=== PATIENT | female | born 1935 | race Caucasian/White ===

== ENCOUNTER 2021-08-03 08:23 | Outpatient (CLI) | payer MEDICARE, SELFPAY ==
--- NOTE | ~2021-08-03 | MM_ITS ---
EXAMINATION: MM screening [facility] BI w joel HISTORY: Screening TECHNIQUE: Craniocaudal and mediolateral oblique 3-D tomosynthesis images were obtained and synthetic 2-D images were generated. CAD analysis was submitted and interpreted. COMPARISON: Comparison to multiple prior studies sequentially, with oldest reviewed study dated 08/2014. BREAST PARENCHYMAL COMPOSITION: There are scattered areas of fibroglandular density. FINDINGS: There is no evidence of suspicious mass, calcification, or architectural distortion to sugg est malignancy in either breast. There has been no suspicious interval change. IMPRESSION: 1. No mammographic evidence of malignancy. 2. Recommend routine screening mammography in one year. BI-RADS Category 1: Negative Reviewed, dictated and finalized at location A.
== END 2021-08-03 08:24 | disposition home or self-care (01) ==
PROVIDERS: PCP Family Medicine; Visit Provider Student in an Organized Health Care Education/Training Program
DX: Z12.31 Encounter for screening mammogram for malignant neoplasm of breast (principal)
CPT/HCPCS: 77063; 77067

== ENCOUNTER 2021-11-05 12:27 | Emergency (ER) | payer MEDICARE, SELFPAY ==
[2021-11-05 12:38] VITALS: BP 148/85; PULSE 62; RESP 16; TEMP 36.7; O2SAT 98
--- NOTE | 2021-11-05 13:21 | ED.URI ---
HPI - URI/Sore Throat General Chief Complaint: Upper Respiratory Infection Stated Complaint: Sore Throat Source: patient Mode of arrival: ambulatory Limitations: no limitations History of Present Illness HPI Narrative: Patient is an 86-year-old female who presents with sore throat x1 day. She reports pain of 7/10. Reports Covid vaccinated. She denies cough, congestion, shortness of breath or fever. Patient was concerned for strep throat. Denies recent sick contacts. Related Data Home Medications Medication Instructions Recorded Confirmed diltiazem HCl 180 mg capsule,24 180 mg PO DAILY 10/15/19 11/05/21 hr,extended release potassium chloride 20 mEq 20 meq PO DAILY 10/15/19 11/05/21 tablet,extended release rivaroxaban 15 mg tablet 15 mg PO DAILY 10/15/19 11/05/21 cyanocobalamin (vitamin B-12) 1,000 mcg PO DAILY 07/04/20 11/05/21 1,000 mcg tablet,extended release ferrous sulfate 325 mg (65 mg 325 mg PO DAILY 07/04/20 11/05/21 iron) tablet omega-3 fatty acids 1,000 mg 1,000 mg PO DAILY 07/04/20 11/05/21 capsule cholecalciferol (vitamin D3) 25 25 mcg PO DAILY 09/14/20 11/05/21 mcg (1,000 unit) capsule docusate sodium 50 mg capsule 50 mg PO DAILY 09/14/20 11/05/21 multivitamin 1 tablet PO DAILY 09/14/20 11/05/21 propylene glycol 0.6 % eye drops 1 drp OPHTHALMIC (EYE) QID 09/14/20 11/05/21 calcium carbonate 500 mg calcium 500 mg PO BID 02/13/21 11/05/21 (1,250 mg) chewable tablet Allergies Allergy/AdvReac Type Severity Reaction Status Date / Time No Known Allergies Allergy Verified 11/05/21 12:52 Review of Systems Review of Systems: CONSTITUTIONAL: Denies fever, chills, or sweats. EYES: Denies visual changes, redness, or discharge. ENT: Reports sore throat, denies rhinorrhea, congestion or otalgia CARDIOVASCULAR: Denies chest pain, palpitations, or edema. RESPIRATORY: Denies cough or dyspnea. GASTROINTESTINAL: Denies abdominal pain, nausea, vomiting, or diarrhea. GENITOURINARY: Denies dysuria or hematuria. SKIN: Denies rash or itching. MUSCULOSKELETAL: Denies back pain, joint pain, or myalgia. NEUROLOGIC: Denies headache, numbness, dizziness, or weakness. PSYCHIATRIC: Denies anxiety or depression. 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kin cancer Tricuspid valve regurgitation Urinary frequency UTI (urinary tract infection) Vitamin B12 deficiency anemia Vitamin D deficiency, unspecified Surgical History Surgical History H/O bilateral oophorectomy History of breast biopsy History of cholecystectomy History of colon resection History of knee surgery History of partial hysterectomy Family History Family History Mother Hypertension, Onset Age: 90 Family history of cardiovascular disease, Onset Age: 90 Father Carcinoma of colon, Onset Age: 62 Grandparent Family history of malignant neoplasm of breast in first degree relative, Onset Age: 64 Cerebrovascular accident, Onset Age: 82 Family history of malignant neoplasm of breast Social History Social History Smoking status: Never smoker Second hand tobacco smoke exposure: No Alcohol intake: never Comments At the time of signature, I have reviewed and agree with nursing past medical, surgical, social, and family history unless otherwise noted. Please see nursing chart for further information. There is no relevant family history pertinent to the presenting complaint. Exam Narrative: GENERAL: Well-appearin
== END 2021-11-05 13:40 | disposition home or self-care (01) ==
PROVIDERS: Emergency Provider Nurse Practitioner
DX: J02.9 Acute pharyngitis, unspecified (principal); J06.9 Acute upper respiratory infection, unspecified; I10 Essential (primary) hypertension; E53.8 Deficiency of other specified B group vitamins; E55.9 Vitamin D deficiency, unspecified; Z85.828 Personal history of other malignant neoplasm of skin; Z90.711 Acquired absence of uterus with remaining cervical stump; I08.1 Rheumatic disorders of both mitral and tricuspid valves
CPT/HCPCS: 87081; 87880; 99213; G0463

== ENCOUNTER 2021-12-25 15:26 | Emergency (ER) | payer MEDICARE, SELFPAY ==
--- NOTE | ~2021-12-25 | XR_ITS ---
XR chest 2V 12/25/2021 15:50 Indication: Chest pain Procedure: 2 view chest Comparison: Comparison to multiple prior studies sequentially, with oldest reviewed study dated 09/02. Findings: Large hiatal hernia. Borderline heart size. There is left basilar atelectasis. No focal pne umonia, edema, pleural effusion or pneumothorax. No acute osseous abnormality. Impression: 1: No acute cardiopulmonary disease. 2: Large hiatal hernia. Reviewed, dictated and finalized at location B. C BOOK WRITER Impression: 1: No acute cardiopulmonary disease. 2: Large hiatal hernia.
[2021-12-25 15:28] VITALS: BP 119/70; PULSE 106; RESP 16; TEMP 36.6; O2SAT 97
--- NOTE | 2021-12-25 15:30 | ECG_ITS ---
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
[2021-12-25 15:51] LABS: Basophils Percent Auto 0.6 % (0.2-1.2); Eosinophils Absolute Auto 0.1 K/mm3 (0-0.3); Eosinophils Percent Auto 1.1 % (0-4.4); Hemoglobin 13.8 g/dL (12.0-15.0); Immature Granulocyte Absolute 0.03 K/mm3 (0.00-0.031); Immature Granulocyte Percent A 0.5 % (0-0.5); Lymphocytes Absolute Auto 1.44 K/mm3 (0.9-3.2); Mean Corpuscular HGB Conc 32.9 g/dl (32-36); Mean Corpuscular Hemoglobin 33.5 pg (26-34); Mean Corpuscular Volume 101.9 fl (80-100); Mean Platelet Volume 8.8 fl (7.4-10.4); Monocytes Absolute Auto 0.4 K/mm3 (0.1-0.6); Monocytes Percent Auto 6.9 % (2.6-8.5); Neutrophils Absolute Auto 4.3 K/mm3 (1.3-6.7); Neutrophils Percent Auto 67.9 % (45.5-73.1); Platelet Count Result 180 k/mm3 (150-375); Red Blood Count 4.12 M/mm3 (4.2-5.4); Red Cell Distribution Width 13.2 % (11.5-14.5); White Blood Count 6.3 K/mm3 (4.5-10.0)
[2021-12-25 15:58] LABS: Alanine Aminotransferase 17 U/L (4-35); Albumin Level 4.7 g/dL (3.5-5.1); Alkaline Phosphatase 76 U/L (38-126); Anion Gap 7 mmol/L (8-16); Aspartate Amino Transferase 26 U/L (14-36); Bilirubin,Total 0.4 mg/dL (0.2-1.3); Blood Urea Nitrogen 23 mg/dL (7-17); Calcium 9.6 mg/dL (8.4-10.2); Carbon Dioxide 24 mmol/L (22-30); Chloride 105 mmol/L (98-107); Estimated CRCL calculation 31 ml/min; Estimated Glomerular Filt Rate 43; Glucose 114 mg/dL (65-110); INR 1.4; Lipase 131 U/L (23-300); Potassium 4.9 mmol/L (3.4-5.0); Prothrombin Time 17.2 Seconds (11.1-14.7); Sodium 136 mmol/L (137-145)
[2021-12-25 15:59] LABS: Partial Thromboplastin Time 35.2 SECONDS (22.3-36.8)
[2021-12-25 16:10] LABS: Troponin I < 0.012 ng/mL (0.000-0.034)
[2021-12-25 19:46] VITALS: BP 138/64; PULSE 98; TEMP 36.3; O2SAT 98
[2021-12-25 20:30] LABS: Troponin I < 0.012 ng/mL (0.000-0.034)
[2021-12-25 22:13] LABS: Troponin I < 0.012 ng/mL (0.000-0.034)
[2021-12-25 23:24] VITALS: BP 162/99; PULSE 92; RESP 20; O2SAT 98
--- NOTE | 2021-12-25 23:53 | ED.CHESTPAIN ---
HPI - Chest Pain General Chief Complaint: Chest Pain Stated Complaint: chest pain Time Seen by Provider: 12/25/21 22:46 Source: patient and family Mode of arrival: ambulatory Limitations: no limitations History of Present Illness HPI narrative: 86-year-old female History of chronic atrial fibrillation but no history of coronary artery disease Follows with Dr. Ariza Came to the ED today because she had chest pain last night and again late this morning She reported that last night the pain started when she was lying down on her left side and that she rolled over and it promptly resolved Today she started noticing a tightness or heaviness also in the left side of her chest around 10 AM, not aware of anything that brought it on or cause it to become better or worse Does not radiate and there are no associated symptoms such as shortness of breath lightheadedness diaphoresis or nausea However even some 12 hours after onset she still has some lingering discomfort Due to boarding in overcrowding she actually had 3 troponins drawn sent and resulted while she was still in the waiting room and they were all normal Related Data Home Medications Medication Instructions Recorded Confirmed diltiazem HCl 180 mg capsule,24 180 mg PO DAILY 10/15/19 11/05/21 hr,extended release potassium chloride 20 mEq 20 meq PO DAILY 10/15/19 11/05/21 tablet,extended release rivaroxaban 15 mg tablet 15 mg PO DAILY 10/15/19 11/05/21 cyanocobalamin (vitamin B-12) 1,000 mcg PO DAILY 07/04/20 11/05/21 1,000 mcg tablet,extended release ferrous sulfate 325 mg (65 mg 325 mg PO DAILY 07/04/20 11/05/21 iron) tablet omega-3 fatty acids 1,000 mg 1,000 mg PO DAILY 07/04/20 11/05/21 capsule cholecalciferol (vitamin D3) 25 25 mcg PO DAILY 09/14/20 11/05/21 mcg (1,000 unit) capsule docusate sodium 50 mg capsule 50 mg PO DAILY 09/14/20 11/05/21 multivitamin 1 tablet PO DAILY 09/14/20 11/05/21 propylene glycol 0.6 % eye drops 1 drp OPHTHALMIC (EYE) QID 09/14/20 11/05/21 calcium carbonate 500 mg calcium 500 mg PO BID 02/13/21 11/05/21 (1,250 mg) chewable tablet Allergies Allergy/AdvReac Type Severity Reaction Status Date / Time No Known Allergies Allergy Verified 12/25/21 23:27 Review of Systems Review of Systems: All systems reviewed & are unremarkable except as noted in HPI and below Constitutional: Constitutional: Reports no additional constitutional complaints, Denies chills, Denies fever(s) and Denies headache(s) Eyes: Eyes: Reports no additional eye complaints and Denies change in vision ENT: Denies headache(s) and Denies sore throat Cardiovascular: Cardiovascular: Reports chest pain, Denies radiating jaw, neck or arm pain and Denies dyspnea Respiratory: Respiratory: Denies cough and Denies dyspnea Gastrointestinal: Gastrointestinal: Denies nausea and Denies vomiting Genitourinary: Genitourinary: Denies urinary frequency Musculoskeletal: Musculoskeletal: Denies back pain, Denies deformity, Denies arthralgias, Denies joint swelling and Denies numbness Integumentary/Breasts: Skin/Breast: Denies rash and Denies wounds Neurologic: Denies headache(s), Denies focal weakness and Denies numbness Psychiatric: Psychiatric: Reports no additional psychiatric complaints Endocrine: Endocrine: Reports no additional endocrine complaints Hematologic/Lymphatic: Hematologic/Lymphatic: Reports no additional hematologic/lymphatic complaints Allergic/Immunologic: Allergic/Immunologic: Reports no additional allergic/immunologic complaints PMFSH Past Medical History Medical History Abnormality of gait and mobility Acute non-recurrent maxillary sinusitis At high risk for falls Atrial enlargement, 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
[2021-12-26] MEDS: MAG HYDROX/AL HYDROX/SIMETH 30 ML UDC 45 ML PO (00:23)
[2021-12-26 00:47] VITALS: BP 168/99; PULSE 91; RESP 18; O2SAT 100
== END 2021-12-26 00:47 | disposition home or self-care (01) ==
PROVIDERS: Emergency Medicine; Emergency Provider Emergency Medicine; PCP Family Medicine
DX: I48.20 Chronic atrial fibrillation, unspecified (principal); R07.9 Chest pain, unspecified; I10 Essential (primary) hypertension; I08.1 Rheumatic disorders of both mitral and tricuspid valves; D51.9 Vitamin B12 deficiency anemia, unspecified; E55.9 Vitamin D deficiency, unspecified; Z87.440 Personal history of urinary (tract) infections; Z85.828 Personal history of other malignant neoplasm of skin; Z90.49 Acquired absence of other specified parts of digestive tract; Z79.01 Long term (current) use of anticoagulants; K44.9 Diaphragmatic hernia without obstruction or gangrene; I45.10 Unspecified right bundle-branch block; R94.31 Abnormal electrocardiogram [ECG] [EKG]
CPT/HCPCS: 36415; 71046; 80053; 83690; 84484; 85025; 85610; 85730; 93005; 99284; A9270

== ENCOUNTER 2025-06-22 21:19 | Emergency (ER) | payer MEDICARE, SELFPAY ==
--- NOTE | ~2025-06-22 | XR_ITS ---
EXAMINATION: XR chest 1V portable Exam Date/Time: 06/22/2025 21:40 CDT HISTORY: CP Comparison: 12/25/2021. RESULT: Lines, tubes, and devices: None. Lungs and pleura: Left basilar airspace disease. Cardiomediastinal silhouette: Stable. Large hiatal hernia. Other: No acute osseous or upper abdominal finding. IMPRESSION: Large hiatal hernia. Left basilar atelectasis/consolidation. Reviewed, dictated and finalized at location K.
--- NOTE | ~2025-06-22 | CT_ITS ---
EXAMINATION: CTA chest PE protocol DATE: 06/23/2025 6:26 CDT INDICATION: Chest pain. Elevated d-dimer. TECHNIQUE: Computed tomographic angiography (CTA) of the chest was performed with 100 mL Omnipaque-35 0 intravenous contrast. The dose-length product was 244.68 mGy-cm. Maximum intensity projection 3D-re constructions of the aorta and other arteries were constructed by the technologist on a separate work station. COMPARISON: None. FINDINGS: There is dependent atelectasis. Cannot exclude superimposed pneumonia in the left lower lob e. Moderate cardiomegaly. No evidence for aortic aneurysm or dissection. There is mild stenosis at th e origin of the left subclavian artery. No thoracic lymphadenopathy. Elevated left diaphragm. There i s a burst fracture. L1 with retropulsion. There are old healed sternal fractures. There is moderate t horacic and lumbar upper lumbar spondylosis. IMPRESSION: 1. No evidence for pulmonary embolism. 2: Dependent atelectasis. More focal consolidation in the left lower lobe is present, suspicious for underlying pneumonia. 3: Moderate cardiomegaly. 4: L1 burst fracture, likely chronic. Reviewed, dictated and finalized at location A. IMPRESSION: 1. No evidence for pulmonary embolism. 2: Dependent atelectasis. More focal consolidation in the left lower lobe is p resent, suspicious for underlying pneumonia. 3: Moderate cardiomegaly. 4: L1 burst fracture, likely chronic.
--- NOTE | 2025-06-22 21:22 | ECG_ITS ---
Test Date: 2025-06-22 21:27:01 Measurements Intervals [place] Rate: 91 P: 0 MS: 0 QRS: -35 QRSD: 102 T: 7 QT: 349 QTc: 431 Interpretive Statements ATRIAL FIBRILLATION LEFT AXIS DEVIATION [QRS AXIS < -30] ABNORMAL ECG No previous ECG available for comparison Electronically Signed On 06-23-2025 10:02:52 CDT by Dylan Quan M.D.
[2025-06-22 21:23] VITALS: BP 134/77; PULSE 100; RESP 19; TEMP 36.7; O2SAT 94
--- OUTSIDE RECORDS SUMMARY | 2025-06-22 21:52 | XMS_ITS | Continuity of Care Document ---
Author Organization [facility] Address [address] [place] [address] [address] [place] [address] Phone Care Team Providers Care Fire Equipment Operator Name Role Phone Sherie Howard Unavailable Unavailable Procedures Procedure Date Office/outpatient Visit, Est Eye Exam, New Patient Refraction Advance Directives Directive Yes / No Effective Date File Name No Information Encounters Encounter Description Practice Location Reason(s) For Visit Diagnoses Date Provider Providers Copied on Encounter Office/outpat ient Visit, Est [facility], [address] [place], [place], [id number], [place] tel:[phone] SEC [facility] No Information [phone] Anita Baumann. [address] , [address], [place], [address], [place]. tel:[phone] [facility], [address] [place] [address] [address], [place], [place], [id number], [place] tel:[phone] SEC [facility] No Information 0-200 9 Anita Baumann. [address] , [address], [place], [address], [place]. tel:[phone] Family History Family Member Type Diagnosis Age At Onset No Information Payers Payer name Insurance type Covered green party ID Authoriza tion(s) Medicare [facility] [id number] [place] [employer] [place] [id number] Social History Type Description Quantity Date Captured Comments Sex Female Smoking Status No Information Chief Complaint And Reason For Visit No Information Reason For Referral Reason For Referral No Information History Of Present Illness Encounter Date Complaint History Of Prese nt Illness No Information Functional Status Date Functional Assessmen t No Information Instructions Date Instruction Additional Infor mation No Information Assessments Type Assessment Date No Information Patient Care Teams Name Effective Dates (start - stop) Status Members No Information
--- OUTSIDE RECORDS SUMMARY | 2025-06-22 21:52 | XMS_ITS | Encounter Summary ---
Author Organization [facility] Address [address] [place] [address] Care Team Providers Care Cordage Sales Representative Name Role Phone Patricio Travis MD Primary Care Provider [phone] Patricio Travis MD Primary Care Provider [phone] Encounter Details Date Type Department Care Team (Late st Contact Info) Description 01/11/2017 Orders Only [facility] ProviderJuancarlos MD [address] [place] [id number] Social History Tobacco Use Types Packs/Day Years Used Date Smoking Tobacco: Never Alcohol Use Standard Drinks/Week Comments No 0 (1 standard drink = 0.6 oz pur e alcohol) Comments Unknown Sex and Gender Information Value Date Recorded Sex Assigned at Not on file Legal 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 Historical Provider [facility] RAD[facility] ROJAS Final Result documented in this encounter Visit Diagnoses Not on filedocumented in this encounter Care Teams Cordage Sales Representative Relationship Specialty Start Date End Date Patricio Travis MD [address] [address] PCP - General 03/01/17 Patricio Travis MD [address] [address] PCP - General 01/08/17 02/28/17 documented as of this encounter
--- OUTSIDE RECORDS SUMMARY | 2025-06-22 21:52 | XMS_ITS | Data Portability ---
Author Organization [place] - [facility], Main Office Address [address] [place] [address] Care Team Providers Care Doggy Daycare Activities Director Name Role Phone VIRGIL MCDERMOTT Primary Care Provider VIRGIL MCDERMOTT Referring Provider Assessment Encounter Date Assessment Date Assessment LastModified by Organization Details LastModified Time 05/12/2024 05/12/2024 The patient has severe primary osteoarthritis both knees as described. At her request under sterile conditions I injected the patient's bilateral knee joints in the office with 4 cc 0.5% Marcaine and 20 mg of Kenalog each. The patient tolerated the procedures well. We will see her again in 3 months if necessary she typically does very well with cortisone. She voiced understanding and agrees with the above plan she will call for any further problems difficulties or questions. Not available 05/12/2024 16:55:10 08/11/2024 08/11/2024 By today's x-ray exam the patient is noted have severe tricompartmental osteoarthritis both knees. Overall x-rays show no significant progression of the osteoarthritis compared to x-rays done more than a year ago. At her request under sterile conditions I injected both knee joints in the office today with 4 cc of 0.5% bupivacaine and 20 mg of Kenalog. Patient tolerated procedure well I will see her back in 3 months for cortisone again if necessary she voiced understanding agrees above plan she will call for any further problems difficulties or questions. Not available 08/11/2024 16:19:28 11/10/2024 11/10/2024 The patient has severe primary osteoarthritis both knee joints as described. Under sterile conditions at her request I injected the patient's bilateral knee joints in the office with 4 cc 0.5% bupivacaine and 20 mg of Kenalog each. The patient tolerated the procedures well. I will see her back in 3 months if necessary she voiced understanding and agreed with the above plan she will call for any further problems difficulties or questions. Not available 11/10/2024 16:12:05 02/09/2025 02/09/2025 The patient has severe bilateral primary osteoarthritis of the knees. We talked about treatment options she wanted proceed with cortisone therefore under sterile conditions I injected the patient's bilateral knee joints in the office with 4 cc of 0.5% bupivacaine and 20 mg of Kenalog each. The patient tolerated both injections well. I will see her back in 3 months if she wants to try the gel shots we could do this next time she is going to think about it she was given a brochure on this today. She will call us ahead of time if she wants to do that. She voiced understanding and agreed with the above plan she will call for any further problems difficulties or questions. Not available 02/09/2025 16:26:19 05/18/2025 05/18/2025 The patient has severe tricompartmental bilateral knee primary osteoarthritis. At her request under sterile conditions I injected both knee joints in the office today with 4 cc of 0.5% bupivacaine and 20 mg of Kenalog each. The patient tolerated both injections well. I will see her back in 3 months if necessary she voiced understanding and agreed with the above plan she will call for any further problems difficulties or questions. Not available 05/18/2025 16:18:49 Plan of Treatment Reminders Order Date Submit Date Provider Last Modified By Organization Details Last Modified Time Details Appointments Any 5 2024 02:45P MINNIE Van Not available Not available Not available Lab None recorded. Referral None recorded. Procedures injection /aspirati on joint/bur sa (PROC) 2024 025 [email or web address] In-Office Order, Internal Use Only DO Not Attach Compendium DO Not Attach Compendium, Do Not Delete/merge, [id number] 05/18/2025 16:00:13 injection /aspirati on joint/bur sa (PROC) 2024 025 [email or web address] In-Office Order, Internal Use Only DO Not Attach Compendium DO Not Attach Compendium, Do Not Delete/merge, [id number] 02/09/2025 15:38:21 injection /aspirati on joint/bur sa (PROC) 2023 024 [email or web address] In-Office Order, Internal Use Only DO Not Attach Compendium DO Not Attach Compendium, Do Not Delete/merge, [id number] 11/10/2024 15:35:13 injection /aspirati on joint/bur sa (PROC) 2023 024 [email or web address] In-Office Order, Internal Use Only DO Not Attach Compendium DO Not Attach Compendium, Do Not Delete/merge, [id number] 08/11/2024 15:40:25 injection /aspirati on joint/bur sa (PROC) - in office procedure , administe red by provider 2023 024 [email or web address] In-Office Order, Internal Use Only DO Not Attach Compendium DO Not Attach Compendium, Do Not Delete/merge, [id number] 05/12/2024 16:03:16 Surgeries None recorded. Imaging XR, knee 2023 024 [email or web address] [facility] [place], [address] [facility] [address], [place], [address], 08/11/2024 17:07:02 Medication Orders bupivacai ne HCl 0.5 % (5 mg/mL) injection solution 2024 025 [email or web address] [facility] [place] [address], [place], [address], 05/18/2025 16:52:24 Kenalog 10 mg/mL suspensio n for injection 2024 025 [email or web address] [facility] [place] [address], [place], [address], 05/18/2025 16:52:24 bupivacai ne HCl 0.5 % (5 mg/mL) injection solution 2024 [address] [facility] [place] [address], [place], [address], 02/09/2025 15:42:51 Kenalog 10 mg/mL suspensio n for injection [address] [facility] [place] [address], [place], [address], 02/09/2025 15:42:51 bupivacai ne HCl 0.5 % (5 mg/mL) injection solution [address] [facility] [place] [address], [place], [address], 11/10/2024 16:12:23 Kenalog 10 mg/mL suspensio n for injection [address] [facility] [place] [address], [place], [address], 11/10/2024 16:12:23 bupivacai ne HCl 0.5 % (5 mg/mL) injection solution [address] [facility] [place] [address], [place], [address], 08/11/2024 17:07:02 Kenalog 10 mg/mL suspensio n for injection [address] [facility] [place] [address], [place], [address], 08/11/2024 17:07:02 Kenalog 10 mg/mL suspensio n for injection [address] [facility] [place] [address], [place], [address], 05/12/2024 16:52:00 Marcaine (PF) 0.5 % (5 mg/mL) injection solution 2023 024 [email or web address] [facility] [place] [address], [place], [address], 05/12/2024 16:52:00 Patient TargetsNo targets recorded. Patient InstructionsNo instructions recorded. Reason for Referral None Reported. Results Created Date Observation Date Name Description Value Unit Range Abnormal Flag Note LastModifiedBy Organization Detail LastModifiedTime 08/11/20 24 XR, knee No observ ation record ed. [email or web address] [facility] [place] [address], [place], [address], 08/11/2024 16:20:09 Result Notes None recorded. 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 76612990 Active Not Available [facility] 3 02:50:27 Bilateral osteoarthr itis of knees 0481052086463 07 Active 2022 JUDY Michelle, [employer] [facility] [employer] 3 15:56:01 Bilateral shoulder joint pain 3596492505762 9104 Active 2022 SATISH Rucker, [employer] 3 15:40:53 Pain of bilateral knee joints 5466367198420 04 Active 2023 MINNIE Talamantes [address], [place], [address] , [facility] [place] [facility] 4 16:25:48 Pain of knee region 7539045252 Active 2024 MINNIE Talamantes [address], [address], [place], [address] , [facility] [employer] [facility] 5 16:18:58 Problem Notes None recorded. Procedures Surgical History Date Name Laterality Status Provider Name and Address Organization Details Recorded Time 03/12/20 23 Ortho - Visc completed Blayne Howe MD [address], [place], [address], [facility] [employer] [facility] [employer] [facility] 03/12/2023 15:50:22 03/05/20 23 Ortho - Visc completed Blayne Howe MD [address] [facility] [facility], [address], [place], [address], [facility] [employer] [facility] [employer] [facility] 03/05/2023 16:14:00 02/27/20 23 Ortho - Visc completed Blayne Howe MD [address], [place] [address], [place], [address], [facility] [employer] [facility] 02/26/2023 16:06:02 Hysterectomy completed Lisa Narvaez [facility] [employer] [facility] 05/12/2024 16:00:45 Gallbladder Surgery completed Lisa Solange, [facility] [employer] [facility] 05/12/2024 16:00:10 Hernia Surgery completed Not Available [employer] [facility] 01/30/2023 02:44:34 Colon Surgery completed Lisa Narvaez [facility] [employer] [facility] 05/12/2024 16:00:03 Imaging Results None recorded. Procedure Notes None recorded. Medical Equipment None Reported. Allergies No known drug allergies Medications Name Sig Start Date Stop Date Status Note LastModified by Organization Details LastModified Time cyclobenzap rine 10 mg tablet 10/05 completed Not Available Not Available Not Available budesonide 32 mcg/actuati on nasal spray active Not Available Not Available Not Available potassium chloride ER 10 mEq capsule,ext ended release 02/08 completed Not Available Not Available Not Available prednisone 10 mg tablet 10/05 completed Not Available Not Available Not Available diltiazem ER (XR/XT) 240 mg capsule,ext ended release 24 hr, controlled active Not Available Not Available N ot Available bupivacaine HCl 0.5 % (5 mg/mL) injection solution Take 8 mL by injection route. 2024 active Not Available Not Available Not Avai lable prednisone 20 mg tablet 05/12 completed Not Available Not Available Not Available potassium chloride ER 10 mEq tablet,exte nded release active Not Available Not Available Not Available ciprofloxac in 500 mg tablet TAKE ONE TABLET BY MOUTH EVERY TWELVE HOURS 02/26 completed Not Available Not Available Not Available tramadol 50 mg tablet TAKE ONE TABLET BY MOUTH THREE TIMES A DAY NEEDED PAIN active Not Available Not Available No t Available terbinafine HCl 250 mg tablet 10/05 completed Not Available Not Available Not Available potassium chloride ER 20 mEq tablet,exte nded release(par t/cryst) active Not Available Not Available Not Available prednisolon e acetate 1 % eye drops,suspe nsion 10/05 completed Not Available Not Available Not Available imiquimod 5 % topical cream packet 10/05 completed Not Available Not Available Not Available Kenalog 10 mg/mL suspension for injection Take 4 mL by injection route. 2024 active [facility]: 0003- 0494- 20 Not Available Not Available Not Available hydrocodone 7.5 mg-acetamin ophen 325 mg tablet 10/05 completed Not Available Not Available Not Available cephalexin 500 mg capsule 02/26 completed Not Available Not Available Not Available erythromyci n 5 mg/gram (0.5 %) eye ointment 05/02 completed Not Available Not Available Not Available oseltamivir 75 mg capsule 02/26 completed Not Available Not Available Not Available tobramycin 0.3 % eye drops 10/05 completed Not Available Not Available Not Available furosemide 20 mg tablet active Not Available Not Available Not Available estradiol 0.01% (0.1 mg/gram) vaginal cream 02/26 completed Not Available Not Available Not Available lisinopril 40 mg tablet active Not Available Not Available Not Available cefdinir 300 mg capsule TAKE ONE CAPSULE BY MOUTH EVERY TWELVE HOURS 02/26 completed Not Available Not Available Not Available fluticasone propionate 50 mcg/actuati on nasal spray,suspe nsion SPRAY 1 SPRAY IN EACH NOSTRIL TWO TIMES A DAY 02/08 completed Not Available Not Available Not Available diltiazem ER (XR/XT) 180 mg capsule,ext ended release 24 hr, controlled Take 1 capsule every day by oral route. 02/26 completed Not Available Not Available Not Available amoxicillin 500 mg-potsimoneu m clavulanate 125 mg tablet active Not Available Not Available Not Available neomycin 3.5 mg/g-polymy blaise B 10,000 unit/g-dexa meth 0.1 % eye oint 10/05 completed Not Available Not Available Not Available Marcaine (PF) 0.5 % (5 mg/mL) injection solution Take 40 mg by injection route. 2023 active Not Available Not Available Not Avai lable ORTHOVISC 30 mg/2 mL intra-artic ular syringe in office 05/12 completed [facility] [phone] -[phone] Not Available Not Available Not Available nitrofurant oin monohydrate /macrocryst als 100 mg capsule TAKE ONE CAPSULE BY MOUTH EVERY TWELVE HOURS FOR 5 DAYS MUST ADMINISTE R WITH A MEAL/FOOD 02/26 completed Not Available Not Available Not Available potassium 05/12 completed Not Available Not Available Not Available lidocaine (PF) 10 mg/mL (1 %) injection solution In office injection administe red by the provider 02/26 completed [facility]: [phone] [phone]- 17 Not Available Not Available Not Available lidocaine (PF) 5 mg/mL (0.5 %) injection solution Take 60 mg by injection route. 02/26 completed Not Available Not Available Not Available Prevnar 13 (PF) 0.5 mL intramuscul ar syringe ADM 0.5ML IM UTD 10/05 completed Not Available Not Available Not Available ropivacaine (PF) 5 mg/mL (0.5 %) injection solution Take 40 mg by injection route. 05/12 completed [facility] 91791 -[phone] 01 Not Available Not Available Not Available Xarelto 15 mg tablet Take 1 tablet every day by oral route. active Not Available Not Available No t Available Ilevro 0.3 % eye drops,suspe nsion 10/05 completed Not Available Not Available Not Available Fluzone High-Dose 1826-0967 (PF) 180 mcg/0.5 mL intramuscul ar syringe ADM 0.5ML IM UTD 02/08 completed Not Available Not Available Not Available Shingrix (PF) 50 mcg/0.5 mL intramuscul ar suspension, kit 02/08 completed Not Available Not Available Not Available Fluad 2019- 65yr up(PF)45 mcg(15 mcgx3)/0.5 mL intramuscul ar syringe PER PROTOCOL 05/02 completed Not Available Not Available Not Available Vitals Date Recorded Body height Body mass index (BMI) Body weight Provider Name and Address Organization Details Last Updated DateTime 02/09/2025 160.02 cm 28 kg/m2 91138.59 g Sangeeta Gonzales [employer] 02/09/2025 15:37:05 Date Recorded Body height Body mass index (BMI) Body weight Provider Name and Address Organization Details Last Updated DateTime 05/12/2024 162.56 cm 27.1 kg/m2 87059.59 g Lisa Solange, [employer] 05/12/2024 15:56:42 Date Recorded Body height Body mass index (BMI) Body weight Provider Name and Address Organization Details Last Updated DateTime 05/18/2025 160.02 cm 27.1 kg/m2 05428.63 g Sangeeta Gonzales [employer] 05/18/2025 15:52:45 Date Recorded Body height Body mass index (BMI) Body weight Provider Name and Address Organization Details Last Updated DateTime 08/11/2024 162.56 cm 27.3 kg/m2 50770.19 g Lisa SolangeSilMachA [employer] 08/11/2024 15:38:46 Date Recorded Body height Body mass index (BMI) Body weight Provider Name and Address Organization Details Last Updated DateTime 11/10/2024 160.02 cm 28.7 kg/m2 76707.96 g Lisa WikibonA [employer] 11/10/2024 15:33:29 Social History Question Answer Notes LastModified by Organizat ion Details LastModified Time Tobacco Smoking Status Never Smoker Not Available [employer] 01/30/2023 02:29:59 What Was The Date Of Your Most Recent Tobacco Screening? 05/18/2025 Information not available 05/18/2025 Sex: Unknown Functional Status Question Answer Note LastModified by Organizat ion Details LastModified Time What is your level of alcohol consumption? None [id number] Information not available 01/30/2023 Mental Status None recorded. Family History Relationship Description Onset Age of this Age Resolved Age Notes LastModified by Organization Details LastModified Time Mother Heart disease [email or web address] Not available 2023 15:58:42 Father Family history of malignant neoplasm [email or web address] Not available 2023 15:58:47 Unspecified Relation Hypertensive disorder [id number] Not available 01/30/2023 02:44:35 Unspecified Relation Arthritis father 's side of the family [email or web address] Not available 05/12/2024 15:59:28 Notes:Mother and brother - h eart Medical History Condition Response CANCER: SPECIFY Y ARTHRITIS Y USE OF BLOOD THINNERS Y ANEMIA/BLOOD DISORDER Y SKIN PROBLEMS Y HEART DISEASE/HEART PROBLEMS Y OSTEOPOROSIS Y USE OF NSAIDS Y HYPERTENSION Y Gynecological HistoryNo gynecological history recorded. Obstetrics History GPAL:G 0 P 0 0 0 0 Past Encounters Encounter ID Performer Location Encounter Start Date Encounter Closed Date Diagnosis/Indication Diagnosis SNOMED-CT Code Diagnosis ICD10 Code Diagnosis Note [id number] MINNIE Talamantes [facility] [address] [place] [address] 02/09/2021 00:00:00 02/09/2021 09:41:26 [id number] MINNIE Talamantes [facility] [address] [place] [address] 05/11/2021 00:00:00 05/11/2021 09:24:55 [id number] MINNIE Talamantes [facility] [address] [place] [address] 08/10/2021 00:00:00 08/10/2021 09:16:21 [id number] Blayne Howe MD [facility] [address] [place] [address] 11/09/2021 00:00:00 11/09/2021 09:29:41 [id number] Blayne Howe MD [facility] [address] [place] [address] 02/08/2022 00:00:00 02/08/2022 11:46:24 [id number] Blayne Howe MD [facility] [address] [place] [address] 05/18/2022 00:00:00 05/18/2022 14:39:00 [id number] Elito Verde MD [facility] [address] [place] [address] 08/21/2022 00:00:00 08/21/2022 16:03:22 [id number] Blayne Howe MD [facility] [address] [place] [address] 11/27/2022 00:00:00 11/27/2022 15:41:20 [id number] Blayne Howe MD [facility] [address] [place] [address] 02/26/2023 15:31:47 02/26/2023 16:18:18 Bilateral osteoarthritis of knees 7897788398 72998 M17.0 [id number] Blayne Howe MD [facility] [address] [place] [address] 03/05/2023 15:40:10 03/05/2023 16:17:32 Bilateral osteoarthritis of knees 4381414794 81653 M17.0 [id number] Blayne Howe MD [facility] [address] [place] [address] 03/12/2023 15:34:26 03/12/2023 15:55:08 Bilateral osteoarthritis of knees 3803787721 14270 M17.0 [id number] Blayne Howe MD [facility] [address] [place] [address] 04/23/2023 15:34:42 04/23/2023 16:05:50 Bilateral osteoarthritis of knees 9350709957 72391 M17.0 [id number] Blayne Howe MD [facility] [address] [place] [address] 07/30/2023 15:36:14 08/01/2023 09:32:44 Bilateral osteoarthritis of knees 7880011431 05362 M17.0 [id number] MINNIE Talamantes [facility] [address] [place] [address] 11/05/2023 15:29:33 11/05/2023 16:24:21 Bilateral osteoarthritis of knees 3156360972 48450 M17.0 [id number] Pranav Trejo MD [facility] [address] [place] [address] 02/04/2024 15:28:20 02/04/2024 16:05:15 Bilateral osteoarthritis of knees 3421769308 28219 M17.0 Pain of bi lateral knee joints 3030414144 94872 M25.561 M25.290 [id number] Pranav Trejo MD [facility] [address] [place] [address] 05/12/2024 15:34:51 05/12/2024 16:36:40 Pain of bilateral knee joints 7253610811 87856 M25.561 M25.562 Bilateral osteoarthritis of knees 4706101175 24096 M17.0 [id number] Pranav Trejo MD [facility] [address] [place] [address] 08/11/2024 15:36:22 08/11/2024 16:20:01 Bilateral osteoarthritis of knees 8989141054 98690 M17.0 Pain of bi lateral knee joints 2972925336 78762 M25.561 M25.823 [id number] Pranav Trejo MD [facility] [address] [place] [address] 11/10/2024 15:30:20 11/10/2024 15:55:01 Pain of bilateral knee joints 5371771431 42704 M25.561 M25.562 Bilateral osteoarthritis of knees 5190258029 99901 M17.0 [id number] Pranav Trejo MD [facility] [address] [place] [address] 02/09/2025 15:32:03 02/09/2025 16:44:35 Bilateral osteoarthritis of knees 5287028192 37062 M17.0 Pain of bi lateral knee joints 2542933311 69128 M25.561 M25.165 [id number] Pranav Trejo MD [facility] [address] [place] [address] 05/18/2025 15:33:32 05/30/2025 00:05:46 Bilateral osteoarthritis of knees 3390256560 91753 M17.0 Pain of knee region 1003 288995 M25.561 M25.562 G89.29 Health Concerns Section Related Observation LastModified by Organization Detai ls LastModified Time None Recorded Concern Status LastModified by Organization Details LastModified Time None Recorded Advance Directives Directive None Recorded Payers Insurance Date Sequence Insurance Name Policy Number Policy Newell Covered Member ID Newell Member ID Guarantor Name 05/15/2025 1 [place] Talha Reyna [id number] Talha Reyna 05/30/2025 2 [employer] (MEDICARE SUPPLEMENT) [employer] Talha Reyna [id number] Talha Reyna Notes Date Note Type Note Provider Name and Address Organization Details Recorded Time 05/12/2024 text/html patient returns requesting bilateral knee injections. She is 88 years of age not a candidate for total knee arthroplasty not interested in knee surgery because she gets by with cortisone injections does very well with these. She has severe [id number] tricompartmental osteoarthritis in both knees. She comes in in about every 3 months and the shots typically work until about the last week or so. She uses a rolling walker for support gets around pretty well with the shots denies any new problems with either knee she comes in today requesting cortisone injections bilaterally. New past medical history sheet was reviewed and signed on the intake sheet of today's date drug allergies current medications family social history previous surgical history 10 point review of systems was reviewed and discussed in detail today with the patient. The patient lives in assisted living is not all that active but the shots do help her get around fairly well. MINNIE Talamantes [address], [place], [address], [employer] 05/12/2024 16:55:26 08/11/2024 text/html Patient returns requesting bilateral knee injections she has severe primary osteoarthritis it has been more than a year since her last x-rays we are getting new x-rays today to check the progression of the osteoarthritis. She states she has aching pain that limits her activities. She has long walk from her room at the shelter to her dining area she makes the walk with a walker but is considering getting a scooter to help her get by. We talked about the fact that she needs to keep her knees moving to keep them from getting too stiff she otherwise does pretty well. She denies any new problems shots of cortisone 3 months ago gave her good relief until about a week or so ago she would like to have them both injected again today. MINNIE Talamantes [address], [place], [address], [employer] 08/11/2024 16:20:42 11/10/2024 text/html Patient returns for bilateral knee cortisone injections. She gets injections every 3 months she has severe primary osteoarthritis tricompartmental in nature. It has been 3 months since her last injections they worked well for her only recently her knees have flared up again she would like to repeat them today denies any new problems. At 89 years of age she is not interested in total knee arthroplasty and not a good candidate for it anyway. MINNIE Talamantes [address], [place], [address], [employer] 11/10/2024 16:12:19 02/09/2025 text/html the patient retu rns with bilateral knee pain she has severe primary osteoarthritis in both knee joints not a candidate for total knee arthroplasty due to her age and other medical issues. She gets by with conservative measures however she states that the cortisone injections do not give her the same kind of relief that they used to years ago. She denies any new problems with either knee. We did talk about the possibility of doing gel shots however she is going to wait and see how things go she would like to do cortisone both knees today. She is thinking that maybe next time we will do the gel shots. The patient has tricompartmental [id number] osteoarthritis both knees. MINNIE Talamantes [address], [address], [place], [address], [employer] [facility] [employer] 02/09/2025 16:27:00 05/18/2025 text/html The patient retu rns with bilateral knee pain. She has severe bilateral primary osteoarthritis of the knees. Denies any new problems with the knees she has recurrence of all pain we did cortisone 3 months ago she comes in today for bilateral injections again. She has aching pain about an 8 on a scale of 1-10 the shots of cortisone worked very well last time for a couple of months then her pain has returned. She has had no new trauma or injury no erythema effusion or signs of infection. She does walk with a walker she is 89 years of age so not a candidate for total knee arthroplasty. Lives in an assisted living facility gets around pretty well as long as she has cortisone although somewhat limited in what she can do. Tricompartmental xypt-tp-dure osteoarthritis is noted in both knees. A new past medical history sheet was reviewed and signed on the intake sheet today's date drug allergies current medications family social history previous surgical history 10 point review of systems was reviewed and discussed in detail today with the patient.The patient's previous x-rays were also reviewed with her in detail today. MINNIE Talamantes [address], [address], [place], [address], [employer] 05/18/2025 16:19:56 OBGyn Episode No OBEpisode recorded.
--- OUTSIDE RECORDS SUMMARY | 2025-06-22 21:52 | XMS_ITS | Encounter Summary ---
Author Organization [facility] Address [address] [place] [address] Care Team Providers Care Meat Puller Name Role Phone Patricio Travis MD Primary Care Provider [phone] Patricio Travis MD Primary Care Provider [phone] Encounter Details Date Type Department Care Team (Late st Contact Info) Description 01/08/2017 Orders Only [facility] ProviderJuancarlos MD [address] [place] [address] Social History Tobacco Use Types Packs/Day Years Used Date Smoking Tobacco: Never Alcohol Use Standard Drinks/Week Comments No 0 (1 standard drink = 0.6 oz pur e alcohol) Comments Unknown Sex and Gender Information Value Date Recorded Sex Assigned at Not on file Legal Sex Female 3:02 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 Historical Provider [facility] RADHA ROJAS Final Result documented in this encounter Visit Diagnoses Not on filedocumented in this encounter Care Teams Meat Puller Relationship Specialty Start Date End Date Patricio Travis MD [address] [address] PCP - General 03/01/17 Patricio Travis MD [address] [address] PCP - General 01/08/17 02/28/17 documented as of this encounter
--- OUTSIDE RECORDS SUMMARY | 2025-06-22 21:52 | XMS_ITS | Clinical Summary ---
Author Organization [facility] Address [address] [place] [address] Care Team Providers Care Pipe Testing Technician Name Role Phone Unavailable Primary Care Provider Unavailabl e Source Comments [facility] [employer],non-owned Affiliates and Associated Physician Practices is amultiple site organization consisting of ambulatory clinics and hospital sitesin [place], [place], [place] and [place]. This disclosure is being madepursuant to the Care Everywhere program and may not contain all information available regarding this patient. 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 Gender Identity Not on file Sexual Orientation Not on file Plan of Treatment Health Maintenance Due Date Last Done Comments BONE DENSITY TESTING 1936 DTAP/TDAP/TD VACCINES (1 - Tdap) 1955 PNEUMOCOCCAL VACCINE 50+ (1 of 1 - PCV) 1986 ZOSTER VACCINE (1 of 2) 1986 Respiratory Syncytial Virus (RSV) Vaccine Pt: or over 60 yrs (1 - 1-dose 75+ series) 2011 COVID-19 VACCINE ( - 2023-2 5 season) 2024 DEPRESSION SCREENING 12/02/2024 INFLUENZA VACCINE (#1) 2025 HEPATITIS B VACCINE Aged Out No longe r eligible based on patient's age to complete this topic HIB VACCINE Aged Out No longer eligi ble based on patient's age to complete this topic HPV VACCINE Aged Out No longer eligi ble based on patient's age to complete this topic MENINGOCOCCAL (Group B) VACC INE SHARED DECISION-MAKING Aged Out No longer eligibl e based on patient's age to complete this topic MENINGOCOCCAL GROUPS A/C/Y/W VACCINE Aged Out No longer eligible b ased on patient's age to complete this topic Insurance MEDICARE
--- OUTSIDE RECORDS SUMMARY | 2025-06-22 21:52 | XMS_ITS | Data Portability ---
Author Organization [facility] Address [address] [place] [address] Assessment No assessment recorded. Plan of Treatment Reminders Order Date Submit Date Provider Last Modified By Organization Details Last Modified Time Details Appointments None recorded. Lab None recorded. Referral None recorded. Procedures None recorded. Surgeries None recorded. Imaging None recorded. Medication Orders azelastine 137 mcg (0.1 %) nasal spray 2024 025 [facility] [place], [address] [place], [address], 16:05:04 Patient TargetsNo targets recorded. Patient InstructionsNo instructions recorded. Reason for Referral None Reported. Medical Equipment None Reported. Allergies No known drug allergies Medications Name Sig Start Date Stop Date Status Note LastModified by Organization Details LastModified Time diltiazem ER (XR/XT) 240 mg capsule,ext ended release 24 hr, controlled active Not Available Not Available N ot Available potassium chloride ER 10 mEq tablet,exte nded release active Not Available Not Available Not Available ciprofloxac in 500 mg tablet 06/08 completed Not Available Not Available Not Available tramadol 50 mg tablet TAKE ONE TABLET BY MOUTH THREE TIMES A DAY NEEDED PAIN active Not Available Not Available No t Available furosemide 20 mg tablet active Not Available Not Available Not Available azelastine 137 mcg (0.1 %) nasal spray [place] 2 sprays twice a day by intranasa l route. 2024 active Not Available Not Available Not Avai lable lisinopril 40 mg tablet active Not Available Not Available Not Available nitrofurant oin monohydrate /macrocryst als 100 mg capsule 06/08 completed Not Available Not Available Not Available Xarelto 15 mg tablet active Not Available Not Available No t Available Vitals Date Recorded Body height Body mass index (BMI) Body weight Respiratory rate Body temperature Systolic And Diastolic Provider Name and Address Organization Details Last Updated DateTime 162.56 cm 28.6 kg/m2 06921.2 1 g 16 /min 97.6 [degF] 116/82 mm[Hg] Ragini Martines MA [facility] 3 16:02:07 Date Recorded Body height Body mass index (BMI) Body weight Heart rate Systolic And Diastolic Provider Name and Address Organization Details Last Updated DateTime 06/08/2025 162.56 cm 26.9 kg/m2 90818 g 170 /min 145/83 mm[Hg] Masha العراقي MA [facility] 06/08/2025 15:54:30 Social History Question Answer Notes LastModified by Organizat ion Details LastModified Time Tobacco Smoking Status Never Smoker [facility]ines [facility] 12/11/2022 16:05:03 Are You Blind Or Do You Have Difficulty Seeing? Yes Information n ot available 12/11/2022 What Is Your Level Of Caffeine Consumption? Moderate Information not available 12/11/2022 In The 14 Days Before Symptom Onset, Have You Had Close Contact With A Laboratory-confirm ed COVID-19 While That Case Was Ill? No Information n ot available 12/11/2022 In The 14 Days Before Symptom Onset, Have You Had Close Contact With A Person Who Is Under Investigation For COVID-19 While That Person Was Ill? No Information not available 12/11/2022 Have You Been To An Area Known To Be High Risk For COVID-19? No Information not available 12/11/2022 Are You Deaf Or Do You Have Serious Difficulty Hearing? No Information not available 12/11/2022 What Type Of Diet Are You Following? REGULAR Information n ot available 12/11/2022 What Was The Date Of Your Most Recent Tobacco Screening? 06/08/2025 [email or web address] Information not available 06/08/2025 Do You Have Any Pets? No Information not available 12/11/2022 What Is Your Relationship Status? Unknown Information not available 12/11/2022 Do You Use Sunscreen Routinely? No Information not available 12/11/2022 Sex: Female Functional Status Question Answer Note LastModified by Organization Details LastModified Time Do you use any illicit or recreational drugs? No Information not available 12/11/2022 What is your level of alcohol consumption? None Information not available 12/11/2022 What is your exercise level? None Information not available 12/11/2022 What type of noise exposure are you exposed to? noExposureToExcessiveNoise Infor mation not available 12/11/2022 Mental Status Question Answer Note LastModified by Organization D etails LastModified Time Do you feel stressed (tense, restless, nervous, or anxious, or unable to sleep at night)? [id number] Information not available 12/11/2022 Family History Nothing Reported. Medical History No medical history recorded. Gynecological HistoryNo gynecological history recorded. Obstetrics History GPAL:G 0 P 0 0 0 0 Immunizations Vaccine Type Date Status Note Provider Nam e and Address Organization Details Recorded Time Influenza, split virus, trivalent, preservative 3 completed Not Available [facility] 06/08/2025 15:47:11 Influenza, high-dose, trivalent, PF 4 completed Not Available [facility] 06/08/2025 15:47:11 Influenza, high-dose, trivalent, PF 5 completed Not Available [facility] 06/08/2025 15:47:11 Influenza, high-dose, trivalent, PF 6 completed Not Available [facility] 06/08/2025 15:47:11 Pneumococcal conjugate PCV 13 6 completed Not Available [facility] 06/08/2025 15:47:11 Influenza, high-dose, trivalent, PF 9 completed Not Available [facility] 06/08/2025 15:47:11 COVID-19, mRNA, LNP-S, PF, 100 mcg/0.5mL dose or 50 mcg/0.25mL dose 1 completed Not Available [facility] 06/08/2025 15:47:11 COVID-19, mRNA, LNP-S, PF, 100 mcg/0.5mL dose or 50 mcg/0.25mL dose 1 completed Not Available [facility] 06/08/2025 15:47:11 zoster recombinant 1 completed Not Available [facility] 06/08/2025 15:47:11 Influenza, adjuvanted, quadrivalent, PF 1 completed Not Available [facility] 06/08/2025 15:47:11 COVID-19, mRNA, LNP-S, PF, 100 mcg/0.5mL dose or 50 mcg/0.25mL dose 1 completed Not Available [facility] 06/08/2025 15:47:11 COVID-19, mRNA, LNP-S, PF, 100 mcg/0.5mL dose or 50 mcg/0.25mL dose 2 completed Not Available [facility] 06/08/2025 15:47:11 COVID-19, mRNA, LNP-S, bivalent, PF, 50 mcg/0.5 mL or 25mcg/0.25 mL dose 2 completed Not Available [facility] 06/08/2025 15:47:11 Influenza, adjuvanted, quadrivalent, PF 2 completed Not Available [facility] 06/08/2025 15:47:11 COVID-19, mRNA, LNP-S, bivalent, PF, 50 mcg/0.5 mL or 25mcg/0.25 mL dose 3 completed Not Available [facility] 06/08/2025 15:47:11 Influenza, high-dose, quadrivalent, PF 3 completed Not Available [facility] 06/08/2025 15:47:11 COVID-19, mRNA, LNP-S, PF, antonette-sucrose, 30 mcg/0.3 mL 3 completed Not Available [facility] 06/08/2025 15:47:11 Influenza, adjuvanted, trivalent, PF 4 completed Not Available [facility] 06/08/2025 15:47:11 COVID-19, mRNA, LNP-S, PF, 50 mcg/0.5 mL 4 completed Not Available [facility] 06/08/2025 15:47:11 Past Encounters Encounter ID Performer Location Encounter Start Date Encounter Closed Date Diagnosis/Indication Diagnosis SNOMED-CT Code Diagnosis ICD10 Code Diagnosis Note [id number] MD Payam Morales (Adult Med) [address] [place] [address] 12/11/2022 15:49:05 12/13/2022 09:08:44 Impacted cerumen of bilateral ears 6898436243 868314 H61.23 return prn Chronic rhinitis 9525047 6 J31.0 start OTC steroid sprays [id number] MD Payam Morales (Adult Med) [address] [place] [address] 06/08/2025 15:45:45 06/09/2025 14:28:51 Impacted cerumen of bilateral ears 1775436345 344504 H61.23 return prn Chronic rhinitis 6996802 6 J31.0 start OTC steroid sprays Health Concerns Section Related Observation LastModified by Organization Detai ls LastModified Time None Recorded Concern Status LastModified by Organization Details LastModified Time None Recorded Advance Directives Directive None Recorded Payers Insurance Date Sequence Insurance Name Policy Number Policy Newell Covered Member ID Newell Member ID Guarantor Name 06/08/2025 2 [employer] - PLAN F (MEDICARE SUPPLEMENT) Laverna Axel [id number] Laverna Axel 06/08/2025 1 [place] Laverna M Axel [id number] Laverna Axel 06/08/2025 [place] [facility] Laverna M Axel [id number] Laverna Axel 12/11/2022 1 *SELF PAY* La riley Axel Notes Date Note Type Note Provider Name and Address Organization Details Recorded Time 12/11/2022 text/html Pt complaining o f blockage of her ears. She has a hx of cerumen She also complains of nasal congestion and drainage Adryan Worley MD Attn: Accounting[address] [facility], [place], [address], [facility] 12/11/2022 16:17:23 06/08/2025 text/html Pt complaining o f blockage of her ears. She wears hearing aids and has a hx of cerumen. She also complains of nasal congestion and drainage. Masha العراقي MA null, [facility] 06/08/2025 16:16:34 OBGyn Episode No OBEpisode recorded.
--- OUTSIDE RECORDS SUMMARY | 2025-06-22 21:52 | XMS_ITS | Encounter Summary ---
Author Organization [facility] Address [address] [place] [address] Care Team Providers Care Survey Research Teacher Name Role Phone Unavailable Primary Care Provider Unavailabl e Encounter Details Date Type Department Care Team (Late st Contact Info) Description 03/08/2022 Lab Requisition [facility] [address] [place] [address] Yosi Mejia MD [address] [place], [place] [id number] Social History Tobacco Use Types Packs/Day Years Used Date Smoking Tobacco: Never Assessed Comments Unknown Sex and Gender Information Value Date Recorded Sex Assigned at Not on file Legal Sex Female 5:[address]W MEMBER Gender Identity Not on file Sexual Orientation Not on file documented as of this encounter Plan of Treatment Not on file documented as of this encounter Procedures Procedure Name Priority Date/Time Associated Diagnosis Comments DERMATOPATHOLOGY Routine 03/07/2022 12:0 0 AM CDT documented in this encounter Results * DERMATOPATHOLOGY (03/07/2022 12:00 AM CDT) Case Report Dermatopathology Report Case: [id number] Authorizing Provider: Yosi Mejia MD Collected: 03/07/2022 12:00 AM Ordering Location: [facility] Received: 03/08/2022 01:36 PM Pathologist: Estee Dior MD Specimen: Skin, right mid jawline 1:15 PM CDT DERMATOPATHOLOGY LABORATORY Final Diagnosis Specimen A. SKIN, right mid jawline: HYPERPLASTIC (HYPERTROPHIC) ACTINIC KERATOSIS (L57.0) 1:15 PM CDT DERMATOPATHOLOGY LABORATORY at 1315 CDT Clinical History R/O SCC vs. BCC 2 1:15 PM CDT DERMATOPATHOLOGY LABORATORY Gross Description Specimen A: Received is one formalin filled container labeled with the patient's name and designated right mid jawline. The specimen consists of a shave biopsy measuring 2h2d3bd. Jar 0. 2 1:15 PM CDT DERMATOPATHOLOGY LABORATORY Microscopic Description Specimen A. SKIN, right mid jawline: There is hyperkeratosis alternating with parakeratosis. There is epidermal hyperplasia with disorderly maturation of keratinocytes with nuclear pleomorphism confined to the lower half of the epidermis. 2 1:15 PM CDT DERMATOPATHOLOGY LABORATORY Disclaimer An external and internal positive and negative controls are appropriate for the histochemical, immunohistochemical and immunofluorescence stain(s) in this case (if any), except where stated explicitly. The performance characteristics of the stain(s) cited in this report were developed and its performance characteristic determined by the Dermatopathology Laboratory at [facility], directed by Dr. Wily Almeida. These tests need not be, and therefore are not, approved by the [place] Food and Drug Administration. The tests are used for clinical purposes. Billing Codes Specimen Charges Stain Charges 99641 1 2 1:15 PM CDT DERMATOPATHOLOGY LABORATORY Embedded Images 2 1:15 PM CDT DERMATOPATHOLOGY LABORATORY Pathology/Cytolog y TISSUE SPECIMEN FROM SKIN / Unknown 03/07/2022 03/08/2022 1:36 PM CDT Yosi Mejia MD LAB - PATHOLOGY/CYTOLOGY ORD ERABLES Final Result DERMATOPATHOLOGY LABORATORY [facility] - Department of Dermatology [address] [phone] documented in this encounter Visit Diagnoses Not on filedocumented in this encounter
--- OUTSIDE RECORDS SUMMARY | 2025-06-22 21:52 | XMS_ITS | Referral Summary ---
Author Organization [facility] [address] Address [address] [place] [address] Care Team Providers Care Meat Processing Center Manager Name Role Phone Patricio Travis MD Primary Care Provider [phone] [phone] Allergies No known active allergies Medications furosemide (LASIX) 20 mg tablet take 1 tablet by oral route every day 0 0 11/12/2013 Active cyanocobalamin (vitamin B-12) 1,000 mcg tablet take 1 by Oral route every day 0 0 11/12/2013 Active psyllium seed, sugar, (METAMUCIL, SUGAR,) powder 0 0 11/12/2013 Active lisinopril (PRINIVIL,ZESTR IL) 40 mg tablet take 1 tablet by oral route every day 0 0 11/12/2013 Active multivitamin tablet tablet take 1 by Oral route once 0 0 11/12/2013 Active ferrous sulfate (IRON) 325 mg (65 mg iron) capsule, extended release 0 0 11/12/2013 Active traMADol (ULTRAM) 50 mg tablet take 1 tablet by oral route every 6 hours as needed 0 0 06/17/2015 Active acetaminophen (TYLENOL) 325 mg tablet Take 2 tablets (650 mg total) by mouth every 6 (six) hours as needed for pain Active hvqmo-8-uks-epa -dpa-fish oil 1,050-1,200 mg capsule 1 capsule Active artificial tears (SYSTANE) 0.3 % gel Apply to both eyes Active cholecalciferol (VITAMIN D-3) 25 mcg (1,000 unit) tablet Take 1 tablet (1,000 Units total) by mouth daily Active docusate sodium (COLACE) 100 mg capsuleIndicati ons:constipatio n Take 1 capsule (100 mg total) by mouth 2 (two) times a day Active potassium chloride ER 10 mEq CR tablet TAKE 2 TABLETS TWICE A DAY 360 tablet 3 01/22/2024 Active dilTIAZem XR 240 mg 24 hr capsule TAKE 1 CAPSULE DAILY 90 capsule 3 12/14/2024 Active rivaroxaban (Xarelto) 15 mg tablet TAKE 1 TABLET EVERY EVENING 90 tablet 2 01/01/2025 Active Active Problems Problem Noted Date Diagnosed Date Exertional dyspnea 09/13/2020 Chronic atrial fibrillation 06/11/2017 Social History Tobacco Use Types Packs/Day Years Used Date Smoking Tobacco: Never Smokeless Tobacco: Never Tobacco Cessation:Counseling Given: Not Answered Alcohol Use Standard Drinks/Week Comments No 0 (1 standard drink = 0.6 oz pur e alcohol) PHQ-2 Answer Date Recorded PHQ-2 Total Score (If total score is 3 or more points, staff should administer the PHQ-9) 0 03/10/2020 Comments Unknown Sex and Gender Information Value Date Recorded Sex Assigned at Not on file Legal Sex Female 3:02 PM CHARGING 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 Gender Identity Not on file Sexual Orientation Not on file Occupation Industry Job Start Date Job End Date retired Not on file Not on file Not on file Last Filed Vital Signs Vital Sign Reading Time Taken Comments Blood Pressure 130/80 11/06/2024 2:52 PM CHARGING 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 Pulse 96 11/06/2024 2:52 PM CHARGING 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 Temperature 36.3 C (97.3 F) 09/16/2020 8:53 AM CDT Respiratory Rate 12 06/11/2017 9:32 AM CDT Oxygen Saturation 93% 11/06/2024 2:52 PM CHARGING 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 Inhaled Oxygen Concentration - - Weight 73.6 kg (162 lb 4.8 oz) 11/06/2024 2:52 P M CHARGING 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 Height 160 cm (5' 3) 11/06/2024 2:52 PM CHARGING 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 Body Mass Index 28.75 11/06/2024 2:52 PM CHARGING 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 Plan of Treatment Not on file Insurance [employer] SENIOR SUPPLEMENT MEDICARE MEDICARE [employer] SENIOR SUPPLEMENT Care Teams Meat Processing Center Manager Relationship Specialty Start Date End Date Patricio Travis MD [address] [phone] PCP - General 03/01/17
--- OUTSIDE RECORDS SUMMARY | 2025-06-22 21:52 | XMS_ITS | Clinical Summary ---
Author Organization [facility] Address [address] [place] [address] Phone Care Team Providers Care Spa Therapist Name Role Phone Patricio Travis MD Primary Care Provider [phone] Allergies No known active allergies Medications rivaroxaban (XARELTO) 15 MG Tablet Take 15 mg by mouth daily. Active furosemide (LASIX) 20 MG Tablet Take by mouth daily. Active lisinopril (PRINIVIL, ZESTRIL) 40 MG Tablet Take by mouth daily. Active potassium chloride (KLOR-CON) 20 MEQ Pack Take by mouth daily. Active acetaminophen (TYLENOL) 325 MG Tablet Take 325 mg by mouth 4 times daily as needed. Active ferrous sulfate 325 (65 Fe) MG Tablet Take 325 mg by mouth daily. Active traMADol (ULTRAM) 50 MG TabletIndicatio ns:SBO (small bowel obstruction) (HCC) Take 1 Tablet by mouth 4 times daily as needed for Moderate or more severe pain. 15 Tablet 06/26/2023 Active dilTIAZem (CARDIZEM CD) 240 MG CAPSULE SR 24 HR Take 240 mg by mouth daily. Active Cyanocobalamin (VITAMIN B 12 PO) Take 1 Tablet by mouth daily. Active VITAMIN D PO Take 1 Tablet by mouth daily. Active Multiple Vitamin (MULTIVITAMIN PO) Take 1 Tablet by mouth daily. Active Resolved Problems Problem Noted Date Diagnosed Date Resolved Date SBO (small bowel obstruction) 06/24/2023 06/26/2023 Family History Medical History Relation Name Comments Heart Attack Brother Allergies Daughter 1 Other-comment Daughter 1 covid No Known Problems Daughter 2 Colon Cancer Father Heart Disease Mother Hypertension Mother Osteoarthritis Mother Chronic Obstructive Pulmonary Disease Sister Osteoarthritis Sister Relation Name Status Comments Brother Daughter 1 Alive Daughter 2 Alive Father Mother Sister Alive Social History Tobacco Use Types Packs/Day Years Used Date Smoking Tobacco: Never Smokeless Tobacco: Never Tobacco Cessation:Counseling Given: Not Answered Alcohol Use Standard Drinks/Week Comments Never 0 (1 standard drink = 0.6 oz pur e alcohol) Sexually Active Control Partners Comments Not Currently Male Comments No Sex and Gender Information Value Date Recorded Sex Assigned at Not on file Legal Sex Female 6:40 AM CDT Gender Identity Not on file Sexual Orientation Not on file Last Filed Vital Signs Vital Sign Reading Time Taken Comments Blood Pressure 130/73 06/26/2023 4:55 AM CDT Pulse 72 06/26/2023 4:55 AM CDT Temperature 36.8 C (98.3 F) 06/26/2023 4:55 AM CDT Respiratory Rate 16 06/26/2023 4:55 AM CDT Oxygen Saturation 94% 06/26/2023 4:55 AM CDT Inhaled Oxygen Concentration - - Weight 74.8 kg (165 lb) 06/24/2023 6:44 AM CDT Height 162.6 cm (5' 4) 06/24/2023 6:44 AM CDT Body Mass Index 28.32 06/24/2023 6:44 AM CDT Plan of Treatment Health Maintenance Due Date Last Done Comments DEXA Bone Density 1935 Hepatitis C Virus (HCV) Screening 1935 TdaP Immunization 1935 Respiratory Syncytial Virus (RSV) Immunization (Adult) (1 - 1-dose 75+ series) 2011 Pneumococcal Immunization (50+ years) (2 of 2 - PPSV23) 10/02/2017 10/02/2016 Zoster Immunization (2 of 2) 05/05/2021 03/10/2021 SARS-COV-2 Immunization ( season) 2024 04/23/2023, 08/29/2022, 03/15/2022, Additional history exists Influenza Immunization (#1) 2025 09/07/2022, 09/06/2021, 08/31/2019, Additional history exists Hepatitis B Immunization Aged Out No longer eligible based on patient's age to complete this topic Human Papillomavirus (HPV) Immunization Aged Out No longer eligible based on patient's age to complete this topic Meningococcal Immunization (ACWY) Aged Out No longer eligible based on patient's age to complete this topic Rotavirus Immunization Aged Out No lo nger eligible based on patient's age to complete this topic Insurance MEDICARE [facility] Advance Directives * No CPR-Selective Treatment (Latest Code Status on File) Date Activated Date Inactivated Comments 06/25/2023 10:51 PM 06/26/2023 4:59 PM No CPR - Se lective Treatment: FULL ARREST: Do Not Attempt Resuscitation. PRE-ARREST: DO NOT USE INTUBATION OR MECHANICAL VENTILATION, but may use basic medical treatment like CPAP or BiPAP, antibiotics, IV fluids, oxygen, etc. Avoid care in ICU setting. Question Answer Comments Physician documentation made in notes? Yes Care Teams Spa Therapist Relationship Specialty Start Date End Date Patricio Travis MD [address] [address] PCP - General Family Medicine 06/24/23
--- OUTSIDE RECORDS SUMMARY | 2025-06-22 21:52 | XMS_ITS | Clinical Summary ---
Author Organization [facility] [place] [address] Address [address] [place] [address] Care Team Providers Care Capacity Planning Manager Name Role Phone Patricio Travis MD Primary Care Provider [phone] Allergies No known active allergies Medications furosemide [...] (six) hours as needed for pain Active [id number]-epa -dpa-fish oil 1,050-1,200 mg capsule 1 capsule [...] Exertional dyspnea 09/13/2020 Chronic atrial fibrillation 06/11/2017 Medical History Medical History Date Comments Hypertension Hypertension Anemia Anemia Hx Other Medical Renal Insuffici ency, Chronic Family History Medical History Relation Name Comments Coronary artery disease Mother 2 Theodore nary Artery Bypass Graft; Relation Name Status Comments Mother 1 Alive Mother 2 Social History Tobacco Use Types Packs/Day Years [...] on file 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 Gender Identity Not on file Sexual Orientation Not on file Occupation Industry Job Start Date Job End Date retired Not on file Not on file Not on file Obstetrics History Last Filed Vital Signs Vital Sign Reading Time Taken Comments Blood Pressure 130/80 11/06/2024 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 Pulse 96 11/06/2024 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 Temperature 36.3 C (97.3 F) 09/16/2020 8:53 AM CDT Respiratory Rate 12 06/11/2017 9:32 AM CDT Oxygen Saturation 93% 11/06/2024 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 Inhaled Oxygen Concentration - - Weight 73.6 kg (162 lb 4.8 oz) 11/06/2024 2:52 P M BOAT LABORER Height 160 cm (5' 3) 11/06/2024 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 Body Mass Index 28.75 11/06/2024 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 Plan of Treatment Health Maintenance Due Date Last Done Comments Osteoporosis Screening-Bone Density Scan 1935 DTaP/Tdap/Td Vaccine (1 - Tdap) 1947 Hepatitis B Screening 1954 Zoster Vaccine (1 of 2) 1986 Well Visit 65+ 2001 Pneumococcal vaccine 65+ (2 of 2 - PPSV23) 11/27/2016 10/02/2016 Depression Screening 03/10/2021 03/10/2020 Fall Risk Assessment 03/10/2021 03/10/2020 Influenza Vaccine (#1) 2025 9, 08/26/2016, 09/11/2015, Additional history exists Insurance [employer] [facility] MEDICARE [facility] Address: [address] [address] [place] [address] MEDICARE [employer] Care Teams Capacity Planning Manager Relationship Specialty Start Date End Date Patricio Travis MD [address] [address] PCP - General 03/01/17
[2025-06-22 22:19] LABS: Hematocrit 37.2 % (37.0-47.0); Hemoglobin 12.4 g/dL (12.0-15.0); Immature Granulocyte Percent A 0.4 % (0-0.5); Lymphocytes Absolute Auto 0.99 K/mm3 (0.9-3.2); Mean Corpuscular HGB Conc 33.3 g/dl (32-36); Mean Corpuscular Hemoglobin 33.6 pg (26-34); Mean Corpuscular Volume 100.8 fl (80-100); Nucleated Red Blood Cells Absolute Auto 0.000 K/mm3 (0.0-0.012); Nucleated Red Blood Cells Perc 0.0 % (0.0-0.2); Platelet Count Result 133 k/mm3 (150-375); Red Blood Count 3.69 M/mm3 (4.2-5.4); White Blood Count 7.6 K/mm3 (4.5-10.0)
--- NOTE | 2025-06-22 22:27 | ED_ITS ---
HPI - Chest Pain General Chief Complaint: Chest Pain Stated Complaint: CHEST PAIN Time Seen by Provider: 06/22/25 21:41 Source: patient Mode of arrival: EMS Limitations: no limitations History of Present Illness HPI narrative: This is a 89 year old female that presents to the ER for chest pain. Reports she was seated watching TV when it started. Reports the pain as a tightness on the left side of her chest. Reports the pain is worse with deep breathing. Denies fever, cough, shortness of breath. Related Data Home Medications ?Medication ?Instructions ?Recorded ?Confirmed ?Last Taken ?Type diltiazem HCl 180 mg capsule,24 180 mg PO DAILY 10/15/19 10/17/23 Unknown History hr,extended release potassium chloride 20 mEq 20 meq PO DAILY 10/15/19 10/17/23 Unknown History tablet,extended release rivaroxaban 15 mg tablet (Xarelto) 15 mg PO DAILY 10/15/19 10/17/23 Unknown History cyanocobalamin (vitamin B-12) 1,000 mcg PO DAILY 07/04/20 10/17/23 Unknown History 1,000 mcg tablet,extended release (Vitamin B-12 ER) ferrous sulfate 325 mg (65 mg 325 mg PO DAILY 07/04/20 10/17/23 Unknown History iron) tablet omega-3 fatty acids 1,000 mg 1,000 mg PO DAILY 07/04/20 10/17/23 Unknown History capsule docusate sodium 50 mg capsule 50 mg PO DAILY 09/14/20 10/17/23 Unknown History (Colace Clear) multivitamin 1 tablet PO DAILY 09/14/20 10/17/23 Unknown History propylene glycol 0.6 % eye drops 1 drp ophthalmic (eye) QID 09/14/20 10/17/23 Unknown History (Systane Balance) calcium carbonate 500 mg PO BID 02/13/21 10/17/23 Unknown History cholecalciferol (vitamin D3) 25 1,000 unit PO DAILY 08/28/22 10/17/23 Unknown History mcg (1,000 unit) capsule psyllium husk 3.4 gram/5.4 gram 1 tbsp PO BID 10/17/23 10/17/23 Unknown History oral powder (Metamucil) Allergies Allergy/AdvReac Type Severity Reaction Status Date / Time No Known Allergies Allergy Verified 12/29/24 14:45 Review of Systems 2 Review of Systems: All systems reviewed & are unremarkable except as noted in HPI and below PMFSH Past Medical History Medical History (Updated 06/23/25 @ 02:43 by Lucero Reyes PA-C) BMI 26.0-26.9,adult Fatigue Insomnia Carpal tunnel syndrome of left wrist BMI 27.0-27.9,adult Defecation urgency (~07/2023) Weakness COVID-19 (06/26/22) BMI 28.0-28.9,adult Overweight (BMI 25.0-29.9) Acute non-recurrent maxillary sinusitis UTI (urinary tract infection) BMI 29.0-29.9,adult At high risk for falls Edema, peripheral Urinary frequency Atrial enlargement, bilateral Tricuspid valve regurgitation Mitral valve regurgitation Hypertension Vitamin D deficiency, unspecified The level low at 25 on 10/24/2022. Vitamin B12 deficiency anemia Level normal at 668 with folic acid 24 and hemoglobin 13.2 on 10/24/2022. History of vaginal delivery Skin cancer Benign paroxysmal positional vertigo due to bilateral vestibular disorder Abnormality of gait and mobility Surgical History Surgical History (Reviewed 12/29/24 @ 14:46 by Jensen Guardado [facility]) H/O bilateral oophorectomy History of partial hysterectomy History of cholecystectomy History of knee surgery History of breast biopsy History of colon resection Family History Family History (Reviewed 12/29/24 @ 14:46 by Jensen Guardado [facility]) Mother Hypertension, Onset Age: 90 Family history of cardiovascular disease, Onset Age: 90 Father Carcinoma of colon, Onset Age: 62 Grandparent Family history of malignant neoplasm of breast in first degree relative, Onset Age: 64 Cerebrovascular accident, Onset Age: 82 Family history of malignant neoplasm of breast Social History Social History (Reviewed 12/29/24 @ 14:46 by Jensen Guardado [facility]) Smoking status: Never smoker Second hand tobacco smoke exposure: No Alcohol intake: never Substance use: never Substance use type: does not use Lack of Transportation: No Lack of Food: Never True Current Housing: I Have Housing Concerned About Future Housing: No Difficulty Paying Gas/Electric Bills: No Difficulty Paying for Meds: No Currently Unemployed: No Education: Master's Degree or Higher Exam 2 Narrative: GENERAL: Elderly, well-nourished, and in no acute distress. HEAD: Normocephalic, atraumatic. EYES: EOMI. ENT: Nares clear, no rhinorrhea or epistaxis. Mucous membranes moist. Oropharynx without tonsillar hypertrophy exudate or other lesions. NECK: Supple. No adenopathy or masses. CHEST: Clear to auscultation. No respiratory distress. No wheezes rales or rhonchi HEART: Regular rate and rhythm. No murmur heard. Normal peripheral pulses. EXTREMITIES: Normal range of motion. No edema. SKIN: Warm, dry, no rash. NEURO: No focal deficits. Alert and oriented x3. PSYCH: Normal mood and affect Course Course Emergency Course: Patient was updated on her workup. She reports relief after a dose of Ibuprofen. We spoke about further inpatient management/evaluation versus close follow up with her engineer chief in clinic. She does not wish to stay in the hospital at this time Vital Signs Vital signs: Vital Signs Temperature 98.1 F 06/22/25 21:23 Pulse Rate 100 06/22/25 21:23 Respiratory Rate 19 06/22/25 21:23 Blood Pressure 134/77 06/22/25 21:23 Pulse Oximetry 94 06/22/25 21:23 Oxygen Delivery Room Air 06/22/25 21:23 Temperature 98.1 F 06/22/25 21:23 Pulse Rate 100 06/22/25 21:23 Respiratory Rate 19 06/22/25 21:23 Blood Pressure 134/77 06/22/25 21:23 Pulse Oximetry 94 06/22/25 21:23 Oxygen Delivery Room Air 06/22/25 21:23 MDM - Chest Pain MDM Narrative Medical decision making narrative: Patient presents emergency department for an episode of nonexertional chest pain today. There is some pleuritic component. Her vitals are stable. She is in no acute distress. CBC and metabolic panel without concerning findings. EKG without acute ST changes, her baseline and 3 hour troponin are negative. D- dimer elevated, CTA of the chest obtained. No PE or acute cardiopulmonary abnormality. 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 Patient was updated on her workup. She reports relief after a dose of Ibuprofen. We spoke about further inpatient management/evaluation versus close follow up with her engineer chief in clinic. She does not wish to stay in the hospital at this time. She was given strict return precautions Differential Diagnosis Differential diagnosis: Likely stable angina, atypical chest pain, chest pain and other (Pleurisy, muscle strain) Lab Data Attestation: I reviewed the patient's lab results. 06/22/25 22:13 06/22/25 22:13 Labs: Lab Results 06/22/25 06/23/25 Range/Units 22:13 01:16 WBC 7.6 (4.5-10.0) K/mm3 RBC 3.69 L (4.2-5.4) M/mm3 Hgb 12.4 (12.0-15.0) g/dL Hct 37.2 (37.0-47.0) % MCV 100.8 H (80-100) fl MCH 33.6 (26-34) pg MCHC 33.3 (32-36) g/dl RDW 13.6 (11.5-14.5) % Plt Count 133 L (150-375) k/mm3 MPV 8.5 (7.4-10.4) fl Immature Gran % (Auto) 0.4 (0-0.5) % Neut % (Auto) 77.9 H (45.5-73.1) % Lymph % (Auto) 13.1 L (18.3-44.2) % Sutter % (Auto) 7.9 (2.6-8.5) % Eos % (Auto) 0.4 (0-4.4) % Baso % (Auto) 0.3 (0.2-1.2) % Lymph # (Auto) 0.99 (0.9-3.2) K/mm3 Sutter # (Auto) 0.6 (0.1-0.6) K/mm3 Eos # (Auto) 0.0 (0-0.3) K/mm3 Baso # (Auto) 0.0 (0.0-0.1) K/mm3 Abs Immat Gran (auto) 0.03 (0.00-0.031) K/mm3 Absolute Neuts (auto) 5.9 (1.3-6.7) K/mm3 Absolute Nucleated RBC 0.000 (0.0-0.012) K/mm3 Nucleated RBC % 0.0 (0.0-0.2) % PT 22.8 H (11.1-14.7) Seconds INR 2.1 APTT 35.0 (22.3-36.8) Seconds D-Dimer 1.00 H (<0.48) ug/mL Sodium 131 L (137-145) mmol/L Potassium 4.3 (3.4-5.0) mmol/L Chloride 101 (98-107) mmol/L Carbon Dioxide 24 (22-30) mmol/L Anion Gap 6 (4-12) mmol/L BUN 19 H (7-17) mg/dL Creatinine 0.95 (0.7-1.0) mg/dL Estim Creat Clear Calc 31 ml/min Estimated GFR 55 L (59 - ) Glucose 109 (65-110) mg/dL Calcium 9.6 (8.4-10.2) mg/dL Total Bilirubin 0.4 (0.2-1.3) mg/dL AST 24 (14-36) U/L ALT 14 (6-35) U/L Alkaline Phosphatase 68 (38-126) U/L Troponin I < 0.012 < 0.012 (0.000-0.034) ng/mL Total Protein 6.7 (6.3-8.2) g/dL Albumin 3.9 (3.5-5.1) g/dL Lipase 85 (23-300) U/L Imaging Data Radiologist's impression: CTA chest PE: No pulmonary emboli identified. Thoracic aorta is nondilated. No aneurysm or dissection. The proximal great vessels are patent. 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 The heart is moderately enlarged with prominence of the atria. No pericardial effusion. Moderate coronary calcification is present. Atelectasis and/or scarring of the left lower lobe. Mild degenerative changes throughout the spine including an old healed compression fracture. Old healed fractures of the sternum. ECG Data EKG #1: ECG completion date: 06/22/25 EKG Interpretation: normal rate, atrial fibrillation, no ST changes and normal QT Critical Care Time Critical Care Time Critical Care Time: No Discharge Plan Discharge Clinical Impression: Stenosis of left subclavian artery Chest pain Qualifiers: Chest pain type: unspecified Qualified Code(s): R07.9 - Chest pain, unspecified Patient Disposition: Home Condition: Improved Instructions: Chest Pain (ED) Additional Instructions: Return to the emergency department if you experience fever, chest pain, shortness of breath, abdominal pain with nausea and vomiting, or any other symptoms that are concerning to you. Your workup today was largely re-assuring Follow up with your engineer chief for further evaluation/management Patient Language: Wolof Prescriptions: No Action calcium carbonate 500 mg calcium (1,250 mg) tablet,chewable 500 mg PO BID cyanocobalamin (vitamin B-12) [Vitamin B-12] 1,000 mcg tablet extended release 1,000 mcg PO DAILY ferrous sulfate 325 mg (65 mg iron) tablet 325 mg PO DAILY omega-3 fatty acids 1,000 mg capsule 1,000 mg PO DAILY multivitamin Tablet 1 tablet PO DAILY Colace Clear 50 mg capsule 50 mg PO DAILY Systane Balance 0.6 % drops 1 drp ophthalmic (eye) QID cholecalciferol (vitamin D3) 25 mcg (1,000 unit) capsule 1,000 unit PO DAILY Metamucil 3.4 gram/5.4 gram powder 1 tbsp PO BID Rx Instructions: mix into at least 8 oz of water or juice before administering diltiazem HCl 180 mg capsule,extended release 24 hr 180 mg PO DAILY potassium chloride 20 mEq tablet extended release 20 meq PO DAILY Xarelto 15 mg tablet 15 mg PO DAILY budesonide 32 mcg/actuation spray,non-aerosol 1 spray intranasal BID Qty: 8.43 11RF Rx Instructions: administer into each nostril lisinopril 40 mg tablet 40 mg PO DAILY Qty: 90 3RF furosemide 20 mg tablet 20 mg PO QAM Qty: 90 3RF tramadol 50 mg tablet 50 mg PO QID PRN (Reason: pain) Qty: 120 5RF Rx Instructions: Take with acetaminophen 325 mg q.i.d. p.r.n. pain Follow-up/Referrals: Talat Ariza MD [Physician] - Patricio Travis MD [Primary Care Provider] - Quality HEART score for chest pain patients History: slightly suspicious ECG: normal Age: > or = to 65 years Risk factors: 1 or 2 risk factors Troponin: < or = to 1x normal limit Heart score: 3
[2025-06-22 22:31] LABS: INR 2.1; Partial Thromboplastin Time 35.0 Seconds (22.3-36.8); Prothrombin Time 22.8 Seconds (11.1-14.7)
[2025-06-22 22:40] LABS: Alanine Aminotransferase 14 U/L (6-35); Albumin Level 3.9 g/dL (3.5-5.1); Alkaline Phosphatase 68 U/L (38-126); Anion Gap 6 mmol/L (4-12); Aspartate Amino Transferase 24 U/L (14-36); Bilirubin,Total 0.4 mg/dL (0.2-1.3); Blood Urea Nitrogen 19 mg/dL (7-17); Calcium 9.6 mg/dL (8.4-10.2); Carbon Dioxide 24 mmol/L (22-30); Chloride 101 mmol/L (98-107); Estimated CRCL calculation 31 ml/min; Estimated Glomerular Filt Rate 55; Glucose 109 mg/dL (65-110); Potassium 4.3 mmol/L (3.4-5.0); Sodium 131 mmol/L (137-145); Total Protein 6.7 g/dL (6.3-8.2)
[2025-06-22 22:50] LABS: Troponin I < 0.012 ng/mL (0.000-0.034)
[2025-06-22 22:57] LABS: Lipase 85 U/L (23-300)
[2025-06-22] MEDS: PANTOPRAZOLE SODIUM IV 40 MG VIAL IV PUSH (23:21)
[2025-06-22] MEDS: ONDANSETRON INJ 4 MG/2 ML VIAL IV PUSH (23:21)
[2025-06-22] MEDS: MORPHINE SULFATE (*CRX) 2 MG/ML INJ IV PUSH (23:21)
[2025-06-23] VITALS (10 sets, daily range): BP systolic 107–128; BP diastolic 51–71; PULSE 81–94; RESP 15–25; O2SAT 89–97
--- NOTE | 2025-06-23 01:02 | ECG_ITS ---
Test Date: 2025-06-23 01:06:53 Measurements Intervals [place] Rate: 88 P: 0 MT: 0 QRS: -40 QRSD: 102 T: -7 QT: 383 QTc: 466 Interpretive Statements ATRIAL FIBRILLATION LEFT AXIS DEVIATION [QRS AXIS < -30] INCOMPLETE RIGHT BUNDLE BRANCH BLOCK [90+ ms QRS DURATION, TERMINAL R IN V1/V2, 40+ ms S IN I/aVL/V4/V5/V6] ABNORMAL ECG Electronically Signed On 06-23-2025 10:04:44 CDT by Dylan Quan M.D.
[2025-06-23] MEDS: FAMOTIDINE 20 MG/2 ML VIAL IV PUSH (01:15)
[2025-06-23] MEDS: IBUPROFEN IV 400 MG in SODIUM CHLORIDE 0.9% IV 100 ML 200 MG IVPB (01:45)
[2025-06-23 01:51] LABS: Troponin I < 0.012 ng/mL (0.000-0.034)
== END 2025-06-23 03:15 ==
PROVIDERS: Student in an Organized Health Care Education/Training Program; Emergency Provider Physician Assistant; PCP Family Medicine
DX: I70.8 Atherosclerosis of other arteries (principal); R07.89 Other chest pain; I07.1 Rheumatic tricuspid insufficiency; E55.9 Vitamin D deficiency, unspecified; D51.9 Vitamin B12 deficiency anemia, unspecified; Z85.828 Personal history of other malignant neoplasm of skin; Z86.16 Personal history of COVID-19; Z87.440 Personal history of urinary (tract) infections; Z90.722 Acquired absence of ovaries, bilateral; Z90.710 Acquired absence of both cervix and uterus; Z90.49 Acquired absence of other specified parts of digestive tract; I51.7 Cardiomegaly; R91.8 Other nonspecific abnormal finding of lung field; K44.9 Diaphragmatic hernia without obstruction or gangrene
CPT/HCPCS: 36415; 71045; 71275; 80053; 83690; 84484; 85025; 85380; 85610; 85730; 93005; 96365; 96375; 99284; J1741; J2270; J2405; J2470; Q9967

== ENCOUNTER 2025-10-09 09:54 | Outpatient (CLI) | payer MEDICARE, SELFPAY ==
--- NOTE | ~2025-10-09 | CT_ITS ---
EXAM/PROCEDURE: CT lumbar spine wo con HISTORY: Worsening low back pain after fall COMPARISON: Sagittal images from CT exam dated June 232024. Also lumbar spine MRI from 2013. TECHNIQUE: Lumbar spine CT FINDINGS: Chronic burst fracture of T12 unchanged in appearance. Approximately 7.5 mm grade 1 anterolisthesis L3 on L4 increases the 2014 exam. There was milder spondylolisthesis on that exam. Advanced degenerative changes throughout the disc spaces and posterior elements. No fracture lucency or traumatic malalignment identified. Soft tissues unremarkable. Potentially severe spinal canal stenosis present at L3-4 and L4-5. IMPRESSION: No acute findings. Numerous chronic findings as above including potentially severe spinal canal stenosis at L3-4 and L4-5. Consider correlation with lumbar spine MRI for optimal evaluation. Reviewed, dictated and finalized at location A. ER CARRIER IMPRESSION: No acute findings. Numerous chronic findings as above including potentially sev ere spinal canal stenosis at L3-4 and L4-5. Consider correlation with lumbar sp ine MRI for optimal evaluation.
== END 2025-10-09 09:55 | disposition home or self-care (01) ==
PROVIDERS: PCP Family Medicine; Visit Provider Family Medicine
DX: M54.41 Lumbago with sciatica, right side (principal); M54.42 Lumbago with sciatica, left side; G89.29 Other chronic pain
CPT/HCPCS: 72131

== ENCOUNTER 2025-11-11 15:52 | Inpatient (IN) | payer MEDICARE, SELFPAY ==
--- OUTSIDE RECORDS SUMMARY | 2025-11-10 02:00 | XMS_ITS ---
Author Organization [facility] Address [address] [place] [phone] Care Team Providers Care Sales Analytics Manager Name Role Phone DR. JOSY DONATO Primary Care Provider Nirali Kennedy Unavailable [phone] REASON FOR VISIT LV, skilled Medications Medication SIG (Take, Route, Frequency, Duration) Notes Start Date End Date Status Psyllium Husk - Powder 0.52 gram 1 cap t wice a day Active Lisinopril 10 MG Tablet 1 tablet Orally Once a day Active Acetaminophen 325 MG Tablet amt: 2 tabs; oral Special Instructions: give with scheduled tramadol Q 8hrs Three Times A Day Orally Active Ferrous Sulfate 325 (65 Fe) MG Tablet 1 tablet Orally daily Active traMADol HCl 50 MG Tablet 1 tablet as ne eded Orally every 8 hrs; Duration: 30 days 10/20/2025 Active [place] 3-6-9 - Capsule 1,200 mg 1 cap Ora lly daily Active MiraLax 17 GM/SCOOP Powder 17 gram Orally daily As needed Active Multivitamin - Tablet 1 tablet Orally On ce a day Active Ondansetron 4 MG Tablet Disintegrating 1 tablet on the tongue and allow to dissolve Orally every 6 hours Active Potassium Chloride 20 MEQ Packet 20 meq 1tab Orally Once a day Active Sodium Chloride 1000 MG Tablet Soluble amt: 1 tablet; miscellaneous Once A Day Externally Active Vitamin D3 25 MCG (1000 UT) Tablet 1 tablet Orally Once a day Active Xarelto 15 MG Tablet 1 tablet with food Orally Once a day Active Hypromellose 0.3 % Gel as directed Ophthalmic 4 times a day As needed Active Vitamin B-12 500 MCG Tablet 1 tablet Ora lly Once a day Active Lasix 20 MG Tablet amt: 1 tablet; oral Once A Day Orally Once a day Active Melatonin 3 MG Tablet 1 tablet at bedtim e as needed Orally Once a day Active Metoprolol Succinate 100 MG Tablet Extended Release amt: 1 tab; oral Once A Day Orally Active Encounters Encounter Location Date Provider Diagnosis [facility] [address] [place] [address] 11/10/2025 Nirali Brent Plan Of Treatment Next Appt Details Provider Name:Nirali Kennedy , 11/12/2025 08:15:00 AM, [address], [place], [address], Progress Notes * NITZA ZiyadbennyDOB:[birth year] (89 yo F)Acc No.[id number]:11/10/2025 Patient: Talha Moore Provider: HENNA Mckeon :1935 A ge:89 Y S ex:Female Date:11/10/2025 Address:[address] [place] [address] [address], [address] [address] Pcp:DR. JOSY DONATO Subjective: * Chief Complaints: * L V, skilled * Medications: T akingMetoprolol Succinate 100 MG Tablet Extended Release amt: 1 tab; oral Once A Day Orally Melatonin 3 MG Tablet 1 tablet at bedtime as needed Orally Once a day Lasix 20 MG Tablet amt: 1 tablet; oral Once A Day Orally Once a day Sodium Chloride 1000 MG Tablet Soluble amt: 1 tablet; miscellaneous Once A Day Externally Xarelto 15 MG Tablet 1 tablet with food Orally Once a day Vitamin D3 25 MCG (1000 UT) Tablet 1 tablet Orally Once a day Vitamin B-12 500 MCG Tablet 1 tablet Orally Once a day Hypromellose 0.3 % Gel as directed Ophthalmic 4 times a day As neededPotassium Chloride 20 MEQ Packet 20 meq 1tab Orally Once a day Ondansetron 4 MG Tablet Disintegrating 1 tablet on the tongue and allow to dissolve Orally every 6 hours Lockport 3-6-9 - Capsule 1,200 mg 1 cap Orally daily Multivitamin - Tablet 1 tablet Orally Once a day MiraLax 17 GM/SCOOP Powder 17 gram Orally daily As neededLisinopril 10 MG Tablet 1 tablet Orally Once a day Psyllium Husk - Powder 0.52 gram 1 cap twice a day Ferrous Sulfate 325 (65 Fe) MG Tablet 1 tablet Orally daily Acetaminophen 325 MG Tablet amt: 2 tabs; oral Special Instructions: give with scheduled tramadol Q 8hrs Three Times A Day Orally traMADol HCl 50 MG Tablet 1 tablet as needed Orally every 8 hrs Taking Metoprolol Succinate 100 MG Tablet Extended Release amt: 1 tab; oral Once A Day Orally Taking Melatonin 3 MG Tablet 1 tablet at bedtime as needed Orally Once a day Taking Lasix 20 MG Tablet amt: 1 tablet; oral Once A Day Orally Once a day Taking Sodium Chloride 1000 MG Tablet Soluble amt: 1 tablet; miscellaneous Once A Day Externally Taking Xarelto 15 MG Tablet 1 tablet with food Orally Once a day Taking Vitamin D3 25 MCG (1000 UT) Tablet 1 tablet Orally Once a day Taking Vitamin B- 12 500 MCG Tablet 1 tablet Orally Once a day Taking Hypromellose 0.3 % Gel as directed Ophthalmic 4 times a day As neededTaking Potassium Chloride 20 MEQ Packet 20 meq 1tab Orally Once a day Taking Ondansetron 4 MG Tablet Disintegrating 1 tablet on the tongue and allow to dissolve Orally every 6 hours Taking [place] 3-6-9 - Capsule 1,200 mg 1 cap Orally daily Taking Multivitamin - Tablet 1 tablet Orally Once a day Taking MiraLax 17 GM/SCOOP Powder 17 gram Orally daily As neededTaking Lisinopril 10 MG Tablet 1 tablet Orally Once a day Taking Psyllium Husk - Powder 0.52 gram 1 cap twice a day Taking Ferrous Sulfate 325 (65 Fe) MG Tablet 1 tablet Orally daily Taking Acetaminophen 325 MG Tablet amt: 2 tabs; oral Special Instructions: give with scheduled tramadol Q 8hrs Three Times A Day Orally Taking traMADol HCl 50 MG Tablet 1 tablet as needed Orally every 8 hrs * Electronic signature of LETY Martini on 11/11/2025 at 07:09 PM TRENCH DIGGER HELPER Sign off status: Pending * Provider: HENNA Mckeon Date: 01/11/2025 Generated for Jonnathan campbell/Ame/Hayley on: 01/12/2025 07:09 PM TRENCH DIGGER HELPER
[2025-11-11] VITALS (11 sets, daily range): BP systolic 128–137; BP diastolic 81–93; PULSE 71–83; RESP 14–27; TEMP 36.6; O2SAT 97–100
--- NOTE | ~2025-11-11 | XR_ITS ---
EXAMINATION: XR chest 1V portable DATE: 11/17/2025 16:30 INDICATION: Shortness of breath TECHNIQUE: frontal view of the chest was obtained. COMPARISON: Chest radiograph dated 11/14/[address] dated 06/23/2025 FINDINGS: Again seen is a gas-filled stomach within a large hiatal hernia in the left lower lung zone. Mild linear discoid atelectasis in the right lower lung zone. No other airspace opacities, pulmonary edema, pleural effusion or pneumothorax. Cardiomegaly. Calcified right hilar lymph nodes consistent with old granulomatous disease. Severe left glenohumeral osteoarthritis. IMPRESSION: 1. Linear discoid atelectasis in the right lower lung zone. No other acute cardiopulmonary disease. 2. Large sliding-type hiatal hernia. 2. Cardiomegaly. Reviewed, dictated and finalized at location A. [facility] [employer] IMPRESSION: 1. Linear discoid atelectasis in the right lower lung zone. No other acute card iopulmonary disease. 2. Large sliding-type hiatal hernia. 2. Cardiomegaly.
--- NOTE | ~2025-11-11 | XR_ITS ---
EXAMINATION: XR chest 2V, 11/14/2025 15:40 ICU TECH HISTORY: CHF COMPARISON: No comparisons available. Technique: 2 views obtained. Findings: Mild pulmonary venous congestion. Small basilar infiltrates with trace effusions. No pneumothorax. Moderate cardiomegaly. Large hiatal hernia. Bony thorax no acute abnormality. Impression: CHF. Early basilar pneumonia suspected Reviewed, dictated and finalized at location P. TECH Impression: CHF. Early basilar pneumonia suspected
--- NOTE | ~2025-11-11 | XR_ITS ---
EXAMINATION: XR chest 1V portable DATE: 11/11/2025 19:40 INDICATION: Shortness of breath. TECHNIQUE: A single frontal view of the chest was obtained. COMPARISON: Chest x-ray 06/22/2025 FINDINGS: Cardiomegaly and atherosclerotic aorta. No acute pulmonary findings. Chronically elevated left diaphragm. IMPRESSION: 1. No acute findings. Cardiomegaly and atherosclerotic aorta. Reviewed, dictated and finalized at location T. AGEMAN
--- NOTE | 2025-11-11 16:05 | ECG_ITS ---
Test Date: 2025-11-11 16:14:10 Measurements Intervals Dixon Rate: 75 P: 0 ND: 0 QRS: -29 QRSD: 102 T: 2 QT: 395 QTc: 444 Interpretive Statements ATRIAL FIBRILLATION LOW QRS VOLTAGE IN PRECORDIAL LEADS INCOMPLETE RIGHT BUNDLE BRANCH BLOCK POSSIBLE ANTERIOR MYOCARDIAL INFARCTION , PROBABLY OLD BORDERLINE T WAVE ABNORMALITY- INFERIOR LEADS BASELINE ARTIFACT- I, II, III, AVR, AVL ABNORMAL ECG Compared to ECG 06/23/2025 01:06:53 NO SIGNIFICANT CHANGE Electronically Signed On 11-11-2025 16:20:51 SECURITY OPERATIONS CENTER ANALYST by Colt Burch D.O.
[2025-11-11 18:50] LABS: Hematocrit 35.4 % (37.0-47.0); Hemoglobin 11.1 g/dL (12.0-15.0); Immature Granulocyte Percent A 0.9 % (0-0.5); Lymphocytes Absolute Auto 1.26 K/mm3 (0.9-3.2); Mean Corpuscular HGB Conc 31.4 g/dl (32-36); Mean Corpuscular Hemoglobin 31.8 pg (26-34); Mean Corpuscular Volume 101.4 fl (80-100); Nucleated Red Blood Cells Absolute Auto 0.030 K/mm3 (0.0-0.012); Nucleated Red Blood Cells Perc 0.5 % (0.0-0.2); Platelet Count Result 192 k/mm3 (150-375); Red Blood Count 3.49 M/mm3 (4.2-5.4); White Blood Count 5.7 K/mm3 (4.5-10.0)
[2025-11-11 19:05] LABS: INR 1.8; Prothrombin Time 20.7 Seconds (11.1-14.7)
[2025-11-11 19:06] LABS: Partial Thromboplastin Time 41.8 Seconds (22.3-36.8)
--- OUTSIDE RECORDS SUMMARY | 2025-11-11 19:08 | XMS_ITS | Encounter Summary ---
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 Gender Identity Not on file Sexual Orientation Not on file documented as of this encounter Plan of Treatment Not on file documented as of this encounter Procedures Procedure Name Priority Date/Time Associated Diagnosis Comments DERMATOPATHOLOGY Routine 03/07/2022 12:0 0 AM CDT documented in this encounter Results * DERMATOPATHOLOGY (03/07/2022 12:00 AM CDT) Case Report Dermatopathology Report Case: [id number] Authorizing Provider: Yosi Mejia MD Collected: 03/07/2022 12:00 AM Ordering Location: [facility] Received: 03/08/2022 01:36 PM Pathologist: [...] specimen consists of a shave biopsy measuring [id number]. Jar 0. 2 1:15 PM CDT DERMATOPATHOLOGY [...] characteristic determined by the Dermatopathology Laboratory at [facility], directed by Dr. Wily Almeida. These tests need not be, and therefore are not, approved by the [place] Food and Drug Administration. The tests are used for clinical purposes. Billing Codes Specimen Charges Stain Charges 57072 1 2 1:15 PM CDT DERMATOPATHOLOGY LABORATORY Embedded Images 2 1:15 PM CDT DERMATOPATHOLOGY LABORATORY Pathology/Cytolog y TISSUE SPECIMEN FROM SKIN / Unknown 03/07/2022 03/08/2022 1:36 PM CDT Yosi Mejia MD LAB - PATHOLOGY/CYTOLOGY ORD ERABLES Final Result DERMATOPATHOLOGY LABORATORY [facility] - Department of Dermatology [address], [address] [phone] documented in this encounter Visit Diagnoses Not on filedocumented in this encounter
--- OUTSIDE RECORDS SUMMARY | 2025-11-11 19:08 | XMS_ITS | Clinical Summary ---
Author Organization [facility] Address [address] [facility] [place] [address] Care Team Providers Care Patch Sander Name Role Phone Unavailable Primary Care Provider Unavailabl e Source Comments [facility] [employer] [facility] [employer]([facility]),non-owned Affiliates and Associated Physician Practices is amultiple site organization consisting of ambulatory clinics and hospital sitesin [place], [place], [place] and [place]. This disclosure is being madepursuant to the Care Everywhere program and may not contain all information available regarding this patient. 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
--- OUTSIDE RECORDS SUMMARY | 2025-11-11 19:09 | XMS_ITS | Data Portability ---
Author Organization [facility] Address [address] [place] [address] Assessment No assessment recorded. Plan of Treatment Reminders Order Date Submit Date Provider Last Modified By Organization Details Last Modified Time Details Appointments None recorded. Lab None recorded. Referral None recorded. Procedures None recorded. Surgeries None recorded. Imaging None recorded. Medication Orders azelastine 137 mcg (0.1 %) nasal spray 2024 025 [facility], [address] [place], [address], 16:05:04 Patient TargetsNo targets recorded. Patient InstructionsNo [...] azelastine 137 mcg (0.1 %) nasal spray [place] 2 sprays twice a day by intranasa [...] Last Updated DateTime 162.56 cm 28.6 kg/m2 30788.2 1 g 16 /min 97.6 [degF] 116/82 mm[Hg] Ragini Martines MA [facility] 3 16:02:07 Date Recorded Body height Body mass index (BMI) Body weight Heart rate Systolic And Diastolic Provider Name and Address Organization Details Last Updated DateTime 06/08/2025 162.56 cm 26.9 kg/m2 21530 g 170 /min 145/83 mm[Hg] Masha العراقي [facility] 06/08/2025 15:54:30 Social History Question Answer Notes LastModified by Organizat ion Details LastModified Time Tobacco Smoking Status Never Smoker [facility] 12/11/2022 16:05:03 Are You Blind Or Do [...] anxious, or unable to sleep at night)? [id number] Information not available 12/11/2022 Family History Nothing Reported. Medical History No medical history recorded. Gynecological HistoryNo gynecological history recorded. Obstetrics History GPAL:G 0 P 0 0 0 0 Immunizations Vaccine Type Date Status Note Provider Nam e and Address Organization Details Recorded Time Influenza, split virus, trivalent, preservative 3 completed Not Available [facility] 06/08/2025 15:47:11 Influenza, high-dose, trivalent, PF 4 completed Not Available [facility] 06/08/2025 15:47:11 Influenza, high-dose, trivalent, PF 5 completed Not Available [facility] 06/08/2025 15:47:11 Influenza, high-dose, trivalent, PF 6 completed Not Available [facility] 06/08/2025 15:47:11 Pneumococcal conjugate PCV 13 6 completed Not Available [facility] 06/08/2025 15:47:11 Influenza, high-dose, trivalent, PF 9 completed Not Available [facility] 06/08/2025 15:47:11 COVID-19, mRNA, LNP-S, PF, 100 mcg/0.5mL dose or 50 mcg/0.25mL dose 1 completed Not Available [facility] 06/08/2025 15:47:11 COVID-19, mRNA, LNP-S, PF, 100 mcg/0.5mL dose or 50 mcg/0.25mL dose 1 completed Not Available [facility] 06/08/2025 15:47:11 zoster recombinant 1 completed Not Available [facility] 06/08/2025 15:47:11 Influenza, adjuvanted, quadrivalent, PF 1 completed Not Available [facility] 06/08/2025 15:47:11 COVID-19, mRNA, LNP-S, PF, 100 mcg/0.5mL dose or 50 mcg/0.25mL dose 1 completed Not Available [facility] 06/08/2025 15:47:11 COVID-19, mRNA, LNP-S, PF, 100 mcg/0.5mL dose or 50 mcg/0.25mL dose 2 completed Not Available [facility] 06/08/2025 15:47:11 COVID-19, mRNA, LNP-S, bivalent, PF, 50 mcg/0.5 mL or 25mcg/0.25 mL dose 2 completed Not Available [facility] 06/08/2025 15:47:11 Influenza, adjuvanted, quadrivalent, PF 2 completed Not Available [facility] 06/08/2025 15:47:11 COVID-19, mRNA, LNP-S, bivalent, PF, 50 mcg/0.5 mL or 25mcg/0.25 mL dose 3 completed Not Available [facility] 06/08/2025 15:47:11 Influenza, high-dose, quadrivalent, PF 3 completed Not Available [facility] 06/08/2025 15:47:11 COVID-19, mRNA, LNP-S, PF, antonette-sucrose, 30 mcg/0.3 mL 3 completed Not Available [facility] 06/08/2025 15:47:11 Influenza, adjuvanted, trivalent, PF 4 completed Not Available [facility] 06/08/2025 15:47:11 COVID-19, mRNA, LNP-S, PF, 50 mcg/0.5 mL 4 completed Not Available [facility] 06/08/2025 15:47:11 Past Encounters Encounter ID Performer Location Encounter Start Date Encounter Closed Date Diagnosis/Indication Diagnosis SNOMED-CT Code Diagnosis ICD10 Code Diagnosis IMO Codes Diagnosis Note [id number] MD Payam Morales (Adult Med) [address] [place] [address] 12/11/2022 15:49:05 12/13/2022 09:08:44 Impacted cerumen of bilateral ears 6291029784 871008 H61.23 return prn Chronic rhinitis 3698002 6 J31.0 start OTC steroid sprays [id number] MD Payam Morales (Adult Med) [address] [place] [address] 06/08/2025 15:45:45 06/09/2025 14:28:51 Impacted cerumen of bilateral ears 6446565410 183462 H61.23 [id number] return prn Chronic rhinitis 6171239 6 J31.0 2545 start OTC steroid sprays Health Concerns Section Related Observation LastModified by Organization Detai ls LastModified Time None Recorded Concern Status LastModified by Organization Details LastModified Time None Recorded Advance Directives Directive None Recorded Payers Insurance Date Sequence Insurance Name Policy Number Policy Newell Covered Member ID Newell Member ID Guarantor Name 06/08/2025 2 [employer] F (MEDICARE SUPPLEMENT) Laverna Axel [id number] Laverna Axel 06/08/2025 1 [place] Laverna M Axel [id number] Laverna Axel 06/08/2025 [place] [facility] Laverna M Axel [id number] Laverna Axel 12/11/2022 1 *SELF PAY* La riley Axel Notes Date Note Type Note Provider Name and Address Organization Details Recorded Time 12/11/2022 text/html ROS as noted in the HPI Pt complaining of blockage of her ears. She has a hx of cerumen She also complains of nasal congestion and drainage Adryan Worley MD Attn: Accounting[address] [facility], [place], [address], [facility] 12/11/2022 16:17:23 06/08/2025 text/html ROS as noted in the HPI Pt complaining of blockage of her ears. She wears hearing aids and has a hx of cerumen. She also complains of nasal congestion and drainage. ENA Carey, [facility] 06/08/2025 16:16:34 OBGyn Episode No OBEpisode recorded.
--- OUTSIDE RECORDS SUMMARY | 2025-11-11 19:09 | XMS_ITS | Data Portability ---
Author Organization [place] - [facility], Main Office Address [address] [place] [address] Care Team Providers Care Digital Media Sales Consultant Name Role Phone VIRGIL MCDERMOTT Primary Care Provider VIRGIL MDCERMOTT Referring Provider [phone] Assessment Encounter Date Assessment Date Assessment LastModified by Organization Details LastModified Time 08/11/2024 08/11/2024 By today's x-ray exam the [...] difficulties or questions. Not available 05/18/2025 16:18:49 09/21/2025 09/21/2025 The patient has severe tricompartmental osteoarthritis of both knees as described. Under sterile conditions at her request I injected both knee joints in the office today with 4 cc of 0.5% bupivacaine and 20 mg of Kenalog each. The patient tolerated both injections well. I will see her back as needed we can do this again in 3 months if necessary. She voiced understanding agrees above plan she will call for any further problems difficulties or questions. Not available 09/21/2025 16:42:58 Plan of Treatment Reminders Order Date Submit Date Provider Last Modified By Organization Details Last Modified Time Details Appointments Any 5 2025 02:45P MINNIE Van Not available Not available Not available Lab None recorded. Referral None recorded. Procedures injection /aspirati on joint/bur sa (PROC) 2024 025 [email or web address] In-Office Order, Internal Use Only DO Not Attach Compendium DO Not Attach Compendium, Do Not Delete/merge, [id number] 09/21/2025 15:13:20 injection /aspirati on joint/bur sa (PROC) 2024 025 [email or web address] In-Office Order, Internal Use Only DO Not Attach Compendium DO Not Attach Compendium, Do Not Delete/merge, [id number] 05/18/2025 16:00:13 injection /aspirati on joint/bur sa (PROC) 2024 025 [email or web address] In-Office Order, Internal Use Only DO Not Attach Compendium DO Not Attach Compendium, Do Not Delete/merge, [id number] 02/09/2025 15:38:21 injection /aspirati on joint/bur sa (PROC) 2023 024 [email or web address] In-Office Order, Internal Use Only DO Not Attach Compendium DO Not Attach Compendium, Do Not Delete/merge, 11/10/2024 15:35:13 injection /aspirati on joint/bur sa (PROC) 2023 024 [email or web address] In-Office Order, Internal Use Only DO Not Attach Compendium DO Not Attach Compendium, Do Not Delete/merge, 08/11/2024 15:40:25 Surgeries None recorded. Imaging XR, knee 2023 024 [email or web address] [facility] [place], [facility] [facility] [address], [place], [address], 08/11/2024 17:07:02 Medication Orders bupivacai ne HCl 0.5 % (5 mg/mL) injection solution 2024 025 [email or web address] [facility] [place] [address], [place], [address], 09/21/2025 16:43:35 Kenalog 10 mg/mL suspensio n for injection 2024 025 [email or web address] [facility] [place], [facility] [address], [place], [address], 09/21/2025 16:43:35 bupivacai ne HCl 0.5 % (5 mg/mL) injection solution 2024 025 [address] [facility] [place] [address], [place], [address], 05/18/2025 16:52:24 Kenalog 10 mg/mL suspensio n for injection [address] [facility] [place] [address], [place], [address], 05/18/2025 16:52:24 bupivacai ne HCl 0.5 % (5 mg/mL) injection solution [address] [facility] [place] [address], [place], [address], 02/09/2025 15:42:51 Kenalog 10 mg/mL suspensio n for injection [address] [facility] [place] [address], [place], [address], 02/09/2025 15:42:51 bupivacai ne HCl 0.5 % (5 mg/mL) injection solution 2023 024 [place] [address], [place], [address], 11/10/2024 16:12:23 Kenalog 10 mg/mL suspensio n for injection [address] [facility] [place] [address], [place], [address], 11/10/2024 16:12:23 bupivacai ne HCl 0.5 % (5 mg/mL) injection solution 2023 0[address] [place] [address], [place], [address], 08/11/2024 17:07:02 Kenalog 10 mg/mL suspensio n for injection 2023 024 [email or web address] [facility] [place], [facility] [address], [place], [address], 08/11/2024 17:07:02 Patient TargetsNo targets recorded. Patient InstructionsNo instructions recorded. Reason for Referral None Reported. Results Created Date Observation Date Name Description Value Unit Range Abnormal Flag Note LastModifiedBy Organization Detail LastModifiedTime 08/11/20 24 XR, knee No observ ation record ed. [email or web address] [facility] [place] [address], [place], [address], 08/11/2024 16:20:09 Result Notes None recorded. 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 Active Not Available [facility] 3 02:50:27 Bilateral osteoarthr itis of knees 5272122008566 07 Active 2022 JUDY Michelle null, [employer] [address] [employer] 3 15:56:01 Bilateral shoulder joint pain 7705858560557 9104 Active 2022 SATISH Rucker, [facility] 3 15:40:53 Pain of bilateral knee joints 8645966643188 04 Active 2023 MINNIE Talamantes [address] [facility] [facility] [address], [place], [address] , [employer] 4 16:25:48 Pain of knee region 1694817284 Active 2024 MINNIE Talamantes [address], [address], [place], [address] , [employer] [facility] 16:18:58 Problem Notes None recorded. Procedures Surgical History Date Name Laterality Status Provider Name and Address Organization Details Recorded Time 03/12/20 23 Ortho - [facility]isc completed Blayne Howe MD [address] [facility], [place], [address], Last Guide [facility] 03/12/2023 15:50:22 03/05/20 23 Ortho - Visc completed Blayne Howe MD [address], [address], [place], [address], [employer] [facility] 03/05/2023 16:14:00 02/27/20 23 Ortho - Visc completed Blayne Howe MD [address] [facility], [place], [address], [employer] [facility] 02/26/2023 16:06:02 Hysterectomy completed Lisa Solange, CAN RECONDITIONER [place] [employer] [facility] 05/12/2024 16:00:45 Gallbladder Surgery completed Lisa Solange, CAN RECONDITIONER [place] [employer] [facility] 05/12/2024 16:00:10 Hernia Surgery completed Not Available [facility] 01/30/2023 02:44:34 Colon Surgery completed Lisa Solange , CAN RECONDITIONER [employer] [facility] [employer] [facility] 05/12/2024 16:00:03 Imaging Results None recorded. Procedure [...] 4 mL by injection route. 2024 active [facility]: 0003- 0494- 20 Not Available Not Available [...] Available Not Available Not Available amoxicillin 500 mg-potassiu m clavulanate 125 mg tablet active Not [...] intra-artic ular syringe in office 05/12 completed [facility] [address] -01 Not Available Not Available Not [...] administe red by the provider 02/26 completed [facility]: 0409- 4276- 17 Not Available Not Available [...] 40 mg by injection route. 05/12 completed [facility] 86521 -064- 01 Not Available Not Available Not Available Xarelto 15 mg tablet Take 1 tablet every day by oral route. active Not Available Not Available No t Available Ilevro 0.3 % eye drops,suspe nsion 10/05 completed Not Available Not Available Not Available Fluzone High-Dose 6619-4733 (PF) 180 mcg/0.5 mL intramuscul ar syringe [...] height Body mass index (BMI) Body weight Pain severity - 0-10 verbal numeric rating [Score] - Reported Provider Name and Address Organization Details Last Updated DateTime 02/09/2025 160.02 cm 28 kg/m2 37441.[address] 02/09/2025 15:37:09 Date Recorded Body height Body mass index (BMI) Body weight Pain severity - 0-10 verbal numeric rating [Score] - Reported Provider Name and Address Organization Details Last Updated DateTime 05/18/2025 160.02 cm 27.1 kg/m2 63228.[address] 05/18/2025 15:53:05 Date Recorded Body height Body mass index (BMI) Body weight Provider Name and Address Organization Details Last Updated DateTime 08/11/2024 162.56 cm 27.3 kg/m2 13860.19 g Lisa Solange, CAN RECON[employer]ER [employer] 08/11/2024 15:38:46 Date Recorded Body height Body mass index (BMI) Body weight Pain severity - 0-10 verbal numeric rating [Score] - Reported Provider Name and Address Organization Details Last Updated DateTime 09/21/2025 160.02 cm 25.9 kg/m2 70601.49 g 8 Sangeeta Gonzales [facility] 09/21/2025 15:10:16 Date Recorded Body height Body mass index (BMI) Body weight Provider Name and Address Organization Details Last Updated DateTime 11/10/2024 160.02 cm 28.7 kg/m2 89531.96 g Lisa Narvaez [employer] 11/10/2024 15:33:29 Social History Question Answer Notes LastModified by Organizat ion Details LastModified Time Tobacco Smoking Status Never Smoker Not Available [facility] 01/30/2023 02:29:59 What Was The Date Of Your Most Recent Tobacco Screening? 09/21/2025 Information not available 09/21/2025 Sex: Unknown Functional Status Question Answer Note LastModified by Organizat ion Details LastModified Time What is your level of alcohol consumption? None [id number] Information not available 01/30/2023 Mental Status None recorded. Family History Relationship Description Onset Age of this Age Resolved Age Notes LastModified by Organization Details LastModified Time Mother Heart disease [email or web address] Not available 2023 15:58:42 Father Family history of malignant neoplasm [email or web address] Not available 2023 15:58:47 Unspecified Relation Hypertensive disorder [id number] Not available 01/30/2023 02:44:35 Unspecified Relation Arthritis father 's side of the family [email or web address] Not available 05/12/2024 15:59:28 Notes:Mother and brother - h eart Medical History Condition Response CANCER: SPECIFY Y ARTHRITIS Y USE OF BLOOD THINNERS Y ANEMIA/BLOOD DISORDER Y HEART DISEASE/HEART PROBLEMS Y SKIN PROBLEMS Y OSTEOPOROSIS Y USE OF NSAIDS Y HYPERTENSION Y Gynecological HistoryNo gynecological history recorded. Obstetrics History GPAL:G 0 P 0 0 0 0 Past Encounters Encounter ID Performer Location Encounter Start Date Encounter Closed Date Diagnosis/Indication Diagnosis SNOMED-CT Code Diagnosis ICD10 Code Diagnosis IMO Codes Diagnosis Note [id number] MINNIE Talamantes[facility] [place] [address] [place] [address] 02/09/2021 00:00:00 02/09/2021 09:41:26 [id number] MINNIE [facility] [place] [address] [place] [address] 05/11/2021 00:00:00 05/11/2021 09:24:55 [id number] MINNIE [facility] [place] [address] [place] [address] 08/10/2021 00:00:00 08/10/2021 09:16:21 [id number] MD IRAM Chan[facility] [place] [address] [place] [address] 11/09/2021 00:00:00 11/09/2021 09:29:41 [id number] Blayne Howe MD [facility] [place] [address] [place] [address] 02/08/2022 00:00:00 02/08/2022 11:46:24 [id number] Blayne Howe MD [facility] [place] [address] [place] [address] 05/18/2022 00:00:00 05/18/2022 14:39:00 [id number] Eliot Verde MD [facility] [place] [address] [place] [address] 08/21/2022 00:00:00 08/21/2022 16:03:22 [id number] Blayne Howe MD [facility] [place] [address] [place] [address] 11/27/2022 00:00:00 11/27/2022 15:41:20 [id number] Blayne Howe MD [facility] [place] [address] [place] [address] 02/26/2023 15:31:47 02/26/2023 16:18:18 Bilateral osteoarthritis of knees 7225180479 05138 M17.0 [id number] Blayne Howe MD [facility] [place] [address] [place] [address] 03/05/2023 15:40:10 03/05/2023 16:17:32 Bilateral osteoarthritis of knees 3914604511 98776 M17.0 [id number] Blayne Howe MD [facility] [place] [address] [place] [address] 03/12/2023 15:34:26 03/12/2023 15:55:08 Bilateral osteoarthritis of knees 9657487247 94029 M17.0 [id number] Blayne Howe MD [facility] [place] [address] [place] [address] 04/23/2023 15:34:42 04/23/2023 16:05:50 Bilateral osteoarthritis of knees 5130988966 83298 M17.0 [id number] Blayne Howe MD [facility] [place] [address] [place] [address] 07/30/2023 15:36:14 08/01/2023 09:32:44 Bilateral osteoarthritis of knees 7560912045 55204 M17.0 [id number] IMNNIE Talamantes S[facility] [place] [address] [place] [address] 11/05/2023 15:29:33 11/05/2023 16:24:21 Bilateral osteoarthritis of knees 7787065149 33949 M17.0 [id number] Pranav Trejo MD [facility] [place] [address] [place] [address] 02/04/2024 15:28:20 02/04/2024 16:05:15 Bilateral osteoarthritis of knees 9722404492 77644 M17.0 Pain of bi lateral knee joints 0279711981 70544 M25.561 M25.411 [id number] Pranav Trejo MD [facility] [place] [address] [place] [address] 05/12/2024 15:34:51 05/12/2024 16:36:40 Pain of bilateral knee joints 2358259645 45604 M25.561 M25.562 Bilateral osteoarthritis of knees 3783503172 11688 M17.0 [id number] Pranav Trejo MD [facility] [place] [address] [place] [address] 08/11/2024 15:36:22 08/11/2024 16:20:01 Bilateral osteoarthritis of knees 6232232880 69064 M17.0 Pain of bi lateral knee joints 1099584145 74212 M25.561 M25.665 [id number] Pranav Trjeo MD [facility] [place] [address] [place] [address] 11/10/2024 15:30:20 11/10/2024 15:55:01 Pain of bilateral knee joints 0716776459 40681 M25.561 M25.562 Bilateral osteoarthritis of knees 7974616251 53355 M17.0 [id number] Pranav Trejo MD [facility] [place] [address] [place] [address] 02/09/2025 15:32:03 02/09/2025 16:44:35 Bilateral osteoarthritis of knees 9118565984 92289 M17.0 Pain of bi lateral knee joints 3979322547 97801 M25.561 M25.341 [id number] Pranav Trejo MD [facility] [place] [address] [place] [address] 05/18/2025 15:33:32 05/30/2025 00:05:46 Bilateral osteoarthritis of knees 2061282666 42994 M17.0 Pain of knee region 1003 350079 M25.561 M25.562 G89.29 [id number] Pranav Trejo MD [facility] [place] [address] [place] [address] 09/21/2025 15:04:36 09/21/2025 17:16:28 Bilateral osteoarthritis of knees 6596682470 84600 M17.0 Pain of knee region 1003 577102 G89.29 M25.561 M25.562 [id number] Health Concerns Section Related Observation LastModified by Organization Detai ls LastModified Time None Recorded Concern Status LastModified by Organization Details LastModified Time None Recorded Advance Directives Directive None Recorded Payers Insurance Date Sequence Insurance Name Policy Number Policy Newell Covered Member ID Newell Member ID Guarantor Name 09/21/2025 1 [place] Talha Reyna [id number] Talha Reyna 10/01/2025 2 [employer] - PLAN N (MEDICARE SUPPLEMENT) [employer] Talha Reyna [id number] Talha Reyna Notes Date Note Type Note Provider Name and Address Organization Details Recorded Time 08/11/2024 text/html Patient returns requesting bilateral knee injections she has severe primary osteoarthritis it has been more than a year since her last x-rays we are getting new x-rays today to check the progression of the osteoarthritis. She states she has aching pain that limits her activities. She has long walk from her room [facility] the [facility] to her dining area she makes the [...] both injected again today. MINNIE Talamantes [address], [place], [address], [employer] 08/11/2024 16:20:42 11/10/2024 text/html Patient returns for [...] for it anyway. MINNIE Talamantes [address], [place], [address], [employer] 11/10/2024 16:12:19 02/09/2025 text/html the patient returns with bilateral knee pain she has severe [...] the gel shots. The patient has tricompartmental tvrn-pf-ylem osteoarthritis both knees. MINNIE Talamantes [address], [place], [address], [employer] [facility] 02/09/2025 16:27:00 05/18/2025 text/html The patient returns with bilateral knee pain. She has severe [...] limited in what she can do. Tricompartmental pryl-ak-jlgj osteoarthritis is noted in both knees. A new past medical history sheet was reviewed and signed on the intake sheet today's date drug allergies current medications family social history previous surgical history 10 point review of systems was reviewed and discussed in detail today with the patient.The patient's previous x-rays were also reviewed with her in detail today. MINNIE Talamantes [address], [place], [address], [employer] 05/18/2025 16:19:56 09/21/2025 text/html the patient returns requesting bilateral knee injections. The patient has severe primary osteoarthritis of both knees she has tricompartmental qijm-yc-bdpg changes she gets by with conservative measures. At 89 years of age she is not interested in total knee arthroplasty and not a good candidate. She gets around with a rolling walker lives in assisted living facility. She comes in today requesting repeat cortisone injections these do work well for her it has been 4 months since her last injections. Denies any new problems with either knee. MINNIE Talamantes [address], [place], [address], [employer] [address] [facility] 09/21/2025 16:43:32 OBGyn Episode No OBEpisode recorded.
--- OUTSIDE RECORDS SUMMARY | 2025-11-11 19:10 | XMS_ITS | Clinical Summary ---
Author Organization [facility] Address [address] [place] [address] Phone Care Team Providers Care Medical Research Associate Name Role Phone Patricio Travis MD Primary Care Provider [phone] Allergies Active Allergy Reactions Criticality Noted Date Comments Levofloxacin Hallucinations 10/11/2025 Medications rivaroxaban (XARELTO) 15 MG Tablet Take 15 mg by mouth every evening. Active potassium chloride (KLOR-CON) 20 MEQ Pack Take 20 mEq by mouth daily. Active acetaminophen (TYLENOL) 325 MG Tablet Take 325 mg by mouth 4 times daily as needed. Active ferrous sulfate 325 (65 Fe) MG Tablet Take 325 mg by mouth daily. Active Cyanocobalamin (VITAMIN B 12 PO) Take 1 Tablet by mouth daily. Active VITAMIN D PO Take 1 Tablet by mouth daily. Active Multiple Vitamin (MULTIVITAMIN PO) Take 1 Tablet by mouth daily. Active HYDROXYPROPYL METHYLCELLULOSE 0.3 % Gel Place in affected eye(s) 4 times daily as needed. Active Linden-3 Fatty Acids (OMEGA 3 PO) Take by mouth. Active Psyllium (METAMUCIL PO) Take by mouth 2 times daily. Active dilTIAZem (CARDIZEM CD) 180 MG CAPSULE SR 24 HR Take 1 Capsule by mouth daily. 90 Capsule 025 Active ondansetron (ZOFRAN-ODT) 4 MG TABLET DISPERSIBLE Take 1 Tablet by mouth every 6 hours as needed for Nausea - 1st line. 10 Tablet 025 Active polyethylene glycol (GLYCOLAX, MIRALAX) 17 g PackIndications:Co nstipation Take 1 Packet by mouth 2 times daily as needed for Constipation - 1st line. Dissolve in 4-8 oz of liquid. Indications: Constipation 90 Packet Active lisinopril (PRINIVIL, ZESTRIL) 20 MG Tablet Take 1 Tablet by mouth daily. 90 Tablet 1 Active furosemide (LASIX) 20 MG Tablet Take 20 mg by mouth daily. 2024 Discontinued(T herapy completed) lisinopril (PRINIVIL, ZESTRIL) 40 MG Tablet Take 40 mg by mouth daily. 2024 Discontinued docusate sodium 100 MG Capsule Take 100 mg by mouth daily (with breakfast). 2024 Discontinued(T herapy completed) dilTIAZem (CARDIZEM CD) 240 MG CAPSULE SR 24 HR Take 240 mg by mouth daily. 2024 Discontinued(D ose adjustment) traMADol (ULTRAM) 50 MG Tablet Take 100 mg by mouth every 6 hours as needed. 2024 Discontinued(T herapy completed) predniSONE (DELTASONE) 50 MG Tablet Take 1 Tablet by mouth daily for 4 days. 4 Tablet 025 2024 Active Problems Problem Noted Date Diagnosed Date Hyponatremia 10/11/2025 Resolved Problems Problem Noted Date Diagnosed Date Resolved Date SBO (small bowel obstruction) 06/24/2023 06/26/2023 Encounters Date Type Department Care Team Description 10/11/2025 6:59 AM S[employer]ETY GLASS INSTALLER - 10/14/2025 12:00 PM S[employer]ETY GLASS INSTALLER Hospital Encounter [facility] [address] [place] [id number] Sav Stover MD Carmicheal, MD Ovi Negrete, Magi Hensley, FACING SLITTER, NET FISHER Vinnie Marcus MD Hyponatremia Discharge Disposition: Discharged/Transferr ed to [facility] 10/11/2025 Travel 09/23/2025 6:37 PM CDT - 09/23/2025 10:03 PM CDT Emergency [facility] Emergency [address] [place] [address] Jossue Rose MD Closed head injury, initial encounter Discharge Disposition: Discharged to home or Selfcare 09/23/2025 Travel from Last 3 Months Family History Medical History Relation Name Comments [...] drink = 0.6 oz pur e alcohol) Hunger Vital Sign Answer Date Recorded Within the past 12 months, y ou worried that your food would run out before you got the money to buy more. Never true 10/11/20 25 Within the past 12 months, t he food you bought just didn't last and you didn't have money to get more. Never true 10/11/2025 PRAPARE - Transportation Answer Date Re corded In the past 12 months, has l ack of transportation kept you from medical appointments or from getting medications? No 10/02 In the past 12 months, has l ack of transportation kept you from meetings, work, or from getting things needed for daily living? No 10/11/2025 Housing Stability Vital Sign Answer Boone e Recorded In the last 12 months, was t here a time when you were not able to pay the mortgage or rent on time? No 10/11/2025 In the past 12 months, how m any times have you moved where you were living? 0 10/11/2025 At any time in the past 12 m [facility], were you homeless or living in a senior care (including now)? No 10/11/2025 [facility] Utilities Answer Date Recorded In the past 12 months has th e electric, gas, oil, or water company threatened to shut off services in your home? No 10/11/2025 Sexually Active Control Partners Comments Not Currently Male Comments No Sex and Gender Information Value Date Recorded Sex Assigned at Not on file Legal Sex Female 6:40 AM CDT Gender Identity Not on file Sexual Orientation Not on file Last Filed Vital Signs Vital Sign Reading Time Taken Comments Blood Pressure 147/75 10/14/2025 4:08 AM SAFETY GLASS INSTALLER Pulse 102 10/14/2025 4:08 AM SAFETY GLASS INSTALLER Temperature 36.1 C (96.9 F) 10/14/2025 4:08 AM SAFETY GLASS INSTALLER Respiratory Rate 14 10/14/2025 4:08 AM SAFETY GLASS INSTALLER Oxygen Saturation 98% 10/14/2025 4:08 AM SAFETY GLASS INSTALLER Inhaled Oxygen Concentration - - Weight 68 kg (150 lb) 10/11/2025 7:11 AM SAFETY GLASS INSTALLER Height 162.6 cm (5' 4) 10/11/2025 7:11 AM SAFETY GLASS INSTALLER Body Mass Index 25.75 10/11/2025 7:11 AM SAFETY GLASS INSTALLER Plan of Treatment Health Maintenance Due Date Last Done Comments DEXA Bone Density 1935 Hepatitis C Virus (HCV) Screening 1935 Medicare Initial AWV [id number] 05/02/2002 Respiratory Syncytial Virus (RSV) Immunization (Adult) (1 - 1-dose 75+ series) 2011 Pneumococcal Immunization (50+ years) (2 of 2 - PCV20 or PCV21) 10/02/2017 10/02/2016 Zoster Immunization (3 of 3) 05/05/2021 03/10/2021, 10/19/2020 SARS-COV-2 Immunization ( season) 2026 09/09/2025, 09/08/2024, 09/12/2023, Additional history exists DTaP/Tdap/Td Immunization Discontinued 05/13/2021 TdaP Immunization Completed 05/13/2021 Influenza Immunization Completed , 09/08/2024, 09/12/2023, Additional history exists Hepatitis B Immunization Aged Out No longer eligible based on patient's age to complete this topic Human Papillomavirus (HPV) Immunization (No Doses Required) Completed Meningococcal Immunization (ACWY) Aged Out No longer eligible based on patient's age to complete this topic Rotavirus Immunization Aged Out No lo nger eligible based on patient's age to complete this topic Procedures Procedure Name Priority Date/Time Associated Diagnosis Comments CBC WITH AUTO DIFFERENTIAL Routine 10/14/2025 6:06 AM SAFETY GLASS INSTALLER COMPLETE BLOOD COUNT (CBC) WITH DIFF Routine 10/14/2025 6:06 AM SAFETY GLASS INSTALLER BASIC METABOLIC PANEL W/ CALCIUM TOTAL Routine 10/14/2025 6:06 AM SAFETY GLASS INSTALLER CBC WITH AUTO DIFFERENTIAL Routine 10/13/2025 5:59 AM SAFETY GLASS INSTALLER COMPLETE BLOOD COUNT (CBC) WITH DIFF Routine 10/13/2025 5:59 AM SAFETY GLASS INSTALLER BASIC METABOLIC PANEL W/ CALCIUM TOTAL Routine 10/13/2025 5:59 AM SAFETY GLASS INSTALLER BASIC METABOLIC PANEL W/ CALCIUM TOTAL Routine 10/12/2025 10:50 AM SAFETY GLASS INSTALLER CBC WITH AUTO DIFFERENTIAL Routine 10/12/2025 8:29 AM SAFETY GLASS INSTALLER COMPLETE BLOOD COUNT (CBC) WITH DIFF Routine 10/12/2025 8:29 AM SAFETY GLASS INSTALLER URINALYSIS REFLEX IF INDICATED BY ABNORMAL RESULTS STAT 10/11/2025 12:01 PM SAFETY GLASS INSTALLER CULTURE, URINE Routine 10/11/2025 12:01 PM SAFETY GLASS INSTALLER XR HIP 3-4 VIEW W/PELVIS - MAGNOLIA STAT 10/11/2025 8:29 AM SAFETY GLASS INSTALLER XR LUMBAR SPINE 2 OR 3 VIEWS STAT 10/11/2025 8:26 AM SAFETY GLASS INSTALLER CBC WITH AUTO DIFFERENTIAL STAT 10/11/2025 7:36 AM SAFETY GLASS INSTALLER APTT (PTT) STAT 10/11/2025 7:36 AM SAFETY GLASS INSTALLER PROTIME (PT) (PROTHROMBIN TIME) STAT 10/11/2025 7:36 AM SAFETY GLASS INSTALLER MAGNESIUM (MG) STAT 10/11/2025 7:36 AM SAFETY GLASS INSTALLER CMP (COMPREHENSIVE METABOLIC PANEL) STAT 10/11/2025 7:36 AM SAFETY GLASS INSTALLER COMPLETE BLOOD COUNT (CBC) WITH DIFF STAT 10/11/2025 7:36 [address] [address] CT HEAD OR BRAIN WO CONTRAST Stat with Interpretation 09/23/2025 7:[address] - HEAD/NECK 09/23/2025 12:00 AM CDT from Last 3 Months Results * (ABNORMAL) CBC with Auto Differential (10/14/2025 6:06 AM SAFETY GLASS INSTALLER) Only the most recent of4 resultswithin the time period is included. WBC 7.64 4.00 - 12.00 10(3)/mcL 10/14/2025 7:15 AM [facility] RBC 3.06(L) 3.80 - 5.30 10(6)/mcL 10/14/2025 7:15 AM [facility] HEMOGLOBIN (HGB) 9.9(L) 12.0 - 15.8 g/dL 10/14/2025 7:15 AM [facility] HEMATOCRIT (HCT) 30.0(L) 36.0 - 47.0 % 10/14/2025 7:15 AM [facility] MCV 98.0(H) 82.0 - 96.0 fL 10/14/2025 7:15 AM [facility] MCH 32.4 26.0 - 34.0 pg 10/14/2025 7:15 AM [facility] MCHC 33.0 31.0 - 36.0 g/dL 10/14/2025 7:15 AM [facility] PLATELET COUNT 203 140 - 440 10(3)/mcL 10/14/2025 7:15 AM [facility] RDW 13.6 11.8 - 15.5 % 10/14/2025 7:15 AM [facility] MPV 8.3(L) 9.7 - 12.4 fL 10/14/2025 7:15 AM [facility] NEUTROPHILS 73.8(H) 47.0 - 73.0 % 10/14/2025 7:15 AM [facility] LYMPHOCYTES 16.9(L) 18.0 - 42.0 % 10/14/2025 7:15 AM [facility] MONOCYTES 7.9 4.0 - 12.0 % 10/14/2025 7:15 AM [facility] EOSINOPHILS 0.7 0.0 - 5.0 % 10/14/2025 7:15 AM [facility] BASOPHILS 0.0 0.0 - 1.0 % 10/14/2025 7:15 AM [facility] IMMATURE GRANULOCYTE 0.7(H) 0.0 - 0.4 % 10/14/2025 7:15 AM [facility] Comment:Immature Granulocyte s includes Metamyelocytes, Myelocytes, and Promyelocytes. ABSOLUTE NEUTROPHILS 5.65 1.60 - 7.70 10(3)/[facility] 10/14/2025 7:15 AM [facility] ABSOLUTE LYMPHOCYTES 1.29(L) 1.30 - 3.20 10(3)/[facility] 10/14/2025 7:15 AM [facility] ABSOLUTE MONOCYTES 0.60 0.20 - 1.00 10(3)/[facility] 10/14/2025 7:15 AM [facility] ABSOLUTE EOSINOPHIL 0.05 0.00 - 0.40 10(3)/[facility] 10/14/2025 7:15 AM [facility] ABSOLUTE BASOPHILS 0.00 0.00 - 0.10 10(3)/[facility] 10/14/2025 7:15 AM [facility] ABSOLUTE IMMATURE GRANULOCYTE 0.05(H) 0.00 - 0.03 10 (3) mcL. 10/14/2025 7:15 AM [facility] NRBC PER 100 WBC 0 10/14/20 7:15 AM [facility] Blood Venipuncture / Unknown 10/14/2025 6:06 AM S[employer]ETY GLASS INSTALLER 10/14/2025 7:05 AM SAFETY GLASS INSTALLER us Denise Briceño FACING SLITTER, NET FISHER HEMATOLOGY ORDERABLES Fin al Result [facility] [address] [place] [address] * (ABNORMAL) BMP with Ca, Total (10/14/2025 6:06 AM SAFETY GLASS INSTALLER) Only the most recent of3 resultswithin the time period is included. SODIUM 129(L) 136 - 145 mmol/L 10/14/2025 7:42 AM [facility] POTASSIUM 4.5 3.5 - 5.1 mmol/L 10/14/2025 7:42 AM [facility] CHLORIDE 104 98 - 107 mmol/L 10/14/2025 7:42 AM [facility] CO2, VENOUS 18(L) 22 - 30 mmol/L 10/14/2025 7:42 AM [facility] ANION GAP 11.5 <18.0 mmol/L 10/14/2025 7:42 AM [facility] GLUCOSE 91 70 - 99 mg/dL 10/14/2025 7:42 AM [facility] BUN 37(H) 10 - 20 mg/dL 10/14/2025 7:42 AM [facility] CREATININE, BLOOD 0.71 0.60 - 1.00 mg/dL 10/14/2025 7:42 AM [facility] BUN/CREATININE RATIO 52(H) 12 - 20 ratio 10/14/2025 7:42 AM [facility] CALCIUM 9.1 8.7 - 10.5 mg/dL 10/14/2025 7:42 AM [facility] GFR, ESTIMATED >60 >=60 10/14/2025 7:42 AM [facility] Comment: Creatinine Clearance is the preferred criteria for selecting drug dose adjustments in renally impaired patients. The GFR is provided as additional pertinent clinical information. GFR is reported in mL/min/1.73 sq m. Calculation based on the 2020 Chronic Kidney Disease Epidemiology Collaboration (CKD-EPI) equation refit without adjustment for race. GFR, EST. >60 >=60 11/13/2 025 7:42 AM SAFETY GLASS INSTALLER [facility] Comment: Creatinine Clearance is the preferred criteria for selecting drug dose adjustments in renally impaired patients. The GFR is provided as additional pertinent clinical information. GFR is reported in mL/min/1.73 sq m. Calculation based on the 2009 Chronic Kidney Disease Epidemiology Collaboration (CKD-EPI). GFR, EST. NONAFRICAN >60 >=60 10/14/2025 7:42 AM SAFETY GLASS INSTALLER [facility] Comment: Creatinine Clearance is the preferred criteria for selecting drug dose adjustments in renally impaired patients. The GFR is provided as additional pertinent clinical information. GFR is reported in mL/min/1.73 sq m. Calculation based on the 2009 Chronic Kidney Disease Epidemiology Collaboration (CKD-EPI). Blood Venipuncture / Unknown 10/14/2025 6:06 AM SAFETY GLASS INSTALLER 10/14/2025 7:04 AM SAFETY GLASS INSTALLER Denise Briceño FACING SLITTER, NET FISHER CHEMISTRY ORDERABLES Nisa l Result [facility] [address] [place] [address] * (ABNORMAL) Urinalysis w/ Reflex (10/11/2025 12:01 PM SAFETY GLASS INSTALLER) SPECIFIC GRAVITY 1.015 1.003 - 1.030 10/11/2025 12:58 PM SAFETY GLASS INSTALLER [facility] URINE PH 6.0 5.0 - 9.0 10/11/2025 12:58 PM SAFETY GLASS INSTALLER [facility] WBC ESTERASE 500 /uL(A) Negative 10/11/2025 12:58 PM SAFETY GLASS INSTALLER [facility] NITRITE Positive(A) Negative 10/11/2025 12:58 PM SAFETY GLASS INSTALLER [facility] PROTEIN, RANDOM URINE 15 mg/dL(A) Negative 10/11/2025 12:58 PM SAFETY GLASS INSTALLER [facility] URINE GLUCOSE, QUAL Negative Negative 10/11/2025 12:58 PM SAFETY GLASS INSTALLER [facility] URINE KETONES Negative Negative 10/11/2025 12:58 PM SAFETY GLASS INSTALLER [facility] UROBILINOGEN Normal Normal mg/dL 10/11/2025 12:58 PM SAFETY GLASS INSTALLER [facility] URINE BLOOD Negative Negative giancarlo/ul 10/11/2025 12:58 PM SAFETY GLASS INSTALLER [facility] URINALYSIS COLOR Yellow 10/11/2025 12:58 PM SAFETY GLASS INSTALLER [facility] URINALYSIS CLARITY Slightly Cloudy 10/11/2025 12:58 PM SAFETY GLASS INSTALLER [facility] WBC (Urine) 51-150(A) Negative, 0-5 /hpf 10/11/2025 12:58 PM SAFETY GLASS INSTALLER [facility] URINE RBC'S 0-2 Negative, 0-2 /hpf 10/11/2025 12:58 PM SAFETY GLASS INSTALLER [facility] EPITHELIAL CELLS Occasional /lpf 10/11/2025 12:58 PM SAFETY GLASS INSTALLER [facility] BACTERIA, URINE Many(A) Negative /hpf 10/11/2025 12:58 PM SAFETY GLASS INSTALLER [facility] Urine URINE SPECIMEN / Unknown Non-Phlebotomy Collection / Unknown 10/11/2025 12:01 PM SAFETY GLASS INSTALLER 10/11/2025 12:09 PM SAFETY GLASS INSTALLER us Sav Stover MD URINE ORDERABLES Final Re sult [facility] [address] [place] [address] * Culture, Urine (10/11/2025 12:01 PM SAFETY GLASS INSTALLER) CULTURE RESULTS ENTEROBACTER CLOACAE COMPLEX 10/13/2025 2:54 PM SAFETY GLASS INSTALLER [facility] Comment: ALSO MIXED GROWTH OF DISTAL URETHRA CONTAMINANTS. Enterobacter cloacae, Citrobacter freundii, and Klebsiella aerogenes are associated with a moderate to high likelihood of inducible AmpC Beta-Lactamase gene expression. Consider avoiding treatment with ceftriaxone or ceftazidime even if isolate tests susceptible to these agents. Treatment with ceftriaxone or ceftazidime can still be considered in uncomplicated cystitis. Urine URINE SPECIMEN / Unknown Non-Phlebotomy Collection / Unknown 10/11/2025 12:01 PM SAFETY GLASS INSTALLER 10/11/2025 12:09 PM SAFETY GLASS INSTALLER Narrative Organism Antibiotic Method Susceptibility Enterobacter cloacae complex Cefepime SF VITEK II <=0.12 mcg/ml: Susceptible Enterobacter cloacae complex Ceftriaxone [facility] VITEK II <=0.25 mcg/ml: Susceptible Enterobacter cloacae complex Gentamicin [facility] VITEK II <=1 mcg/ml: Susceptible Enterobacter cloacae complex Levofloxacin [facility] VITEK II <=0.12 mcg/ml: Susceptible Enterobacter cloacae complex Meropenem [facility] VITEK II <=0.25 mcg/ml: Susceptible Enterobacter cloacae complex Nitrofurantoin [facility] VITEK II 64 mcg/ml: Intermediate Enterobacter cloacae complex Piperacillin/Tazobactam [facility] VITEK II <=4 mcg/ml: Susceptible Enterobacter cloacae complex Trimeth/Sulfamethoxazole [facility] VITEK II <=20 mcg/ml: Susceptible us Sav Stover MD MICROBIOLOGY - GENERAL OR DERABLES Final Result [facility] [address] [place] [address], [place] * XR HIP 3-4 VIEW W/PELVIS - MAGNOLIA (10/11/2025 8:29 AM SAFETY GLASS INSTALLER) Anatomical Region Laterality Modality LOWER EXTREMITY, hip, Pelvis Bilateral Dig ital Radiography 10/11/2025 8:29 AM SAFETY GLASS INSTALLER Impressions 10/11/2025 9:31 AM SAFETY GLASS INSTALLER IMPRESSION: 1. Loss of joint space in the hips. 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 2. No acute osseous findings. Narrative 10/11/2025 9:31 AM SAFETY GLASS INSTALLER DICTATING PHYSICIAN: Keith Vee M.D., [facility] EXAM: XR HIP 3-4 VIEW W/PELVIS - MAGNOLIA 10/11/2025 8:29 AM Patient : 1935 Age: 89 years Gender: Female Number of images: 5 INDICATION: Bilateral Low back pain worse on the left with shooting pain into left leg to mid calf since last night- fall 2.5 weeks ago-Left hip pain with dificulty ambulating since fall 2.5 weeks ago-no surgery COMPARISON: None FINDINGS: Symmetric loss of joint space within the hips, particular along the superior medial aspects of the joints. Mild periarticular bone spurring of the hips. No acute fracture or dislocation. Moderate to severe spondylosis of the inferior lumbar spine. Procedure Note Keith Fields MD - 10/11/2025 DICTATING PHYSICIAN: Keith Vee M.D., [facility] EXAM: XR HIP 3-4 VIEW W/PELVIS - MAGNOLIA 10/11/2025 8:29 AM Patient : 1935 Age: 89 years Gender: Female Number of images: 5 INDICATION: Bilateral Low back pain worse on the left with shooting paininto left leg to mid calf since last night- fall 2.5 weeks ago-Left hippain with dificulty ambulating since fall 2.5 weeks ago-no surgery COMPARISON: None FINDINGS: Symmetric loss of joint space within the hips, particular along thesuperior medial aspects of the joints. Mild periarticular bone spurringof the hips. No acute fracture or dislocation. Moderate to severespondylosis of the inferior lumbar spine. IMPRESSION: 1. Loss of joint space in the hips. 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 2. No acute osseous findings. Sav Stover MD IMG DIAGNOSTIC ORDERABLES Final Result * XR LUMBAR SPINE 2 OR 3 VIEWS (10/11/2025 8:26 AM SAFETY GLASS INSTALLER) Anatomical Region Laterality Modality Spine, L-spine N/A Digital Radiogra phy 10/11/2025 8:26 AM SAFETY GLASS INSTALLER Impressions 10/11/2025 9:26 AM SAFETY GLASS INSTALLER IMPRESSION: 1. No acute osseous findings. 2. Old L1 compression fracture. 3. Biphasic scoliosis of the lumbar spine. Narrative 10/11/2025 9:26 AM SAFETY GLASS INSTALLER DICTATING PHYSICIAN: Keith Vee M.D., [facility] EXAM: XR LUMBAR SPINE 2 OR 3 VIEWS 10/11/2025 8:26 AM Patient : 1935 Age: 89 years Gender: Female NUMBER OF IMAGES: 3 INDICATION: Bilateral Low back pain worse on the left with shooting pain into left leg to mid calf since last night- fall 2.5 weeks ago-Left hip pain with dificulty ambulating since fall 2.5 weeks ago-no surgery COMPARISON: X-ray of the abdomen performed 08/09/2025, CT of the abdomen and pelvis performed 06/24/2023 TECHNIQUE: Frontal, lateral and coned-down lateral views of the lumbar spine were obtained. FINDINGS: 6 lumbar vertebrae. Old L1 compression fracture. 21 degrees of dextroconvex scoliosis of the superior lumbar and 10 degrees of levoconvex scoliosis of the inferior lumbar spine. Grade 2 anterior listhesis of L4 on L5. 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 Mild to severe loss of intervertebral disc height is seen throughout the spine. Multiple surgical clips are seen projecting over the right upper quadrant likely due to a prior cholecystectomy. Atherosclerotic calcifications of the abdominal aorta. Partially imaged hiatal hernia. Procedure Note Keith Fields MD - 10/11/2025 DICTATING PHYSICIAN: Keith Vee M.D., [facility] EXAM: XR LUMBAR SPINE 2 OR 3 VIEWS 10/11/2025 8:26 AM Patient : 1935 Age: 89 years Gender: Female NUMBER OF IMAGES: 3 INDICATION: Bilateral Low back pain worse on the left with shooting paininto left leg to mid calf since last night- fall 2.5 weeks ago-Left hippain with dificulty ambulating since fall 2.5 weeks ago-no surgery COMPARISON: X-ray of the abdomen performed 08/09/2025, CT of the abdomen andpelvis performed 06/24/2023 TECHNIQUE: Frontal, lateral and coned-down lateral views of the lumbarspine were obtained. FINDINGS: 6 lumbar vertebrae. Old L1 compression fracture. 21 degrees ofdextroconvex scoliosis of the superior lumbar and 10 degrees of levoconvexscoliosis of the inferior lumbar spine. Grade 2 anterior listhesis of L4on L5. Moderate to severe facet joint osteoarthropathy of the lumbarspine. Mild to severe loss of intervertebral disc height is seen throughout thespine. Multiple surgical clips are seen projecting over the right upper quadrantlikely due to a prior cholecystectomy. Atherosclerotic calcifications ofthe abdominal aorta. Partially imaged hiatal hernia. IMPRESSION: 1. No acute osseous findings. 2. Old L1 compression fracture. 3. Biphasic scoliosis of the lumbar spine. us Sav Stover MD IMG DIAGNOSTIC ORDERABLES Final Result * (ABNORMAL) PTT (10/11/2025 7:36 AM SAFETY GLASS INSTALLER) PTT 46(H) 24 - 36 sec 10/11/2025 7:58 AM SAFETY GLASS INSTALLER [facility] Blood Venipuncture / Unknown 10/11/2025 7:36 AM SAFETY GLASS INSTALLER 10/11/2025 7:42 AM SAFETY GLASS INSTALLER Narrative [facility] - 10/11/2025 7:58 AM SAFETY GLASS INSTALLER Therapeutic range for unfractionated heparin at 0.3-0.7 U/mL is an aPTT value in the range of 71-100 seconds. Critical value for the PTT test is >= 122 seconds. us Sav Stover MD HEMATOLOGY ORDERABLES Fin al Result [facility] [address] [place] [address] * (ABNORMAL) PT / INR (10/11/2025 7:36 AM SAFETY GLASS INSTALLER) PROTIME-PATIENT 26.1(H) 11.6 - 14.8 sec 10/11/2025 7:58 AM SAFETY GLASS INSTALLER [facility] INR 2.4(H) 0.9 - 1.2 10/11/2025 7:58 AM SAFETY GLASS INSTALLER [facility] Comment: Therapeutic Ranges INR = 2.0-3.0: Venous thromb, atrial fib, pul embolism, tissue heart valve, ami. INR = 2.5-3.5: Mechanical heart valve Critical value for INR is >/= 4.5 Blood Venipuncture / Unknown 10/11/2025 7:36 AM SAFETY GLASS INSTALLER 10/11/2025 7:42 AM SAFETY GLASS INSTALLER us Sav Stover MD HEMATOLOGY ORDERABLES Fin al Result Performing Organization Address City/[facility]/ZIP Co de Phone Number [facility] [address] [place] [address] * Magnesium (10/11/2025 7:36 AM SAFETY GLASS INSTALLER) MAGNESIUM 2.0 1.6 - 2.6 mg/dL 10/11/2025 8:02 AM SAFETY GLASS INSTALLER [facility] Blood Venipuncture / Unknown 10/11/2025 7:36 AM SAFETY GLASS INSTALLER 10/11/2025 7:42 AM SAFETY GLASS INSTALLER us Sav Stover MD CHEMISTRY ORDERABLES Nisa l Result Performing Organization Address [facility] de Phone Number [facility] [address] [place] [address] * (ABNORMAL) CMP (10/11/2025 7:36 AM SAFETY GLASS INSTALLER) SODIUM 127(L) 136 - 145 mmol/L 10/11/2025 8:02 AM [facility] POTASSIUM 5.0 3.5 - 5.1 mmol/L 10/11/2025 8:02 AM [facility] CHLORIDE 99 98 - 107 mmol/L 10/11/2025 8:02 AM [facility] CO2, VENOUS 20(L) 22 - 30 mmol/L 10/11/2025 8:02 AM [facility] ANION GAP 13.0 <18.0 mmol/L 10/11/2025 8:02 AM [facility] GLUCOSE 101(H) 70 - 99 mg/dL 10/11/2025 8:02 AM [facility] BUN 20 10 - 20 mg/dL 10/11/2025 8:02 AM [facility] CREATININE, BLOOD 0.92 0.60 - 1.00 mg/dL 10/11/2025 8:02 AM [facility] BUN/CREATININE RATIO 22(H) 12 - 20 ratio 10/11/2025 8:02 AM [facility] TOTAL PROTEIN 6.4 6.0 - 8.0 g/dL 10/11/2025 8:02 AM [facility] ALBUMIN 3.6 3.5 - 5.0 g/dL 10/11/2025 8:02 AM [facility] A/G RATIO 1.3 1.0 - 2.2 10/11/2025 8:02 AM [facility] CALCIUM 9.1 8.7 - 10.5 mg/dL 10/11/2025 8:02 AM [facility] T BILI 0.4 0.2 - 1.2 mg/dL 10/11/2025 8:02 AM [facility] SGOT (AST) 18 <43 U/L 10/11/2025 8:02 AM [facility] SGPT (ALT) 11 <56 U/L 10/11/2025 8:02 AM [facility] ALKALINE PHOSPHATASE 172(H) 40 - 150 U/L 10/11/2025 8:02 AM [facility] GFR, ESTIMATED 60 >=60 10/11/2025 8:02 AM [facility] Comment: Creatinine Clearance is the preferred criteria for selecting drug dose adjustments in renally impaired patients. The GFR is provided as additional pertinent clinical information. GFR is reported in mL/min/1.73 sq m. Calculation based on the 2020 Chronic Kidney Disease Epidemiology Collaboration (CKD-EPI) equation refit without adjustment for race. GFR, EST. >60 >=60 8:02 AM [facility] Comment: Creatinine Clearance is the preferred criteria for selecting drug dose adjustments in renally impaired patients. The GFR is provided as additional pertinent clinical information. GFR is reported in mL/min/1.73 sq m. Calculation based on the 2009 Chronic Kidney Disease Epidemiology Collaboration (CKD-EPI). GFR, EST. NONAFRICAN 57(L) >=60 10/11/2025 8:02 AM [employer] INST[employer] [facility] Comment: Creatinine Clearance is the preferred criteria for selecting drug dose adjustments in renally impaired patients. The GFR is provided as additional pertinent clinical information. GFR is reported in mL/min/1.73 sq m. Calculation based on the 2009 Chronic Kidney Disease Epidemiology Collaboration (CKD-EPI). Blood Venipuncture / Unknown 10/11/2025 7:36 AM [employer]ASS INST[employer]ER 10/11/2025 7:42 AM S[employer] GLASS INST[employer]ER us Sav Stover MD CHEMISTRY ORDERABLES Nisa l Result [facility] [place] [address] * CT HEAD OR BRAIN WO CONTRAST (09/23/2025 7:03 PM CDT) Anatomical Region Laterality Modality Head N/A Computed Tomogra phy 09/23/2025 7:03 PM CDT Impressions 09/24/2025 6:05 AM CDT IMPRESSION: 1. Age-appropriate diffuse parenchymal volume loss with chronic white matter microangiopathic changes. 2. No intracranial hemorrhage or signs of ischemia which may go undetected in the hyperacute phase. The preliminary report and any related communication were provided by [facility] After Hours service, as documented in the medical record. Narrative 09/24/2025 6:05 AM CDT DICTATING PHYSICIAN: Keith Vee M.D., [facility] EXAM: CT HEAD OR BRAIN WO CONTRAST 09/23/2025 7:03 PM Patient : 1935 Age: 89 years Gender: Female NUMBER OF IMAGES: 411 INDICATION: Head trauma, minor (Age >= 65y), fall, GLF with posterior head injuy x today. hematoma present to posteior head. Hx of HTN COMPARISON: None Technique: Axial CT of the head was performed from the base of the skull through the vertex of the head. Sagittal and true axial reformats were created on an independent workstation and uploaded to PACS for further interpretation. This study is limited as no coronal reformat was provided. Low-dose CT acquisition technique included one of following options; 1 . Automated exposure control, 2. Adjustment of MA and or KV according to patient's size or 3. Use of iterative reconstruction. Multiple CT sections were obtained with sagittal and coronal MPR reconstructions. FINDINGS: Diffuse parenchymal volume loss is seen with concordant ventriculomegaly. Scattered areas of hypoattenuation are seen throughout the periventricular white matter and centrum semiovale consistent with chronic microangiopathic changes. There is no evidence for hemorrhage. There is no infarct identified. There is no mass effect identified. There is no mass identified. Prior bilateral lens extractions. Procedure Note Keith Fields MD - 09/24/2025 DICTATING PHYSICIAN: Keith Vee M.D., [facility] EXAM: CT HEAD OR BRAIN WO CONTRAST 09/23/2025 7:03 PM Patient : 1935 Age: 89 years Gender: Female NUMBER OF IMAGES: 411 INDICATION: Head trauma, minor (Age >= 65y), fall, GLF with posterior headinjuy x today. hematoma present to posteior head. Hx of HTN COMPARISON: None Technique: Axial CT of the head was performed from the base of the skullthrough the vertex of the head. Sagittal and true axial reformats werecreated on an independent workstation and uploaded to PACS for furtherinterpretation. This study is limited as no coronal reformat wasprovided. Low-dose CT acquisition technique included one of following options; 1 .Automated exposure control, 2. Adjustment of MA and or KV according topatient's size or 3. Use of iterative reconstruction. Multiple CT sectionswere obtained with sagittal and coronal MPR reconstructions. FINDINGS: Diffuse parenchymal volume loss is seen with concordantventriculomegaly. Scattered areas of hypoattenuation are seen throughout the periventricularwhite matter and centrum semiovale consistent with chronicmicroangiopathic changes. There is no evidence for hemorrhage. There is no infarct identified. There is no mass effect identified. There is no mass identified. Prior bilateral lens extractions. IMPRESSION: 1. Age-appropriate diffuse parenchymal volume loss with chronic whitematter microangiopathic changes. 2. No intracranial hemorrhage or signs of ischemia which may go undetectedin the hyperacute phase. The preliminary report and any related [facility], as documented in the medical record. us Jossue Rose MD IMG CT ORDERABLES Fi nal Result * CT - HEAD/NECK (09/23/2025 12:00 AM CDT) 09/23/2025 us Provider Scan IMG CT ORDERABLES Final Result SCAN from Last 3 Months Insurance MEDICARE [facility] Advance Directives Documents on File Type Date Recorded Patient Candle Wicker Expl anation Power of Electronic System Engineer for Health Care 10/13/2025 4:18 PM POA-HC, 05/26/2006 Other Advance Directive 10/13/2025 4:18 PM HEALTH CARE DIRECTIONS, 05/10/2006 * No CPR-Selective Treatment (Latest Code Status on File) Date Activated Date Inactivated Comments 10/14/2025 11:20 AM No CPR - Mary Jane ective Treatment: FULL ARREST: Do Not Attempt Resuscitation. PRE-ARREST: DO NOT USE INTUBATION OR MECHANICAL VENTILATION, but may use basic medical treatment like CPAP or BiPAP, antibiotics, IV fluids, oxygen, etc. Avoid care in ICU setting. * No CPR-Selective Treatment Date Activated Date Inactivated Comments 10/11/2025 12:38 PM 10/14/2025 11:20 AM No CPR - Selective Treatment: FULL ARREST: Do Not Attempt Resuscitation. PRE-ARREST: DO NOT USE INTUBATION OR MECHANICAL VENTILATION, but may use basic medical treatment like CPAP or BiPAP, antibiotics, IV fluids, oxygen, etc. Avoid care in ICU setting. Question Answer Comments Physician documentation made in notes? Yes * No CPR-Selective Treatment Date Activated Date Inactivated Comments 06/25/2023 10:51 PM 06/26/2023 4:59 PM No CPR - Se lective Treatment: FULL ARREST: Do Not Attempt Resuscitation. PRE-ARREST: DO NOT USE INTUBATION OR MECHANICAL VENTILATION, but may use basic medical treatment like CPAP or BiPAP, antibiotics, IV fluids, oxygen, etc. Avoid care in ICU setting. Question Answer Comments Physician documentation made in notes? Yes Care Teams Medical Research Associate Relationship Specialty Start Date End Date Patricio Travis MD [address] [phone] PCP - General Family Medicine 06/24/23
--- OUTSIDE RECORDS SUMMARY | 2025-11-11 19:11 | XMS_ITS | Clinical Summary ---
Author Organization [facility] [address] Address [address] [place] [address] Care Team Providers Care Roll Forger Name Role Phone Patricio Travis MD Primary Care Provider [phone] Allergies No known active allergies Medications furosemide (LASIX) 20 mg tablet take 1 tablet by oral route every day 0 0 11/12/20 13 Active Additional Information Patient taking differently: 40 mg oral Daily, Reported on 11/03/2025 cyanocobalami n (vitamin B-12) 1,000 mcg tablet take 1 by Oral route every day 0 0 11/12/20 13 Active psyllium seed, sugar, (METAMUCIL, SUGAR,) powder 0 0 11/12/20 13 Active multivitamin tablet tablet take 1 by Oral route once 0 0 11/12/20 13 Active ferrous sulfate (IRON) 325 mg (65 mg iron) capsule, extended release 0 0 11/12/20 13 Active traMADol (ULTRAM) 50 mg tablet take 1 tablet by oral route every 6 hours as needed 0 0 06/17/20 15 Active acetaminophen (TYLENOL) 325 mg tablet Take 2 tablets (650 mg total) by mouth every 6 (six) hours as needed for pain Active reive-5-duc-e pa-dpa-fish oil 1,050-1,200 mg capsule 1 capsule Active artificial tears (SYSTANE) 0.3 % gel Apply to both eyes Active cholecalcifer ol (VITAMIN D-3) 25 mcg (1,000 unit) tablet Take 1 tablet (1,000 Units total) by mouth daily Active docusate sodium (COLACE) 100 mg capsuleIndica tions:constip ation Take 1 capsule (100 mg total) by mouth 2 (two) times a day Active potassium chloride ER 10 mEq CR tablet TAKE 2 TABLETS TWICE A DAY 360 tablet 3 01/22/20 24 Active rivaroxaban (Xarelto) 15 mg tablet TAKE 1 TABLET EVERY EVENING 90 tablet 2 09/28/20 25 Active metoprolol XL (TOPROL-XL) 100 mg 24 hr tablet Take 1 tablet (100 mg total) by mouth daily 90 tablet 2 11/03/20 25 026 Active sacubitriL-va lsartan (ENTRESTO) 24-26 mg tabletIndicat ions:chronic heart failure Take 1 tablet by mouth 2 (two) times a day 60 tablet 11 11/08/20 25 026 Active lisinopril (PRINIVIL,ZES TRIL) 40 mg tablet take 1 tablet by oral route every day 0 0 11/12/20 13 025 Discontinued(Al ternate therapy) dilTIAZem XR 240 mg 24 hr capsule TAKE 1 CAPSULE DAILY 90 capsule 3 12/14/19 25 025 Discontinued lisinopriL (PRINIVIL,ZES TRIL) 40 mg tablet Take 1 tablet (40 mg total) by mouth daily 025 Discontinued(Al ternate therapy) Active Problems Problem Noted Date Diagnosed Date Edema 11/03/2025 Exertional dyspnea 09/13/2020 Chronic atrial fibrillation 06/11/2017 Encounters Date Type Department Care Team Description 11/04/2025 Telephone [facility] Cardiology at [address] [phone] Talat Ariza MD 11/03/2025 1:00 PM DIRECTOR FIXED INCOME Ancillary Procedure [facility] Cardiology at [address] [phone] Edema, unspecified type 11/03/2025 11:30 AM DIRECTOR FIXED INCOME Office Visit [facility] Cardiology at [address] [phone] Talat Ariza MD Chronic atrial fibrillation (HCC) (Primary Dx); Edema, unspecified type 10/11/2025 6:41 AM DIRECTOR FIXED INCOME - 10/11/2025 11:59 PM DIRECTOR FIXED INCOME Hospital Encounter [facility] BILLING Emergency, Room R Discharge Disposition: Discharge to home or self care 09/23/2025 6:15 PM CDT - 09/23/2025 11:59 PM CDT Hospital Encounter [facility] BILLING Emergency, Room R Discharge Disposition: Discharge to home or self care from Last 3 Months Medical History Medical History Date Comments Hypertension [...] on file Legal Sex Female 3:02 PM DIRECTOR FIXED INCOME Gender Identity Not on file Sexual Orientation Not on file Occupation Industry Job Start Date Job End Date retired Not on file Not on file Not on file Last Filed Vital Signs Vital Sign Reading Time Taken Comments Blood Pressure 108/60 11/03/2025 11:44 AM DIRECTOR FIXED INCOME Pulse 59 11/03/2025 11:44 AM DIRECTOR FIXED INCOME Temperature 36.3 C (97.3 F) 09/16/2020 8:53 AM CDT Respiratory Rate 12 06/11/2017 9:32 AM CDT Oxygen Saturation 99% 11/03/2025 11:44 AM DIRECTOR FIXED INCOME Inhaled Oxygen Concentration - - Weight 68.5 kg (151 lb) 11/03/2025 11:44 AM DIRECTOR FIXED INCOME Height 160 cm (5' 3) 11/03/2025 11:44 AM DIRECTOR FIXED INCOME Body Mass Index 26.75 11/03/2025 11:44 AM DIRECTOR FIXED INCOME Plan of Treatment Health Maintenance Due Date Last Done Comments Osteoporosis Screening-Bone Density Scan 1935 Hepatitis B Screening 1953 Well Visit 65+ 2001 Pneumococcal vaccine 65+ (2 of 2 - PPSV23, PCV20, or PCV21) 11/27/2016 10/02/2016 Zoster Vaccine (2 of 3) 12/14/2020 10/19/2020 Depression Screening 03/10/2021 03/10/2020 Fall Risk Assessment 03/10/2021 03/10/2020 Influenza Vaccine (#1) 2025 9, 08/26/2016, 09/11/2015, Additional history exists DTaP/Tdap/Td Vaccine (2 - Td or Tdap) 05/13/2031 05/13/2021 Procedures Procedure Name Priority Date/Time Associated Diagnosis Comments TRANSTHORACIC ECHO (TTE) COMPLETE W DOPPLER/CF WO CONTRAST Routine 11/03/2025 2:35 PM DIRECTOR FIXED INCOME Edema, unspecified type from Last 3 Months Results * TRANSTHORACIC ECHO (TTE) COMPLETE W DOPPLER/CF WO CONTRAST (11/03/2025 2:35 PM DIRECTOR FIXED INCOME) Estimated EF 65 % CONS SCIMAGE EF Mod BP 60 % CONS SCIMAGE Anatomical Region Laterality Modality Ultrasound 11/03/2025 12:3 3 PM DIRECTOR FIXED INCOME Narrative 11/04/2025 7:55 AM DIRECTOR FIXED INCOME [facility] Cardiology [address], [address], [place] [address] P:[phone] P:[phone] Echocardiographic Report Patient Name: MARY REYNA M : 1935 Study Date: 11/03/2025 12:33:00 PM Sex: F Middleware Administrator: SANDIP Location: [facility] Ref Provider: TALAT ARIZA Height(Cm): 160 BSA: 1.74 Weight(Kg): 68.5 Heart Rate: 93 BP: 108 / 60 Quality: Good Order Provider: TALAT ARIZA PROCEDURES: Echocardiographic Report: Transthoracic echocardiogram with complete 2D, M-Mode, and color Doppler examination. With Strain Analysis. INDICATIONS: R60.9 Edema, unspecified. MEASUREMENTS: 2D/MM Value Range Doppler Value Range EF Mod BP 60 % [ 54 - 74 ] WENDY Vmax 2.35 cm2 [ 2.00 - 4.00 ] EF Teich MM 52 % [ 54 - 74 ] AV Mean PG 3 mmHg Estimated EF 65 % AV Peak Rich 1.47 m/s [ 1.00 - 1.70 ] LV GLS -16.08 % AV Peak PG 9 mmHg LVIDd 2D 4.55 cm [ 3.80 - 5.20 ] AV VTI 22.78 cm LVIDd MM 4.99 cm [ 3.80 - 5.20 ] LVOT Diam 2.00 cm [ 1.70 - 2.10 ] LVIDs 2D 2.60 cm [ 2.20 - 3.50 ] LVOT Peak Rich 1.11 m/s [ 0.70 - 1.10 ] LVIDs MM 3.66 cm [ 2.20 - 3.50 ] LVOT VTI 20.62 cm LVPWd 2D 0.92 cm [ 0.60 - 0.90 ] MV E Peak Rich 1.33 m/s [ 0.60 - 1.30 ] LVPWd MM 0.81 cm [ 0.60 - 0.90 ] MV Mean PG 6 mmHg [ 0 - 5 ] IVSd 2D 0.95 cm [ 0.60 - 0.90 ] MV PHT 42 msec [ 20 - 100 ] IVSd MM 0.84 cm [ 0.60 - 0.90 ] MVA PHT 5.29 cm2 [ 2.00 - 4.00 ] LA Dimension MM 7.85 cm [ 2.70 - 3.80 ] MV Decel Time 115 msec [ 104 - 258 ] AoR Diam MM 3.15 cm [ 2.70 - 3.30 ] PV Peak Rich 1.14 m/s [ 0.40 - 0.80 ] LA Volume 158.25 ml [ 22.00 - 52.00 ] TR Peak Rich 3.27 m/s [ 1.00 - 2.80 ] LA Volume Index 91 cc/m2 [ 16 - 28 ] TR Peak PG 43 mmHg RA Volume 101.58 ml RVSP 51.00 mmHg [ 10.00 - 36.00 ] RV S` 0.10 m/s Lateral E` 0.12 m/s [ 0.10 - 0.15 ] Septal E` 0.13 m/s [ 0.08 - 0.15 ] E` 0.13 m/s E/E` 11 Tapse 1.76 cm [ 1.71 - 5.00 ] 2D/MM Value Range Doppler Value Range - FINDINGS: Interpretation Site: Exam was interpreted at [facility]. Left Ventricle: Normal left ventricular size. Normal global left ventricular systolic function. Ejection fraction is measured at 60 %. Ejection Fraction is visually estimated to be 65 %. Global Longitudinal Strain is -16 %. Right Ventricle: Normal right ventricular size. Left Atrium: There is severe enlargement of left atrium. Right Atrium: There is severe enlargement of right atrium. Atrial Septum: Normal atrial septum. Mitral Valve: Normal appearance of the mitral valve. Mild mitral annular calcification. Moderate mitral valve regurgitation. Aortic Valve: Normal appearance of the aortic valve. Tricuspid Valve: Normal appearance of the tricuspid valve. Estimated peak RVSP is 51 mmHg. Mild to moderate tricuspid regurgitation. Pulmonic Valve: Pulmonic valve not well visualized. Pericardium: Normal pericardium with no significant pericardial effusion. Aorta: Normal aortic root. IVC: The IVC is not well visualized. Pulmonary Artery: Normal pulmonary artery size. CONCLUSIONS: Normal left ventricular size. Normal global left ventricular systolic function. Ejection fraction is measured at 60 %. Ejection Fraction is visually estimated to be 65 %. Global Longitudinal Strain is -16 %. Normal appearance of the mitral valve. Mild mitral annular calcification. Moderate mitral valve regurgitation. Atrial fibrillation. Marked biatrial enlargement. Electronically Signed By: Talat Ariza MD, [facility] 11/04/2025 7:55:29 AM DIRECTOR FIXED INCOME Procedure Note Talat Ariza MD - 11/04/2025 [facility] [address], [address], [place] [address] P:[phone] P:[phone] Echocardiographic Report Patient Name: MARY REYNA M : 1935 Study Date: 11/03/2025 12:33:00 PM Sex: F Middleware Administrator: SANDIP Location: SE Ref Provider: TALAT ARIZA Height(Cm): 160 BSA: 1.74 Weight(Kg): 68.5 Heart Rate: 93 BP: 108 / 60 Quality: Good Order Provider: TALAT ARIZA PROCEDURES: Echocardiographic Report: Transthoracic echocardiogram with complete 2D, M-Mode, and color Dopplerexamination. With Strain Analysis. INDICATIONS: R60.9 Edema, unspecified. MEASUREMENTS: 2D/MM Value Range DopplerValue Range EF Mod BP 60 % [ 54 - 74 ] WENDY Vmax 2.35cm2 [ 2.00 - 4.00 ] EF Teich MM 52 % [ 54 - 74 ] AV Mean PG 3mmHg Estimated EF 65 % AV Peak Rich 1.47m/s [ 1.00 - 1.70 ] LV GLS -16.08 % AV Peak PG 9mmHg LVIDd 2D 4.55 cm [ 3.80 - 5.20 ] AV VTI22.78 cm LVIDd MM 4.99 cm [ 3.80 - 5.20 ] LVOT Diam 2.00cm [ 1.70 - 2.10 ] LVIDs 2D 2.60 cm [ 2.20 - 3.50 ] LVOT Peak Rich 1.11m/s [ 0.70 - 1.10 ] LVIDs MM 3.66 cm [ 2.20 - 3.50 ] LVOT VTI20.62 cm LVPWd 2D 0.92 cm [ 0.60 - 0.90 ] MV E Peak Rich 1.33m/s [ 0.60 - 1.30 ] LVPWd MM 0.81 cm [ 0.60 - 0.90 ] MV Mean PG 6mmHg [ 0 - 5 ] IVSd 2D 0.95 cm [ 0.60 - 0.90 ] MV PHT 42msec [ 20 - 100 ] IVSd MM 0.84 cm [ 0.60 - 0.90 ] MVA PHT 5.29cm2 [ 2.00 - 4.00 ] LA Dimension MM 7.85 cm [ 2.70 - 3.80 ] MV Decel Time 115msec [ 104 - 258 ] AoR Diam MM 3.15 cm [ 2.70 - 3.30 ] PV Peak Rich 1.14m/s [ 0.40 - 0.80 ] LA Volume 158.25 ml [ 22.00 - 52.00 ] TR Peak Rich 3.27m/s [ 1.00 - 2.80 ] LA Volume Index 91 cc/m2 [ 16 - 28 ] TR Peak PG 43mmHg RA Volume 101.58 ml RVSP51.00 mmHg [ 10.00 - 36.00 ] RV S` 0.10 m/s Lateral E` 0.12 m/s [ 0.10 - 0.15 ] Septal E` 0.13 m/s [ 0.08 - 0.15 ] E` 0.13 m/s E/E` 11 Tapse 1.76 cm [ 1.71 - 5.00 ] 2D/MM Value Range DopplerValue Range - FINDINGS: Interpretation Site: Exam was interpreted at [facility]. Left Ventricle: Normal left ventricular size. Normal global left ventricular systolicfunction. Ejection fraction is measured at 60 %. Ejection Fraction is visually estimated shanique 65 %. Global Longitudinal Strain is -16 %. Right Ventricle: Normal right ventricular size. Left Atrium: There is severe enlargement of left atrium. Right Atrium: There is severe enlargement of right atrium. Atrial Septum: Normal atrial septum. Mitral Valve: Normal appearance of the mitral valve. Mild mitral annular calcification.Moderate mitral valve regurgitation. Aortic Valve: Normal appearance of the aortic valve. Tricuspid Valve: Normal appearance of the tricuspid valve. Estimated peak RVSP is 51 mmHg.Mild to moderate tricuspid regurgitation. Pulmonic Valve: Pulmonic valve not well visualized. Pericardium: Normal pericardium with no significant pericardial effusion. Aorta: Normal aortic root. IVC: The IVC is not well visualized. Pulmonary Artery: Normal pulmonary artery size. CONCLUSIONS: Normal left ventricular size. Normal global left ventricular systolicfunction. Ejection fraction is measured at 60 %. Ejection Fraction is visually estimated shanique 65 %. Global Longitudinal Strain is -16 %. Normal appearance of the mitral valve. Mild mitral annular calcification.Moderate mitral valve regurgitation. Atrial fibrillation. Marked biatrial enlargement. Electronically Signed By: Talat Ariza MD, [facility] 11/04/2025 7:55:29 AM DIRECTOR FIXED INCOME Talat Ariza MD CV ECHO PROCEDURES Final Result from Last 3 Months Insurance [employer] [facility] MEDICARE MEDICARE [employer] Care Teams Roll Forger Relationship Specialty Start Date End Date Patricio Travis MD [address] [id number] PCP - General 03/01/17
--- OUTSIDE RECORDS SUMMARY | 2025-11-11 19:11 | XMS_ITS | Continuity of Care Document ---
Author Organization [place] [employer] [facility], [facility] Marshal Ferrer Address [address] [place] [address] Care Team Providers Care Ballpoint Pen Assembly Machine Operator Name Role Phone VIRGIL MCDERMOTT Primary Care Provider [phone] VIRGIL MCDERMOTT Referring Provider Assessment Encounter Date Assessment Date Assessment LastModified by Organization Details LastModified Time 09/21/2025 09/21/2025 The patient has severe tricompartmental [...] for any further problems difficulties or questions. [email or web address] Not available 09/21/2025 16:42:58 Plan of Treatment Reminders Order Date Submit Date Provider Last Modified By Organization Details Last Modified Time Details Appointments Any 5 2025 02:45P MINNIE Van Not available Not available Not available Lab None recorded. Referral None recorded. Procedures injection /aspirati on joint/bur sa (PROC) 2024 025 [email or web address] In-Office Order, Internal Use Only DO Not Attach Compendium DO Not Attach Compendium, Do Not Delete/merge, [id number] 09/21/2025 15:13:20 Surgeries None recorded. Imaging None recorded. Medication Orders bupivacai ne HCl 0.5 % (5 mg/mL) injection solution 2024 025 [email or web address] [facility] [place] [address], [place], [address], 09/21/2025 16:43:35 Kenalog 10 mg/mL suspensio n for injection 2024 025 [email or web address] [facility] [place], [facility] [address], [place], [address], 09/21/2025 16:43:35 Patient TargetsNo targets recorded. Patient InstructionsNo instructions recorded. Reason for Referral None Reported. 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 35004442 Active Not Available [facility] 3 02:50:27 Bilateral osteoarthr itis of knees 4002892954686 07 Active 2022 JUDY Michelle, [employer] [facility] 3 15:56:01 Bilateral shoulder joint pain 3884044972807 9104 Active 2022 Lisa Narvaez CNA null, [facility] 3 15:40:53 Pain of bilateral knee joints 8349432583042 04 Active 2023 MINNIE Talamantes [address], [place], [address] , [facility] 4 16:25:48 Pain of knee region 9408144384 Active 2024 MINNIE Talamantes [address], [place], [address] , [employer] [facility] 5 16:18:58 Problem Notes None recorded. Procedures Surgical History Date Name Laterality Status Provider Name and Address Organization Details Recorded Time 03/12/20 23 Ortho - [facility]isc completed Blayne Howe MD [address], [place], [address], [facility] [employer] [facility] 03/12/2023 15:50:22 03/05/20 23 Ortho - Visc completed Blayne Howe MD [address], [address], [place], [address], [facility] - [facility] [employer] [facility] 03/05/2023 16:14:00 02/27/20 23 Ortho - Visc completed Blayne Howe MD [address], [place], [address], [employer] [facility] [place] [employer] [facility] 02/26/2023 16:06:02 Hysterectomy completed Lisa Narvaez SUPERVISOR [employer]IT[employer]SEM[employer] [place] [employer] [facility] 05/12/2024 16:00:45 Gallbladder Surgery completed Lisa Narvaez SUPERVISOR [employer] [place] [employer] [facility] 05/12/2024 16:00:10 Hernia Surgery completed Not Available [employer] [facility] 01/30/2023 02:44:34 Colon Surgery completed Lisa Solange , SUPERVISOR [employer]URNIT[employer] [place] [employer] [facility] 05/12/2024 16:00:03 Imaging Results None recorded. Procedure [...] intra-artic ular syringe in office 05/12 completed [facility] [phone] -01 Not Available Not Available Not [...] completed [facility] [address] -064- 01 Not Available Not Available Not Available Xarelto 15 mg tablet Take 1 tablet every day by oral route. active Not Available Not Available No t Available Ilevro 0.3 % eye drops,suspe nsion 10/05 completed Not Available Not Available Not Available Fluzone High-Dose [id number] (PF) 180 mcg/0.5 mL intramuscul ar syringe ADM 0.5ML IM UTD 02/08 completed Not Available Not Available Not Available Shingrix (PF) 50 mcg/0.5 mL intramuscul ar suspension, kit 02/08 completed Not Available Not Available Not Available Fluad 2018- 65yr up(PF)45 mcg(15 mcgx3)/0.5 mL intramuscul ar syringe PER PROTOCOL 05/02 completed Not Available Not Available Not Available Vitals Date Recorded Body height Body mass index (BMI) Body weight Pain severity - 0-10 verbal numeric rating [Score] - Reported Provider Name and Address Organization Details Last Updated DateTime 09/21/2025 160.02 cm 25.9 kg/m2 63600.49 g 8 JUDY Alcaraz [place] [facility] [employer] [facility] 09/21/2025 15:10:16 Social History Question Answer Notes LastModified by [email or web address] Details LastModified Time Tobacco Smoking Status Never Smoker Not Available [employer] 01/30/2023 02:29:59 What Was The Date Of Your Most Recent Tobacco Screening? 09/21/2025 [email or web address] Information not available 09/21/2025 Sex: Unknown Functional Status Question Answer Note LastModified by [email or web address] Details LastModified Time What is your level of alcohol consumption? None [id number] Information not available 01/30/2023 Mental Status None recorded. Family History Relationship Description Onset Age of this Age Resolved Age Notes LastModified by Organization Details LastModified Time Mother Heart disease [email or web address] Not available 2023 15:58:42 Father Family history of malignant neoplasm [email or web address] Not available 2023 15:58:47 Unspecified Relation Hypertensive disorder [id number] Not available 01/30/2023 02:44:35 Unspecified Relation Arthritis father 's side of the family [email or web address] Not available 05/12/2024 15:59:28 Notes:Mother and brother - h eart Medical History Condition Response ARTHRITIS Y CANCER: SPECIFY Y USE OF BLOOD THINNERS Y ANEMIA/BLOOD DISORDER Y SKIN PROBLEMS Y HEART DISEASE/HEART PROBLEMS Y OSTEOPOROSIS Y USE OF NSAIDS Y HYPERTENSION Y Gynecological HistoryNo gynecological history recorded. Obstetrics History GPAL:G 0 P 0 0 0 0 Past Encounters Encounter ID Performer Location Encounter Start Date Encounter Closed Date Diagnosis/Indication Diagnosis SNOMED-CT Code Diagnosis ICD10 Code Diagnosis IMO Codes Diagnosis Note [id number] Pranav Trejo MD [facility] [place] [address] [place] [address] 09/21/2025 15:04:36 09/21/2025 17:16:28 Bilateral osteoarthritis of knees 5806227707 49785 M17.0 Pain of knee region 1003 284278 G89.29 M25.561 M25.562 [id number] Health Concerns Section Related Observation LastModified by Organization Detai ls LastModified Time None Recorded Concern Status LastModified by Organization Details LastModified Time None Recorded Payers Encounter Date Sequence Insurance Name Policy Number Policy Newell Covered Member ID Newell Member ID Guarantor Name 09/21/2025 1 [place] Talha Machucabitt [id number] Talha Machucabitt 09/21/2025 2 [employer] [employer] - PLAN N (MEDICARE SUPPLEMENT) [employer] Talha Machucabitt [id number] Talha Munoz Axel Notes Date Note Type Note Provider Name and Address Organization Details Recorded Time 09/21/2025 text/html the patient returns requesting bilateral knee injections. The patient has severe primary osteoarthritis of both knees she has tricompartmental [id number] changes she gets by with conservative measures. [...] problems with either knee. MINNIE Talamantes [address], [place], [address], [place] [employer] 09/21/2025 16:43:32 OBGyn Episode No OBEpisode recorded.
--- OUTSIDE RECORDS SUMMARY | 2025-11-11 19:12 | XMS_ITS | Encounter Summary ---
Author Organization [facility] Address [address] [place] [address] Care Team Providers Care Shorthand Reporter Name Role Phone Patricio Travis MD Primary Care Provider [phone] Patricio Travis MD Primary Care Provider [phone] Encounter Details Date Type Department Care Team (Late st Contact Info) Description 01/08/2017 Orders Only [facility] ProviderJuancarlos MD [address] [place] [address] Social History Tobacco Use Types Packs/Day Years Used Date Smoking Tobacco: Never Alcohol Use Standard Drinks/Week Comments No 0 (1 standard drink = 0.6 oz pur e alcohol) Comments Unknown Sex and Gender Information Value Date Recorded Sex Assigned at Not on file 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
--- OUTSIDE RECORDS SUMMARY | 2025-11-11 19:12 | XMS_ITS | Encounter Summary ---
Author Organization [facility] Address [address] [place] [address] Care Team Providers Care Telemarketing Representative Name Role Phone Patricio Travis MD Primary Care Provider [phone] Patricio Travis MD Primary Care Provider [phone] Encounter Details Date Type Department Care Team (Late st Contact Info) Description 01/11/2017 Orders Only [facility] ProviderJuancarlos MD [address] [place] [address] Social History Tobacco Use Types Packs/Day Years Used Date Smoking Tobacco: Never Alcohol Use Standard Drinks/Week Comments No 0 (1 standard drink = 0.6 oz pur e alcohol) Comments Unknown Sex and Gender Information Value Date Recorded Sex Assigned at Not on file 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
--- OUTSIDE RECORDS SUMMARY | 2025-11-11 19:12 | XMS_ITS | Patient Health Record ---
Author Organization [facility] Address [address] [place] [id number] Care Team Providers Care Mobile Phlebotomist Name Role Phone DR. JOSY DONATO Primary Care Provider Brent Nirali Unavailable [phone] Lalitha Valenzuela Unavailable [phone] Allergies Allergen (clinical drug ingredient) Drug/Non Drug Allergy documented on EMR Reaction Allergy Type Onset Date Status levofloxacin levoFLOXacin Unknown Drug Allergy A ctive Results Component Value Reference Range Notes Basic Metabolic Panel (8) Reviewed date:10/20/2025 09:43:37 PM Interpretation: Performing Lab: Notes/Report: Reason For Referral No Information Medications Medication SIG (Take, Route, Frequency, Duration) Notes Start Date End Date Status Sodium Chloride 1000 MG Tablet Soluble amt: 1 tablet; miscellaneous Once A Day Externally Active Psyllium Husk - Powder 0.52 gram 1 cap t wice a day Active Lasix 20 MG Tablet amt: 1 tablet; oral Once A Day Orally Once a day Active Lisinopril 10 MG Tablet 1 tablet Orally Once a day Active Vitamin D3 25 MCG (1000 UT) Tablet 1 tablet Orally Once a day Active Acetaminophen 325 MG Tablet amt: 2 tabs; oral Special Instructions: give with scheduled tramadol Q 8hrs Three Times A Day Orally Active Xarelto 15 MG Tablet 1 tablet with food Orally Once a day Active Ferrous Sulfate 325 (65 Fe) MG Tablet 1 tablet Orally daily Active King 3-6-9 - Capsule 1,200 mg 1 cap Ora lly daily Active Melatonin 3 MG Tablet 1 tablet at bedtim e as needed Orally Once a day Active MiraLax 17 GM/SCOOP Powder 17 gram Orally daily As needed Active Metoprolol Succinate 100 MG Tablet Extended Release amt: 1 tab; oral Once A Day Orally Active Multivitamin - Tablet 1 tablet Orally On ce a day Active Hypromellose 0.3 % Gel as directed Ophthalmic 4 times a day As needed Active Vitamin B-12 500 MCG Tablet 1 tablet Ora lly Once a day Active traMADol HCl 50 MG Tablet 1 tablet as ne eded Orally every 8 hrs; Duration: 30 days 10/20/2025 Active Ondansetron 4 MG Tablet Disintegrating 1 tablet on the tongue and allow to dissolve Orally every 6 hours Active Potassium Chloride 20 MEQ Packet 20 meq 1tab Orally Once a day Active Social History Tobacco Use: Social History Observation Description Date Details (start date - stop date) Never Smoker NA - NA Social History Drug/Alcohol: Social Info Question Answer Notes Drugs Have you used drugs other than those for medical reasons in the past 12 months? No AUDIT-C (Standard) Did you have a drink containing alcohol in the past year? No Points 0 Interpretation Negative Tobacco Use: Social Info Question Answer Notes Tobacco Control (Standard) Tobacco use: Nonsmoker Problems Problem Type SNOMED Code ICD Code Onset Dates Problem Status W/U Status Risk Notes Problem Anemia (036013154) Anemia, unspecified (D64.9) Active confirmed Problem Vitamin D deficiency (61466684) Vitamin D deficiency, unspecified (E55.9) Active confirmed Problem Vitamin deficiency (47905603) Vitamin deficiency, unspecified (E56.9) Active confirmed Problem Hyperlipidemia (01525772) Hyperlipidemia, unspecified (E78.5) Active confirmed Problem Tear film insufficiency (21423048) Dry eye syndrome of unspecified lacrimal gland (H04.129) Active confirmed Problem Essential hypertension (82500953) Essential (primary) hypertension (I10) Active confirmed Problem Constipation (20941489) Constipation, unspecified (K59.00) Active confirmed Problem Idiopathic scoliosis of lumbar spine (disorder) (798816583) Other idiopathic scoliosis, lumbar region (M41.26) Active confirmed Problem Left side sciatica (875720634923101) Sciatica, left side (M54.32) Active confirmed Problem Chronic atrial fibrillation (disorder) (850391169) Chronic atrial fibrillation, unspecified (I48.20) Active confirmed Problem 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 Problem 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) Active confirmed Vital Signs Heart Rate 62 /min 11/05/2025 Temperature 97.9 degrees Fahrenheit 11/05/2025 Respiratory Rate 18 /min 11/05/2025 Oximetry 96 % 11/05/2025 Blood pressure diastolic 69 mm Hg 11/05/2025 Blood pressure systolic 103 mm Hg 11/05/2025 Encounters Encounter Location Date Provider Diagnosis [address] [address] 11/10/[address] [address] 10/22/2025 Lalitha Valenzuela Sciatica, left side M54.32 ; Chronic atrial fibrillation, unspecified I48.20 ; Essential (primary) hypertension I10 ; Arthritis of multiple sites M13.0 and Frail elderly R54 [address] [address] 10/27/[address] [address] 10/29/2025 Nirali Kennedy Sciatica, left side M54.32 ; Frail elderly R54 ; Chronic atrial fibrillation, unspecified I48.20 ; Essential (primary) hypertension I10 ; Hyponatremia E87.1 and Physical deconditioning R53.[address] [address] 11/03/2025 Nirali Kennedy Sciatica, left side M54.32 ; Frail elderly R54 ; Chronic atrial fibrillation, unspecified I48.20 ; Essential (primary) hypertension I10 ; Hyponatremia E87.1 and Physical deconditioning R53.[address] [address] 11/05/2025 Nirali Kennedy Sciatica, left side M54.32 ; Frail elderly R54 ; Chronic atrial fibrillation, unspecified I48.20 ; Essential (primary) hypertension I10 ; Hyponatremia E87.1 and Physical deconditioning R53.[address] [address] 11/11/2025 Nirali Kennedy [address] [address] 10/15/[address] [place] [address] 10/16/2025 [address]OS[address] DON[address]O [address] [address] 10/16/2025 JOSY DONATO [address] [address] 10/20/[address] [address] 10/21/2025 JOSY DONATO [address] [address] 10/21/2025 JOSY DONATO [address] [address] 10/22/2025 JOSY DONATO [address] [address] 10/23/2025 JOSY DONATO [address] [address] 10/27/[address] [address] 10/27/2025 JOSY DONATO [address] [address] 11/03/2025 JOSY DONATO [address] [address] 11/04/2025 JOSY DONATO [address] [address] 11/09/2025 JOSY DONATO Assessments Encounter Date Diagnosis (ICD Code) Assessment Notes Treatment Notes Treatment Clinical Notes Section Notes 10/22/2025 Sciatica, left side (ICD-10 - M54.32) Continue therapy with gentle stretches. Continue pain management including ordered prednisone, Tylenol, and tramadol. May use ice packs p.r.n. for comfort. 10/22/2025 Chronic atrial fibrillation, unspecified (ICD-10 - I48.20) Stable with current management Continue current medication Report new or worsening symptoms of h/a, dizziness, chest pain, palpitations, shortness of breath, new or worsening edema 10/29/2025 Sciatica, left side (ICD-10 - M54.32) Patient was admitted to the hospital due to difficulty walking and severe left leg and hip pain and was diagnosed with sciatica and treated with prednisone, which was completed on 10/18/2025. Patient denies having any pain or discomfort at this time. 10/29/2025 Frail elderly (ICD-10 - R54) Frail older adults are at increased risk of falls, disability, hospitalizations, and . Frailty may initially be overlooked or incorrectly identified as part of the normal aging process because of the variable nature of the presentation and diagnosis. Symptoms include generalized weakness, exhaustion, slow gait, poor balance, decreased physical activity, cognitive impairment, and weight loss. To keep yourself as healthy as possible, eat a healthy diet, drink adequate amounts of fluids, get a good nghts rest, participate in some stress relieving activities, enjoy outings with family or friends as desired, use an appropriate assistive device if needed for mobility Report any concerns you have to your family, nursing staff or provider 11/03/2025 Sciatica, left side (ICD-10 - M54.32) Patient was admitted to the hospital due to difficulty walking and severe left leg and hip pain and was diagnosed with sciatica and treated with prednisone, which was completed on 10/18/2025. Patient denies having any pain or discomfort at this time. 11/05/2025 Sciatica, left side (ICD-10 - M54.32) Patient was admitted to the hospital due to difficulty walking and severe left leg and hip pain and was diagnosed with sciatica and treated with prednisone, which was completed on 10/18/2025. Patient denies having any pain or discomfort at this time. 11/03/2025 Frail elderly (ICD-10 - R54) Frail older adults are at increased risk of falls, disability, hospitalizations, and . Frailty may initially be overlooked or incorrectly identified as part of the normal aging process because of the variable nature of the presentation and diagnosis. Symptoms include generalized weakness, exhaustion, slow gait, poor balance, decreased physical activity, cognitive impairment, and weight loss. To keep yourself as healthy as possible, eat a healthy diet, drink adequate amounts of fluids, get a good nghts rest, participate in some stress relieving activities, enjoy outings with family or friends as desired, use an appropriate assistive device if needed for mobility Report any concerns you have to your family, nursing staff or provider 10/29/2025 Chronic atrial fibrillation, unspecified (ICD-10 - I48.20) Rate is controlled. Managed well on current medications. Continue current treatment plan and monitoring. 10/22/2025 Essential (primary) hypertension (ICD-10 - I10) Blood pressure log reviewed. Systolic pressures running 96-140. Diastolic pressures 60s-80s. Reviewed medications with nurse. Decrease lisinopril to 10 mg daily. Add bilateral lower extremity compression wraps for edema control. Elevate feet when sitting. We will continue to monitor blood pressure log and swelling. Continue diltiazem 180 mg daily. Continue Lasix 20 mg daily Report persistent BP elevated greater than 140/90 Report new or worsening symptoms of h/a, dizziness, chest pain, shortness of breath, new or worsening edema 11/05/2025 Frail elderly (ICD-10 - R54) Frail older adults are at increased risk of falls, disability, hospitalizations, and . Frailty may initially be overlooked or incorrectly identified as part of the normal aging process because of the variable nature of the presentation and diagnosis. Symptoms include generalized weakness, exhaustion, slow gait, poor balance, decreased physical activity, cognitive impairment, and weight loss. To keep yourself as healthy as possible, eat a healthy diet, drink adequate amounts of fluids, get a good nghts rest, participate in some stress relieving activities, enjoy outings with family or friends as desired, use an appropriate assistive device if needed for mobility Report any concerns you have to your family, nursing staff or provider 10/22/2025 Arthritis of multiple sites (ICD-10 - M13.0) Stable at this time. Continue current pain management, report changes or concerns as needed 10/29/2025 Essential (primary) hypertension (ICD-10 - I10) Blood pressure is stable. Managed well on current medications. Continue current treatment plan and monitoring. 11/05/2025 Chronic atrial fibrillation, unspecified (ICD-10 - I48.20) Rate is controlled. Managed well on current medications. Continue current treatment plan and monitoring. Patient has seen hotel reservationist on 11/03/2025. They did change medications around due to her swelling. She did have an echocardiogram done. We are waiting on the results. 11/03/2025 Chronic atrial fibrillation, unspecified (ICD-10 - I48.20) Rate is controlled. Managed well on current medications. Continue current treatment plan and monitoring. 11/03/2025 Essential (primary) hypertension (ICD-10 - I10) Blood pressure is stable. Managed well on current medications. Continue current treatment plan and monitoring. 11/05/2025 Essential (primary) hypertension (ICD-10 - I10) Blood pressure is stable. Managed well on current medications. Continue current treatment plan and monitoring. 10/22/2025 Frail elderly (ICD-10 - R54) Frail older adults are at increased risk of falls, disability, hospitalizations, and . Frailty may initially be overlooked or incorrectly identified as part of the normal aging process because of the variable nature of the presentation and diagnosis. Symptoms include generalized weakness, exhaustion, slow gait, poor balance, decreased physical activity, cognitive impairment, and weight loss. To keep yourself as healthy as possible, eat a healthy diet, drink adequate amounts of fluids, get a good nghts rest, participate in some stress relieving activities, enjoy outings with family or friends as desired, use an appropriate assistive device if needed for mobility Report any concerns you have to your family, nursing staff or provider 10/29/2025 Hyponatremia (ICD-10 - E87.1) Patient was found to have very low sodium while in the hospital and we have been monitoring since being in the facility. Her last lab on 10/26/2025 showed a sodium level of 131. Upon review, it looked like on 10/20/2025, an order was given to increase the sodium chloride to 1000 mg b.i.d., but that had not been done at this point. An order given at the time of results to increase the sodium chloride to 1000 mg b.i.d. and then repeat the BMP on Saturday11/02/2025. 10/29/2025 Physical deconditioning (ICD-10 - R53.81) Patient is working with PT/OT for strengthening and mobility. Reports therapy is going well. Utilizes a wheelchair for ambulation. 11/03/2025 Hyponatremia (ICD-10 - E87.1) Patient was found to have very low sodium while in the hospital and we have been monitoring since being in the facility. Her last lab on 10/26/2025 showed a sodium level of 131. Upon review, it looked like on 10/20/2025, an order was given to increase the sodium chloride to 1000 mg b.i.d., but that had not been done at this point. An order given at the time of results to increase the sodium chloride to 1000 mg b.i.d. and then repeat the BMP on Saturday11/02/2025. Awaiting results at this time. 11/05/2025 Hyponatremia (ICD-10 - E87.1) Patient was found to have very low sodium while in the hospital and we have been monitoring since being in the facility. Her last lab on 10/26/2025 showed a sodium level of 131. Upon review, it looked like on 10/20/2025, an order was given to increase the sodium chloride to 1000 mg b.i.d., but that had not been done at this point. An order given at the time of results to increase the sodium chloride to 1000 mg b.i.d. On 11/02/2025, sodium level continues to be low at 131. Patient denies having any signs and symptoms of hyponatremia. Order was given at that time to draw TSH and a free T4, which were both within normal limits. Continue to monitor patient and update with any changes. 11/05/2025 Physical deconditioning (ICD-10 - R53.81) Patient is working with PT/OT for strengthening and mobility. Reports therapy is going well. Utilizes a wheelchair for ambulation. 11/03/2025 Physical deconditioning (ICD-10 - R53.81) Patient is working with PT/OT for strengthening and mobility. Reports therapy is going well. Utilizes a wheelchair for ambulation. 10/22/2025 Other REVIEWED HIPAA RIGHT TO PRIVACY PRACTICES WITH PT/FAMILY/CAREGIVE R COPY OF HIPAA RIGHT TO PRIVACY PRACTICES LEFT WITH PT/FAMILY/CAREGIVE R 10/29/2025 Other Continue curren t treatment plan.Staff to continue to monitor and report any changes.Patient education provided and questions/concerns addressed.Follow up in one week unless necessary sooner. 11/03/2025 Other Continue curren t treatment plan.Staff to continue to monitor and report any changes.Patient education provided and questions/concerns addressed.Follow up in one week unless necessary sooner. 11/05/2025 Other Continue curren t treatment plan.Staff to continue to monitor and report any changes.Patient education provided and questions/concerns addressed.Follow up in one week unless necessary sooner. Plan Of Treatment Pending Test Test Name Order Date Basic Metabolic Panel (8) 10/27/2025 Next Appt Details Provider Name:Nirali Kennedy , 11/12/2025 08:15:00 AM, [address], [place], [address], Insurance Providers Payer Name Payer Address Payer Phone Subscriber Number Group Number Insured Name Patient Relationship to Insured Coverage Start Date Coverage End Date [employer] [address] [place] [address] [id number] AxelTalha fragoso Self - patient is the insured [employer] [place] [address] [place], [place] [id number] AxelZiyaderna Self - patient is the insured Medical (General) History Medical History History ICD Code Sciatica, left side M54.32 Chronic atrial fibrillation, unspecified I48.20 Hypo-osmolality and hyponatremia E87.1 Hypokalemia E87.6 Dry eye syndrome of unspecified lacrimal gland H04.129 Essential (primary) hypertension I10 Constipation, unspecified K59.00 Other idiopathic scoliosis, lumbar regio n M41.26 Anemia, unspecified D64.9 Vitamin D deficiency, unspecified E55.9 Vitamin deficiency, unspecified E56.9 Hyperlipidemia, unspecified E78.5 Acute cystitis without hematuria N30.00 Urinary tract infection, site not specif ied N39.0 Nausea R11.0 Pain, unspecified R52 Surgical History Surgery Date(Month/Year) NONE
[2025-11-11 19:14] LABS: Alanine Aminotransferase 25 U/L (6-35); Albumin Level 3.9 g/dL (3.5-5.1); Alkaline Phosphatase 167 U/L (38-126); Anion Gap 8 mmol/L (4-12); Aspartate Amino Transferase 35 U/L (14-36); Bilirubin,Total 0.6 mg/dL (0.2-1.3); Blood Urea Nitrogen 26 mg/dL (7-17); Calcium 9.1 mg/dL (8.4-10.2); Carbon Dioxide 20 mmol/L (22-30); Chloride 106 mmol/L (98-107); Estimated CRCL calculation 32 ml/min; Estimated Glomerular Filt Rate 55; Glucose 115 mg/dL (65-110); Potassium 4.6 mmol/L (3.4-5.0); Sodium 134 mmol/L (137-145); Total Protein 6.9 g/dL (6.3-8.2)
[2025-11-11 19:21] LABS: NT Pro B Type Natriuretic Pept 9150 pg/mL (19.9-100); Troponin I 0.020 ng/mL (0.000-0.034)
--- NOTE | 2025-11-11 19:33 | ED.SOB ---
HPI - SOB/Dyspnea General Chief Complaint: Shortness of Breath/Dyspnea Stated Complaint: SOB x 3 weeks, BLE edema Time Seen by Provider: 11/11/25 19:01 Source: patient Mode of arrival: ambulatory Limitations: no limitations History of Present Illness HPI Narrative: This is an 89-year-old female with history of AFib, hypertension, hyperlipidemia, CHF who presents to the ED for shortness of breath. Patient states that for the past few weeks, she has had worsening swelling to her legs. She saw her sliver handler for this last week where an echo was obtained which showed ?backup of blood in her heart?. She was started on Entresto which she has not started taking yet as it has not been available at the pharmacy. She has had worsening dyspnea on exertion as well as nocturnal orthopnea. Denies fevers, chills. Has been steadily more weak. Related Data Home Medications ?Medication ?Instructions ?Recorded ?Confirmed ?Last Taken ?Type diltiazem HCl 180 mg capsule,24 180 mg PO DAILY 10/15/19 10/04/25 Unknown History hr,extended release potassium chloride 20 mEq 20 meq PO DAILY 10/15/19 10/04/25 Unknown History tablet,extended release rivaroxaban 15 mg tablet (Xarelto) 15 mg PO DAILY 10/15/19 10/04/25 Unknown History cyanocobalamin (vitamin B-12) 1,000 mcg PO DAILY 07/04/20 10/04/25 Unknown History 1,000 mcg tablet,extended release (Vitamin B-12 ER) ferrous sulfate 325 mg (65 mg 325 mg PO DAILY 07/04/20 10/04/25 Unknown History iron) tablet omega-3 fatty acids 1,000 mg 1,000 mg PO DAILY 07/04/20 10/04/25 Unknown History capsule docusate sodium 50 mg capsule 50 mg PO DAILY 09/14/20 10/04/25 Unknown History (Colace Clear) multivitamin 1 tablet PO DAILY 09/14/20 10/04/25 Unknown History propylene glycol 0.6 % eye drops 1 drp ophthalmic (eye) QID 09/14/20 10/04/25 Unknown History (Systane Balance) calcium carbonate 500 mg PO BID 02/13/21 10/04/25 Unknown History cholecalciferol (vitamin D3) 25 1,000 unit PO DAILY 08/28/22 10/04/25 Unknown History mcg (1,000 unit) capsule psyllium husk 3.4 gram/5.4 gram 1 tbsp PO BID 10/17/23 10/04/25 Unknown History oral powder (Metamucil) Allergies Allergy/AdvReac Type Severity Reaction Status Date / Time levofloxacin Allergy Severe Anaphylaxis Verified 11/11/25 15:54 Review of Systems Review of Systems: Gen.: Denies fevers or chills Eyes: Denies eye pain or visual change ENT: Denies congestion Respiratory: As per HPI CV: Denies chest pain or palpitations GI: Denies abdominal pain nausea, emesis or diarrhea denies burning, urgency, frequency or hematuria Musculoskeletal: Denies back pain or muscle pain Neuro: Denies numbness, tingling, weakness or focal weakness Skin: Denies rash Except as documented, all other systems reviewed and negative [facility] Past Medical History Medical History Spinal stenosis, lumbar region, with neurogenic claudication severe lumbar spinal stenosis at L3-L4 and L4-L5 on CT on 10/09/2025. Coccygeal pain, chronic Pneumonia Chronic kidney disease BUN 28, creatinine 1.1 with GFR 48 on 08/07/2025. Elevated TSH TSH elevated at 4.67 on 08/07/2025. Elevated liver enzymes (~08/07/25) AST 86, ALT 75 on 08/07/2025. BMI 26.0-26.9,adult Fatigue Insomnia Carpal tunnel syndrome of left wrist BMI 27.0-27.9,adult Defecation urgency (~07/2023) Weakness COVID-19 (06/26/22) BMI 28.0-28.9,adult Overweight (BMI 25.0-29.9) Acute non-recurrent maxillary sinusitis UTI (urinary tract infection) 08/07/2025. BMI 29.0-29.9,adult At high risk for falls Edema, peripheral Urinary frequency Atrial enlargement, bilateral Tricuspid valve regurgitation Mitral valve regurgitation Hypertension Vitamin D deficiency, unspecified The level low at 25 on 10/24/2022. Level normal at 45 on 08/07/2025. Vitamin B12 deficiency anemia Level normal at 668 with folic acid 24 and hemoglobin 13.2 on 10/24/2022. level slightly low at 398 with hemoglobin 11.8 on 08/07/2025. History of vaginal delivery Skin cancer Benign paroxysmal positional vertigo due to bilateral vestibular disorder Abnormality of gait and mobility Surgical History Surgical History H/O bilateral oophorectomy History of partial hysterectomy History of cholecystectomy History of knee surgery History of breast biopsy History of colon resection Family History Family History Mother Hypertension, Onset Age: 90 Family history of cardiovascular disease, Onset Age: 90 Father Carcinoma of colon, Onset Age: 62 Grandparent Family history of malignant neoplasm of breast in first degree relative, Onset Age: 64 Cerebrovascular accident, Onset Age: 82 Family history of malignant neoplasm of breast Social History Social History Smoking status: Never smoker Second hand tobacco smoke exposure: No Alcohol intake: never Substance use: never Substance use type: does not use Lack of Transportation: No Lack of Food: Never True Current Housing: I Have Housing Concerned About Future Housing: No Difficulty Paying Gas/Electric Bills: No Difficulty Paying for Meds: No Currently Unemployed: No Education: Master's Degree or Higher Exam Narrative: APPEARANCE: No acute distress, nontoxic, resting in bed EYES: EOMI HEENT: Normocephalic, atraumatic, OMM RESPIRATORY: Mildly tachypneic. Clear to auscultation and breathing. CARDIOVASCULAR: Regular rate and rhythm without murmurs rubs or gallops. ABDOMINAL: Soft, nontender, nondistended, no rebound or guarding MUSCULOSKELETAl: Moves all extremities. 1+ pitting edema to the bilateral lower extremities up to the knees. NEURO: Awake and alert. Following commands, speech normal, no focal deficits SKIN:: Warm, dry. No rashes lesions or abrasions PSYCHIATRIC: Normal affect/mood, Course Vital Signs Vital signs: Vital Signs Temperature 97.8 F 11/11/25 15:56 Pulse Rate 71 11/11/25 15:56 Respiratory Rate 18 11/11/25 15:56 Blood Pressure 128/86 11/11/25 15:56 Pulse Oximetry 97 11/11/25 15:56 Oxygen Delivery Room Air 11/11/25 15:56 Temperature 97.8 F 11/11/25 15:56 Pulse Rate 77 11/11/25 21:45 Respiratory Rate 25 H 11/11/25 21:45 Blood Pressure 133/87 11/11/25 21:45 Pulse Oximetry 100 11/11/25 21:45 Oxygen Delivery Room Air 11/11/25 18:40 [facility] Narrative Medical decision making narrative: 89-year-old female Presenting for shortness of breath. On initial evaluation patient was in no acute distress afebrile, hemodynamic stable. Differentials include but are not limited to: ACS, CHF Exacerbation, COPD exacerbation, PE, PNA, PTX, bronchitis, viral syndrome Notable exam findings: Slightly tachypneic, lungs clear to auscultation in breathing. 1+ pitting edema to the bilateral lower extremities up to the knees. I personally reviewed the patient's lab result. Notable lab findings: Mild anemia which is stable. Mild hyponatremia at 1:34 a.m.. BNP elevated at 9000. I personally reviewed the patient's images and interpret as follows: Chest x-ray: Cardiomegaly, no consolidations, no pleural effusions, no pulmonary vascular congestion I personally reviewed the patient's EKGs: AFib rate of 75, borderline left axis deviation with incomplete right bundle-branch block he poor R-wave progression, nonspecific T-wave changes, no acute ST changes Patient was given 40 mg Lasix IV for her CHF exacerbation. She was satting to the mid to high 90s on room air while at rest but when attempting to ambulate her she did drop to 80%. Because of this, she will require admission for CHF exacerbation. Case was discussed with hospitalist, Dr. Alvarado will admit. Differential Diagnosis Differential Diagnosis: ACS, CHF Exacerbation, COPD exacerbation, PE, PNA, PTX, bronchitis, viral syndrome Lab Data [facility] Lab Attestation statement: I personally reviewed the patient's lab results. 11/11/25 18:42 11/11/25 18:42 Labs: Lab Results 11/11/25 Range/Units 18:42 WBC 5.7 (4.5-10.0) K/mm3 RBC 3.49 L (4.2-5.4) M/mm3 Hgb 11.1 L (12.0-15.0) g/dL Hct 35.4 L (37.0-47.0) % MCV 101.4 H (80-100) fl MCH 31.8 (26-34) pg MCHC 31.4 L (32-36) g/dl RDW 15.1 H (11.5-14.5) % Plt Count 192 (150-375) k/mm3 MPV 9.4 (7.4-10.4) fl Immature Gran % (Auto) 0.9 H (0-0.5) % Neut % (Auto) 63.4 (45.5-73.1) % Lymph % (Auto) 22.2 (18.3-44.2) % [place] % (Auto) 10.8 H (2.6-8.5) % Eos % (Auto) 1.8 (0-4.4) % Baso % (Auto) 0.9 (0.2-1.2) % Lymph # (Auto) 1.26 (0.9-3.2) K/mm3 [place] # (Auto) 0.6 (0.1-0.6) K/mm3 Eos # (Auto) 0.1 (0-0.3) K/mm3 Baso # (Auto) 0.1 (0.0-0.1) K/mm3 Abs Immat Gran (auto) 0.05 H (0.00-0.031) K/mm3 Absolute Neuts (auto) 3.6 (1.3-6.7) K/mm3 Absolute Nucleated RBC 0.030 H (0.0-0.012) K/mm3 Nucleated RBC % 0.5 H (0.0-0.2) % PT 20.7 H (11.1-14.7) Seconds INR 1.8 APTT 41.8 H (22.3-36.8) Seconds Sodium 134 L (137-145) mmol/L Potassium 4.6 (3.4-5.0) mmol/L Chloride 106 (98-107) mmol/L Carbon Dioxide 20 L (22-30) mmol/L Anion Gap 8 (4-12) mmol/L BUN 26 H (7-17) mg/dL Creatinine 0.95 (0.7-1.0) mg/dL Estim Creat Clear Calc 32 ml/min Estimated GFR 55 L (59 - ) Glucose 115 H (65-110) mg/dL Calcium 9.1 (8.4-10.2) mg/dL Total Bilirubin 0.6 (0.2-1.3) mg/dL AST 35 (14-36) U/L ALT 25 (6-35) U/L Alkaline Phosphatase 167 H (38-126) U/L Troponin I 0.020 (0.000-0.034) ng/mL NT-Pro-B Natriuret Pep 9150 H (19.9-100) pg/mL Total Protein 6.9 (6.3-8.2) g/dL Albumin 3.9 (3.5-5.1) g/dL Imaging Data Attestation: I personally reviewed and interpreted this imaging study as follows: Radiologist's impression: ITS Impressions Chest X-Ray 11/11/25 19:40 IMPRESSION: 1. No acute findings. Cardiomegaly and atherosclerotic aorta. Discharge Plan Discharge Clinical Impression: Acute exacerbation of CHF (congestive heart failure), A-fib, Acute hyponatremia Patient Disposition: Still a Patient Condition: Stable
--- OUTSIDE RECORDS SUMMARY | 2025-11-11 19:40 | XMS_ITS | Clinical Summary ---
Author Organization [facility] [address] Address [address] [place] [address] Care Team Providers Care Divorce Lawyer Name Role Phone Patricio Travis MD Primary Care Provider [phone] Allergies No known active allergies Medications furosemide [...] (six) hours as needed for pain Active [id number] pa-dpa-fish oil 1,050-1,200 mg capsule 1 capsule [...] Type Department Care Team Description 11/04/2025 Telephone [facility] Cardiology at [address] [phone] Talat Ariza MD 11/03/2025 1:00 PM BIT SHARPENER OPERATOR Ancillary Procedure [facility] Cardiology at [address] [phone] Edema, unspecified type 11/03/2025 11:30 AM BIT SHARPENER OPERATOR Office Visit [facility] Cardiology at [address] [phone] Talat Ariza MD Chronic atrial fibrillation (HCC) (Primary Dx); Edema, unspecified type 10/11/2025 6:41 AM BIT SHARPENER OPERATOR - 10/11/2025 11:59 PM BIT SHARPENER OPERATOR Hospital Encounter [facility] Emergency, Room R Discharge Disposition: [...] on file Legal Sex Female 3:02 PM BIT SHARPENER OPERATOR Gender Identity Not on file Sexual Orientation Not on file Occupation Industry Job Start Date Job End Date retired Not on file Not on file Not on file Last Filed Vital Signs Vital Sign Reading Time Taken Comments Blood Pressure 108/60 11/03/2025 11:44 AM BIT SHARPENER OPERATOR Pulse 59 11/03/2025 11:44 AM BIT SHARPENER OPERATOR Temperature 36.3 C (97.3 F) 09/16/2020 8:53 AM CDT Respiratory Rate 12 06/11/2017 9:32 AM CDT Oxygen Saturation 99% 11/03/2025 11:44 AM BIT SHARPENER OPERATOR Inhaled Oxygen Concentration - - Weight 68.5 kg (151 lb) 11/03/2025 11:44 AM BIT SHARPENER OPERATOR Height 160 cm (5' 3) 11/03/2025 11:44 AM BIT SHARPENER OPERATOR Body Mass Index 26.75 11/03/2025 11:44 AM BIT SHARPENER OPERATOR Plan of Treatment Health Maintenance Due Date [...] DOPPLER/CF WO CONTRAST Routine 11/03/2025 2:35 PM BIT SHARPENER OPERATOR Edema, unspecified type from Last 3 Months Results * TRANSTHORACIC ECHO (TTE) COMPLETE W DOPPLER/CF WO CONTRAST (11/03/2025 2:35 PM BIT SHARPENER OPERATOR) Estimated EF 65 % CONS SCIMAGE EF Mod BP 60 % CONS SCIMAGE Anatomical Region Laterality Modality Ultrasound 11/03/2025 12:3 3 PM BIT SHARPENER OPERATOR Narrative 11/04/2025 7:55 AM BIT SHARPENER OPERATOR [facility] Cardiology [address], [address], [place] [address] P:[phone] P:[phone] Echocardiographic Report Patient Name: MARY REYNA M : 1935 Study Date: 11/03/2025 12:33:00 PM Sex: F Neonatal Nurse Practitioner: SANDIP Location: [facility] Ref Provider: TALAT ARIZA [...] FINDINGS: Interpretation Site: Exam was interpreted at [facility]. Left Ventricle: Normal left ventricular size. [...] enlargement. Electronically Signed By: Talat Ariza MD, [facility] 11/04/2025 7:55:29 AM BIT SHARPENER OPERATOR Procedure Note Talat Ariza MD - 11/04/2025 [facility] [address], [address], [place] [address] P:[phone] P:[phone] Echocardiographic Report Patient Name: MARY REYNA M : 1935 Study Date: 11/03/2025 12:33:00 PM Sex: F Neonatal Nurse Practitioner: SANDIP Location: SE Ref Provider: TALAT ARIZA [...] FINDINGS: Interpretation Site: Exam was interpreted at [facility]. Left Ventricle: Normal left ventricular size. [...] enlargement. Electronically Signed By: Talat Ariza MD, [facility] 11/04/2025 7:55:29 AM BIT SHARPENER OPERATOR Talat Ariza MD CV ECHO PROCEDURES Final Result from Last 3 Months Insurance [employer] [facility] MEDICARE MEDICARE [employer] S[employer] Care Teams Divorce Lawyer Relationship Specialty Start Date End Date Patricio Travis MD [address] [address] PCP - General 03/01/17
--- OUTSIDE RECORDS SUMMARY | 2025-11-11 19:40 | XMS_ITS | Clinical Summary ---
Author Organization [facility] Address [address] [place] [address] Phone Care Team Providers Care Poultry Eviscerator Name Role Phone Patricio Travis MD Primary Care Provider [phone] Allergies Active Allergy Reactions Criticality Noted Date [...] eye(s) 4 times daily as needed. Active [place]-3 Fatty Acids (OMEGA 3 PO) Take by [...] Department Care Team Description 10/11/2025 6:59 AM HEAT READER - 10/14/2025 12:00 PM HEAT READER Hospital Encounter [facility] [address] [place] [address] Sav Stover MD Carmicheal, MD Ovi Negrete, Magi Hensley, MARKET ANALYST, SECURITY OPERATIONS ANALYST Vinnie Marcus MD Hyponatremia Discharge Disposition: Discharged/Transferr ed to [facility] 10/11/2025 Travel 09/23/2025 6:37 PM CDT - 09/23/2025 10:03 PM CDT Emergency [facility] Emergency [address] [place] [address] Jossue Rose MD Closed head injury, initial [...] any time in the past 12 m [facility], were you homeless or living in a half-way (including now)? No 10/11/2025 [facility] Utilities Answer Date Recorded In the past [...] Comments Blood Pressure 147/75 10/14/2025 4:08 AM HEAT READER Pulse 102 10/14/2025 4:08 AM HEAT READER Temperature 36.1 C (96.9 F) 10/14/2025 4:08 AM HEAT READER Respiratory Rate 14 10/14/2025 4:08 AM HEAT READER Oxygen Saturation 98% 10/14/2025 4:08 AM HEAT READER Inhaled Oxygen Concentration - - Weight 68 kg (150 lb) 10/11/2025 7:11 AM HEAT READER Height 162.6 cm (5' 4) 10/11/2025 7:11 AM HEAT READER Body Mass Index 25.75 10/11/2025 7:11 AM HEAT READER Plan of Treatment Health Maintenance Due Date [...] WITH AUTO DIFFERENTIAL Routine 10/14/2025 6:06 AM HEAT READER COMPLETE BLOOD COUNT (CBC) WITH DIFF Routine 10/14/2025 6:06 AM HEAT READER BASIC METABOLIC PANEL W/ CALCIUM TOTAL Routine 10/14/2025 6:06 AM HEAT READER CBC WITH AUTO DIFFERENTIAL Routine 10/13/2025 5:59 AM HEAT READER COMPLETE BLOOD COUNT (CBC) WITH DIFF Routine 10/13/2025 5:59 AM HEAT READER BASIC METABOLIC PANEL W/ CALCIUM TOTAL Routine 10/13/2025 5:59 AM HEAT READER BASIC METABOLIC PANEL W/ CALCIUM TOTAL Routine 10/12/2025 10:50 AM HEAT READER CBC WITH AUTO DIFFERENTIAL Routine 10/12/2025 8:29 AM HEAT READER COMPLETE BLOOD COUNT (CBC) WITH DIFF Routine 10/12/2025 8:29 AM HEAT READER URINALYSIS REFLEX IF INDICATED BY ABNORMAL RESULTS STAT 10/11/2025 12:01 PM HEAT READER CULTURE, URINE Routine 10/11/2025 12:01 PM HEAT READER XR HIP 3-4 VIEW W/PELVIS - MAGNOLIA STAT 10/11/2025 8:29 AM HEAT READER XR LUMBAR SPINE 2 OR 3 VIEWS STAT 10/11/2025 8:26 AM HEAT READER CBC WITH AUTO DIFFERENTIAL STAT 10/11/2025 7:36 AM HEAT READER APTT (PTT) STAT 10/11/2025 7:36 AM HEAT READER PROTIME (PT) (PROTHROMBIN TIME) STAT 10/11/2025 7:36 AM HEAT READER MAGNESIUM (MG) STAT 10/11/2025 7:36 AM HEAT READER CMP (COMPREHENSIVE METABOLIC PANEL) STAT 10/11/2025 7:36 AM HEAT READER COMPLETE BLOOD COUNT (CBC) WITH DIFF STAT 10/11/2025 7:[address] HEAD OR BRAIN WO CONTRAST Stat with Interpretation 09/23/2025 7:[address] - HEAD/NECK 09/23/2025 12:00 AM CDT from Last 3 Months Results * (ABNORMAL) CBC with Auto Differential (10/14/2025 6:06 AM HEAT READER) Only the most recent of4 resultswithin the time period is included. WBC 7.64 4.00 - 12.00 10(3)/mcL 10/14/2025 7:[address] [facility] RBC 3.06(L) 3.80 - 5.30 10(6)/mcL 10/14/2025 7:[address] [facility] HEMOGLOBIN (HGB) 9.9(L) 12.0 - 15.8 g/dL 10/14/2025 7:[address] [facility] HEMATOCRIT (HCT) 30.0(L) 36.0 - 47.0 % 10/14/2025 7:[address] [facility] MCV 98.0(H) 82.0 - 96.0 fL 10/14/2025 7:[address] [facility] MCH 32.4 26.0 - 34.0 pg 10/14/2025 7:[address] [facility] MCHC 33.0 31.0 - 36.0 g/dL 10/14/2025 7:[address] [facility] PLATELET COUNT 203 140 - 440 10(3)/mcL 10/14/2025 7:[address] [facility] RDW 13.6 11.8 - 15.5 % 10/14/2025 7:[address] [facility] MPV 8.3(L) 9.7 - 12.4 fL 10/14/2025 7:[address] [facility] NEUTROPHILS 73.8(H) 47.0 - 73.0 % 10/14/2025 7:[address] [facility] LYMPHOCYTES 16.9(L) 18.0 - 42.0 % 10/14/2025 7:[address] [facility] MONOCYTES 7.9 4.0 - 12.0 % 10/14/2025 7:[address] [facility] EOSINOPHILS 0.7 0.0 - 5.0 % 10/14/2025 7:[address] [facility] BASOPHILS 0.0 0.0 - 1.0 % 10/14/2025 7:[address] [facility] IMMATURE GRANULOCYTE 0.7(H) 0.0 - 0.4 % 10/14/2025 7:[address] [facility] Comment:Immature Granulocyte s includes Metamyelocytes, Myelocytes, and Promyelocytes. ABSOLUTE NEUTROPHILS 5.65 1.60 - 7.70 10(3)/[facility] 10/14/2025 7:[address] [facility] ABSOLUTE LYMPHOCYTES 1.29(L) 1.30 - 3.20 10(3)/[facility] 10/14/2025 7:[address] [facility] ABSOLUTE MONOCYTES 0.60 0.20 - 1.00 10(3)/[facility] 10/14/2025 7:[address] [facility] ABSOLUTE EOSINOPHIL 0.05 0.00 - 0.40 10(3)/[facility] 10/14/2025 7:[address] [facility] ABSOLUTE BASOPHILS 0.00 0.00 - 0.10 10(3)/[facility] 10/14/2025 7:[address] [facility] ABSOLUTE IMMATURE GRANULOCYTE 0.05(H) 0.00 - 0.03 10 (3) mcL. 10/14/2025 7:[address] [facility] NRBC PER 100 WBC 0 10/14/20 7:[address] [facility] Blood Venipuncture / Unknown 10/14/2025 6:06 AM HEAT READER 10/14/2025 7:05 AM HEAT READER us Denise Briceño MARKET ANALYST, SECURITY OPERATIONS ANALYST HEMATOLOGY ORDERABLES Fin al Result [facility] [address] [place] [address] * (ABNORMAL) BMP with Ca, Total (10/14/2025 6:06 AM HEAT READER) Only the most recent of3 resultswithin the time period is included. SODIUM 129(L) 136 - 145 mmol/L 10/14/2025 7:[address] [facility] POTASSIUM 4.5 3.5 - 5.1 mmol/L 10/14/2025 7:[address] [facility] CHLORIDE 104 98 - 107 mmol/L 10/14/2025 7:[address] [facility] CO2, VENOUS 18(L) 22 - 30 mmol/L 10/14/2025 7:[address] [facility] ANION GAP 11.5 <18.0 mmol/L 10/14/2025 7:[address] [facility] GLUCOSE 91 70 - 99 mg/dL 10/14/2025 7:[address] [facility] BUN 37(H) 10 - 20 mg/dL 10/14/2025 7:[address] [facility] CREATININE, BLOOD 0.71 0.60 - 1.00 mg/dL 10/14/2025 7:[address] [facility] BUN/CREATININE RATIO 52(H) 12 - 20 ratio 10/14/2025 7:[address] [facility] CALCIUM 9.1 8.7 - 10.5 mg/dL 10/14/2025 7:[address] [facility] GFR, ESTIMATED >60 >=60 10/14/2025 7:[address] [facility] Comment: Creatinine Clearance is the preferred criteria for selecting drug dose adjustments in renally impaired patients. The GFR is provided as additional pertinent clinical information. GFR is reported in mL/min/1.73 sq m. Calculation based on the 2020 Chronic Kidney Disease Epidemiology Collaboration (CKD-EPI) equation refit without adjustment for race. GFR, EST. >60 >=60 11/13/2 025 7:42 AM HEAT READER [facility] Comment: Creatinine Clearance is the preferred criteria for selecting drug dose adjustments in renally impaired patients. The GFR is provided as additional pertinent clinical information. GFR is reported in mL/min/1.73 sq m. Calculation based on the 2009 Chronic Kidney Disease Epidemiology Collaboration (CKD-EPI). GFR, EST. NONAFRICAN >60 >=60 10/14/2025 7:42 AM HEAT READER [facility] Comment: Creatinine Clearance is the preferred criteria for selecting drug dose adjustments in renally impaired patients. The GFR is provided as additional pertinent clinical information. GFR is reported in mL/min/1.73 sq m. Calculation based on the 2009 Chronic Kidney Disease Epidemiology Collaboration (CKD-EPI). Blood Venipuncture / Unknown 10/14/2025 6:06 AM HEAT READER 10/14/2025 7:04 AM HEAT READER Denise Briceño MARKET ANALYST, SECURITY OPERATIONS ANALYST CHEMISTRY ORDERABLES Nisa l Result [facility] [address] [place] [address] * (ABNORMAL) Urinalysis w/ Reflex (10/11/2025 12:01 PM HEAT READER) SPECIFIC GRAVITY 1.015 1.003 - 1.030 10/11/2025 12:58 PM HEAT READER [facility] URINE PH 6.0 5.0 - 9.0 10/11/2025 12:58 PM HEAT READER [facility] WBC ESTERASE 500 /uL(A) Negative 10/11/2025 12:58 PM HEAT READER [facility] NITRITE Positive(A) Negative 10/11/2025 12:58 PM HEAT READER [facility] PROTEIN, RANDOM URINE 15 mg/dL(A) Negative 10/11/2025 12:58 PM HEAT READER [facility] URINE GLUCOSE, QUAL Negative Negative 10/11/2025 12:58 PM HEAT READER [facility] URINE KETONES Negative Negative 10/11/2025 12:58 PM HEAT READER [facility] UROBILINOGEN Normal Normal mg/dL 10/11/2025 12:58 PM HEAT READER [facility] URINE BLOOD Negative Negative giancarlo/ul 10/11/2025 12:58 PM HEAT READER [facility] URINALYSIS COLOR Yellow 10/11/2025 12:58 PM HEAT READER [facility] URINALYSIS CLARITY Slightly Cloudy 10/11/2025 12:58 PM HEAT READER [facility] WBC (Urine) 51-150(A) Negative, 0-5 /hpf 10/11/2025 12:58 PM HEAT READER [facility] URINE RBC'S 0-2 Negative, 0-2 /hpf 10/11/2025 12:58 PM HEAT READER [facility] EPITHELIAL CELLS Occasional /lpf 10/11/2025 12:58 PM HEAT READER [facility] BACTERIA, URINE Many(A) Negative /hpf 10/11/2025 12:58 PM HEAT READER [facility] Urine URINE SPECIMEN / Unknown Non-Phlebotomy Collection / Unknown 10/11/2025 12:01 PM HEAT READER 10/11/2025 12:09 PM HEAT READER us Sav Stover MD URINE ORDERABLES Final Re sult [facility] [address] [place] [address] * Culture, Urine (10/11/2025 12:01 PM HEAT READER) CULTURE RESULTS ENTEROBACTER CLOACAE COMPLEX 10/13/2025 2:54 PM HEAT READER [facility] Comment: ALSO MIXED GROWTH OF DISTAL URETHRA [...] Non-Phlebotomy Collection / Unknown 10/11/2025 12:01 PM HEAT READER 10/11/2025 12:09 PM HEAT READER Narrative Organism Antibiotic Method Susceptibility Enterobacter cloacae [...] MICROBIOLOGY - GENERAL OR DERABLES Final Result [facility] [address] [place] [address], [place] * XR HIP 3-4 VIEW W/PELVIS - MAGNOLIA (10/11/2025 8:29 AM HEAT READER) Anatomical Region Laterality Modality LOWER EXTREMITY, hip, Pelvis Bilateral Dig ital Radiography 10/11/2025 8:29 AM HEAT READER Impressions 10/11/2025 9:31 AM HEAT READER IMPRESSION: 1. Loss of joint space in the hips. 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 2. No acute osseous findings. Narrative 10/11/2025 9:31 AM HEAT READER DICTATING PHYSICIAN: Keith Vee M.D., [facility] EXAM: XR HIP 3-4 VIEW [...] - 10/11/2025 DICTATING PHYSICIAN: Keith [facility] M.D., [facility] EXAM: XR HIP 3-4 VIEW W/PELVIS [...] 2 OR 3 VIEWS (10/11/2025 8:26 AM HEAT READER) Anatomical Region Laterality Modality Spine, L-spine N/A Digital Radiogra phy 10/11/2025 8:26 AM HEAT READER Impressions 10/11/2025 9:26 AM HEAT READER IMPRESSION: 1. No acute osseous findings. 2. Old L1 compression fracture. 3. Biphasic scoliosis of the lumbar spine. Narrative 10/11/2025 9:26 AM HEAT READER DICTATING PHYSICIAN: Keith Vee M.D., [facility] EXAM: XR LUMBAR SPINE 2 [...] - 10/11/2025 DICTATING PHYSICIAN: Keith Vee M.D., [facility] EXAM: XR LUMBAR SPINE 2 OR [...] Result * (ABNORMAL) PTT (10/11/2025 7:36 AM HEAT READER) PTT 46(H) 24 - 36 sec 10/11/2025 7:58 AM HEAT READER [facility] Blood Venipuncture / Unknown 10/11/2025 7:36 AM HEAT READER 10/11/2025 7:42 AM HEAT READER Narrative [facility] - 10/11/2025 7:58 AM HEAT READER Therapeutic range for unfractionated heparin at 0.3-0.7 U/mL is an aPTT value in the range of 71-100 seconds. Critical value for the PTT test is >= 122 seconds. us Sav Stover MD HEMATOLOGY ORDERABLES Fin al Result [facility] [address] [place] [address] * (ABNORMAL) PT / INR (10/11/2025 7:36 AM HEAT READER) PROTIME-PATIENT 26.1(H) 11.6 - 14.8 sec 10/11/2025 7:58 AM HEAT READER [facility] INR 2.4(H) 0.9 - 1.2 10/11/2025 7:58 AM HEAT READER [facility] Comment: Therapeutic Ranges INR = 2.0-3.0: Venous thromb, atrial fib, pul embolism, tissue heart valve, ami. INR = 2.5-3.5: Mechanical heart valve Critical value for INR is >/= 4.5 Blood Venipuncture / Unknown 10/11/2025 7:36 AM HEAT READER 10/11/2025 7:42 AM HEAT READER us Sav Stover MD HEMATOLOGY ORDERABLES Fin al Result Performing Organization Address City/[facility]/ZIP Co de Phone Number [facility] [address] [place] [address] * Magnesium (10/11/2025 7:36 AM HEAT READER) MAGNESIUM 2.0 1.6 - 2.6 mg/dL 10/11/2025 8:02 AM HEAT READER [facility] Blood Venipuncture / Unknown 10/11/2025 7:36 AM HEAT READER 10/11/2025 7:42 AM HEAT READER us Sav Stover MD CHEMISTRY ORDERABLES Nisa l Result Performing Organization Address [facility] de Phone Number [facility] [address] [place] [address] * (ABNORMAL) CMP (10/11/2025 7:36 AM HEAT READER) SODIUM 127(L) 136 - 145 mmol/L 10/11/2025 8:[address] [facility] POTASSIUM 5.0 3.5 - 5.1 mmol/L 10/11/2025 8:[address] [facility] CHLORIDE 99 98 - 107 mmol/L 10/11/2025 8:[address] [facility] CO2, VENOUS 20(L) 22 - 30 mmol/L 10/11/2025 8:[address] [facility] ANION GAP 13.0 <18.0 mmol/L 10/11/2025 8:[address] [facility] GLUCOSE 101(H) 70 - 99 mg/dL 10/11/2025 8:[address] [facility] BUN 20 10 - 20 mg/dL 10/11/2025 8:[address] [facility] CREATININE, BLOOD 0.92 0.60 - 1.00 mg/dL 10/11/2025 8:[address] [facility] BUN/CREATININE RATIO 22(H) 12 - 20 ratio 10/11/2025 8:[address] [facility] TOTAL PROTEIN 6.4 6.0 - 8.0 g/dL 10/11/2025 8:[address] [facility] ALBUMIN 3.6 3.5 - 5.0 g/dL 10/11/2025 8:[address] [facility] A/G RATIO 1.3 1.0 - 2.2 10/11/2025 8:[address] [facility] CALCIUM 9.1 8.7 - 10.5 mg/dL 10/11/2025 8:[address] [facility] T BILI 0.4 0.2 - 1.2 mg/dL 10/11/2025 8:[address] [facility] SGOT (AST) 18 <43 U/L 10/11/2025 8:[address] [facility] SGPT (ALT) 11 <56 U/L 10/11/2025 8:[address] [facility] ALKALINE PHOSPHATASE 172(H) 40 - 150 U/L 10/11/2025 8:[address] [facility] GFR, ESTIMATED 60 >=60 10/11/2025 8:[address] [facility] Comment: Creatinine Clearance is the preferred criteria for selecting drug dose adjustments in renally impaired patients. The GFR is provided as additional pertinent clinical information. GFR is reported in mL/min/1.73 sq m. Calculation based on the 2020 Chronic Kidney Disease Epidemiology Collaboration (CKD-EPI) equation refit without adjustment for race. GFR, EST. >60 >=60 8:[address] [facility] Comment: Creatinine Clearance is the preferred criteria for selecting drug dose adjustments in renally impaired patients. The GFR is provided as additional pertinent clinical information. GFR is reported in mL/min/1.73 sq m. Calculation based on the 2009 Chronic Kidney Disease Epidemiology Collaboration (CKD-EPI). GFR, EST. NONAFRICAN 57(L) >=60 10/11/2025 8:02 AM HEAT READER [facility] Comment: Creatinine Clearance is the preferred criteria for selecting drug dose adjustments in renally impaired patients. The GFR is provided as additional pertinent clinical information. GFR is reported in mL/min/1.73 sq m. Calculation based on the 2009 Chronic Kidney Disease Epidemiology Collaboration (CKD-EPI). Blood Venipuncture / Unknown 10/11/2025 7:36 AM HEAT READER 10/11/2025 7:42 AM HEAT READER us Sav Stover MD CHEMISTRY ORDERABLES Nisa l Result [facility] [address] [place] [address] * CT HEAD OR BRAIN WO CONTRAST [...] AM CDT DICTATING PHYSICIAN: Keith Vee M.D., [facility] EXAM: CT HEAD OR BRAIN [...] - 09/24/2025 DICTATING PHYSICIAN: Keith Vee M.D., [facility] EX[facility]: CT HEAD OR BRAIN WO [...] report and any related communication [facility], as documented in the medical record. us Jossue Rose MD IMG CT ORDERABLES Fi nal Result * CT - HEAD/NECK (09/23/2025 12:00 AM CDT) 09/23/2025 us Provider Scan IMG CT ORDERABLES Final Result SCAN from Last [address] [facility] Advance Directives Documents on File Type Date Recorded Patient Helper/Driver Expl anation Power of Rn Wound Care for Health Care 10/13/2025 4:18 PM POA-HC, [...] documentation made in notes? Yes Care Teams Poultry Eviscerator Relationship Specialty Start Date End Date Patricio Travis MD [address] [id number] PCP - General Family Medicine 06/24/23
--- OUTSIDE RECORDS SUMMARY | 2025-11-11 19:40 | XMS_ITS | Encounter Summary ---
Author Organization [facility] Address [address] [place] [address] Care Team Providers Care Store Warehouse Associate Name Role Phone Unavailable Primary Care Provider Unavailabl e Encounter Details Date Type Department Care Team (Late st Contact Info) Description 03/08/2022 Lab Requisition [facility] [address] [place] [address] Yosi Mejia MD [address] [place] [address] Social History Tobacco Use Types Packs/Day Years Used Date Smoking Tobacco: Never Assessed Comments Unknown Sex and Gender Information Value Date Recorded Sex Assigned at Not on file Legal Sex Female 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 Gender Identity Not on file Sexual Orientation Not on file documented as of this encounter Plan of Treatment Not on file documented as of this encounter Procedures Procedure Name Priority Date/Time Associated Diagnosis Comments DERMATOPATHOLOGY Routine 03/07/2022 12:0 0 AM CDT documented in this encounter Results * DERMATOPATHOLOGY (03/07/2022 12:00 AM CDT) Case Report Dermatopathology Report Case: [id number] Authorizing Provider: Yosi Mejia MD Collected: 03/07/2022 12:00 AM Ordering Location: [facility] Received: 03/08/2022 01:36 PM [...] specimen consists of a shave biopsy measuring [id number]. Jar 0. 2 1:15 PM CDT DERMATOPATHOLOGY [...] characteristic determined by the Dermatopathology Laboratory at [facility], directed by Dr. Wily Almeida. These tests need not be, and therefore are not, approved by the [place] Food and Drug Administration. The tests are used for clinical purposes. Billing Codes Specimen Charges Stain Charges 30279 1 2 1:15 PM CDT DERMATOPATHOLOGY LABORATORY Embedded Images 2 1:15 PM CDT DERMATOPATHOLOGY LABORATORY Pathology/Cytolog y TISSUE SPECIMEN FROM SKIN / Unknown 03/07/2022 03/08/2022 1:36 PM CDT Yosi Mejia MD LAB - PATHOLOGY/CYTOLOGY ORD ERABLES Final Result DERMATOPATHOLOGY LABORATORY [facility] - Department of Dermatology [address] [phone] documented in this encounter Visit Diagnoses Not on filedocumented in this encounter
--- OUTSIDE RECORDS SUMMARY | 2025-11-11 19:40 | XMS_ITS | Clinical Summary ---
Author Organization [facility] Address [address] [place] [address] Care Team Providers Care Medical Consultant Name Role Phone Unavailable Primary Care Provider Unavailabl e Source Comments [facility] [employer]non-owned Affiliates and Associated Physician Practices is amultiple site organization consisting of ambulatory clinics and hospital sitesin [place], [place], [place] and [place]. This disclosure is being madepursuant to the Care Everywhere program and may not contain all information available regarding this patient. 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
--- OUTSIDE RECORDS SUMMARY | 2025-11-11 19:41 | XMS_ITS | Encounter Summary ---
Author Organization [facility] Address [address] [place] [address] Care Team Providers Care Half Sole Fitter Name Role Phone Patricio Travis MD Primary Care Provider [phone] Patricio Travis MD Primary Care Provider [phone] Encounter Details Date Type Department Care Team (Late st Contact Info) Description 01/08/2017 Orders Only [facility] ProviderJuancarlos MD [address] [place] [id number] Social History Tobacco Use Types Packs/Day Years Used Date Smoking Tobacco: Never Alcohol Use Standard Drinks/Week Comments No 0 (1 standard drink = 0.6 oz pur e alcohol) Comments Unknown Sex and Gender Information Value Date Recorded Sex Assigned at Not on file Legal Sex Female 3:02 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
--- OUTSIDE RECORDS SUMMARY | 2025-11-11 19:41 | XMS_ITS | Encounter Summary ---
Author Organization [facility] Address [address] [place] [address] Care Team Providers Care Manager Trainee Name Role Phone Patricio Travis MD Primary Care Provider [phone] Patricio Travis MD Primary Care Provider [phone] Encounter Details Date Type Department Care Team (Late st Contact Info) Description 01/11/2017 Orders Only [facility] ProviderJuancarlos MD [address] [place] [address] Social History Tobacco Use Types Packs/Day Years Used Date Smoking Tobacco: Never Alcohol Use Standard Drinks/Week Comments No 0 (1 standard drink = 0.6 oz pur e alcohol) Comments Unknown Sex and Gender Information Value Date Recorded Sex Assigned at Not on file 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
[2025-11-11] MEDS: FUROSEMIDE INJ 40 MG/4 ML VIAL IV PUSH (19:49)
[2025-11-12] VITALS (14 sets, daily range): BP systolic 118–149; BP diastolic 78–88; PULSE 73–101; RESP 16–20; TEMP 36.1–37; O2SAT 91–100; BMI 27.8
--- NOTE | 2025-11-12 01:36 | WPCEDHO ---
ED Hand Off Checklist All vitals saved: yes IV Site documented: yes All med administrations documented: yes Triage Note Triage Note Patient sent from [facility] 11/11/25 18:39 via EMS with complaints of shortness of breath x 3 weeks and swelling to bilateral lower extremities. agree with triage note Allergies levofloxacin Allergy (Severe, Verified 11/11/25 15:54) Anaphylaxis Suicidal Effected nerves in limbs Family History (Last Reviewed 11/11/25 @ 19:35 by Cooper Begum DO) Mother Hypertension Family history of cardiovascular disease Father Carcinoma of colon Grandparent Family history of malignant neoplasm of breast in first degree relative Cerebrovascular accident Family history of malignant neoplasm of breast Administered/Completed Medications Discontinued Medications Furosemide (Furosemide Inj 40 Mg/4 Ml Vial) 40 mg IV PUSH ONCE STA Stop: 11/11/25 19:33 Last Admin: 11/11/25 19:49 Dose: 40 mg Documented By: NINI Interventions/Assessments Cardiac Monitoring Start: 11/11/25 15:53 Freq: Status: Active Protocol: Document 11/11/25 18:41 LDD (Rec: 11/11/25 18:41 LDD [id number]) Asw/Asuw Tactical Air Controller Assessment Asw/Asuw Tactical Air Controller Yes Applied Pulse Rate (60-100) 80 EKG Rythm Sinus Rhythm IV / Saline Lock, Insert Start: 11/11/25 15:53 Freq: Status: Active Protocol: Document 11/11/25 18:41 LDD (Rec: 11/11/25 18:41 LDD [id number]) IV Assessment Peripheral Access Right Antecubital IV Catheter Access Initiated IV Insertion Date 11/11/25 IV Insertion Time 18:41 Catheter Gauge 18 IV Insertion 1 Attempts Ultrasound Used for No Placement IV Site Assessment WNL IV Care and WNL Maintenance PA: Cardiovascular Assessment Start: 11/11/25 15:53 Freq: Status: Active Protocol: Document 11/11/25 18:40 LDD (Rec: 11/11/25 18:40 LDD [id number]) Cardiovascular Assessment Cardiovascular Chest Pain Symptoms Skin Description Normal Color Heart Sounds Normal Jugular Vein None Distention PA: Respiratory Assessment Start: 11/11/25 15:53 Freq: Status: Active Protocol: Document 11/11/25 19:15 LDD (Rec: 11/11/25 19:15 LDD [id number]) Respiratory Assessment Bilateral Throughout Phase Inspiratory & Expiratory Lung Sounds Wheezes Last Vital Signs Temperature 97.8 F 11/11/25 15:56 Pulse Rate 81 11/12/25 01:34 Respiratory Rate 17 11/12/25 01:34 Pulse Oximetry 96 11/12/25 01:34 Blood Pressure 137/83 11/12/25 01:34 Blood Pressure Mean 101 11/12/25 01:34 Blood Pressure Position Supine 11/11/25 18:39 Oxygen Delivery Room Air 11/11/25 18:40 Weight 68.9 kg 11/11/25 18:39 Last Result - Abnormals Only RBC 3.49 M/mm3 (4.2-5.4) L 11/11/25 18:42 Hgb 11.1 g/dL (12.0-15.0) L 11/11/25 18:42 Hct 35.4 % (37.0-47.0) L 11/11/25 18:42 MCV 101.4 fl (80-100) H 11/11/25 18:42 MCHC 31.4 g/dl (32-36) L 11/11/25 18:42 RDW 15.1 % (11.5-14.5) H 11/11/25 18:42 Immature Gran % (Auto) 0.9 % (0-0.5) H 11/11/25 18:42 Carlton % (Auto) 10.8 % (2.6-8.5) H 11/11/25 18:42 Abs Immat Gran (auto) 0.05 K/mm3 (0.00-0.031) H 11/11/25 18:42 Absolute Nucleated RBC 0.030 K/mm3 (0.0-0.012) H 11/11/25 18:42 Nucleated RBC % 0.5 % (0.0-0.2) H 11/11/25 18:42 PT 20.7 Seconds (11.1-14.7) H 11/11/25 18:42 APTT 41.8 Seconds (22.3-36.8) H 11/11/25 18:42 Sodium 134 mmol/L (137-145) L 11/11/25 18:42 Carbon Dioxide 20 mmol/L (22-30) L 11/11/25 18:42 BUN 26 mg/dL (7-17) H 11/11/25 18:42 Estimated GFR 55 (59-) L 11/11/25 18:42 Glucose 115 mg/dL (65-110) H 11/11/25 18:42 Alkaline Phosphatase 167 U/L (38-126) H 11/11/25 18:42 NT-Pro-B Natriuret Pep 9150 pg/mL (19.9-100) H 11/11/25 18:42 Most Recent Suicide Severity Rating Suicide Severity Rating NO RISK INDICATED 11/11/25 18:39
--- NOTE | 2025-11-12 01:38 | PC.NURSE ---
pt daughter called and updated about room number
--- NOTE | 2025-11-12 02:36 | ADMGEN ---
This patient, Talha Reyna, was admitted to [facility] Surg Room 315-02. Patient/family oriented to hospital policies and general routines including ID bracelet, bed and alarms, visiting hours, pain management, procedures, bathroom and other care routines, personal items, smoking policy, room service/diet, and visiting hours. Information on how to activate the Rapid Response Team has been discussed. Patient/Family are encouraged to report perceived risks to care and to ask questions if they do not understand what they are told or what they should do.
--- NOTE | 2025-11-12 03:46 | PC.NURSE ---
Patient arrived to floor at approximately 02:00. Transferred patient from stretcher to bed, changed gown, tech attempted to remove EKG tab on right lower arm and tore patients skin. Skin tear is approximetaly 5cm x 2cm. Edges are well approximated, placed a Versatel dressing along with a foam boarder dressing.
[2025-11-12] MEDS: ACETAMINOPHEN 325 MG TABLET 650 MG PO (05:40)
[2025-11-12] MEDS: traMADol HCL (*CRX) 50 MG TABLET PO (05:41)
--- NOTE | 2025-11-12 08:33 | P.PNIM_ITS ---
Assessment and Plan Assessment and Plan (1) Acute exacerbation of CHF (congestive heart failure): Qualifiers: Heart failure type: unspecified Qualified Code(s): I50.9 - Heart failure, unspecified Code(s): I50.9 - Heart failure, unspecified Status: Acute Assessment and Plan: Acute on chronic. C/o worsening SOB, BEAR, and nocturnal orthopnea. -Saw her teacher visually impaired for this last week where an echo was obtained which showed ?backup of blood in her heart?. She was started on Entresto which she has not started taking yet as it has not been available at the pharmacy. -Admitting BNP 9150 -Lasix 40mg IV given in ED, pt is on PO 20mg at home (holding for now), will continue Lasix 40mg IV BID -Sx? (2) Chronic kidney disease: Qualifiers: Chronic kidney disease stage: stage 3 (moderate) Chronic kidney disease stage 3 subtype: stage 3a (GFR 45-59) Qualified Code(s): N18.31 - Chronic kidney disease, stage 3a Code(s): N18.9 - Chronic kidney disease, unspecified Status: Acute Assessment and Plan: No IVON upon admission, trend labs inpt (3) A-fib: Qualifiers: Atrial fibrillation type: unspecified Qualified Code(s): I48.91 - Unspecified atrial fibrillation Code(s): I48.91 - Unspecified atrial fibrillation Status: Acute Assessment and Plan: Will continue metoprolol succ & rivaroxaban Subjective Date/time seen: 11/12/25 Review of Systems Review of Systems: All systems reviewed & are unremarkable except as noted in HPI and below Objective Data Vital Signs Vital Signs: Vital Signs - 24 hr 11/11/25 15:56 11/11/25 18:39 11/11/25 18:40 Temperature 97.8 F Pulse Rate 71 82 Respiratory Rate 18 14 Blood Pressure 128/86 137/81 Pulse Oximetry 97 97 97 Oxygen Delivery Room Air Room Air Room Air 11/11/25 18:41 11/11/25 18:46 11/11/25 19:01 Temperature Pulse Rate 80 83 73 Respiratory Rate 23 H 23 H Blood Pressure 128/81 132/83 Pulse Oximetry 99 Oxygen Delivery 11/11/25 19:16 11/11/25 19:31 11/11/25 19:46 Temperature Pulse Rate 81 74 Respiratory Rate 21 H 26 H 21 H Blood Pressure 131/93 H 131/85 135/81 Pulse Oximetry 99 99 Oxygen Delivery 11/11/25 20:01 11/11/25 21:45 11/12/25 01:34 Temperature Pulse Rate 76 77 81 Respiratory Rate 27 H 25 H 17 Blood Pressure 133/90 133/87 137/83 Pulse Oximetry 97 100 96 Oxygen Delivery 11/12/25 01:57 11/12/25 02:33 11/12/25 04:00 Temperature 98.6 F Pulse Rate 81 78 81 Respiratory Rate 17 16 Blood Pressure 137/83 145/85 H Pulse Oximetry 96 91 Oxygen Delivery 11/12/25 06:00 Temperature 98.2 F Pulse Rate 101 H Respiratory Rate 20 Blood Pressure 149/86 H Pulse Oximetry 96 Oxygen Delivery Intake/Output Intake/Output: Intake & Output 11/09/25 11/10/25 11/11/25 11/12/25 23:59 23:59 23:59 23:59 Intake Total 0 Output Total 300 Balance -300 Meds/Results Medications: Active Medications Generic Name Dose Route Start Last Admin Trade Name Freq PRN Reason Stop Dose Admin Acetaminophen 650 mg 11/12/25 04:56 11/12/25 05:40 Acetaminophen 325 Mg Tablet PO 650 mg Q4H PRN Administration Mild Pain (1-3) or Fever Furosemide 40 mg 11/12/25 09:00 Furosemide Inj 40 Mg/4 Ml Vial IV PUSH BID VINEET Tramadol HCl 50 mg 11/12/25 04:56 11/12/25 05:41 Tramadol Hcl (*Crx) 50 Mg Tablet PO 50 mg TID PRN Administration pain Radiology Results: ITS Impressions Chest X-Ray 11/11/25 19:40 IMPRESSION: 1. No acute findings. Cardiomegaly and atherosclerotic aorta. Labs Labs: Laboratory Results - last 24 hr 11/11/25 18:42 WBC 5.7 RBC 3.49 L Hgb 11.1 L Hct 35.4 L MCV 101.4 H MCH 31.8 MCHC 31.4 L RDW 15.1 H Plt Count 192 MPV 9.4 Immature Gran % (Auto) 0.9 H Neut % (Auto) 63.4 Lymph % (Auto) 22.2 Graham % (Auto) 10.8 H Eos % (Auto) 1.8 Baso % (Auto) 0.9 Lymph # (Auto) 1.26 Graham # (Auto) 0.6 Eos # (Auto) 0.1 Baso # (Auto) 0.1 Abs Immat Gran (auto) 0.05 H Absolute Neuts (auto) 3.6 Absolute Nucleated RBC 0.030 H Nucleated RBC % 0.5 H PT 20.7 H INR 1.8 APTT 41.8 H Sodium 134 L Potassium 4.6 Chloride 106 Carbon Dioxide 20 L Anion Gap 8 BUN 26 H Creatinine 0.95 Estim Creat Clear Calc 32 Estimated GFR 55 L Glucose 115 H Calcium 9.1 Total Bilirubin 0.6 AST 35 ALT 25 Alkaline Phosphatase 167 H Troponin I 0.020 NT-Pro-B Natriuret Pep 9150 H Total Protein 6.9 Albumin 3.9 Quality VTE Prophylaxis VTE prophylaxis: pharmacologic ordered (Home Xarelto) Hospitalist MIPS Advance Care Plan I have confirmed that the patient's Advanced Care Plan is present, code status is documented, or surrogate decision maker is listed in patient medical record.: Yes The patient's Advanced Care plan is not present because:: Patient doesn't want to name surrogate or provider advance care plan Medication Reconciliation I have utilized all available resources to obtain, update and review the patients current medications (includes all prescriptions, OTC, herbals, cannabis, and nutritional supplements).: Yes The patient is not eligible for med reconciliation; the patient is in a emergent medical situation where delaying treatment would jeopardize the patients health.: No
[2025-11-12 08:39] LABS: Hematocrit 33.2 % (37.0-47.0); Hemoglobin 10.2 g/dL (12.0-15.0); Immature Granulocyte Percent A 0.8 % (0-0.5); Lymphocytes Absolute Auto 1.01 K/mm3 (0.9-3.2); Mean Corpuscular HGB Conc 30.7 g/dl (32-36); Mean Corpuscular Hemoglobin 31.6 pg (26-34); Mean Corpuscular Volume 102.8 fl (80-100); Nucleated Red Blood Cells Absolute Auto 0.020 K/mm3 (0.0-0.012); Nucleated Red Blood Cells Perc 0.4 % (0.0-0.2); Platelet Count Result 164 k/mm3 (150-375); Red Blood Count 3.23 M/mm3 (4.2-5.4); White Blood Count 5.1 K/mm3 (4.5-10.0)
[2025-11-12 08:48] LABS: Alanine Aminotransferase 20 U/L (6-35); Albumin Level 3.4 g/dL (3.5-5.1); Alkaline Phosphatase 165 U/L (38-126); Anion Gap 6 mmol/L (4-12); Aspartate Amino Transferase 27 U/L (14-36); Bilirubin,Total 0.6 mg/dL (0.2-1.3); Blood Urea Nitrogen 25 mg/dL (7-17); Calcium 8.8 mg/dL (8.4-10.2); Carbon Dioxide 23 mmol/L (22-30); Chloride 106 mmol/L (98-107); Estimated CRCL calculation 37 ml/min; Estimated Glomerular Filt Rate > 60; Glucose 91 mg/dL (65-110); Potassium 3.8 mmol/L (3.4-5.0); Sodium 135 mmol/L (137-145); Total Protein 6.2 g/dL (6.3-8.2)
[2025-11-12] MEDS: METOPROLOL SUCCINATE EXT REL 100 MG TABCR PO (09:39)
[2025-11-12] MEDS: FERROUS SULFATE 325 MG TABLET PO (09:39)
[2025-11-12] MEDS: FUROSEMIDE INJ 40 MG/4 ML VIAL IV PUSH ×2 (09:39→16:56)
[2025-11-12] MEDS: POTASSIUM CHLORIDE 20 MEQ ER TABLET PO (09:39)
[2025-11-12] MEDS: SODIUM CHLORIDE 1 GM TABLET PO ×2 (09:39→16:56)
--- NOTE | 2025-11-12 09:57 | PM.IMHP2 ---
H&P: HPI History of Present Illness Date/Time: 11/12/25931 Chief Complaint: SOB, BEAR, orthopnea Narrative: Pt to the ED on 11/11 afternoon c/o SOB, intermittent CP, BEAR, BLE edema, and nocturnal orthopnea x few days. Pt with a hx of CHF on home furosemide 20mg PO daily. Upon my examination today, pt reports feeling a lot better in terms of SOB and BLE edema than she did yesterday. Denies N/V/D or any other sx. She denies BEAR or orthopnea but she has not participated in much activity or lied flat since admission. Review of Systems Review of Systems: All systems reviewed & are unremarkable except as noted in HPI and below PMFSH Past Medical History Medical History Spinal stenosis, lumbar region, with neurogenic claudication severe lumbar spinal stenosis at L3-L4 and L4-L5 on CT on 10/09/2025. Coccygeal pain, chronic Pneumonia Chronic kidney disease BUN 28, creatinine 1.1 with GFR 48 on 08/07/2025. Elevated TSH TSH elevated at 4.67 on 08/07/2025. Elevated liver enzymes (~08/07/25) AST 86, ALT 75 on 08/07/2025. BMI 26.0-26.9,adult Fatigue Insomnia Carpal tunnel syndrome of left wrist BMI 27.0-27.9,adult Defecation urgency (~07/2023) Weakness COVID-19 (06/26/22) BMI 28.0-28.9,adult Overweight (BMI 25.0-29.9) Acute non-recurrent maxillary sinusitis UTI (urinary tract infection) 08/07/2025. BMI 29.0-29.9,adult At high risk for falls Edema, peripheral Urinary frequency Atrial enlargement, bilateral Tricuspid valve regurgitation Mitral valve regurgitation Hypertension Vitamin D deficiency, unspecified The level low at 25 on 10/24/2022. Level normal at 45 on 08/07/2025. Vitamin B12 deficiency anemia Level normal at 668 with folic acid 24 and hemoglobin 13.2 on 10/24/2022. level slightly low at 398 with hemoglobin 11.8 on 08/07/2025. History of vaginal delivery Skin cancer Benign paroxysmal positional vertigo due to bilateral vestibular disorder Abnormality of gait and mobility Surgical History Surgical History H/O bilateral oophorectomy History of partial hysterectomy History of cholecystectomy History of knee surgery History of breast biopsy History of colon resection Family History Family History Mother Hypertension, Onset Age: 90 Family history of cardiovascular disease, Onset Age: 90 Father Carcinoma of colon, Onset Age: 62 Grandparent Family history of malignant neoplasm of breast in first degree relative, Onset Age: 64 Cerebrovascular accident, Onset Age: 82 Family history of malignant neoplasm of breast Social History Social History Smoking status: Never smoker Second hand tobacco smoke exposure: No Alcohol intake: never Substance use: never Substance use type: does not use Lack of Transportation: No Lack of Food: Never True Current Housing: I Have Housing Concerned About Future Housing: No Difficulty Paying Gas/Electric Bills: No Difficulty Paying for Meds: No Currently Unemployed: No Education: Master's Degree or Higher Difficulty w/ Childcare or Family Care: No Spiritual care concerns: No Meds Home Medications and Allergies Home Medications ?Medication ?Instructions ?Recorded ?Confirmed ?Type diltiazem HCl 180 mg capsule,24 180 mg PO DAILY 10/15/19 11/12/25 History hr,extended release potassium chloride 20 mEq 20 meq PO DAILY 10/15/19 11/12/25 History tablet,extended release rivaroxaban 15 mg tablet (Xarelto) 15 mg PO DAILY 10/15/19 11/12/25 History cyanocobalamin (vitamin B-12) 1,000 mcg PO DAILY 07/04/20 11/12/25 History 1,000 mcg tablet,extended release (Vitamin B-12 ER) ferrous sulfate 325 mg (65 mg 325 mg PO DAILY 07/04/20 11/12/25 History iron) tablet omega-3 fatty acids 1,000 mg 1,000 mg PO DAILY 07/04/20 11/12/25 History capsule docusate sodium 50 mg capsule 50 mg PO DAILY 09/14/20 11/12/25 History (Colace Clear) multivitamin 1 tablet PO DAILY 09/14/20 11/12/25 History cholecalciferol (vitamin D3) 25 1,000 unit PO DAILY 08/28/22 11/12/25 History mcg (1,000 unit) capsule psyllium husk 3.4 gram/5.4 gram 1 tbsp PO BID 10/17/23 11/12/25 History oral powder (Metamucil) ondansetron 4 mg disintegrating 4 mg PO BID PRN nausea and 08/20/25 11/12/25 Rx tablet vomiting #10 tabs furosemide 20 mg tablet 20 mg PO .COMPLEX #180 tabs 08/26/25 11/12/25 Rx tramadol 50 mg tablet 50 mg PO .COMPLEX PRN pain #200 10/04/25 11/12/25 Rx tabs acetaminophen 325 mg tablet 650 mg PO TID 11/12/25 11/12/25 History (Aminofen) artificial tears(hypromellose) 0.3 1 drp EACH EYE QID PRN dry eye 11/12/25 11/12/25 History % eye drops lisinopril 40 mg tablet 10 mg PO DAILY 11/12/25 11/12/25 History melatonin 3 mg capsule 3 mg PO HS 11/12/25 11/12/25 History metoprolol succinate 100 mg 100 mg PO DAILY 11/12/25 11/12/25 History tablet,extended release 24 hr polyethylene glycol 3350 17 gram 17 g PO DAILY PRN constipation 11/12/25 11/12/25 History oral powder packet (ClearLax) psyllium husk 0.52 gram capsule 0.52 g PO BID 11/12/25 11/12/25 History (Daily Fiber) sodium chloride 1,000 mg soluble 1,000 mg PO BID 11/12/25 11/12/25 History tablet Allergies Allergy/AdvReac Type Severity Reaction Status Date / Time levofloxacin Allergy Severe Anaphylaxis Verified 11/12/25 02:38 Vital Signs Vital Signs - 24 hr 11/11/25 15:56 11/11/25 18:39 11/11/25 18:40 Temperature 97.8 F Pulse Rate 71 82 Respiratory Rate 18 14 Blood Pressure 128/86 137/81 Pulse Oximetry 97 97 97 Oxygen Delivery Room Air Room Air Room Air 11/11/25 18:41 11/11/25 18:46 11/11/25 19:01 Temperature Pulse Rate 80 83 73 Respiratory Rate 23 H 23 H Blood Pressure 128/81 132/83 Pulse Oximetry 99 Oxygen Delivery 11/11/25 19:16 11/11/25 19:31 11/11/25 19:46 Temperature Pulse Rate 81 74 Respiratory Rate 21 H 26 H 21 H Blood Pressure 131/93 H 131/85 135/81 Pulse Oximetry 99 99 Oxygen Delivery 11/11/25 20:01 11/11/25 21:45 11/12/25 01:34 Temperature Pulse Rate 76 77 81 Respiratory Rate 27 H 25 H 17 Blood Pressure 133/90 133/87 137/83 Pulse Oximetry 97 100 96 Oxygen Delivery 11/12/25 01:57 11/12/25 02:33 11/12/25 04:00 Temperature 98.6 F Pulse Rate 81 78 81 Respiratory Rate 17 16 Blood Pressure 137/83 145/85 H Pulse Oximetry 96 91 Oxygen Delivery 11/12/25 06:00 11/12/25 09:39 Temperature 98.2 F Pulse Rate 101 H 101 H Respiratory Rate 20 Blood Pressure 149/86 H Pulse Oximetry 96 Oxygen Delivery Exam Const: General: comfortable and no acute distress HENMT: Face/Nose/Sinus: Normal nares present Mouth: Yes moist mucous membranes Eyes: General: appearance normal, both eyes and all related structures Sclera: sclerae normal Pupils: Equal, round and reactive pupils present EOM: EOMs intact bilaterally Neck: Neck: supple Carotids: no bruits Resp: Effort & Inspection: normal respiratory effort Auscultation: wheezes expiratory wheezes, right lower, left upper and right upper Cardio: Rate: regular rate Rhythm: abnormal rhythm regularly irregular Other: Tele afib 78 bpm GI: Inspection: non-distended GI Palp: No Tenderness to palpation present (GI) Auscultation: normal bowel sounds : General: Yes bladder normal to palpation Skin: General skin exam: normal color Other: R FA lateral aspect small skin tear with bandage applied Neuro: Speech: normal speech Motor exam (neuro): 5/5 motor strength present throughout and Normal motor muscle tone present throughout Sensory Exam: normal sensation Extrem: General: normal exam except as noted Other: BLE ankles and below 2+ pitting edema Psych: Mental Status: mental status grossly normal Affect: normal affect Results Labs Labs: Short CBC 11/11/25 11/12/25 Range/Units 18:42 08:12 WBC 5.7 5.1 (4.5-10.0) K/mm3 Hgb 11.1 L 10.2 L (12.0-15.0) g/dL Hct 35.4 L 33.2 L (37.0-47.0) % Plt Count 192 164 (150-375) k/mm3 BMP 11/11/25 11/12/25 18:42 08:12 Sodium 134 L 135 L Potassium 4.6 3.8 Chloride 106 106 Carbon Dioxide 20 L 23 BUN 26 H 25 H Creatinine 0.95 0.86 Glucose 115 H 91 Calcium 9.1 8.8 Cardiac Enzymes 11/11/25 Range/Units 18:42 Troponin I 0.020 (0.000-0.034) ng/mL Liver Function 11/11/25 11/12/25 Range/Units 18:42 08:12 Total Bilirubin 0.6 0.6 (0.2-1.3) mg/dL AST 35 27 (14-36) U/L ALT 25 20 (6-35) U/L Alkaline Phosphatase 167 H 165 H (38-126) U/L Albumin 3.9 3.4 L (3.5-5.1) g/dL Quality VTE Prophylaxis VTE prophylaxis: pharmacologic ordered (home xarelto) Assessment and Plan Assessment and plan (1) Acute exacerbation of CHF (congestive heart failure): Qualifiers: Heart failure type: unspecified Qualified Code(s): I50.9 - Heart failure, unspecified Code(s): I50.9 - Heart failure, unspecified Status: Acute Assessment and Plan: Acute on chronic. On home furosemide 20mg PO daily. Was given 40mg IV in the ED, will continue BID inpt -BNP on admission 9150 -She saw her cycle repairer (Dr. Ariza) for this last week where an echo was obtained which showed ?backup of blood in her heart?. She was started on Entresto which she has not started taking yet as it has not been available at the pharmacy. -Pt with expiratory wheezing today, will order albuterol inhaler and reassess (2) A-fib: Qualifiers: Atrial fibrillation type: unspecified Qualified Code(s): I48.91 - Unspecified atrial fibrillation Code(s): I48.91 - Unspecified atrial fibrillation Status: Acute Assessment and Plan: Continue barbara e metoprolol succ & Xarelto Tele (3) Chronic kidney disease: Qualifiers: Chronic kidney disease stage: stage 3 (moderate) Chronic kidney disease stage 3 subtype: stage 3a (GFR 45-59) Qualified Code(s): N18.31 - Chronic kidney disease, stage 3a Code(s): N18.9 - Chronic kidney disease, unspecified Status: Acute Assessment and Plan: No current IVON, will continue to trend labs with Lasix 40mg IV BID on board. -BUN at baseline 25 Plan Continue with diuresis and sx management Prior Studies I have reviewed the following patient records and this information was taken into consideration when formulating the assessment and plan.: previous labs, previous ER visits and previous hospitalizations Hospitalist [facility] Advance Care Plan I have confirmed that the patient's Advanced Care Plan is present, code status is documented, or surrogate decision maker is listed in patient medical record.: Yes The patient's Advanced Care plan is not present because:: Patient doesn't want to name surrogate or provider advance care plan Medication Reconciliation I have utilized all available resources to obtain, update and review the patients current medications (includes all prescriptions, OTC, herbals, cannabis, and nutritional supplements).: Yes The patient is not eligible for med reconciliation; the patient is in a emergent medical situation where delaying treatment would jeopardize the patients health.: No
[2025-11-12] MEDS: ONDANSETRON HCL ODT 4 MG TABLET PO (12:34)
[2025-11-12] MEDS: ALBUTEROL SULFATE (*SP) AEROSOL 1 PUFF 2 PUFF INHALATION ×2 (14:20→20:25)
[2025-11-12] MEDS: RIVAROXABAN 15 MG TABLET PO (16:55)
[2025-11-12] MEDS: PSYLLIUM POWDER PACKET 1 PACKET PO (16:57)
[2025-11-12] MEDS: MELATONIN 3 MG TABLET PO (20:25)
[2025-11-13] VITALS (15 sets, daily range): BP systolic 100–143; BP diastolic 76–84; PULSE 75–91; RESP 16–20; TEMP 36.4–37; O2SAT 92–98
--- NOTE | 2025-11-13 02:16 | PCRCNOTE ---
Patient stated she did not want to be awakened to receive her inhaler @ 0200. Treatment to resume at 0800.
[2025-11-13 06:43] LABS: Hematocrit 35.3 % (37.0-47.0); Hemoglobin 10.7 g/dL (12.0-15.0); Immature Granulocyte Percent A 0.7 % (0-0.5); Lymphocytes Absolute Auto 1.01 K/mm3 (0.9-3.2); Mean Corpuscular HGB Conc 30.3 g/dl (32-36); Mean Corpuscular Hemoglobin 31.3 pg (26-34); Mean Corpuscular Volume 103.2 fl (80-100); Nucleated Red Blood Cells Absolute Auto 0.020 K/mm3 (0.0-0.012); Nucleated Red Blood Cells Perc 0.3 % (0.0-0.2); Platelet Count Result 167 k/mm3 (150-375); Red Blood Count 3.42 M/mm3 (4.2-5.4); White Blood Count 5.8 K/mm3 (4.5-10.0)
[2025-11-13 07:03] LABS: Alanine Aminotransferase 19 U/L (6-35); Albumin Level 3.5 g/dL (3.5-5.1); Alkaline Phosphatase 160 U/L (38-126); Anion Gap 6 mmol/L (4-12); Aspartate Amino Transferase 26 U/L (14-36); Bilirubin,Total 0.7 mg/dL (0.2-1.3); Blood Urea Nitrogen 22 mg/dL (7-17); Calcium 8.8 mg/dL (8.4-10.2); Carbon Dioxide 21 mmol/L (22-30); Chloride 106 mmol/L (98-107); Estimated CRCL calculation 36 ml/min; Estimated Glomerular Filt Rate > 60; Glucose 103 mg/dL (65-110); Potassium 3.8 mmol/L (3.4-5.0); Sodium 133 mmol/L (137-145); Total Protein 6.2 g/dL (6.3-8.2)
[2025-11-13] MEDS: ALBUTEROL SULFATE (*SP) AEROSOL 1 PUFF 2 PUFF INHALATION ×3 (08:13→19:41)
[2025-11-13] MEDS: PSYLLIUM POWDER PACKET 1 PACKET PO ×2 (08:30→16:44)
[2025-11-13] MEDS: FUROSEMIDE INJ 40 MG/4 ML VIAL IV PUSH ×2 (08:30→16:44)
[2025-11-13] MEDS: SODIUM CHLORIDE 1 GM TABLET PO ×2 (08:31→16:44)
[2025-11-13] MEDS: FERROUS SULFATE 325 MG TABLET PO (08:31)
[2025-11-13] MEDS: POTASSIUM CHLORIDE 20 MEQ ER TABLET PO (08:31)
[2025-11-13] MEDS: METOPROLOL SUCCINATE EXT REL 100 MG TABCR PO (08:31)
[2025-11-13] MEDS: OMEGA 3 POLYUNSAT FATTY ACIDS 1 GM CAP PO (08:32)
[2025-11-13] MEDS: MULTIVITAMINS THERAPEUTIC TAB (*BKC) 1 TABLET PO (08:33)
[2025-11-13] MEDS: traMADol HCL (*CRX) 50 MG TABLET PO (08:40)
--- NOTE | 2025-11-13 08:47 | PM.IMPN2 ---
Assessment and Plan Assessment and Plan (1) Acute exacerbation of CHF (congestive heart failure): Qualifiers: Heart failure type: unspecified Qualified Code(s): I50.9 - Heart failure, unspecified Code(s): I50.9 - Heart failure, unspecified Status: Acute Assessment and Plan: Acute on chronic. On home furosemide 20mg PO daily. Was given 40mg IV in the ED, will continue BID inpt -BNP on admission 9150, will repeat tomorrow with labs -She saw her liquor merchant (Dr. Ariza) for this last week where an echo was obtained which showed ?backup of blood in her heart?. She was started on Entresto which she has not started taking yet as it has not been available at the pharmacy, will assure this is in the works when she gets discharged. -->Pt took lisinopril this AM. Will D/C after today to introduce Entresto >36 hours, making the first dose of Entresto tomorrow PM. -Expiratory wheezing significantly reduced, only mild in the PRIS[place]LLA today -Ordered casper hose today (2) A-fib: Qualifiers: Atrial fibrillation type: unspecified Qualified Code(s): I48.91 - Unspecified atrial fibrillation Code(s): I48.91 - Unspecified atrial fibrillation Status: Acute Assessment and Plan: Continue barbara e metoprolol succ & Xarelto Tele (3) Chronic kidney disease: Qualifiers: Chronic kidney disease stage: stage 3 (moderate) Chronic kidney disease stage 3 subtype: stage 3a (GFR 45-59) Qualified Code(s): N18.31 - Chronic kidney disease, stage 3a Code(s): N18.9 - Chronic kidney disease, unspecified Status: Acute Assessment and Plan: No current IVON, will continue to trend labs with Lasix 40mg IV BID on board. -BUN at baseline 22 Plan Continue with diuresis and sx management. Lisinopril to Entresto change starting today. Medical Record Review I have reviewed the following patient records and this information was taken into consideration when formulating the assessment and plan.: previous labs, previous ER visits and previous clinic visits Subjective Date/time seen: 11/13/25 1000 Interval history: Pt lying comfortably in bed upon my arrival. She states that she feels mildly better today, denying CP and a mild amount of SOB, not quite at her baseline. She believes her legs have gone down overnight as well. Review of Systems Review of Systems: All systems reviewed & are unremarkable except as noted in HPI and below Exam Const: General: comfortable and no acute distress HENMT: Face/Nose/Sinus: Normal nares present Mouth: Yes moist mucous membranes Eyes: General: appearance normal, both eyes and all related structures Sclera: sclerae normal Pupils: Equal, round and reactive pupils present EOM: EOMs intact bilaterally Neck: Neck: supple Carotids: no bruits Resp: Effort & Inspection: normal respiratory effort Auscultation: wheezes expiratory wheezes and left upper (mild) Cardio: Rate: regular rate Rhythm: abnormal rhythm regularly irregular Other: Tele afib 78 bpm GI: Inspection: non-distended Auscultation: normal bowel sounds : General: Yes bladder normal to palpation Bimanual exam- vagina & uterus: bladder normal to palpation Skin: General skin exam: normal color Other: R FA lateral aspect small skin tear with bandage applied Neuro: Cranial nerves: Yes Equal, round and reactive pupils present Speech: normal speech Motor exam (neuro): 5/5 motor strength present throughout and Normal motor muscle tone present throughout Sensory Exam: normal sensation Extrem: General: normal exam except as noted Other: BLE ankles and below 2+ pitting edema Psych: Mental Status: mental status grossly normal Affect: normal affect Objective Data Vital Signs Vital Signs: Vital Signs - 24 hr 11/12/25 09:39 11/12/25 09:40 11/12/25 12:00 Temperature Pulse Rate 101 H 94 Respiratory Rate Blood Pressure Pulse Oximetry Oxygen Delivery Room Air 11/12/25 14:00 11/12/25 16:00 11/12/25 17:06 Temperature 97 F L 97 F L Pulse Rate 84 85 81 Respiratory Rate 20 16 Blood Pressure 122/78 140/78 Pulse Oximetry 96 100 Oxygen Delivery 11/12/25 19:57 11/12/25 20:00 11/12/25 20:25 Temperature 97.5 F L Pulse Rate 85 85 73 Respiratory Rate 17 Blood Pressure 118/88 Pulse Oximetry 97 96 Oxygen Delivery Room Air 11/13/25 00:00 11/13/25 04:00 11/13/25 05:56 Temperature 98.4 F Pulse Rate 79 76 88 Respiratory Rate 16 Blood Pressure 143/84 H Pulse Oximetry 98 Oxygen Delivery 11/13/25 08:13 11/13/25 08:13 11/13/25 08:31 Temperature Pulse Rate 81 81 82 Respiratory Rate 20 20 Blood Pressure Pulse Oximetry 92 Oxygen Delivery Room Air Intake/Output Intake/Output: Intake & Output 11/10/25 11/11/25 11/12/25 11/13/25 23:59 23:59 23:59 23:59 Intake Total 1158 480 Output Total 2400 1500 Balance -1242 -1020 Meds/Results Medications: Active Medications Generic Name Dose Route Start Last Admin Trade Name Freq PRN Reason Stop Dose Admin Acetaminophen 650 mg 11/12/25 04:56 11/12/25 05:40 Acetaminophen 325 Mg Tablet PO 650 mg Q4H PRN Administration Mild Pain (1-3) or Fever Acetaminophen 325 mg 11/12/25 09:17 Acetaminophen 325 Mg Tablet PO QID PRN SEVERE PAIN Albuterol 2 puff 11/12/25 10:15 11/13/25 08:13 Albuterol Sulfate (*Sp) Aerosol 1 Puff INHALATION 2 puff Q6HRT VINEET Administration Artificial Tears 1 drop 11/12/25 10:14 Artificial Tears Ophth Soln 15 Ml Bottle EACH EYE QID PRN dry eye Ferrous Sulfate 325 mg 11/12/25 09:00 11/13/25 08:31 Ferrous Sulfate 325 Mg Tablet PO 12/12/25 08:59 325 mg DAILY VINEET Administration Fish Oil 1 gm 11/13/25 09:00 11/13/25 08:32 [place] 3 Polyunsat Fatty Acids 1 Gm Cap PO 1 gm DAILY VINEET Administration Furosemide 40 mg 11/12/25 09:00 11/13/25 08:30 Furosemide Inj 40 Mg/4 Ml Vial IV PUSH 40 mg BID VINEET Administration Furosemide 20 mg 11/12/25 08:50 Furosemide 20 Mg Tablet PO On Hold: 11/12/25 08:52 .COMPLEX VINEET Lisinopril 10 mg 11/12/25 09:00 11/13/25 08:31 Lisinopril 10 Mg Tablet PO 10 mg DAILY VINEET Administration Melatonin 3 mg 11/12/25 21:00 11/12/25 20:25 Melatonin 3 Mg Tablet PO 3 mg HS VINEET Administration Metoprolol Succinate 100 mg 11/12/25 09:00 11/13/25 08:31 Metoprolol Succinate Ext Rel 100 Mg Tabcr PO 100 mg DAILY VINEET Administration Multivitamins Therapeutic 1 tablet 11/13/25 09:00 11/13/25 08:33 Multivitamins Therapeutic Tab (*Bkc) PO 1 tablet DAILY VINEET Administration Ondansetron HCl 4 mg 11/12/25 10:14 11/12/25 12:34 Ondansetron Hcl Odt 4 Mg Tablet PO 4 mg BID PRN Administration Nausea And Vomiting Polyethylene Glycol 17 gm 11/12/25 10:14 Polyethylene Glycol 3350 17 Gm Powd.Pack PO DAILY PRN Constipation Potassium Chloride 20 meq 11/12/25 09:00 11/13/25 08:31 Potassium Chloride 20 Meq Er Tablet PO 20 meq DAILY VINEET Administration Psyllium Hydrophilic Mucilloid 1 packet 11/12/25 17:00 11/13/25 08:30 Psyllium Powder Packet PO 1 packet BID VINEET Administration Rivaroxaban 15 mg 11/12/25 17:00 11/12/25 16:55 Rivaroxaban 15 Mg Tablet PO 15 mg DAILY@1700 VINEET Administration Sodium Chloride 1 gm 11/12/25 09:00 11/13/25 08:31 Sodium Chloride 1 Gm Tablet PO 1 gm BID VINEET Administration Tramadol HCl 50 mg 11/12/25 04:56 11/13/25 08:40 Tramadol Hcl (*Crx) 50 Mg Tablet PO 50 mg TID PRN Administration pain Tramadol HCl 0 mg 11/12/25 08:50 Tramadol Hcl (*Crx) 50 Mg Tablet PO QID PRN SEVERE PAIN Radiology Results: ITS Impressions Chest X-Ray 11/11/25 19:40 IMPRESSION: 1. No acute findings. Cardiomegaly and atherosclerotic aorta. Labs Labs: Laboratory Results - last 24 hr 11/12/25 11/13/25 08:12 06:22 WBC 5.8 RBC 3.42 L Hgb 10.7 L Hct 35.3 L MCV 103.2 H MCH 31.3 MCHC 30.3 L RDW 15.5 H Plt Count 167 MPV 9.1 Immature Gran % (Auto) 0.7 H Neut % (Auto) 67.4 Lymph % (Auto) 17.3 L [place] % (Auto) 12.5 H Eos % (Auto) 1.4 Baso % (Auto) 0.7 Lymph # (Auto) 1.01 [place] # (Auto) 0.7 H Eos # (Auto) 0.1 Baso # (Auto) 0.0 Abs Immat Gran (auto) 0.04 H Absolute Neuts (auto) 3.9 Absolute Nucleated RBC 0.020 H Nucleated RBC % 0.3 H Sodium 135 L 133 L Potassium 3.8 3.8 Chloride 106 106 Carbon Dioxide 23 21 L Anion Gap 6 6 BUN 25 H 22 H Creatinine 0.86 0.87 Estim Creat Clear Calc 37 36 Estimated GFR > 60 > 60 Glucose 91 103 Calcium 8.8 8.8 Total Bilirubin 0.6 0.7 AST 27 26 ALT 20 19 Alkaline Phosphatase 165 H 160 H Total Protein 6.2 L 6.2 L Albumin 3.4 L 3.5 Quality VTE Prophylaxis VTE prophylaxis: pharmacologic ordered (home xarelto)
[2025-11-13] MEDS: RIVAROXABAN 15 MG TABLET PO (16:44)
[2025-11-13] MEDS: MELATONIN 3 MG TABLET PO (20:23)
[2025-11-14] VITALS (11 sets, daily range): BP systolic 97–138; BP diastolic 56–87; PULSE 76–97; RESP 18; TEMP 36.3–36.8; O2SAT 91–95
[2025-11-14] MEDS: ALBUTEROL SULFATE (*SP) AEROSOL 1 PUFF 2 PUFF INHALATION (02:33)
--- NOTE | 2025-11-14 02:33 | PCRCNOTE ---
MDI order changed to Q6 Prn
[2025-11-14 07:06] LABS: Hematocrit 37.2 % (37.0-47.0); Hemoglobin 11.3 g/dL (12.0-15.0); Immature Granulocyte Percent A 0.8 % (0-0.5); Lymphocytes Absolute Auto 0.73 K/mm3 (0.9-3.2); Mean Corpuscular HGB Conc 30.4 g/dl (32-36); Mean Corpuscular Hemoglobin 31.6 pg (26-34); Mean Corpuscular Volume 103.9 fl (80-100); Nucleated Red Blood Cells Absolute Auto 0.020 K/mm3 (0.0-0.012); Nucleated Red Blood Cells Perc 0.3 % (0.0-0.2); Platelet Count Result 183 k/mm3 (150-375); Red Blood Count 3.58 M/mm3 (4.2-5.4); White Blood Count 7.8 K/mm3 (4.5-10.0)
[2025-11-14 07:25] LABS: Alanine Aminotransferase 20 U/L (6-35); Albumin Level 3.6 g/dL (3.5-5.1); Alkaline Phosphatase 153 U/L (38-126); Anion Gap 6 mmol/L (4-12); Aspartate Amino Transferase 33 U/L (14-36); Bilirubin,Total 0.9 mg/dL (0.2-1.3); Blood Urea Nitrogen 20 mg/dL (7-17); Calcium 8.8 mg/dL (8.4-10.2); Carbon Dioxide 25 mmol/L (22-30); Chloride 102 mmol/L (98-107); Estimated CRCL calculation 40 ml/min; Estimated Glomerular Filt Rate > 60; Glucose 106 mg/dL (65-110); Potassium 4.1 mmol/L (3.4-5.0); Sodium 133 mmol/L (137-145); Total Protein 6.7 g/dL (6.3-8.2)
[2025-11-14 07:27] LABS: NT Pro B Type Natriuretic Pept 6940 pg/mL (19.9-100)
[2025-11-14] MEDS: METOPROLOL SUCCINATE EXT REL 100 MG TABCR PO (08:17)
[2025-11-14] MEDS: OMEGA 3 POLYUNSAT FATTY ACIDS 1 GM CAP PO (08:17)
[2025-11-14] MEDS: MULTIVITAMINS THERAPEUTIC TAB (*BKC) 1 TABLET PO (08:17)
[2025-11-14] MEDS: FUROSEMIDE INJ 40 MG/4 ML VIAL IV PUSH ×2 (08:18→16:44)
[2025-11-14] MEDS: traMADol HCL (*CRX) 50 MG TABLET PO (08:18)
[2025-11-14] MEDS: SODIUM CHLORIDE 1 GM TABLET PO ×2 (08:18→16:44)
[2025-11-14] MEDS: POTASSIUM CHLORIDE 20 MEQ ER TABLET PO (08:18)
[2025-11-14] MEDS: PSYLLIUM POWDER PACKET 1 PACKET PO ×2 (08:19→16:47)
[2025-11-14] MEDS: FERROUS SULFATE 325 MG TABLET PO (08:24)
--- NOTE | 2025-11-14 13:05 | PM.IMPN2 ---
Assessment and Plan Assessment and Plan (1) Acute exacerbation of CHF (congestive heart failure): Qualifiers: Heart failure type: unspecified Qualified Code(s): I50.9 - Heart failure, unspecified Code(s): I50.9 - Heart failure, unspecified Status: Acute Assessment and Plan: Acute on chronic. On home furosemide 20mg PO daily. Was given 40mg IV in the ED, will continue BID inpt -BNP on admission 9150, repeat today 6940 -She saw her driver/merchandiser (Dr. Ariza) for this last week where an echo was obtained which showed ?backup of blood in her heart?. She was started on Entresto which she has not started taking yet as it has not been available at the pharmacy, will assure this is in the works when she gets discharged. -->First dose of Entresto this evening, pt reports that she has it filled at the pharmacy and she will set for someone to pick it up -Continue with casper [place], still with volume overload (2) A-fib: Qualifiers: Atrial fibrillation type: unspecified Qualified Code(s): I48.91 - Unspecified atrial fibrillation Code(s): I48.91 - Unspecified atrial fibrillation Status: Acute Assessment and Plan: Continue barbara e metoprolol succ & Xarelto Tele (3) Chronic kidney disease: Qualifiers: Chronic kidney disease stage: stage 3 (moderate) Chronic kidney disease stage 3 subtype: stage 3a (GFR 45-59) Qualified Code(s): N18.31 - Chronic kidney disease, stage 3a Code(s): N18.9 - Chronic kidney disease, unspecified Status: Acute Assessment and Plan: No current IVON, will continue to trend labs with Lasix 40mg IV BID on board. -BUN at baseline 20 Plan Continue with diuresis and sx management due to volume overload. Lisinopril to Entresto change starting today. Medical Record Review I have reviewed the following patient records and this information was taken into consideration when formulating the assessment and plan.: previous labs, previous ER visits and previous clinic visits Time Spent With Patient Time with patient: 25 - 35 minutes Subjective Date/time seen: 11/14/25 1005 Interval history: Pt lying comfortably in bed upon my arrival, sleeping, arousable to touch. Pt continues to feel SOB today, this is unlike her baseline. Pt denies CP or any other sx. Reports that her edema in her BLE is back to normal, although still pitting 1+. Review of Systems Review of Systems: All systems reviewed & are unremarkable except as noted in HPI and below Exam Const: General: comfortable and no acute distress HENMT: Face/Nose/Sinus: Normal nares present Mouth: Yes moist mucous membranes Eyes: General: appearance normal, both eyes and all related structures Sclera: sclerae normal Pupils: Equal, round and reactive pupils present EOM: EOMs intact bilaterally Neck: Neck: supple Carotids: no bruits Resp: Effort & Inspection: normal respiratory effort Auscultation: clear to auscultation bilaterally Cardio: Rate: regular rate Rhythm: abnormal rhythm regularly irregular Other: Tele afib 78 bpm GI: Inspection: non-distended Auscultation: normal bowel sounds : General: Yes bladder normal to palpation Bimanual exam- vagina & uterus: bladder normal to palpation Skin: General skin exam: normal color Other: R FA lateral aspect small skin tear with bandage applied Neuro: Cranial nerves: Yes Equal, round and reactive pupils present Speech: normal speech Motor exam (neuro): 5/5 motor strength present throughout and Normal motor muscle tone present throughout Sensory Exam: normal sensation Extrem: General: normal exam except as noted Other: BLE ankles and below 1+ pitting edema Psych: Mental Status: mental status grossly normal Affect: normal affect Objective Data Vital Signs Vital Signs: Vital Signs - 24 hr 11/13/25 14:00 11/13/25 14:08 11/13/25 14:08 Temperature 98.6 F Pulse Rate 91 82 82 Respiratory Rate 18 20 20 Blood Pressure 123/78 Pulse Oximetry 95 93 Oxygen Delivery Room Air 11/13/25 16:00 11/13/25 19:42 11/13/25 20:00 Temperature Pulse Rate 76 86 Respiratory Rate 18 Blood Pressure Pulse Oximetry Oxygen Delivery Room Air 11/13/25 20:00 11/13/25 20:01 11/13/25 20:07 Temperature 97.5 F L Pulse Rate 79 75 Respiratory Rate 17 Blood Pressure 100/76 Pulse Oximetry 96 98 Oxygen Delivery Room Air 11/14/25 00:00 11/14/25 04:00 11/14/25 04:30 Temperature 97.3 F L Pulse Rate 93 82 80 Respiratory Rate 18 Blood Pressure 138/87 Pulse Oximetry 95 Oxygen Delivery 11/14/25 08:00 11/14/25 08:17 11/14/25 08:25 Temperature Pulse Rate 97 76 Respiratory Rate Blood Pressure Pulse Oximetry Oxygen Delivery Room Air 11/14/25 12:00 Temperature Pulse Rate 85 Respiratory Rate Blood Pressure Pulse Oximetry Oxygen Delivery Intake/Output Intake/Output: Intake & Output 11/11/25 11/12/25 11/13/25 11/14/25 23:59 23:59 23:59 23:59 Intake Total 1158 1244 200 Output Total 2400 1900 350 [facility] -1242 -656 -150 Meds/Results Medications: Active Medications Generic Name Dose Route Start Last Admin Trade Name Freq PRN Reason Stop Dose Admin Acetaminophen 650 mg 11/12/25 04:56 11/12/25 05:40 Acetaminophen 325 Mg Tablet PO 650 mg Q4H PRN Administration Mild Pain (1-3) or Fever Acetaminophen 325 mg 11/12/25 09:17 Acetaminophen 325 Mg Tablet PO QID PRN SEVERE PAIN Albuterol 2 puff 11/14/25 02:42 Albuterol Sulfate (*Sp) Aerosol 1 Puff INHALATION Q6HRT PRN Shortness Of Breath Artificial Tears 1 drop 11/12/25 10:14 Artificial Tears Ophth Soln 15 Ml Bottle EACH EYE QID PRN dry eye Ferrous Sulfate 325 mg 11/12/25 09:00 11/14/25 08:24 Ferrous Sulfate 325 Mg Tablet PO 12/12/25 08:59 325 mg DAILY VINEET Administration Fish Oil 1 gm 11/13/25 09:00 11/14/25 08:17 [place] 3 Polyunsat Fatty Acids 1 Gm Cap PO 1 gm DAILY VINEET Administration Furosemide 40 mg 11/12/25 09:00 11/14/25 08:18 Furosemide Inj 40 Mg/4 Ml Vial IV PUSH 40 mg BID VINEET Administration Furosemide 20 mg 11/12/25 08:50 Furosemide 20 Mg Tablet PO On Hold: 11/12/25 08:52 .COMPLEX VINEET Melatonin 3 mg 11/12/25 21:00 11/13/25 20:23 Melatonin 3 Mg Tablet PO 3 mg HS VINEET Administration Metoprolol Succinate 100 mg 11/12/25 09:00 11/14/25 08:17 Metoprolol Succinate Ext Rel 100 Mg Tabcr PO 100 mg DAILY VINEET Administration Multivitamins Therapeutic 1 tablet 11/13/25 09:00 11/14/25 08:17 Multivitamins Therapeutic Tab (*Bkc) PO 1 tablet DAILY VINEET Administration Ondansetron HCl 4 mg 11/12/25 10:14 11/12/25 12:34 Ondansetron Hcl Odt 4 Mg Tablet PO 4 mg BID PRN Administration Nausea And Vomiting Polyethylene Glycol 17 gm 11/12/25 10:14 Polyethylene Glycol 3350 17 Gm Powd.Pack PO DAILY PRN Constipation Potassium Chloride 20 meq 11/12/25 09:00 11/14/25 08:18 Potassium Chloride 20 Meq Er Tablet PO 20 meq DAILY VINEET Administration Psyllium Hydrophilic Mucilloid 1 packet 11/12/25 17:00 11/14/25 08:19 Psyllium Powder Packet PO 1 packet BID VINEET Administration Rivaroxaban 15 mg 11/12/25 17:00 11/13/25 16:44 Rivaroxaban 15 Mg Tablet PO 15 mg DAILY@1700 VINEET Administration Sacubitril/Valsartan 1 tab 11/14/25 21:00 Sacubitril/Valsartan 24-26 Mg Tablet PO Q12HR [facility] Sodium Chloride 1 gm 11/12/25 09:00 11/14/25 08:18 Sodium Chloride 1 Gm Tablet PO 1 gm BID VINEET Administration Tramadol HCl 50 mg 11/12/25 04:56 11/14/25 08:18 Tramadol Hcl (*Crx) 50 Mg Tablet PO 50 mg TID PRN Administration pain Tramadol HCl 0 mg 11/12/25 08:50 Tramadol Hcl (*Crx) 50 Mg Tablet PO QID PRN SEVERE PAIN Radiology Results: ITS Impressions Chest X-Ray 11/11/25 19:40 IMPRESSION: 1. No acute findings. Cardiomegaly and atherosclerotic aorta. Labs Labs: Laboratory Results - last 24 hr 11/14/25 06:54 WBC 7.8 RBC 3.58 L Hgb 11.3 L Hct 37.2 MCV 103.9 H MCH 31.6 MCHC 30.4 L RDW 15.4 H Plt Count 183 MPV 9.3 Immature Gran % (Auto) 0.8 H Neut % (Auto) 77.6 H Lymph % (Auto) 9.4 L [place] % (Auto) 11.2 H Eos % (Auto) 0.6 Baso % (Auto) 0.4 Lymph # (Auto) 0.73 L [place] # (Auto) 0.9 H Eos # (Auto) 0.1 Baso # (Auto) 0.0 Abs Immat Gran (auto) 0.06 H Absolute Neuts (auto) 6.0 Absolute Nucleated RBC 0.020 H Nucleated RBC % 0.3 H Sodium 133 L Potassium 4.1 Chloride 102 Carbon Dioxide 25 Anion Gap 6 BUN 20 H Creatinine 0.79 Estim Creat Clear Calc 40 Estimated GFR > 60 Glucose 106 Calcium 8.8 Total Bilirubin 0.9 AST 33 ALT 20 Alkaline Phosphatase 153 H NT-Pro-B Natriuret Pep 6940 H Total Protein 6.7 Albumin 3.6 Quality VTE Prophylaxis VTE prophylaxis: pharmacologic ordered (home xarelto)
[2025-11-14] MEDS: RIVAROXABAN 15 MG TABLET PO (16:44)
[2025-11-14] MEDS: MELATONIN 3 MG TABLET PO (20:50)
[2025-11-14] MEDS: SACUBITRIL/VALSARTAN 24-26 MG TABLET 1 TAB PO (20:50)
[2025-11-15] VITALS (9 sets, daily range): BP systolic 101–107; BP diastolic 51–73; PULSE 84–115; RESP 16–18; TEMP 36.4–36.6; O2SAT 92–97
[2025-11-15 06:04] LABS: Hematocrit 33.5 % (37.0-47.0); Hemoglobin 10.5 g/dL (12.0-15.0); Immature Granulocyte Percent A 0.8 % (0-0.5); Lymphocytes Absolute Auto 0.90 K/mm3 (0.9-3.2); Mean Corpuscular HGB Conc 31.3 g/dl (32-36); Mean Corpuscular Hemoglobin 31.9 pg (26-34); Mean Corpuscular Volume 101.8 fl (80-100); Nucleated Red Blood Cells Absolute Auto 0.000 K/mm3 (0.0-0.012); Nucleated Red Blood Cells Perc 0.0 % (0.0-0.2); Platelet Count Result 171 k/mm3 (150-375); Red Blood Count 3.29 M/mm3 (4.2-5.4); White Blood Count 9.6 K/mm3 (4.5-10.0)
[2025-11-15 06:30] LABS: Alanine Aminotransferase 15 U/L (6-35); Albumin Level 3.1 g/dL (3.5-5.1); Alkaline Phosphatase 136 U/L (38-126); Anion Gap 3 mmol/L (4-12); Aspartate Amino Transferase 20 U/L (14-36); Bilirubin,Total 0.8 mg/dL (0.2-1.3); Blood Urea Nitrogen 21 mg/dL (7-17); Calcium 8.6 mg/dL (8.4-10.2); Carbon Dioxide 26 mmol/L (22-30); Chloride 102 mmol/L (98-107); Estimated CRCL calculation 42 ml/min; Estimated Glomerular Filt Rate > 60; Glucose 119 mg/dL (65-110); Potassium 3.3 mmol/L (3.4-5.0); Sodium 131 mmol/L (137-145); Total Protein 5.9 g/dL (6.3-8.2)
[2025-11-15] MEDS: SODIUM CHLORIDE 1 GM TABLET PO ×2 (08:12→17:00)
[2025-11-15] MEDS: FERROUS SULFATE 325 MG TABLET PO (08:12)
[2025-11-15] MEDS: PSYLLIUM POWDER PACKET 1 PACKET PO ×2 (08:12→17:00)
[2025-11-15] MEDS: SACUBITRIL/VALSARTAN 24-26 MG TABLET 1 TAB PO ×2 (08:13→20:50)
[2025-11-15] MEDS: MULTIVITAMINS THERAPEUTIC TAB (*BKC) 1 TABLET PO (08:13)
[2025-11-15] MEDS: POTASSIUM CHLORIDE 20 MEQ ER TABLET 40 MEQ PO (08:13)
[2025-11-15] MEDS: METOPROLOL SUCCINATE EXT REL 100 MG TABCR PO (08:13)
[2025-11-15] MEDS: OMEGA 3 POLYUNSAT FATTY ACIDS 1 GM CAP PO (08:13)
[2025-11-15] MEDS: FUROSEMIDE INJ 40 MG/4 ML VIAL IV PUSH ×2 (08:14→17:00)
[2025-11-15] MEDS: POTASSIUM CHLORIDE 20 MEQ ER TABLET PO (08:14)
[2025-11-15] MEDS: traMADol HCL (*CRX) 50 MG TABLET PO ×2 (08:19→20:51)
--- NOTE | 2025-11-15 09:20 | PM.IMPN2 ---
Assessment and Plan Assessment and Plan (1) Acute exacerbation of CHF (congestive heart failure): Qualifiers: Heart failure type: unspecified Qualified Code(s): I50.9 - Heart failure, unspecified Code(s): I50.9 - Heart failure, unspecified Status: Acute Assessment and Plan: Acute on chronic. On home furosemide 20mg PO daily. Was given 40mg IV in the ED, will continue BID inpt -BNP on admission 9150, repeat 11/14 6940 -She saw her crime scene investigator (Dr. Ariza) for this last week where an echo was obtained which showed ?backup of blood in her heart?. She was started on Entresto which she has not started taking yet as it has not been available at the pharmacy, will assure this is in the works when she gets discharged. -->First dose of Entresto this evening, pt reports that she has it filled at the pharmacy and she will set for someone to pick it up -Continue with casper willingham, still with volume overload -K 3.3 today, likely due to Lasix IV BID, will give x1 40meq oral suppl today (is already on home once daily 20meq PO). Consider back to home dose of Lasix or at least PO change tomorrow if feeling better (2) A-fib: Qualifiers: Atrial fibrillation type: unspecified Qualified Code(s): I48.91 - Unspecified atrial fibrillation Code(s): I48.91 - Unspecified atrial fibrillation Status: Acute Assessment and Plan: Continue barbara e metoprolol succ & Xarelto Tele (3) Chronic kidney disease: Qualifiers: Chronic kidney disease stage: stage 3 (moderate) Chronic kidney disease stage 3 subtype: stage 3a (GFR 45-59) Qualified Code(s): N18.31 - Chronic kidney disease, stage 3a Code(s): N18.9 - Chronic kidney disease, unspecified Status: Acute Assessment and Plan: No current IVON, will continue to trend labs with Lasix 40mg IV BID on board. -BUN at baseline 21 (4) Pneumonia: Code(s): J18.9 - Pneumonia, unspecified organism Status: Acute Assessment and Plan: Pt had been at [facility] prior to arrival here for therapy, likely HAP Progressively not feeling better, lungs with diffuse rales and wheezing worse throughout today CXR 11/14 yielding potential new developing bibasilar PNA -MRSA swab obtained today, pending -Cefepime & vanc started today 11/15 pending MRSA swab -Guaifenesin for cough -Incentive spirometry -WBC still WDL today, will continue to trend -VSS Plan Continue with PNA tx, diuresis for CHF, and sx management due to volume overload. Lisinopril to Entresto change starting 11/14. Medical Record Review I have reviewed the following patient records and this information was taken into consideration when formulating the assessment and plan.: previous labs, previous ER visits and previous clinic visits Time Spent With Patient Time with patient: 25 - 35 minutes Subjective Date/time seen: 11/15/25 0902 Interval history: Pt sitting up in bed upon my arrival having just eaten. Pt continues to feel SOB today and overall not feeling better. Also reporting new wet & dry cough and has been having difficultly getting the sputum up. Pt denies CP or any other sx. Reports that her edema in her BLE is back to normal, although still pitting 1+. Discussed the probable new dx of PNA and POC for this, pt is agreeable. Review of Systems Review of Systems: All systems reviewed & are unremarkable except as noted in HPI and below Exam Const: General: comfortable and no acute distress HENMT: Face/Nose/Sinus: Normal nares present Mouth: Yes moist mucous membranes Eyes: General: appearance normal, both eyes and all related structures Sclera: sclerae normal Pupils: Equal, round and reactive pupils present EOM: EOMs intact bilaterally Neck: Neck: supple Carotids: no bruits Resp: Effort & Inspection: normal respiratory effort Auscultation: rales diffuse and wheezes expiratory wheezes, inspiratory wheezes and throughout Cardio: Rate: regular rate Rhythm: abnormal rhythm regularly irregular Other: Tele afib 78 bpm GI: Inspection: non-distended Auscultation: normal bowel sounds : General: Yes bladder normal to palpation Bimanual exam- vagina & uterus: bladder normal to palpation Skin: General skin exam: normal color Other: R FA lateral aspect small skin tear with bandage applied Neuro: Cranial nerves: Yes Equal, round and reactive pupils present Speech: normal speech Motor exam (neuro): 5/5 motor strength present throughout and Normal motor muscle tone present throughout Sensory Exam: normal sensation Extrem: General: normal exam except as noted Other: BLE ankles and below 1+ pitting edema Psych: Mental Status: mental status grossly normal Affect: normal affect Objective Data Vital Signs Vital Signs: Vital Signs - 24 hr 11/14/25 12:00 11/14/25 14:00 11/14/25 16:00 Temperature 98.2 F Pulse Rate 85 78 93 Respiratory Rate 18 Blood Pressure 97/62 L Pulse Oximetry 91 Oxygen Delivery 11/14/25 20:00 11/14/25 20:00 11/14/25 20:38 Temperature 97.4 F L Pulse Rate 86 93 Respiratory Rate 18 Blood Pressure 101/56 L Pulse Oximetry 95 Oxygen Delivery Room Air 11/14/25 20:49 11/15/25 00:00 11/15/25 04:00 Temperature Pulse Rate 98 84 Respiratory Rate Blood Pressure 126/79 Pulse Oximetry Oxygen Delivery 11/15/25 05:56 11/15/25 08:13 Temperature 97.6 F Pulse Rate 94 94 Respiratory Rate 16 Blood Pressure 101/62 Pulse Oximetry 92 Oxygen Delivery Intake/Output Intake/Output: Intake & Output 11/12/25 11/13/25 11/14/25 11/15/25 23:59 23:59 23:59 23:59 Intake Total 1158 1244 640 425 Output Total 2400 1900 1850 350 [facility]1242 -[phone] 75 Meds/Results Medications: Active Medications Generic Name Dose Route Start Last Admin Trade Name Freq PRN Reason Stop Dose Admin Acetaminophen 650 mg 11/12/25 04:56 11/12/25 05:40 Acetaminophen 325 Mg Tablet PO 650 mg Q4H PRN Administration Mild Pain (1-3) or Fever Acetaminophen 325 mg 11/12/25 09:17 Acetaminophen 325 Mg Tablet PO QID PRN SEVERE PAIN Albuterol 2 puff 11/14/25 02:42 Albuterol Sulfate (*Sp) Aerosol 1 Puff INHALATION Q6HRT PRN Shortness Of Breath Artificial Tears 1 drop 11/12/25 10:14 Artificial Tears Ophth Soln 15 Ml Bottle EACH EYE QID PRN dry eye Ferrous Sulfate 325 mg 11/12/25 09:00 11/15/25 08:12 Ferrous Sulfate 325 Mg Tablet PO 12/12/25 08:59 325 mg DAILY VINEET Administration Fish Oil 1 gm 11/13/25 09:00 11/15/25 08:13 [place] 3 Polyunsat Fatty Acids 1 Gm Cap PO 1 gm DAILY VINEET Administration Furosemide 40 mg 11/12/25 09:00 11/15/25 08:14 Furosemide Inj 40 Mg/4 Ml Vial IV PUSH 40 mg BID VINEET Administration Furosemide 20 mg 11/12/25 08:50 Furosemide 20 Mg Tablet PO On Hold: 11/12/25 08:52 .COMPLEX VINEET Melatonin 3 mg 11/12/25 21:00 11/14/25 20:50 Melatonin 3 Mg Tablet PO 3 mg HS VINEET Administration Metoprolol Succinate 100 mg 11/12/25 09:00 11/15/25 08:13 Metoprolol Succinate Ext Rel 100 Mg Tabcr PO 100 mg DAILY VINEET Administration Multivitamins Therapeutic 1 tablet 11/13/25 09:00 11/15/25 08:13 Multivitamins Therapeutic Tab (*Bkc) PO 1 tablet DAILY VINEET Administration Ondansetron HCl 4 mg 11/12/25 10:14 11/12/25 12:34 Ondansetron Hcl Odt 4 Mg Tablet PO 4 mg BID PRN Administration Nausea And Vomiting Polyethylene Glycol 17 gm 11/12/25 10:14 Polyethylene Glycol 3350 17 Gm Powd.Pack PO DAILY PRN Constipation Potassium Chloride 20 meq 11/12/25 09:00 11/15/25 08:14 Potassium Chloride 20 Meq Er Tablet PO 20 meq DAILY VINEET Administration Psyllium Hydrophilic Mucilloid 1 packet 11/12/25 17:00 11/15/25 08:12 Psyllium Powder Packet PO 1 packet BID VINEET Administration Rivaroxaban 15 mg 11/12/25 17:00 11/14/25 16:44 Rivaroxaban 15 Mg Tablet PO 15 mg DAILY@1700 VINEET Administration Sacubitril/Valsartan 1 tab 11/14/25 21:00 11/15/25 08:13 Sacubitril/Valsartan 24-26 Mg Tablet PO 1 tab Q12HR VINEET Administration Sodium Chloride 1 gm 11/12/25 09:00 11/15/25 08:12 Sodium Chloride 1 Gm Tablet PO 1 gm BID VINEET Administration Tramadol HCl 50 mg 11/12/25 04:56 11/15/25 08:19 Tramadol Hcl (*Crx) 50 Mg Tablet PO 50 mg TID PRN Administration pain Tramadol HCl 0 mg 11/12/25 08:50 Tramadol Hcl (*Crx) 50 Mg Tablet PO QID PRN SEVERE PAIN Radiology Results: ITS Impressions Chest X-Ray 11/14/25 15:54 Impression: CHF. Early basilar pneumonia suspected Labs Labs: Laboratory Results - last 24 hr 11/15/25 05:47 WBC 9.6 RBC 3.29 L Hgb 10.5 L Hct 33.5 L MCV 101.8 H MCH 31.9 MCHC 31.3 L RDW 15.4 H Plt Count 171 MPV 9.2 Immature Gran % (Auto) 0.8 H Neut % (Auto) 76.7 H Lymph % (Auto) 9.3 L Pike % (Auto) 12.8 H Eos % (Auto) 0.1 Baso % (Auto) 0.3 Lymph # (Auto) 0.90 [place] # (Auto) 1.2 H Eos # (Auto) 0.0 Baso # (Auto) 0.0 Abs Immat Gran (auto) 0.08 H Absolute Neuts (auto) 7.4 H Absolute Nucleated RBC 0.000 Nucleated RBC % 0.0 Sodium 131 L Potassium 3.3 L Chloride 102 Carbon Dioxide 26 Anion Gap 3 L BUN 21 H Creatinine 0.74 Estim Creat Clear Calc 42 Estimated GFR > 60 Glucose 119 H Calcium 8.6 Total Bilirubin 0.8 AST 20 ALT 15 Alkaline Phosphatase 136 H Total Protein 5.9 L Albumin 3.1 L Quality VTE Prophylaxis VTE prophylaxis: pharmacologic ordered (home xarelto)
[2025-11-15] MEDS: guaiFENesin 12 HR 600 MG TABCR PO ×2 (09:57→20:51)
[2025-11-15] MEDS: CEFEPIME 2 GM in SODIUM CHLORIDE 0.9% IV 50 ML 100 ML IVPB ×2 (09:57→20:50)
[2025-11-15] MEDS: VANCOMYCIN 1,750 MG/NS 500 ML 1,750 MG/500 ML BAG 250 MG IVPB (10:28)
[2025-11-15 11:50] LABS: MRSA (PCR) NOT DETECTED (NOT DETECTE)
[2025-11-15] MEDS: LORATADINE 10 MG TABLET PO (13:32)
[2025-11-15] MEDS: AZITHROMYCIN IV 500 MG in SODIUM CHLORIDE 0.9% IV 250 ML IVPB (14:06)
[2025-11-15] MEDS: RIVAROXABAN 15 MG TABLET PO (17:00)
[2025-11-15] MEDS: MELATONIN 3 MG TABLET PO (20:51)
[2025-11-16] VITALS (8 sets, daily range): BP systolic 94–112; BP diastolic 57–75; PULSE 85–129; RESP 20; TEMP 36.3–36.7; O2SAT 96–97
[2025-11-16 06:16] LABS: Hematocrit 35.7 % (37.0-47.0); Hemoglobin 11.3 g/dL (12.0-15.0); Immature Granulocyte Percent A 0.8 % (0-0.5); Lymphocytes Absolute Auto 1.09 K/mm3 (0.9-3.2); Mean Corpuscular HGB Conc 31.7 g/dl (32-36); Mean Corpuscular Hemoglobin 31.7 pg (26-34); Mean Corpuscular Volume 100.0 fl (80-100); Nucleated Red Blood Cells Absolute Auto 0.000 K/mm3 (0.0-0.012); Nucleated Red Blood Cells Perc 0.0 % (0.0-0.2); Platelet Count Result 199 k/mm3 (150-375); Red Blood Count 3.57 M/mm3 (4.2-5.4); White Blood Count 12.6 K/mm3 (4.5-10.0)
[2025-11-16 06:46] LABS: Alanine Aminotransferase 15 U/L (6-35); Albumin Level 3.1 g/dL (3.5-5.1); Alkaline Phosphatase 148 U/L (38-126); Anion Gap 6 mmol/L (4-12); Aspartate Amino Transferase 31 U/L (14-36); Bilirubin,Total 1.0 mg/dL (0.2-1.3); Blood Urea Nitrogen 26 mg/dL (7-17); Calcium 8.9 mg/dL (8.4-10.2); Carbon Dioxide 25 mmol/L (22-30); Chloride 102 mmol/L (98-107); Estimated CRCL calculation 36 ml/min; Estimated Glomerular Filt Rate 60; Glucose 120 mg/dL (65-110); Potassium 3.9 mmol/L (3.4-5.0); Sodium 133 mmol/L (137-145); Total Protein 6.2 g/dL (6.3-8.2)
--- NOTE | 2025-11-16 08:42 | P.PNIM_ITS ---
Assessment and Plan Assessment and Plan (1) Acute exacerbation of CHF (congestive heart failure): Qualifiers: Heart failure type: unspecified Qualified Code(s): I50.9 - Heart failure, unspecified Code(s): I50.9 - Heart failure, unspecified Status: Acute Assessment and Plan: Acute on chronic. On home furosemide 20mg PO daily. Was given 40mg IV in the ED, will continue BID inpt -BNP on admission 9150, repeat 11/14 6940 -She saw her farm equipment engineer (Dr. Ariza) for this last week where an echo was obtained which showed ?backup of blood in her heart?. She was started on Entresto which she has not started taking yet as it has not been available at the pharmacy, will assure this is in the works when she gets discharged. -->First dose of Entresto this 11/15, pt reports that she has it filled at the pharmacy and she will set for someone to pick it up -Continue with casper willingham -Will transition to PO 40mg Lasix tomorrow, she is normally on 20mg PO at home (2) A-fib: Qualifiers: Atrial fibrillation type: unspecified Qualified Code(s): I48.91 - Unspecified atrial fibrillation Code(s): I48.91 - Unspecified atrial fibrillation Status: Acute Assessment and Plan: Continue barbara e metoprolol succ & Xarelto Tele (3) Chronic kidney disease: Qualifiers: Chronic kidney disease stage: stage 3 (moderate) Chronic kidney disease stage 3 subtype: stage 3a (GFR 45-59) Qualified Code(s): N18.31 - Chronic kidney disease, stage 3a Code(s): N18.9 - Chronic kidney disease, unspecified Status: Acute Assessment and Plan: No current IVON, will continue to trend labs with Lasix 40mg IV daily on board. -BUN at baseline (4) Pneumonia: Code(s): J18.9 - Pneumonia, unspecified organism Status: Acute Assessment and Plan: Pt had been at [facility] prior to arrival here for therapy, likely HAP Progressively not feeling better, lungs with diffuse rales and wheezing worse throughout today CXR 11/14 yielding potential new developing bibasilar PNA -MRSA swab obtained today, pending -Cefepime & azithromycin started 11/15 (vanc discontinued due to negative MRSA) -Guaifenesin for cough -Incentive spirometry -WBC 12.6 today, likely due to PNA, continue to trend -VSS -Lungs sounding considerably better today Plan Continue with PNA tx, diuresis for CHF, and sx management due to volume overload. Lisinopril to Entresto change starting 11/14. Medical Record Review I have reviewed the following patient records and this information was taken into consideration when formulating the assessment and plan.: previous labs, previous ER visits and previous clinic visits Time Spent With Patient Time with patient: 25 - 35 minutes Subjective Date/time seen: 11/16/25 1105 Interval history: Pt sleeping upon my arrival, arousable to voice and touch. She states that she has been sleepy today but her breathing is better. She continues to report BLE edema although better today. Continues to report a wet cough although better and difficultly bringing the sputum up. Pt denies CP or any other sx. Reiterated plan for CHF and PNA treatment, pt requesting to speak to a physician. Review of Systems Review of Systems: All systems reviewed & are unremarkable except as noted in HPI and below Exam Const: General: comfortable and no acute distress HENMT: Face/Nose/Sinus: Normal nares present Mouth: Yes moist mucous membranes Eyes: General: appearance normal, both eyes and all related structures Sclera: sclerae normal Pupils: Equal, round and reactive pupils present EOM: EOMs intact bilaterally Neck: Neck: supple Carotids: no bruits Resp: Effort & Inspection: normal respiratory effort Auscultation: wheezes expiratory wheezes, left upper and right upper Other: Lungs sounding considerably better today Cardio: Rate: regular rate Rhythm: abnormal rhythm regularly irregular Other: Tele afib 78 bpm GI: Inspection: non-distended Auscultation: normal bowel sounds : General: Yes bladder normal to palpation Bimanual exam- vagina & uterus: bladder normal to palpation Skin: General skin exam: normal color Other: R FA lateral aspect small skin tear with bandage applied Neuro: Cranial nerves: Yes Equal, round and reactive pupils present Speech: normal speech Motor exam (neuro): 5/5 motor strength present throughout and Normal motor muscle tone present throughout Sensory Exam: normal sensation Extrem: General: normal exam except as noted Other: BLE ankles and below trace edema Psych: Mental Status: mental status grossly normal Affect: Irritable affect present and Blunted affect present Objective Data Vital Signs Vital Signs: Vital Signs - 24 hr 11/15/25 12:00 11/15/25 14:00 11/15/25 16:00 Temperature 97.8 F Pulse Rate 115 H 96 101 H Respiratory Rate 18 Blood Pressure 107/51 L Pulse Oximetry 97 11/15/25 21:38 11/16/25 00:00 11/16/25 06:00 Temperature 97.9 F 98.1 F Pulse Rate 100 94 88 Respiratory Rate 18 20 Blood Pressure 104/73 112/75 Pulse Oximetry 96 96 Intake/Output Intake/Output: Intake & Output 11/13/25 11/14/25 11/15/25 11/16/25 23:59 23:59 23:59 23:59 Intake Total 4455 547 6583 250 Output Total 1900 4168 201 401 Xbiffur -484 -9047 395 -857 Meds/Results Medications: Active Medications Generic Name Dose Route Start Last Admin Trade Name Freq PRN Reason Stop Dose Admin Acetaminophen 650 mg 11/12/25 04:56 11/12/25 05:40 Acetaminophen 325 Mg Tablet PO 650 mg Q4H PRN Administration Mild Pain (1-3) or Fever Acetaminophen 325 mg 11/12/25 09:17 Acetaminophen 325 Mg Tablet PO QID PRN SEVERE PAIN Albuterol 2 puff 11/14/25 02:42 Albuterol Sulfate (*Sp) Aerosol 1 Puff INHALATION Q6HRT PRN Shortness Of Breath Artificial Tears 1 drop 11/12/25 10:14 Artificial Tears Ophth Soln 15 Ml Bottle EACH EYE QID PRN dry eye Ferrous Sulfate 325 mg 11/12/25 09:00 11/15/25 08:12 Ferrous Sulfate 325 Mg Tablet PO 12/12/25 08:59 325 mg DAILY VINEET Administration Fish Oil 1 gm 11/13/25 09:00 11/15/25 08:13 [place] 3 Polyunsat Fatty Acids 1 Gm Cap PO 1 gm DAILY VINEET Administration Furosemide 40 mg 11/12/25 09:00 11/15/25 17:00 Furosemide Inj 40 Mg/4 Ml Vial IV PUSH 40 mg BID VINEET Administration Furosemide 20 mg 11/12/25 08:50 Furosemide 20 Mg Tablet PO On Hold: 11/12/25 08:52 .COMPLEX VINEET Guaifenesin 600 mg 11/15/25 09:25 11/15/25 20:51 Guaifenesin 12 Hr 600 Mg Tabcr PO 600 mg Q12HR VINEET Administration Cefepime HCl 2 gm/ Sodium 50 mls @ 100 mls/hr 11/15/25 09:30 11/15/25 23:58 Chloride IVPB Infused Q12HR VINEET Infusion Azithromycin 500 mg/ Sodium 250 mls @ 250 mls/hr 11/15/25 12:00 11/15/25 14:06 Chloride IVPB 11/19/25 12:59 250 mls/hr Q24H VINEET Administration Loratadine 10 mg 11/15/25 12:20 11/15/25 13:32 Loratadine 10 Mg Tablet PO 10 mg QAM VINEET Administration Melatonin 3 mg 11/12/25 21:00 11/15/25 20:51 Melatonin 3 Mg Tablet PO 3 mg HS VINEET Administration Metoprolol Succinate 100 mg 11/12/25 09:00 11/15/25 08:13 Metoprolol Succinate Ext Rel 100 Mg Tabcr PO 100 mg DAILY VINEET Administration Multivitamins Therapeutic 1 tablet 11/13/25 09:00 11/15/25 08:13 Multivitamins Therapeutic Tab (*Bkc) PO 1 tablet DAILY VINEET Administration Ondansetron HCl 4 mg 11/12/25 10:14 11/12/25 12:34 Ondansetron Hcl Odt 4 Mg Tablet PO 4 mg BID PRN Administration Nausea And Vomiting Polyethylene Glycol 17 gm 11/12/25 10:14 Polyethylene Glycol 3350 17 Gm Powd.Pack PO DAILY PRN Constipation Potassium Chloride 20 meq 11/12/25 09:00 11/15/25 08:14 Potassium Chloride 20 Meq Er Tablet PO 20 meq DAILY VINEET Administration Psyllium Hydrophilic Mucilloid 1 packet 11/12/25 17:00 11/15/25 17:00 Psyllium Powder Packet PO 1 packet BID VINEET Administration Rivaroxaban 15 mg 11/12/25 17:00 11/15/25 17:00 Rivaroxaban 15 Mg Tablet PO 15 mg DAILY@1700 VINEET Administration Sacubitril/Valsartan 1 tab 11/14/25 21:00 11/15/25 20:50 Sacubitril/Valsartan 24-26 Mg Tablet PO 1 tab Q12HR VINEET Administration Sodium Chloride 1 gm 11/12/25 09:00 11/15/25 17:00 Sodium Chloride 1 Gm Tablet PO 1 gm BID VINEET Administration Tramadol HCl 50 mg 11/12/25 04:56 11/15/25 20:51 Tramadol Hcl (*Crx) 50 Mg Tablet PO 50 mg TID PRN Administration pain Tramadol HCl 0 mg 11/12/25 08:50 Tramadol Hcl (*Crx) 50 Mg Tablet PO QID PRN SEVERE PAIN Radiology Results: ITS Impressions Chest X-Ray 11/14/25 15:54 Impression: CHF. Early basilar pneumonia suspected Labs Labs: Laboratory Results - last 24 hr 11/15/25 11/16/25 10:22 05:50 WBC 12.6 H RBC 3.57 L Hgb 11.3 L Hct 35.7 L MCV 100.0 MCH 31.7 MCHC 31.7 L RDW 15.4 H Plt Count 199 MPV 9.5 Immature Gran % (Auto) 0.8 H Neut % (Auto) 79.7 H Lymph % (Auto) 8.7 L Martin % (Auto) 10.5 H Eos % (Auto) 0.1 Baso % (Auto) 0.2 Lymph # (Auto) 1.09 Martin # (Auto) 1.3 H Eos # (Auto) 0.0 Baso # (Auto) 0.0 Abs Immat Gran (auto) 0.10 H Absolute Neuts (auto) 10.0 H Absolute Nucleated RBC 0.000 Nucleated RBC % 0.0 Sodium 133 L Potassium 3.9 Chloride 102 Carbon Dioxide 25 Anion Gap 6 BUN 26 H Creatinine 0.89 Estim Creat Clear Calc 36 Estimated GFR 60 Glucose 120 H Calcium 8.9 Total Bilirubin 1.0 AST 31 ALT 15 Alkaline Phosphatase 148 H Total Protein 6.2 L Albumin 3.1 L Nasal MRSA (PCR) Not detected Quality VTE Prophylaxis VTE prophylaxis: pharmacologic ordered (home xarelto)
[2025-11-16] MEDS: FUROSEMIDE INJ 40 MG/4 ML VIAL IV PUSH (09:03)
[2025-11-16] MEDS: CEFEPIME 2 GM in SODIUM CHLORIDE 0.9% IV 50 ML 100 ML IVPB ×2 (09:03→21:04)
[2025-11-16] MEDS: PSYLLIUM POWDER PACKET 1 PACKET PO ×2 (09:05→17:06)
[2025-11-16] MEDS: SODIUM CHLORIDE 1 GM TABLET PO ×2 (09:05→17:06)
[2025-11-16] MEDS: POTASSIUM CHLORIDE 20 MEQ ER TABLET PO (09:06)
[2025-11-16] MEDS: SACUBITRIL/VALSARTAN 24-26 MG TABLET 1 TAB PO ×2 (09:06→21:02)
[2025-11-16] MEDS: METOPROLOL SUCCINATE EXT REL 100 MG TABCR PO (09:06)
[2025-11-16] MEDS: LORATADINE 10 MG TABLET PO (09:06)
[2025-11-16] MEDS: OMEGA 3 POLYUNSAT FATTY ACIDS 1 GM CAP PO (09:06)
[2025-11-16] MEDS: MULTIVITAMINS THERAPEUTIC TAB (*BKC) 1 TABLET PO (09:06)
[2025-11-16] MEDS: FERROUS SULFATE 325 MG TABLET PO (09:06)
[2025-11-16] MEDS: guaiFENesin 12 HR 600 MG TABCR PO ×2 (09:06→21:02)
[2025-11-16] MEDS: traMADol HCL (*CRX) 50 MG TABLET PO (12:59)
[2025-11-16] MEDS: ACETAMINOPHEN 325 MG TABLET PO ×2 (12:59→21:02)
[2025-11-16] MEDS: AZITHROMYCIN IV 500 MG in SODIUM CHLORIDE 0.9% IV 250 ML IVPB (13:00)
[2025-11-16] MEDS: RIVAROXABAN 15 MG TABLET PO (17:06)
[2025-11-16] MEDS: MELATONIN 3 MG TABLET PO (21:02)
[2025-11-17] VITALS (10 sets, daily range): BP systolic 90–121; BP diastolic 59–68; PULSE 81–110; RESP 14–18; TEMP 36–36.7; O2SAT 92–96
[2025-11-17 06:45] LABS: Hematocrit 33.3 % (37.0-47.0); Hemoglobin 10.7 g/dL (12.0-15.0); Immature Granulocyte Percent A 0.8 % (0-0.5); Lymphocytes Absolute Auto 1.18 K/mm3 (0.9-3.2); Mean Corpuscular HGB Conc 32.1 g/dl (32-36); Mean Corpuscular Hemoglobin 31.8 pg (26-34); Mean Corpuscular Volume 99.1 fl (80-100); Nucleated Red Blood Cells Absolute Auto 0.000 K/mm3 (0.0-0.012); Nucleated Red Blood Cells Perc 0.0 % (0.0-0.2); Platelet Count Result 199 k/mm3 (150-375); Red Blood Count 3.36 M/mm3 (4.2-5.4); White Blood Count 9.0 K/mm3 (4.5-10.0)
[2025-11-17 07:21] LABS: Alanine Aminotransferase 12 U/L (6-35); Albumin Level 2.7 g/dL (3.5-5.1); Alkaline Phosphatase 130 U/L (38-126); Anion Gap 5 mmol/L (4-12); Aspartate Amino Transferase 29 U/L (14-36); Bilirubin,Total 0.6 mg/dL (0.2-1.3); Blood Urea Nitrogen 31 mg/dL (7-17); Calcium 8.8 mg/dL (8.4-10.2); Carbon Dioxide 26 mmol/L (22-30); Chloride 104 mmol/L (98-107); Estimated CRCL calculation 34 ml/min; Estimated Glomerular Filt Rate 56; Glucose 103 mg/dL (65-110); Potassium 3.5 mmol/L (3.4-5.0); Sodium 135 mmol/L (137-145); Total Protein 5.6 g/dL (6.3-8.2)
[2025-11-17] MEDS: PSYLLIUM POWDER PACKET 1 PACKET PO ×2 (09:10→16:37)
[2025-11-17] MEDS: CEFEPIME 2 GM in SODIUM CHLORIDE 0.9% IV 50 ML 100 ML IVPB ×2 (09:10→21:29)
[2025-11-17] MEDS: SODIUM CHLORIDE 1 GM TABLET PO ×2 (09:10→16:42)
[2025-11-17] MEDS: METOPROLOL SUCCINATE EXT REL 100 MG TABCR PO (09:10)
[2025-11-17] MEDS: SACUBITRIL/VALSARTAN 24-26 MG TABLET 1 TAB PO (09:10)
[2025-11-17] MEDS: OMEGA 3 POLYUNSAT FATTY ACIDS 1 GM CAP PO (09:10)
[2025-11-17] MEDS: FUROSEMIDE 40 MG TABLET PO (09:11)
[2025-11-17] MEDS: LORATADINE 10 MG TABLET PO (09:11)
[2025-11-17] MEDS: FERROUS SULFATE 325 MG TABLET PO (09:11)
[2025-11-17] MEDS: guaiFENesin 12 HR 600 MG TABCR PO ×2 (09:12→21:35)
[2025-11-17] MEDS: MULTIVITAMINS THERAPEUTIC TAB (*BKC) 1 TABLET PO (09:12)
[2025-11-17] MEDS: POTASSIUM CHLORIDE 20 MEQ ER TABLET PO (09:12)
[2025-11-17] MEDS: traMADol HCL (*CRX) 50 MG TABLET PO ×2 (09:29→21:35)
[2025-11-17] MEDS: ACETAMINOPHEN 325 MG TABLET PO ×2 (09:31→21:33)
[2025-11-17] MEDS: AZITHROMYCIN IV 500 MG in SODIUM CHLORIDE 0.9% IV 250 ML IVPB (11:58)
--- NOTE | 2025-11-17 13:44 | P.PNIM_ITS ---
Assessment and Plan Assessment and Plan (1) Acute exacerbation of CHF (congestive heart failure): Qualifiers: Heart failure type: unspecified Qualified Code(s): I50.9 - Heart failure, unspecified Code(s): I50.9 - Heart failure, unspecified Status: Acute Assessment and Plan: Acute on chronic. On home furosemide 20mg PO daily. Was given 40mg IV in the ED, will continue BID inpt -BNP on admission 9150, repeat 11/14 6940 -She saw her front end assistant (Dr. Ariza) for this last week where an echo was obtained which showed ?backup of blood in her heart?. She was started on Entresto which she has not started taking yet as it has not been available at the pharmacy, will assure this is in the works when she gets discharged. -->First dose of Entresto this 11/15, pt reports that she has it filled at the pharmacy and she will set for someone to pick it up -Continue with casper [place]ham -Will transition to PO 40mg Lasix tomorrow, she is normally on 20mg PO at home (2) A-fib: Qualifiers: Atrial fibrillation type: unspecified Qualified Code(s): I48.91 - Unspecified atrial fibrillation Code(s): I48.91 - Unspecified atrial fibrillation Status: Acute Assessment and Plan: Continue home metoprolol succ & Xarelto Tele went to afib with RVR around 160, weakness while working with PT/OT HR decreased after rest to 140 n=but remained elevated for about 30 min - pt is on metoprolol requesting to see her front end assistant- will consult to ensure pt is on an appropriate for her afib (3) Chronic kidney disease: Qualifiers: Chronic kidney disease stage: stage 3 (moderate) Chronic kidney disease stage 3 subtype: stage 3a (GFR 45-59) Qualified Code(s): N18.31 - Chronic kidney disease, stage 3a Code(s): N18.9 - Chronic kidney disease, unspecified Status: Acute Assessment and Plan: No current IVON, will continue to trend labs with Lasix 40mg IV daily on board. -BUN at baseline (4) Pneumonia: Code(s): J18.9 - Pneumonia, unspecified organism Status: Acute Assessment and Plan: Pt had been at [facility] prior to arrival here for therapy, likely HAP Progressively not feeling better, lungs with diffuse rales and wheezing worse throughout today CXR 11/14 yielding potential new developing bibasilar PNA -MRSA swab obtained today, pending -Cefepime & azithromycin started 11/15 (vanc discontinued due to negative MRSA) -Guaifenesin for cough -Incentive spirometry -WBC 12.6 today, likely due to PNA, continue to trend -VSS -Lungs sounding considerably better today continue regimen remains on ra, is, ambulation Plan Continue with PNA tx, diuresis for CHF, and sx management due to volume overload. Lisinopril to Entresto change starting 11/14. Medical Record Review I have reviewed the following patient records and this information was taken into consideration when formulating the assessment and plan.: previous labs Time Spent With Patient Time with patient: Greater than 35 minutes Subjective Date/time seen: 11/17/25 1100 Interval history: Pt is seen and examined. She juat worked with PT and got very tired and reports HR elevated to 160. she rested in the chair and hr remained at 140's. pt is following with cardiology here at [place]. Continues to report a wet cough although better and difficultly bringing the sputum up. Pt denies CP or any other sx. Review of Systems Review of Systems: All systems reviewed & are unremarkable except as noted in HPI and below Exam Const: General: comfortable and no acute distress HENMT: Face/Nose/Sinus: Normal nares present Mouth: Yes moist mucous membranes Eyes: General: appearance normal, both eyes and all related structures Sclera: sclerae normal Pupils: Equal, round and reactive pupils present EOM: EOMs intact bilaterally Neck: Neck: supple Carotids: no bruits Resp: Effort & Inspection: normal respiratory effort Auscultation: clear to auscultation bilaterally, rales diffuse and wheezes expiratory wheezes, left upper and right upper Other: Lungs sounding considerably better today Cardio: Rate: regular rate Rhythm: abnormal rhythm regularly irregular Other: Tele afib 78 bpm GI: Inspection: non-distended Auscultation: normal bowel sounds : General: Yes bladder normal to palpation Bimanual exam- vagina & uterus: bladder normal to palpation Skin: General skin exam: normal color Other: R FA lateral aspect small skin tear with bandage applied Neuro: Cranial nerves: Yes Equal, round and reactive pupils present Speech: normal speech Motor exam (neuro): 5/5 motor strength present throughout and Normal motor muscle tone present throughout Sensory Exam: normal sensation Extrem: General: normal exam except as noted Other: BLE ankles and below trace edema Psych: Mental Status: mental status grossly normal Affect: normal affect, Irritable affect present and Blunted affect present Objective Data Vital Signs Vital Signs: Vital Signs - 24 hr 11/16/25 14:00 11/16/25 16:00 11/16/25 20:45 Temperature 97.3 F L 97.4 F L Pulse Rate 85 108 H 87 Respiratory Rate 20 20 Blood Pressure 102/58 L 94/57 L Pulse Oximetry 97 96 Oxygen Delivery 11/17/25 04:31 11/17/25 09:10 11/17/25 09:11 Temperature 96.8 F L Pulse Rate 91 110 H Respiratory Rate 14 Blood Pressure 100/59 L Pulse Oximetry 96 Oxygen Delivery Room Air 11/17/25 10:45 Temperature Pulse Rate Respiratory Rate Blood Pressure Pulse Oximetry Oxygen Delivery Room Air Intake/Output Intake/Output: Intake & Output 11/14/25 11/15/25 11/16/25 11/17/25 23:59 23:59 23:59 23:59 Intake Total 640 1495 958 440 Output Total 3014 084 1252 200 Balance -1210 645 -292 240 Meds/Results Medications: Active Medications Generic Name Dose Route Start Last Admin Trade Name Freq PRN Reason Stop Dose Admin Acetaminophen 650 mg 11/12/25 04:56 11/12/25 05:40 Acetaminophen 325 Mg Tablet PO 650 mg Q4H PRN Administration Mild Pain (1-3) or Fever Acetaminophen 325 mg 11/12/25 09:17 11/17/25 09:31 Acetaminophen 325 Mg Tablet PO 325 mg QID PRN Administration SEVERE PAIN Albuterol 2 puff 11/14/25 02:42 Albuterol Sulfate (*Sp) Aerosol 1 Puff INHALATION Q6HRT PRN Shortness Of Breath Artificial Tears 1 drop 11/12/25 10:14 Artificial Tears Ophth Soln 15 Ml Bottle EACH EYE QID PRN dry eye Ferrous Sulfate 325 mg 11/12/25 09:00 11/17/25 09:11 Ferrous Sulfate 325 Mg Tablet PO 12/12/25 08:59 325 mg DAILY VINEET Administration Fish Oil 1 gm 11/13/25 09:00 11/17/25 09:10 [place] 3 Polyunsat Fatty Acids 1 Gm Cap PO 1 gm DAILY VINEET Administration Furosemide 40 mg 11/17/25 09:00 11/17/25 09:11 Furosemide 40 Mg Tablet PO 40 mg DAILY VINEET Administration Guaifenesin 600 mg 11/15/25 09:25 11/17/25 09:12 Guaifenesin 12 Hr 600 Mg Tabcr PO 600 mg Q12HR VINEET Administration Cefepime HCl 2 gm/ Sodium 50 mls @ 100 mls/hr 11/15/25 09:30 11/17/25 09:10 Chloride IVPB 100 mls/hr Q12HR VINEET Administration Azithromycin 500 mg/ Sodium 250 mls @ 250 mls/hr 11/15/25 12:00 11/17/25 11:58 Chloride IVPB 11/19/25 12:59 250 mls/hr Q24H VINEET Administration Loratadine 10 mg 11/15/25 12:20 11/17/25 09:11 Loratadine 10 Mg Tablet PO 10 mg QAM VINEET Administration Melatonin 3 mg 11/12/25 21:00 11/16/25 21:02 Melatonin 3 Mg Tablet PO 3 mg HS VINEET Administration Metoprolol Succinate 100 mg 11/12/25 09:00 11/17/25 09:10 Metoprolol Succinate Ext Rel 100 Mg Tabcr PO 100 mg DAILY VINEET Administration Multivitamins Therapeutic 1 tablet 11/13/25 09:00 11/17/25 09:12 Multivitamins Therapeutic Tab (*Bkc) PO 1 tablet DAILY VINEET Administration Ondansetron HCl 4 mg 11/12/25 10:14 11/12/25 12:34 Ondansetron Hcl Odt 4 Mg Tablet PO 4 mg BID PRN Administration Nausea And Vomiting Polyethylene Glycol 17 gm 11/12/25 10:14 Polyethylene Glycol 3350 17 Gm Powd.Pack PO DAILY PRN Constipation Potassium Chloride 20 meq 11/12/25 09:00 11/17/25 09:12 Potassium Chloride 20 Meq Er Tablet PO 20 meq DAILY VINEET Administration Psyllium Hydrophilic Mucilloid 1 packet 11/12/25 17:00 11/16/25 17:06 Psyllium Powder Packet PO 1 packet BID VINEET Administration Rivaroxaban 15 mg 11/12/25 17:00 11/16/25 17:06 Rivaroxaban 15 Mg Tablet PO 15 mg DAILY@1700 VINEET Administration Sacubitril/Valsartan 1 tab 11/14/25 21:00 11/17/25 09:10 Sacubitril/Valsartan 24-26 Mg Tablet PO 1 tab Q12HR VINEET Administration Sodium Chloride 1 gm 11/12/25 09:00 11/17/25 09:10 Sodium Chloride 1 Gm Tablet PO 1 gm BID VINEET Administration Tramadol HCl 50 mg 11/12/25 04:56 11/17/25 09:29 Tramadol Hcl (*Crx) 50 Mg Tablet PO 50 mg TID PRN Administration pain Tramadol HCl 0 mg 11/12/25 08:50 Tramadol Hcl (*Crx) 50 Mg Tablet PO QID PRN SEVERE PAIN Radiology Results: ITS Impressions Chest X-Ray 11/14/25 15:54 Impression: CHF. Early basilar pneumonia suspected Labs Labs: Laboratory Results - last 24 hr 11/17/25 06:14 WBC 9.0 RBC 3.36 L Hgb 10.7 L Hct 33.3 L MCV 99.1 MCH 31.8 MCHC 32.1 RDW 15.3 H Plt Count 199 MPV 9.3 Immature Gran % (Auto) 0.8 H Neut % (Auto) 74.7 H Lymph % (Auto) 13.1 L [place] % (Auto) 10.4 H Eos % (Auto) 0.8 Baso % (Auto) 0.2 Lymph # (Auto) 1.18 [place] # (Auto) 0.9 H Eos # (Auto) 0.1 Baso # (Auto) 0.0 Abs Immat Gran (auto) 0.07 H Absolute Neuts (auto) 6.7 Absolute Nucleated RBC 0.000 Nucleated RBC % 0.0 Sodium 135 L Potassium 3.5 Chloride 104 Carbon Dioxide 26 Anion Gap 5 BUN 31 H Creatinine 0.94 Estim Creat Clear Calc 34 Estimated GFR 56 L Glucose 103 Calcium 8.8 Total Bilirubin 0.6 AST 29 ALT 12 Alkaline Phosphatase 130 H Total Protein 5.6 L Albumin 2.7 L Quality VTE Prophylaxis VTE prophylaxis: pharmacologic ordered (home xarelto)
--- NOTE | 2025-11-17 15:36 | P.CONCA_ITS ---
Assessment and Plan Assessment and plan (1) Chronic atrial fibrillation: Code(s): I48.20 - Chronic atrial fibrillation, unspecified Status: Acute Assessment and Plan: * patient with chronic atrial fibrillation * has had noted episodes of RVR with sustained HR in the 120-130s post physical therapy * She is currently on Metoprolol 100 mg daily, was also on cardizem 180 mg daily at home * her blood pressure is currently soft and will not tolerate resuming cardizem at this time * will give dose of IV digoxin 0.125 mg x 1 and can consider continuing PO * currently on xarelto 15 mg daily for AC * give additional potassium today to keep K >4. will check Magnesium level in am and would keep >2. * her TSH is mildly elevated but T4 is normal. (2) Acute exacerbation of CHF (congestive heart failure): Qualifiers: Heart failure type: unspecified Qualified Code(s): I50.9 - Heart failure, unspecified Code(s): I50.9 - Heart failure, unspecified Status: Acute Assessment and Plan: * acute on chronic diastolic heart failure in setting of atrial fibrillation, pneumonia and valvular heart disease * her recent echo showed an EF of 60%. with moderate MR and TR * She has been diuresed with improvement in shortness of breath, will update CXR and pBNP as more SOB with afib this afternoon * Now on PO lasix * remains on metoprolol 100 mg daily. Was started on Entresto 24-26 mg BID, but is now hypotensive will decrease to 1/2 tablet BID and monitor * could consider addition of Jardiance (3) Mitral valve regurgitation: Code(s): I34.0 - Nonrheumatic mitral (valve) insufficiency Status: Acute Assessment and Plan: * moderate MR on recent echo * EF remains normal at 60% * will monitor (4) Tricuspid valve regurgitation: Code(s): I07.1 - Rheumatic tricuspid insufficiency Status: Acute Assessment and Plan: * moderate on recent echo (5) Essential (primary) hypertension: Code(s): I10 - Essential (primary) hypertension Status: Acute Assessment and Plan: * blood pressure is now soft * will decrease Entresto dose to 1/2 table BID (6) Mixed hyperlipidemia: Code(s): E78.2 - Mixed hyperlipidemia Status: Acute Assessment and Plan: * she is 89 and not on statin therapy * healthy diet and exercise encouraged (7) Pneumonia: Code(s): J18.9 - Pneumonia, unspecified organism Status: Acute Assessment and Plan: * antibiotics as per primary team History of Present Illness History of Present Illness Consult date/time: 11/17/25 15:36 Requesting physician: Bushra Campbell APRN Consult reason: atrial fibrillation Reason For Visit: CHF Exacerbation Narrative: Lisbet Reyna is an 89 y.o. female with a H chronic atrial fibrillation, CHF, HTN and CKD, who presented to the ER with reports of shortness of breath. Patient was initially admitted to the hospital 6 days ago and has been treated for acute CHF. She was improving, but this afternoon was working with PT and became fatigued and short of breath. She felt as though she wanted to fall over. She was noted to be in afib with RVR. We were asked to see her for further evaluation. She continues to note shortness of breath, but denies chest pain or pressure, palpitations or dizziness. Review of Systems 2 Review of Systems: All systems reviewed & are unremarkable except as noted in HPI and below PMFSH Past Medical History Medical History (Updated 11/15/25 @ 09:26 by Aviva Mcallister APRN) Pneumonia Spinal stenosis, lumbar region, with neurogenic claudication severe lumbar spinal stenosis at L3-L4 and L4-L5 on CT on 10/09/2025. Coccygeal pain, chronic Chronic kidney disease BUN 28, creatinine 1.1 with GFR 48 on 08/07/2025. Elevated TSH TSH elevated at 4.67 on 08/07/2025. Elevated liver enzymes (~08/07/25) AST 86, ALT 75 on 08/07/2025. BMI 26.0-26.9,adult Fatigue Insomnia Carpal tunnel syndrome of left wrist BMI 27.0-27.9,adult Defecation urgency (~07/2023) Weakness COVID-19 (06/26/22) BMI 28.0-28.9,adult Overweight (BMI 25.0-29.9) Acute non-recurrent maxillary sinusitis UTI (urinary tract infection) 08/07/2025. BMI 29.0-29.9,adult At high risk for falls Edema, peripheral Urinary frequency Atrial enlargement, bilateral Tricuspid valve regurgitation Mitral valve regurgitation Hypertension Vitamin D deficiency, unspecified The level low at 25 on 10/24/2022. Level normal at 45 on 08/07/2025. Vitamin B12 deficiency anemia Level normal at 668 with folic acid 24 and hemoglobin 13.2 on 10/24/2022. level slightly low at 398 with hemoglobin 11.8 on 08/07/2025. History of vaginal delivery Skin cancer Benign paroxysmal positional vertigo due to bilateral vestibular disorder Abnormality of gait and mobility Surgical History Surgical History H/O bilateral oophorectomy History of partial hysterectomy History of cholecystectomy History of knee surgery History of breast biopsy History of colon resection Family History Family History Mother Hypertension, Onset Age: 90 Family history of cardiovascular disease, Onset Age: 90 Father Carcinoma of colon, Onset Age: 62 Grandparent Family history of malignant neoplasm of breast in first degree relative, Onset Age: 64 Cerebrovascular accident, Onset Age: 82 Family history of malignant neoplasm of breast Social History Social History Smoking status: Never smoker Second hand tobacco smoke exposure: No Alcohol intake: never Substance use: never Substance use type: does not use Lack of Transportation: No Lack of Food: Never True Current Housing: I Have Housing Concerned About Future Housing: No Difficulty Paying Gas/Electric Bills: No Difficulty Paying for Meds: No Currently Unemployed: No Education: Master's Degree or Higher Difficulty w/ Childcare or Family Care: No Spiritual care concerns: No Meds Home Medications and Allergies Home Medications ?Medication ?Instructions ?Recorded ?Confirmed ?Type diltiazem HCl 180 mg capsule,24 180 mg PO DAILY 11/12/25 History hr,extended release potassium chloride 20 mEq 20 meq PO DAILY 10/15/1911/25 History tablet,extended release rivaroxaban 15 mg tablet (Xarelto) 15 mg PO DAILY 10/0211/12/25 History cyanocobalamin (vitamin B-12) 1,000 mcg PO DAILY 07/0411/12/25 History 1,000 mcg tablet,extended release (Vitamin B-12 ER) ferrous sulfate 325 mg (65 mg 325 mg PO DAILY 07/04/20 11/12/25 History iron) tablet omega-3 fatty acids 1,000 mg 1,000 mg PO DAILY 0 11/12/25 History capsule docusate sodium 50 mg capsule 50 mg PO DAILY 09/14/20 11/12/25 History (Colace Clear) multivitamin 1 tablet PO DAILY 09/14/20 1 01/13/25 History cholecalciferol (vitamin D3) 25 1,000 unit PO DAILY 11/12/25 History mcg (1,000 unit) capsule psyllium husk 3.4 gram/5.4 gram 1 tbsp PO BID 10/17/23 11/12/25 History oral powder (Metamucil) ondansetron 4 mg disintegrating 4 mg PO BID PRN nausea and 08/20/25 11/12/25 Rx tablet vomiting #10 tabs furosemide 20 mg tablet 20 mg PO .COMPLEX #180 tabs 08/26/25 11/12/25 Rx tramadol 50 mg tablet 50 mg PO .COMPLEX PRN pain # 200 10/04/25 11/12/25 Rx tabs acetaminophen 325 mg tablet 650 mg PO TID 11/12/2511/25 History (Aminofen) artificial tears(hypromellose) 0.3 1 drp EACH EYE QID PRN dry eye 11/12/25 11/12/25 History % eye drops lisinopril 40 mg tablet 40 mg PO DAILY 11/12/2511/01 History melatonin 3 mg capsule 3 mg PO HS 11/12/25 11/12/25 History metoprolol succinate 100 mg 100 mg PO DAILY 11/12/25 1 01/13/25 History tablet,extended release 24 hr polyethylene glycol 3350 17 gram 17 g PO DAILY PRN con stipation 11/12/25 11/12/25 History oral powder packet (ClearLax) psyllium husk 0.52 gram capsule 0.52 g PO BID 11/12/25 11/12/25 History (Daily Fiber) sodium chloride 1,000 mg soluble 1,000 mg PO BID 11/1211/12/25 History tablet Allergies Allergy/AdvReac Type Severity Reaction Status Date / Time levofloxacin Allergy Severe Anaphylaxis Verified 11/12/25 02:38 Vital Signs Vital Signs - 24 hr 11/16/25 16:00 11/16/25 20:45 11/17/25 04:31 Temperature 36.3 C L 36.0 C L Pulse Rate 108 H 87 91 Respiratory Rate 20 14 Blood Pressure 94/57 L 100/59 L Pulse Oximetry 96 96 Oxygen Delivery 11/17/25 08:00 11/17/25 09:10 11/17/25 09:11 Temperature Pulse Rate 100 110 H Respiratory Rate Blood Pressure Pulse Oximetry Oxygen Delivery Room Air 11/17/25 10:45 11/17/25 12:00 11/17/25 14:00 Temperature 36.6 C Pulse Rate 107 H 81 Respiratory Rate 14 Blood Pressure 90/68 L Pulse Oximetry 92 Oxygen Delivery Room Air Exam 2 Const: General: comfortable and no acute distress Neck: Neck: supple and no JVD Resp: Effort & Inspection: normal respiratory effort Auscultation: d iminished lung sounds bilateral Cardio: Rate: tachycardic Rhythm: abnormal rhythm irregularly irregular Heart sounds: no gallops, no murmurs and no rubs Skin: General skin exam: normal color Neuro: Speech: normal speech Extrem: General: edema bilateral Psych: Mental Status: mental status grossly normal Results Labs and Meds 11/17/25 06:14 11/17/25 06:14 Lab results: Cardiac Enzymes 11/17/25 Range/Units 06:14 AST 29 (14-36) U/L CBC 11/17/25 Range/Units 06:14 WBC 9.0 (4.5-10.0) K/mm3 RBC 3.36 L (4.2-5.4) M/mm3 Hgb 10.7 L (12.0-15.0) g/dL Hct 33.3 L (37.0-47.0) % Plt Count 199 (150-375) k/mm3 Lymph # (Auto) 1.18 (0.9-3.2) K/mm3 [place] # (Auto) 0.9 H (0.1-0.6) K/mm3 Eos # (Auto) 0.1 (0-0.3) K/mm3 Baso # (Auto) 0.0 (0.0-0.1) K/mm3 Comprehensive Metabolic Panel 11/17/25 Range/Units 06:14 Sodium 135 L (137-145) mmol/L Potassium 3.5 (3.4-5.0) mmol/L Chloride 104 (98-107) mmol/L Carbon Dioxide 26 (22-30) mmol/L BUN 31 H (7-17) mg/dL Creatinine 0.94 (0.7-1.0) mg/dL Glucose 103 (65-110) mg/dL Calcium 8.8 (8.4-10.2) mg/dL AST 29 (14-36) U/L ALT 12 (6-35) U/L Alkaline Phosphatase 130 H (38-126) U/L Total Protein 5.6 L (6.3-8.2) g/dL Albumin 2.7 L (3.5-5.1) g/dL Intake and Output 11/16/25 11/17/25 11/17/25 23:59 07:59 15:59 Intake Total 290 200 240 Output Total 450 200 Balance -160 0 240 Intake: IV 50 Cefepime 2 gm In Sodium 50 Chloride 0.9% IV 50 ml @ 100 mls/hr IVPB Q12HR [facility] Rx#: [id number] Oral 240 200 240 Output: Urine 200 Catheter Urine 450 External/Condom 450 Other: Number of Bowel Movements Today 0 Imaging and Cardiology Echo: report reviewed (11/03/25 EF of 60% with severe LAE, moderate MR, and moderate TR) EKG results: image reviewed (atrial fibrillation with incomplete RBBB and rate of 75 bpm. ) EKG Interpretation EKG shows: atrial fibrillation
[2025-11-17] MEDS: DIGOXIN INJ 250 MCG/ML 2 ML AMP (*BKC) 125 MCG IV PUSH (16:37)
[2025-11-17] MEDS: RIVAROXABAN 15 MG TABLET PO (16:42)
[2025-11-17] MEDS: SACUBITRIL/VALSARTAN 12-13 MG TABLET 1 TAB PO (21:32)
[2025-11-17] MEDS: MELATONIN 3 MG TABLET PO (21:32)
[2025-11-18] VITALS (8 sets, daily range): BP systolic 106–124; BP diastolic 60–83; PULSE 81–111; RESP 16–20; TEMP 36.1–36.3; O2SAT 93–95; BMI 27.8
[2025-11-18 06:49] LABS: Hematocrit 36.3 % (37.0-47.0); Hemoglobin 11.4 g/dL (12.0-15.0); Immature Granulocyte Percent A 1.0 % (0-0.5); Lymphocytes Absolute Auto 1.13 K/mm3 (0.9-3.2); Mean Corpuscular HGB Conc 31.4 g/dl (32-36); Mean Corpuscular Hemoglobin 31.5 pg (26-34); Mean Corpuscular Volume 100.3 fl (80-100); Nucleated Red Blood Cells Absolute Auto 0.000 K/mm3 (0.0-0.012); Nucleated Red Blood Cells Perc 0.0 % (0.0-0.2); Platelet Count Result 213 k/mm3 (150-375); Red Blood Count 3.62 M/mm3 (4.2-5.4); White Blood Count 7.8 K/mm3 (4.5-10.0)
[2025-11-18 07:11] LABS: Alanine Aminotransferase 17 U/L (6-35); Albumin Level 2.8 g/dL (3.5-5.1); Alkaline Phosphatase 120 U/L (38-126); Anion Gap 4 mmol/L (4-12); Aspartate Amino Transferase 31 U/L (14-36); Bilirubin,Total 0.6 mg/dL (0.2-1.3); Blood Urea Nitrogen 28 mg/dL (7-17); Calcium 8.5 mg/dL (8.4-10.2); Carbon Dioxide 24 mmol/L (22-30); Chloride 107 mmol/L (98-107); Estimated CRCL calculation 36 ml/min; Estimated Glomerular Filt Rate > 60; Glucose 96 mg/dL (65-110); Potassium 3.6 mmol/L (3.4-5.0); Sodium 135 mmol/L (137-145); Total Protein 5.7 g/dL (6.3-8.2)
[2025-11-18 07:19] LABS: NT Pro B Type Natriuretic Pept 3560 pg/mL (19.9-100)
--- NOTE | 2025-11-18 08:01 | PM.PNCARD ---
Progress Note: A&P Assessment and Plan (1) Atrial fibrillation with RVR: Code(s): I48.91 - Unspecified atrial fibrillation Status: Acute (2) Essential (primary) hypertension: Code(s): I10 - Essential (primary) hypertension Status: Acute (3) Mixed hyperlipidemia: Code(s): E78.2 - Mixed hyperlipidemia Status: Acute (4) Acute exacerbation of CHF (congestive heart failure): Qualifiers: Heart failure type: unspecified Qualified Code(s): I50.9 - Heart failure, unspecified Code(s): I50.9 - Heart failure, unspecified Status: Acute (5) Mitral valve regurgitation: Code(s): I34.0 - Nonrheumatic mitral (valve) insufficiency Status: Acute (6) Tricuspid valve regurgitation: Code(s): I07.1 - Rheumatic tricuspid insufficiency Status: Acute Plan Assessment: 89-year-old female with Chronic atrial fibrillation with RVR Acute diastolic heart failure-LVEF 60% 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 Cardizem was stopped due to hypotension. She got 1 dose of 0.125 mg of digoxin IV yesterday. This has helped with some heart rate control. Continue to monitor on telemetry Check and replace electrolytes to keep potassium greater than 4 and magnesium greater than 2 Continue rivaroxaban for anticoagulation for AFib Dose of Entresto was decreased due to hypotension. Continue at this dose And empagliflozin 10 mg daily Continue Lasix 40 mg daily Check daily weight, ins and outs, renal function Management of other medical problems per primary team Subjective Date/time seen: 11/18/25 08:01 Interval history: Reason for encounter: Chronic AFib now with RVR Interval history: Patient resting in bed and denies any chest pain or shortness of breath or palpitations. She is currently on metoprolol 100 mg daily. One dose of IV digoxin 0.125 mg was administered yesterday. She remains in AFib with heart rates better controlled in the 80s to 90s range. SBP in the 100s range. Review of Systems Cardiovascular: Comments: As per HPI Respiratory: Comments: As per HPI Exam Narrative: General: Alert oriented x3, no acute distress Neck: Supple, no JVD Chest: Bilaterally clear to auscultation, no rales or rhonchi Cardiac: S1, S2 +, irregularly irregular rhythm, no murmurs or rubs Extremities: No pedal edema, no skin rash Neurologic: Alert and oriented x3, no focal neurological deficits Objective Data Vital Signs Vital Signs: Vital Signs - 24 hr 11/17/25 09:10 11/17/25 09:11 11/17/25 10:45 Temperature Pulse Rate 110 H Respiratory Rate Blood Pressure Pulse Oximetry Oxygen Delivery Room Air Room Air 11/17/25 12:00 11/17/25 14:00 11/17/25 16:00 Temperature 36.6 C Pulse Rate 107 H 81 94 Respiratory Rate 14 Blood Pressure 90/68 L Pulse Oximetry 92 Oxygen Delivery 11/17/25 16:37 11/17/25 20:00 11/17/25 21:29 Temperature Pulse Rate 101 H 102 H 89 Respiratory Rate 18 Blood Pressure Pulse Oximetry 95 Oxygen Delivery Room Air 11/17/25 22:00 11/18/25 00:00 11/18/25 04:00 Temperature 36.7 C Pulse Rate 87 96 89 Respiratory Rate 18 Blood Pressure 121/63 Pulse Oximetry 95 Oxygen Delivery 11/18/25 06:00 Temperature 36.3 C L Pulse Rate 81 Respiratory Rate 16 Blood Pressure 106/60 Pulse Oximetry 95 Oxygen Delivery Intake/Output Intake/Output: Intake & Output 11/15/25 11/16/25 11/17/25 11/18/25 23:59 23:59 23:59 23:59 Intake Total 6682 999 0132 400 Output Total 850 1250 200 450 Balance 645 -292 1540 -50 Meds/Results Medications: Active Medications Generic Name Dose Route Start Last Admin Trade Name Freq PRN Reason Stop Dose Admin Acetaminophen 650 mg 11/12/25 04:56 11/12/25 05:40 Acetaminophen 325 Mg Tablet PO 650 mg Q4H PRN Administration Mild Pain (1-3) or Fever Acetaminophen 325 mg 11/12/25 09:17 11/17/25 21:33 Acetaminophen 325 Mg Tablet PO 325 mg QID PRN Administration SEVERE PAIN Albuterol 2 puff 11/14/25 02:42 Albuterol Sulfate (*Sp) Aerosol 1 Puff INHALATION Q6HRT PRN Shortness Of Breath Artificial Tears 1 drop 11/12/25 10:14 Artificial Tears Ophth Soln 15 Ml Bottle EACH EYE QID PRN dry eye Ferrous Sulfate 325 mg 11/12/25 09:00 11/17/25 09:11 Ferrous Sulfate 325 Mg Tablet PO 12/12/25 08:59 325 mg DAILY VINEET Administration Fish Oil 1 gm 11/13/25 09:00 11/17/25 09:10 [place] 3 Polyunsat Fatty Acids 1 Gm Cap PO 1 gm DAILY VINEET Administration Furosemide 40 mg 11/17/25 09:00 11/17/25 09:11 Furosemide 40 Mg Tablet PO 40 mg DAILY VINEET Administration Guaifenesin 600 mg 11/15/25 09:25 11/17/25 21:35 Guaifenesin 12 Hr 600 Mg Tabcr PO 600 mg Q12HR VINEET Administration Cefepime HCl 2 gm/ Sodium 50 mls @ 100 mls/hr 11/15/25 09:30 11/17/25 21:29 Chloride IVPB 100 mls/hr Q12HR VINEET Administration Azithromycin 500 mg/ Sodium 250 mls @ 250 mls/hr 11/15/25 12:00 11/17/25 12:58 Chloride IVPB 11/19/25 12:59 Infused Q24H VINEET Infusion Loratadine 10 mg 11/15/25 12:20 11/17/25 09:11 Loratadine 10 Mg Tablet PO 10 mg QAM VINEET Administration Melatonin 3 mg 11/12/25 21:00 11/17/25 21:32 Melatonin 3 Mg Tablet PO 3 mg HS VINEET Administration Metoprolol Succinate 100 mg 11/12/25 09:00 11/17/25 09:10 Metoprolol Succinate Ext Rel 100 Mg Tabcr PO 100 mg DAILY VINEET Administration Multivitamins Therapeutic 1 tablet 11/13/25 09:00 11/17/25 09:12 Multivitamins Therapeutic Tab (*Bkc) PO 1 tablet DAILY VINEET Administration Ondansetron HCl 4 mg 11/12/25 10:14 11/12/25 12:34 Ondansetron Hcl Odt 4 Mg Tablet PO 4 mg BID PRN Administration Nausea And Vomiting Polyethylene Glycol 17 gm 11/12/25 10:14 Polyethylene Glycol 3350 17 Gm Powd.Pack PO DAILY PRN Constipation Potassium Chloride 20 meq 11/12/25 09:00 11/17/25 09:12 Potassium Chloride 20 Meq Er Tablet PO 20 meq DAILY VINEET Administration Psyllium Hydrophilic Mucilloid 1 packet 11/12/25 17:00 11/17/25 16:37 Psyllium Powder Packet PO 1 packet BID VINEET Administration Rivaroxaban 15 mg 11/12/25 17:00 11/17/25 16:42 Rivaroxaban 15 Mg Tablet PO 15 mg DAILY@1700 VINEET Administration Sacubitril/Valsartan 1 tab 11/17/25 21:00 11/17/25 21:32 Sacubitril/Valsartan 12-13 Mg Tablet PO 1 tab Q12HR VINEET Administration Sodium Chloride 1 gm 11/12/25 09:00 11/17/25 16:42 Sodium Chloride 1 Gm Tablet PO 1 gm BID VINEET Administration Tramadol HCl 50 mg 11/12/25 04:56 11/17/25 09:29 Tramadol Hcl (*Crx) 50 Mg Tablet PO 50 mg TID PRN Administration pain Tramadol HCl 0 mg 11/12/25 08:50 11/17/25 21:35 Tramadol Hcl (*Crx) 50 Mg Tablet PO 50 mg QID PRN Administration SEVERE PAIN Radiology Results: ITS Impressions Chest X-Ray 11/17/25 16:31 IMPRESSION: 1. Linear discoid atelectasis in the right lower lung zone. No other acute cardiopulmonary disease. 2. Large sliding-type hiatal hernia. 2. Cardiomegaly. Labs Labs: Laboratory Results - last 24 hr 11/18/25 06:34 WBC 7.8 RBC 3.62 L Hgb 11.4 L Hct 36.3 L MCV 100.3 H MCH 31.5 MCHC 31.4 L RDW 15.3 H Plt Count 213 MPV 9.0 Immature Gran % (Auto) 1.0 H Neut % (Auto) 71.0 Lymph % (Auto) 14.6 L [place] % (Auto) 11.0 H Eos % (Auto) 1.8 Baso % (Auto) 0.6 Lymph # (Auto) 1.13 [place] # (Auto) 0.9 H Eos # (Auto) 0.1 Baso # (Auto) 0.1 Abs Immat Gran (auto) 0.08 H Absolute Neuts (auto) 5.5 Absolute Nucleated RBC 0.000 Nucleated RBC % 0.0 Sodium 135 L Potassium 3.6 Chloride 107 Carbon Dioxide 24 Anion Gap 4 BUN 28 H Creatinine 0.87 Estim Creat Clear Calc 36 Estimated GFR > 60 Glucose 96 Calcium 8.5 Total Bilirubin 0.6 AST 31 ALT 17 Alkaline Phosphatase 120 NT-Pro-B Natriuret Pep 3560 H Total Protein 5.7 L Albumin 2.8 L
[2025-11-18] MEDS: METOPROLOL SUCCINATE EXT REL 100 MG TABCR PO (10:51)
[2025-11-18] MEDS: FERROUS SULFATE 325 MG TABLET PO (10:51)
[2025-11-18] MEDS: SODIUM CHLORIDE 1 GM TABLET PO ×2 (10:51→16:36)
[2025-11-18] MEDS: OMEGA 3 POLYUNSAT FATTY ACIDS 1 GM CAP PO (10:51)
[2025-11-18] MEDS: guaiFENesin 12 HR 600 MG TABCR PO ×2 (10:51→20:29)
[2025-11-18] MEDS: FUROSEMIDE 40 MG TABLET PO (10:51)
[2025-11-18] MEDS: PSYLLIUM POWDER PACKET 1 PACKET PO (10:52)
[2025-11-18] MEDS: SACUBITRIL/VALSARTAN 12-13 MG TABLET 1 TAB PO ×2 (10:52→20:29)
[2025-11-18] MEDS: AZITHROMYCIN 500 MG TABLET PO (10:52)
[2025-11-18] MEDS: MULTIVITAMINS THERAPEUTIC TAB (*BKC) 1 TABLET PO (10:52)
[2025-11-18] MEDS: POTASSIUM CHLORIDE 20 MEQ ER TABLET PO (10:52)
[2025-11-18] MEDS: LORATADINE 10 MG TABLET PO (10:52)
--- NOTE | 2025-11-18 13:14 | PCOTNOTE ---
Attempted to see Patient at this time. Patient states not doing well today, tried earlier. Patient states, I'm done for the day, I just don't want to do anything, leave me alone.
--- NOTE | 2025-11-18 14:40 | PM.IMPN2 ---
Assessment and Plan Assessment and Plan (1) Acute exacerbation of CHF (congestive heart failure): Qualifiers: Heart failure type: unspecified Qualified Code(s): I50.9 - Heart failure, unspecified Code(s): I50.9 - Heart failure, unspecified Status: Acute Assessment and Plan: Acute on chronic. On home furosemide 20mg PO daily. 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 Ariza) for this last week where an echo was obtained which showed ?backup of blood in her heart?. She was started on Entresto which she has not started taking yet as it has not been available at the pharmacy, will assure this is in the works when she gets discharged. -->First dose of Entresto this 11/15, pt reports that she has it filled at the pharmacy and she will set for someone to pick it up -Continue with casper tarsha -Will transition to PO 40mg Lasix tomorrow, she is normally on 20mg PO at home 11/18 card note: Continue metoprolol 100 mg daily for rate control. Cardizem was stopped due to hypotension. She got 1 dose of 0.125 mg of digoxin IV yesterday. This has helped with some heart rate control. Continue to monitor on telemetry Check and replace electrolytes to keep potassium greater than 4 and magnesium greater than 2 Continue rivaroxaban for anticoagulation for AFib Dose of Entresto was decreased due to hypotension. Continue at this dose And empagliflozin 10 mg daily Continue Lasix 40 mg daily Check daily weight, ins and outs, renal function (2) A-fib: Qualifiers: Atrial fibrillation type: unspecified Qualified Code(s): I48.91 - Unspecified atrial fibrillation Code(s): I48.91 - Unspecified atrial fibrillation Status: Acute Assessment and Plan: Continue home metoprolol succ & Xarelto Tele went to afib with RVR around 160, weakness while working with PT/OT HR decreased after rest to 140 n=but remained elevated for about 30 min - pt is on metoprolol requesting to see her car repossessor- will consult to ensure pt is on an appropriate for her afib cardiology noteL :Continue metoprolol 100 mg daily for rate control. Cardizem was stopped due to hypotension. She got 1 dose of 0.125 mg of digoxin IV yesterday. This has helped with some heart rate control. Continue to monitor on telemetry Check and replace electrolytes to keep potassium greater than 4 and magnesium greater than 2 Continue rivaroxaban for anticoagulation for AFib Dose of Entresto was decreased due to hypotension. Continue at this dose And empagliflozin 10 mg daily Continue Lasix 40 mg daily Check daily weight, ins and outs, renal function (3) Chronic kidney disease: Qualifiers: Chronic kidney disease stage: stage 3 (moderate) Chronic kidney disease stage 3 subtype: stage 3a (GFR 45-59) Qualified Code(s): N18.31 - Chronic kidney disease, stage 3a Code(s): N18.9 - Chronic kidney disease, unspecified Status: Acute Assessment and Plan: No current IVON, will continue to trend labs with Lasix 40mg IV daily on board. -BUN at baseline (4) Pneumonia: Code(s): J18.9 - Pneumonia, unspecified organism Status: Acute Assessment and Plan: Pt had been at [facility] prior to arrival here for therapy, likely HAP Progressively not feeling better, lungs with diffuse rales and wheezing worse throughout today CXR 11/14 yielding potential new developing bibasilar PNA -MRSA swab obtained today, pending -Cefepime & azithromycin started 11/15 (vanc discontinued due to negative MRSA) -Guaifenesin for cough -Incentive spirometry -WBC 12.6 today, likely due to PNA, continue to trend -VSS -Lungs sounding considerably better today continue regimen remains on ra, is, ambulation Plan Continue with PNA tx, diuresis for CHF, and sx management due to volume overload. Lisinopril to Entresto change starting 11/14. Medical Record Review I have reviewed the following patient records and this information was taken into consideration when formulating the assessment and plan.: previous labs Time Spent With Patient Time with patient: Greater than 35 minutes Subjective Date/time seen: 11/18/25 14:40 Interval history: Pt is seen and examined. Patient resting in bed and denies any chest pain or shortness of breath or palpitations. cardiology consulted for afib with RVR yesterday after working with PT/OT. She is currently on metoprolol 100 mg daily. One dose of IV digoxin 0.125 mg was administered yesterday. She remains in AFib with heart rates better controlled in the 80s to 90s range. SBP in the 100s range. she is feeling weak overall. Review of Systems Review of Systems: All systems reviewed & are unremarkable except as noted in HPI and below Exam Narrative: resting in bed Const: General: comfortable and no acute distress HENMT: Face/Nose/Sinus: Normal nares present Mouth: Yes moist mucous membranes Eyes: General: appearance normal, both eyes and all related structures Sclera: sclerae normal Pupils: Equal, round and reactive pupils present EOM: EOMs intact bilaterally Neck: Neck: supple Carotids: no bruits Resp: Effort & Inspection: normal respiratory effort Auscultation: clear to auscultation bilaterally, rales diffuse and wheezes expiratory wheezes, left upper and right upper Other: Lungs sounding considerably better today Cardio: Rate: regular rate Rhythm: abnormal rhythm regularly irregular Other: Tele afib 78 bpm GI: Inspection: non-distended Auscultation: normal bowel sounds : General: Yes bladder normal to palpation Bimanual exam- vagina & uterus: bladder normal to palpation Skin: General skin exam: normal color Other: R FA lateral aspect small skin tear with bandage applied Neuro: Cranial nerves: Yes Equal, round and reactive pupils present Speech: normal speech Motor exam (neuro): 5/5 motor strength present throughout and Normal motor muscle tone present throughout Sensory Exam: normal sensation Extrem: General: normal exam except as noted Other: BLE ankles and below trace edema Psych: Mental Status: mental status grossly normal Affect: normal affect, Irritable affect present and Blunted affect present Objective Data Vital Signs Vital Signs: Vital Signs - 24 hr 11/17/25 16:00 11/17/25 16:37 11/17/25 20:00 Temperature Pulse Rate 94 101 H 102 H Respiratory Rate Blood Pressure Pulse Oximetry Oxygen Delivery 11/17/25 21:29 11/17/25 22:00 11/18/25 00:00 Temperature 98.0 F Pulse Rate 89 87 96 Respiratory Rate 18 18 Blood Pressure 121/63 Pulse Oximetry 95 95 Oxygen Delivery Room Air 11/18/25 04:00 11/18/25 06:00 Temperature 97.4 F L Pulse Rate 89 81 Respiratory Rate 16 Blood Pressure 106/60 Pulse Oximetry 95 Oxygen Delivery Intake/Output Intake/Output: Intake & Output 11/15/25 11/16/25 11/17/25 11/18/25 23:59 23:59 23:59 23:59 Intake Total 2240 500 5069 400 Output Total 850 1250 200 450 Balance 645 -292 1540 -50 Meds/Results Medications: Active Medications Generic Name Dose Route Start Last Admin Trade Name Freq PRN Reason Stop Dose Admin Acetaminophen 650 mg 11/12/25 04:56 11/12/25 05:40 Acetaminophen 325 Mg Tablet PO 650 mg Q4H PRN Administration Mild Pain (1-3) or Fever Acetaminophen 325 mg 11/12/25 09:17 11/17/25 21:33 Acetaminophen 325 Mg Tablet PO 325 mg QID PRN Administration SEVERE PAIN Albuterol 2 puff 11/14/25 02:42 Albuterol Sulfate (*Sp) Aerosol 1 Puff INHALATION Q6HRT PRN Shortness Of Breath Amoxicillin/Clavulanate Potassium 1 tablet 11/18/25 09:30 11/18/25 10:52 Amoxicillin/Clavulanate K 875-125 Mg Tab PO 11/21/25 21:01 1 tablet Q12HR VINEET Administration Artificial Tears 1 drop 11/12/25 10:14 Artificial Tears Ophth Soln 15 Ml Bottle EACH EYE QID PRN dry eye Azithromycin 500 mg 11/18/25 09:30 11/18/25 10:52 Azithromycin 500 Mg Tablet PO 11/19/25 09:01 500 mg DAILY VINEET Administration Ferrous Sulfate 325 mg 11/12/25 09:00 11/18/25 10:51 Ferrous Sulfate 325 Mg Tablet PO 12/12/25 08:59 325 mg DAILY VINEET Administration Fish Oil 1 gm 11/13/25 09:00 11/18/25 10:51 [place] 3 Polyunsat Fatty Acids 1 Gm Cap PO 1 gm DAILY VINEET Administration Furosemide 40 mg 11/17/25 09:00 11/18/25 10:51 Furosemide 40 Mg Tablet PO 40 mg DAILY VINEET Administration Guaifenesin 600 mg 11/15/25 09:25 11/18/25 10:51 Guaifenesin 12 Hr 600 Mg Tabcr PO 600 mg Q12HR VINEET Administration Loratadine 10 mg 11/15/25 12:20 11/18/25 10:52 Loratadine 10 Mg Tablet PO 10 mg QAM VINEET Administration Melatonin 3 mg 11/12/25 21:00 11/17/25 21:32 Melatonin 3 Mg Tablet PO 3 mg HS VINEET Administration Metoprolol Succinate 100 mg 11/12/25 09:00 11/18/25 10:51 Metoprolol Succinate Ext Rel 100 Mg Tabcr PO 100 mg DAILY VINEET Administration Multivitamins Therapeutic 1 tablet 11/13/25 09:00 11/18/25 10:52 Multivitamins Therapeutic Tab (*Bkc) PO 1 tablet DAILY VINEET Administration Ondansetron HCl 4 mg 11/12/25 10:14 11/12/25 12:34 Ondansetron Hcl Odt 4 Mg Tablet PO 4 mg BID PRN Administration Nausea And Vomiting Polyethylene Glycol 17 gm 11/12/25 10:14 Polyethylene Glycol 3350 17 Gm Powd.Pack PO DAILY PRN Constipation Potassium Chloride 20 meq 11/12/25 09:00 11/18/25 10:52 Potassium Chloride 20 Meq Er Tablet PO 20 meq DAILY [facility] Administration Psyllium Hydrophilic Mucilloid 1 packet 11/12/25 17:00 11/18/25 10:52 Psyllium Powder Packet PO 1 packet BID [facility] Administration Rivaroxaban 15 mg 11/12/25 17:00 11/17/25 16:42 Rivaroxaban 15 Mg Tablet PO 15 mg DAILY@1700 VINEET Administration Sacubitril/Valsartan 1 tab 11/17/25 21:00 11/18/25 10:52 Sacubitril/Valsartan 12-13 Mg Tablet PO 1 tab Q12HR VINEET Administration Sodium Chloride 1 gm 11/12/25 09:00 11/18/25 10:51 Sodium Chloride 1 Gm Tablet PO 1 gm BID VINEET Administration Tramadol HCl 50 mg 11/12/25 04:56 11/17/25 09:29 Tramadol Hcl (*Crx) 50 Mg Tablet PO 50 mg TID PRN Administration pain Tramadol HCl 0 mg 11/12/25 08:50 11/17/25 21:35 Tramadol Hcl (*Crx) 50 Mg Tablet PO 50 mg QID PRN Administration SEVERE PAIN Radiology Results: ITS Impressions Chest X-Ray 11/17/25 16:31 IMPRESSION: 1. Linear discoid atelectasis in the right lower lung zone. No other acute cardiopulmonary disease. 2. Large sliding-type hiatal hernia. 2. Cardiomegaly. Labs Labs: Laboratory Results - last 24 hr 11/18/25 06:34 WBC 7.8 RBC 3.62 L Hgb 11.4 L Hct 36.3 L MCV 100.3 H MCH 31.5 MCHC 31.4 L RDW 15.3 H Plt Count 213 MPV 9.0 Immature Gran % (Auto) 1.0 H Neut % (Auto) 71.0 Lymph % (Auto) 14.6 L [place] % (Auto) 11.0 H Eos % (Auto) 1.8 Baso % (Auto) 0.6 Lymph # (Auto) 1.13 [place] # (Auto) 0.9 H Eos # (Auto) 0.1 Baso # (Auto) 0.1 Abs Immat Gran (auto) 0.08 H Absolute Neuts (auto) 5.5 Absolute Nucleated RBC 0.000 Nucleated RBC % 0.0 Sodium 135 L Potassium 3.6 Chloride 107 Carbon Dioxide 24 Anion Gap 4 BUN 28 H Creatinine 0.87 Estim Creat Clear Calc 36 Estimated GFR > 60 Glucose 96 Calcium 8.5 Total Bilirubin 0.6 AST 31 ALT 17 Alkaline Phosphatase 120 NT-Pro-B Natriuret Pep 3560 H Total Protein 5.7 L Albumin 2.8 L Quality VTE Prophylaxis VTE prophylaxis: pharmacologic ordered (home xarelto)
[2025-11-18] MEDS: ACETAMINOPHEN 325 MG TABLET 650 MG PO (16:33)
[2025-11-18] MEDS: traMADol HCL (*CRX) 50 MG TABLET PO (16:34)
[2025-11-18] MEDS: RIVAROXABAN 15 MG TABLET PO (16:36)
[2025-11-18] MEDS: MELATONIN 3 MG TABLET PO (20:30)
[2025-11-19] VITALS (8 sets, daily range): BP systolic 111–126; BP diastolic 66–88; PULSE 76–106; RESP 19–24; TEMP 36.3–37.6; O2SAT 93–100
[2025-11-19 06:31] LABS: Hematocrit 38.4 % (37.0-47.0); Hemoglobin 12.0 g/dL (12.0-15.0); Immature Granulocyte Percent A 1.0 % (0-0.5); Lymphocytes Absolute Auto 1.03 K/mm3 (0.9-3.2); Mean Corpuscular HGB Conc 31.3 g/dl (32-36); Mean Corpuscular Hemoglobin 31.2 pg (26-34); Mean Corpuscular Volume 99.7 fl (80-100); Nucleated Red Blood Cells Absolute Auto 0.000 K/mm3 (0.0-0.012); Nucleated Red Blood Cells Perc 0.0 % (0.0-0.2); Platelet Count Result 251 k/mm3 (150-375); Red Blood Count 3.85 M/mm3 (4.2-5.4); White Blood Count 8.2 K/mm3 (4.5-10.0)
[2025-11-19 06:55] LABS: Alanine Aminotransferase 17 U/L (6-35); Albumin Level 3.1 g/dL (3.5-5.1); Alkaline Phosphatase 145 U/L (38-126); Anion Gap 6 mmol/L (4-12); Aspartate Amino Transferase 37 U/L (14-36); Bilirubin,Total 0.9 mg/dL (0.2-1.3); Blood Urea Nitrogen 24 mg/dL (7-17); Calcium 9.0 mg/dL (8.4-10.2); Carbon Dioxide 26 mmol/L (22-30); Chloride 104 mmol/L (98-107); Estimated CRCL calculation 35 ml/min; Estimated Glomerular Filt Rate 58; Glucose 85 mg/dL (65-110); Potassium 3.7 mmol/L (3.4-5.0); Sodium 136 mmol/L (137-145); Total Protein 6.2 g/dL (6.3-8.2)
--- NOTE | 2025-11-19 09:08 | PM.PNCARD ---
Progress Note: A&P Assessment and Plan (1) Atrial fibrillation with RVR: Code(s): I48.91 - Unspecified atrial fibrillation Status: Acute (2) Essential (primary) hypertension: Code(s): I10 - Essential (primary) hypertension Status: Acute (3) Mixed hyperlipidemia: Code(s): E78.2 - Mixed hyperlipidemia Status: Acute (4) Acute exacerbation of CHF (congestive heart failure): Qualifiers: Heart failure type: unspecified Qualified Code(s): I50.9 - Heart failure, unspecified Code(s): I50.9 - Heart failure, unspecified Status: Acute (5) Mitral valve regurgitation: Code(s): I34.0 - Nonrheumatic mitral (valve) insufficiency Status: Acute (6) Tricuspid valve regurgitation: Code(s): I07.1 - Rheumatic tricuspid insufficiency Status: Acute Plan Assessment: 89-year-old female with Chronic atrial fibrillation with RVR Acute diastolic heart failure-LVEF 60% 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 Restart small dose of cardizem 60 mg po daily if SBP>110mm Hg Check and replace electrolytes to keep potassium greater than 4 and magnesium greater than 2 Continue rivaroxaban for anticoagulation for AFib Dose of Entresto was decreased due to hypotension. Continue at this dose And empagliflozin 10 mg daily Continue Lasix 40 mg daily Check daily weight, ins and outs, renal function Management of other medical problems per primary team Thank you for allowing us to participate in the care of this patient. Cardiology will sign off. Please call us with any questions. Subjective Date/time seen: 11/19/25 09:08 Interval history: Reason for encounter: Chronic AFib now with RVR Interval history: No chest pain, shortness of breath, or palpitations. She is in A fib with rates in the 90s-110s. BP is improved. Review of Systems Cardiovascular: Comments: As per HPI Respiratory: Comments: As per HPI Exam Narrative: General: Alert oriented x3, no acute distress Neck: Supple, no JVD Chest: Bilaterally clear to auscultation, no rales or rhonchi Cardiac: S1, S2 +, irregularly irregular rhythm, no murmurs or rubs Extremities: No pedal edema, no skin rash Neurologic: Alert and oriented x3, no focal neurological deficits Objective Data Vital Signs Vital Signs: Vital Signs - 24 hr 11/18/25 12:00 11/18/25 16:00 11/18/25 20:00 Temperature Pulse Rate 92 111 H Respiratory Rate Blood Pressure Pulse Oximetry Oxygen Delivery Room Air 11/18/25 20:00 11/18/25 21:56 11/19/25 00:00 Temperature 36.1 C L Pulse Rate 96 89 95 Respiratory Rate 20 Blood Pressure 124/83 Pulse Oximetry 93 Oxygen Delivery 11/19/25 04:00 11/19/25 05:05 Temperature 36.5 C Pulse Rate 90 85 Respiratory Rate 24 H Blood Pressure 126/88 Pulse Oximetry 100 Oxygen Delivery Intake/Output Intake/Output: Intake & Output 11/16/25 11/17/25 11/18/25 11/19/25 23:59 23:59 23:59 23:59 Intake Total 958 1740 1070 Output Total 0403 750 9633 450 Balance -292 1540 -380 -450 Meds/Results Medications: Active Medications Generic Name Dose Route Start Last Admin Trade Name Freq PRN Reason Stop Dose Admin Acetaminophen 650 mg 11/12/25 04:56 11/18/25 16:33 Acetaminophen 325 Mg Tablet PO 325 mg Q4H PRN Administration Mild Pain (1-3) or Fever Acetaminophen 325 mg 11/12/25 09:17 11/17/25 21:33 Acetaminophen 325 Mg Tablet PO 325 mg QID PRN Administration SEVERE PAIN Albuterol 2 puff 11/14/25 02:42 Albuterol Sulfate (*Sp) Aerosol 1 Puff INHALATION Q6HRT PRN Shortness Of Breath Amoxicillin/Clavulanate Potassium 1 tablet 11/18/25 09:30 11/18/25 20:29 Amoxicillin/Clavulanate K 875-125 Mg Tab PO 11/21/25 21:01 1 tablet Q12HR VINEET Administration Artificial Tears 1 drop 11/12/25 10:14 Artificial Tears Ophth Soln 15 Ml Bottle EACH EYE QID PRN dry eye Ferrous Sulfate 325 mg 11/12/25 09:00 11/18/25 10:51 Ferrous Sulfate 325 Mg Tablet PO 12/12/25 08:59 325 mg DAILY VINEET Administration Fish Oil 1 gm 11/13/25 09:00 11/18/25 10:51 [place] 3 Polyunsat Fatty Acids 1 Gm Cap PO 1 gm DAILY VINEET Administration Furosemide 40 mg 11/17/25 09:00 11/18/25 10:51 Furosemide 40 Mg Tablet PO 40 mg DAILY VINEET Administration Guaifenesin 600 mg 11/15/25 09:25 11/18/25 20:29 Guaifenesin 12 Hr 600 Mg Tabcr PO 600 mg Q12HR VINEET Administration Loratadine 10 mg 11/15/25 12:20 11/18/25 10:52 Loratadine 10 Mg Tablet PO 10 mg QAM VINEET Administration Melatonin 3 mg 11/12/25 21:00 11/18/25 20:30 Melatonin 3 Mg Tablet PO 3 mg HS VINEET Administration Metoprolol Succinate 100 mg 11/12/25 09:00 11/18/25 10:51 Metoprolol Succinate Ext Rel 100 Mg Tabcr PO 100 mg DAILY VINEET Administration Multivitamins Therapeutic 1 tablet 11/13/25 09:00 11/18/25 10:52 Multivitamins Therapeutic Tab (*Bkc) PO 1 tablet DAILY VINEET Administration Ondansetron HCl 4 mg 11/12/25 10:14 11/12/25 12:34 Ondansetron Hcl Odt 4 Mg Tablet PO 4 mg BID PRN Administration Nausea And Vomiting Polyethylene Glycol 17 gm 11/12/25 10:14 Polyethylene Glycol 3350 17 Gm Powd.Pack PO DAILY PRN Constipation Potassium Chloride 20 meq 11/12/25 09:00 11/18/25 10:52 Potassium Chloride 20 Meq Er Tablet PO 20 meq DAILY VINEET Administration Psyllium Hydrophilic Mucilloid 1 packet 11/12/25 17:00 11/18/25 16:34 Psyllium Powder Packet PO Not Given BID [facility] Rivaroxaban 15 mg 11/12/25 17:00 11/18/25 16:36 Rivaroxaban 15 Mg Tablet PO 15 mg DAILY@1700 VINEET Administration Sacubitril/Valsartan 1 tab 11/17/25 21:00 11/18/25 20:29 Sacubitril/Valsartan 12-13 Mg Tablet PO 1 tab Q12HR VINEET Administration Sodium Chloride 1 gm 11/12/25 09:00 11/18/25 16:36 Sodium Chloride 1 Gm Tablet PO 1 gm BID VINEET Administration Tramadol HCl 50 mg 11/12/25 04:56 11/18/25 16:34 Tramadol Hcl (*Crx) 50 Mg Tablet PO 50 mg TID PRN Administration pain Tramadol HCl 0 mg 11/12/25 08:50 11/17/25 21:35 Tramadol Hcl (*Crx) 50 Mg Tablet PO 50 mg QID PRN Administration SEVERE PAIN Radiology Results: ITS Impressions Chest X-Ray 11/17/25 16:31 IMPRESSION: 1. Linear discoid atelectasis in the right lower lung zone. No other acute cardiopulmonary disease. 2. Large sliding-type hiatal hernia. 2. Cardiomegaly. Labs Labs: Laboratory Results - last 24 hr 11/19/25 06:12 WBC 8.2 RBC 3.85 L Hgb 12.0 Hct 38.4 MCV 99.7 MCH 31.2 MCHC 31.3 L RDW 15.4 H Plt Count 251 MPV 8.8 Immature Gran % (Auto) 1.0 H Neut % (Auto) 75.0 H Lymph % (Auto) 12.5 L [place] % (Auto) 9.5 H Eos % (Auto) 1.5 Baso % (Auto) 0.5 Lymph # (Auto) 1.03 [place] # (Auto) 0.8 H Eos # (Auto) 0.1 Baso # (Auto) 0.0 Abs Immat Gran (auto) 0.08 H Absolute Neuts (auto) 6.2 Absolute Nucleated RBC 0.000 Nucleated RBC % 0.0 Sodium 136 L Potassium 3.7 Chloride 104 Carbon Dioxide 26 Anion Gap 6 BUN 24 H Creatinine 0.91 Estim Creat Clear Calc 35 Estimated GFR 58 L Glucose 85 Calcium 9.0 Total Bilirubin 0.9 AST 37 H ALT 17 Alkaline Phosphatase 145 H Total Protein 6.2 L Albumin 3.1 L
[2025-11-19] MEDS: ACETAMINOPHEN 325 MG TABLET 650 MG PO ×3 (10:07→18:15)
[2025-11-19] MEDS: SODIUM CHLORIDE 1 GM TABLET PO ×2 (10:07→16:32)
[2025-11-19] MEDS: OMEGA 3 POLYUNSAT FATTY ACIDS 1 GM CAP PO (10:07)
[2025-11-19] MEDS: FERROUS SULFATE 325 MG TABLET PO (10:08)
[2025-11-19] MEDS: guaiFENesin 12 HR 600 MG TABCR PO ×2 (10:08→20:26)
[2025-11-19] MEDS: FUROSEMIDE 40 MG TABLET PO (10:08)
[2025-11-19] MEDS: AZITHROMYCIN 500 MG TABLET PO (10:08)
[2025-11-19] MEDS: LORATADINE 10 MG TABLET PO (10:08)
[2025-11-19] MEDS: SACUBITRIL/VALSARTAN 12-13 MG TABLET 1 TAB PO ×2 (10:08→20:26)
[2025-11-19] MEDS: POTASSIUM CHLORIDE 20 MEQ ER TABLET PO (10:09)
[2025-11-19] MEDS: METOPROLOL SUCCINATE EXT REL 100 MG TABCR PO (10:09)
[2025-11-19] MEDS: MULTIVITAMINS THERAPEUTIC TAB (*BKC) 1 TABLET PO (10:09)
--- NOTE | 2025-11-19 11:22 | PCOTNOTE ---
Per Patient's daughter, no therapy at this time. Patient has had a decline in medical condition and cognition. Patient very confused and lethargic at this time, unable to stay awake or speak at this time. Patient's daughter states her sister in coming and they feel they are going to discharge to hospice.
--- NOTE | 2025-11-19 14:09 | P.PNIM_ITS ---
Assessment and Plan Assessment and Plan (1) Acute exacerbation of CHF (congestive heart failure): Qualifiers: Heart failure type: unspecified Qualified Code(s): I50.9 - Heart failure, unspecified Code(s): I50.9 - Heart failure, unspecified Status: Acute Assessment and Plan: Acute on chronic. On home furosemide 20mg PO daily. Was given 40mg IV in the ED, will continue BID inpt -BNP on admission 9150, repeat 11/14 6940 -She saw her mobility architect manager (Dr. Ariza) for this last week where an echo was obtained which showed ?backup of blood in her heart?. She was started on Entresto which she has not started taking yet as it has not been available at the pharmacy, will assure this is in the works when she gets discharged. -->First dose of Entresto this 11/15, pt reports that she has it filled at the pharmacy and she will set for someone to pick it up -Continue with casper briannaermelinda -Will transition to PO 40mg Lasix tomorrow, she is normally on 20mg PO at home 11/18 card note: Continue metoprolol 100 mg daily for rate control. Cardizem was stopped due to hypotension. She got 1 dose of 0.125 mg of digoxin IV yesterday. This has helped with some heart rate control. Continue to monitor on telemetry Check and replace electrolytes to keep potassium greater than 4 and magnesium greater than 2 Continue rivaroxaban for anticoagulation for AFib Dose of Entresto was decreased due to hypotension. Continue at this dose And empagliflozin 10 mg daily Continue Lasix 40 mg daily Check daily weight, ins and outs, renal function luna is requesting hospice care- care coordination following. will continue tx for now (2) A-fib: Qualifiers: Atrial fibrillation type: unspecified Qualified Code(s): I48.91 - Unspecified atrial fibrillation Code(s): I48.91 - Unspecified atrial fibrillation Status: Acute Assessment and Plan: Continue home metoprolol succ & Xarelto Tele went to afib with RVR around 160, weakness while working with PT/OT HR decreased after rest to 140 n=but remained elevated for about 30 min - pt is on metoprolol requesting to see her mobility architect manager- will consult to ensure pt is on an appropriate for her afib cardiology noteL :Continue metoprolol 100 mg daily for rate control. Cardizem was stopped due to hypotension. She got 1 dose of 0.125 mg of digoxin IV yesterday. This has helped with some heart rate control. Continue to monitor on telemetry Check and replace electrolytes to keep potassium greater than 4 and magnesium greater than 2 Continue rivaroxaban for anticoagulation for AFib Dose of Entresto was decreased due to hypotension. Continue at this dose And empagliflozin 10 mg daily Continue Lasix 40 mg daily Check daily weight, ins and outs, renal function hr 70-100 (3) Chronic kidney disease: Qualifiers: Chronic kidney disease stage: stage 3 (moderate) Chronic kidney disease stage 3 subtype: stage 3a (GFR 45-59) Qualified Code(s): N18.31 - Chronic kidney disease, stage 3a Code(s): N18.9 - Chronic kidney disease, unspecified Status: Acute Assessment and Plan: No current IVON, will continue to trend labs with Lasix 40mg IV daily on board. -BUN at baseline (4) Pneumonia: Code(s): J18.9 - Pneumonia, unspecified organism Status: Acute Assessment and Plan: Pt had been at [facility] prior to arrival here for therapy, likely HAP Progressively not feeling better, lungs with diffuse rales and wheezing worse throughout today CXR 11/14 yielding potential new developing bibasilar PNA -MRSA swab obtained today, pending -Cefepime & azithromycin started 11/15 (vanc discontinued due to negative MRSA) -Guaifenesin for cough -Incentive spirometry -WBC 12.6 today, likely due to PNA, continue to trend -VSS -Lungs sounding considerably better today continue regimen remains on ra, is, ambulation Plan Continue with PNA tx, diuresis for CHF, and sx management due to volume overload. Lisinopril to Entresto change starting 11/14. Medical Record Review I have reviewed the following patient records and this information was taken into consideration when formulating the assessment and plan.: previous labs Time Spent With Patient Time with patient: Greater than 35 minutes Subjective Date/time seen: 11/19/25 14:10 Interval history: Pt is seen and examined. Care coordination following to help set up hospice care for discharge. Daughter at the bedside, plan of care discussed. Pt is calm and quite. Denies any pain, confused this morning. Review of Systems Review of Systems: All systems reviewed & are unremarkable except as noted in HPI and below Exam 2 Narrative: resting in bed, calm and quite Const: General: comfortable and no acute distress HENMT: Face/Nose/Sinus: Normal nares present Mouth: Yes moist mucous membranes Eyes: General: appearance normal, both eyes and all related structures Sclera: sclerae normal Pupils: Equal, round and reactive pupils present EOM: EOMs intact bilaterally Neck: Neck: supple Carotids: no bruits Resp: Effort & Inspection: normal respiratory effort Auscultation: clear to auscultation bilaterally, rales diffuse and wheezes expiratory wheezes, left upper and right upper Other: Lungs sounding considerably better today Cardio: Rate: regular rate Rhythm: abnormal rhythm regularly irregular Other: Tele afib 78 bpm GI: Inspection: non-distended Auscultation: normal bowel sounds : General: Yes bladder normal to palpation Bimanual exam- vagina & uterus: bladder normal to palpation Skin: General skin exam: normal color Other: R FA lateral aspect small skin tear with bandage applied Neuro: Cranial nerves: Yes Equal, round and reactive pupils present Speech: normal speech Motor exam (neuro): 5/5 motor strength present throughout and Normal motor muscle tone present throughout Sensory Exam: normal sensation Other: confused this morning Extrem: General: normal exam except as noted Other: BLE ankles and below trace edema Psych: Mental Status: mental status grossly normal Affect: normal affect Objective Data Vital Signs Vital Signs: Vital Signs - 24 hr 11/18/25 16:00 11/18/25 20:00 11/18/25 20:00 Temperature Pulse Rate 111 H 96 Respiratory Rate Blood Pressure Pulse Oximetry Oxygen Delivery Room Air 11/18/25 21:56 11/19/25 00:00 11/19/25 04:00 Temperature 97.0 F L Pulse Rate 89 95 90 Respiratory Rate 20 Blood Pressure 124/83 Pulse Oximetry 93 Oxygen Delivery 11/19/25 05:05 11/19/25 08:00 11/19/25 14:00 Temperature 97.7 F 99.6 F Pulse Rate 85 93 76 Respiratory Rate 24 H 19 Blood Pressure 126/88 111/66 Pulse Oximetry 100 100 Oxygen Delivery Intake/Output Intake/Output: Intake & Output 11/16/25 11/17/25 11/18/25 11/19/25 23:59 23:59 23:59 23:59 Intake Total 958 1740 1070 150 Output Total 9168 076 8706 450 Balance -292 1540 -380 -300 Meds/Results Medications: Active Medications Generic Name Dose Route Start Last Admin Trade Name Freq PRN Reason Stop Dose Admin Acetaminophen 650 mg 11/12/25 04:56 11/19/25 10:07 Acetaminophen 325 Mg Tablet PO 650 mg Q4H PRN Administration Mild Pain (1-3) or Fever Acetaminophen 325 mg 11/12/25 09:17 11/17/25 21:33 Acetaminophen 325 Mg Tablet PO 325 mg QID PRN Administration SEVERE PAIN Albuterol 2 puff 11/14/25 02:42 Albuterol Sulfate (*Sp) Aerosol 1 Puff INHALATION Q6HRT PRN Shortness Of Breath Amoxicillin/Clavulanate Potassium 1 tablet 11/18/25 09:30 11/19/25 10:09 Amoxicillin/Clavulanate K 875-125 Mg Tab PO 11/21/25 21:01 1 tablet Q12HR VINEET Administration Artificial Tears 1 drop 11/12/25 10:14 Artificial Tears Ophth Soln 15 Ml Bottle EACH EYE QID PRN dry eye Diltiazem HCl 60 mg 11/20/25 09:00 Diltiazem Hcl Cd 120 Mg Cap.24hr PO QAM VINEET Ferrous Sulfate 325 mg 11/12/25 09:00 11/19/25 10:08 Ferrous Sulfate 325 Mg Tablet PO 12/12/25 08:59 325 mg DAILY VINEET Administration Fish Oil 1 gm 11/13/25 09:00 11/19/25 10:07 [place] 3 Polyunsat Fatty Acids 1 Gm Cap PO 1 gm DAILY VINEET Administration Furosemide 40 mg 11/17/25 09:00 11/19/25 10:08 Furosemide 40 Mg Tablet PO 40 mg DAILY VINEET Administration Guaifenesin 600 mg 11/15/25 09:25 11/19/25 10:08 Guaifenesin 12 Hr 600 Mg Tabcr PO 600 mg Q12HR VINEET Administration Loratadine 10 mg 11/15/25 12:20 11/19/25 10:08 Loratadine 10 Mg Tablet PO 10 mg QAM VINEET Administration Melatonin 3 mg 11/12/25 21:00 11/18/25 20:30 Melatonin 3 Mg Tablet PO 3 mg HS VINEET Administration Metoprolol Succinate 100 mg 11/12/25 09:00 11/19/25 10:09 Metoprolol Succinate Ext Rel 100 Mg Tabcr PO 100 mg DAILY VINEET Administration Multivitamins Therapeutic 1 tablet 11/13/25 09:00 11/19/25 10:09 Multivitamins Therapeutic Tab (*Bkc) PO 1 tablet DAILY VINEET Administration Ondansetron HCl 4 mg 11/12/25 10:14 11/12/25 12:34 Ondansetron Hcl Odt 4 Mg Tablet PO 4 mg BID PRN Administration Nausea And Vomiting Polyethylene Glycol 17 gm 11/12/25 10:14 Polyethylene Glycol 3350 17 Gm Powd.Pack PO DAILY PRN Constipation Potassium Chloride 20 meq 11/12/25 09:00 11/19/25 10:09 Potassium Chloride 20 Meq Er Tablet PO 20 meq DAILY [facility] Administration Psyllium Hydrophilic Mucilloid 1 packet 11/12/25 17:00 11/18/25 16:34 Psyllium Powder Packet PO Not Given BID [facility] Rivaroxaban 15 mg 11/12/25 17:00 11/18/25 16:36 Rivaroxaban 15 Mg Tablet PO 15 mg DAILY@1700 VINEET Administration Sacubitril/Valsartan 1 tab 11/17/25 21:00 11/19/25 10:08 Sacubitril/Valsartan 12-13 Mg Tablet PO 1 tab Q12HR VINEET Administration Sodium Chloride 1 gm 11/12/25 09:00 11/19/25 10:07 Sodium Chloride 1 Gm Tablet PO 1 gm BID VINEET Administration Tramadol HCl 50 mg 11/12/25 04:56 11/18/25 16:34 Tramadol Hcl (*Crx) 50 Mg Tablet PO 50 mg TID PRN Administration pain Tramadol HCl 0 mg 11/12/25 08:50 11/17/25 21:35 Tramadol Hcl (*Crx) 50 Mg Tablet PO 50 mg QID PRN Administration SEVERE PAIN Radiology Results: ITS Impressions Chest X-Ray 11/17/25 16:31 IMPRESSION: 1. Linear discoid atelectasis in the right lower lung zone. No other acute c ardiopulmonary disease. 2. Large sliding-type hiatal hernia. 2. Cardiomegaly. Labs Labs: Laboratory Results - last 24 hr 11/19/25 06:12 WBC 8.2 RBC 3.85 L Hgb 12.0 Hct 38.4 MCV 99.7 MCH 31.2 MCHC 31.3 L RDW 15.4 H Plt Count 251 MPV 8.8 Immature Gran % (Auto) 1.0 H Neut % (Auto) 75.0 H Lymph % (Auto) 12.5 L [place] % (Auto) 9.5 H Eos % (Auto) 1.5 Baso % (Auto) 0.5 Lymph # (Auto) 1.03 [place] # (Auto) 0.8 H Eos # (Auto) 0.1 Baso # (Auto) 0.0 Abs Immat Gran (auto) 0.08 H Absolute Neuts (auto) 6.2 Absolute Nucleated RBC 0.000 Nucleated RBC % 0.0 Sodium 136 L Potassium 3.7 Chloride 104 Carbon Dioxide 26 Anion Gap 6 BUN 24 H Creatinine 0.91 Estim Creat Clear Calc 35 Estimated GFR 58 L Glucose 85 Calcium 9.0 Total Bilirubin 0.9 AST 37 H ALT 17 Alkaline Phosphatase 145 H Total Protein 6.2 L Albumin 3.1 L Quality VTE Prophylaxis VTE prophylaxis: pharmacologic ordered (home xarelto)
[2025-11-19] MEDS: traMADol HCL (*CRX) 50 MG TABLET PO ×2 (15:19→18:14)
[2025-11-19] MEDS: RIVAROXABAN 15 MG TABLET PO (16:32)
[2025-11-19] MEDS: MELATONIN 3 MG TABLET PO (20:26)
[2025-11-20] VITALS (9 sets, daily range): BP systolic 98–116; BP diastolic 60–66; PULSE 80–101; RESP 20–24; TEMP 36–36.1; O2SAT 95–97
[2025-11-20] MEDS: ACETAMINOPHEN 325 MG TABLET PO (00:02)
[2025-11-20] MEDS: traMADol HCL (*CRX) 50 MG TABLET PO ×2 (00:02→14:06)
[2025-11-20 05:44] LABS: Hematocrit 35.8 % (37.0-47.0); Hemoglobin 11.1 g/dL (12.0-15.0); Immature Granulocyte Percent A 1.3 % (0-0.5); Lymphocytes Absolute Auto 1.27 K/mm3 (0.9-3.2); Mean Corpuscular HGB Conc 31.0 g/dl (32-36); Mean Corpuscular Hemoglobin 30.6 pg (26-34); Mean Corpuscular Volume 98.6 fl (80-100); Nucleated Red Blood Cells Absolute Auto 0.000 K/mm3 (0.0-0.012); Nucleated Red Blood Cells Perc 0.0 % (0.0-0.2); Platelet Count Result 261 k/mm3 (150-375); Red Blood Count 3.63 M/mm3 (4.2-5.4); White Blood Count 9.2 K/mm3 (4.5-10.0)
[2025-11-20 06:15] LABS: Alanine Aminotransferase 17 U/L (6-35); Albumin Level 2.8 g/dL (3.5-5.1); Alkaline Phosphatase 127 U/L (38-126); Anion Gap 4 mmol/L (4-12); Aspartate Amino Transferase 26 U/L (14-36); Bilirubin,Total 0.5 mg/dL (0.2-1.3); Blood Urea Nitrogen 30 mg/dL (7-17); Calcium 8.6 mg/dL (8.4-10.2); Carbon Dioxide 26 mmol/L (22-30); Chloride 105 mmol/L (98-107); Estimated CRCL calculation 33 ml/min; Estimated Glomerular Filt Rate 54; Glucose 126 mg/dL (65-110); Potassium 3.7 mmol/L (3.4-5.0); Sodium 135 mmol/L (137-145); Total Protein 5.7 g/dL (6.3-8.2)
[2025-11-20] MEDS: PSYLLIUM POWDER PACKET 1 PACKET PO ×2 (07:48→17:30)
[2025-11-20] MEDS: POTASSIUM CHLORIDE 20 MEQ ER TABLET PO (07:48)
[2025-11-20] MEDS: FERROUS SULFATE 325 MG TABLET PO (07:48)
[2025-11-20] MEDS: LORATADINE 10 MG TABLET PO (07:48)
[2025-11-20] MEDS: FUROSEMIDE 40 MG TABLET PO (07:49)
[2025-11-20] MEDS: SODIUM CHLORIDE 1 GM TABLET PO ×2 (07:49→17:30)
[2025-11-20] MEDS: SACUBITRIL/VALSARTAN 12-13 MG TABLET 1 TAB PO (07:49)
[2025-11-20] MEDS: MULTIVITAMINS THERAPEUTIC TAB (*BKC) 1 TABLET PO (07:49)
[2025-11-20] MEDS: METOPROLOL SUCCINATE EXT REL 100 MG TABCR PO (07:49)
[2025-11-20] MEDS: guaiFENesin 12 HR 600 MG TABCR PO (07:50)
[2025-11-20] MEDS: OMEGA 3 POLYUNSAT FATTY ACIDS 1 GM CAP PO (07:50)
--- NOTE | 2025-11-20 10:31 | PM.IMPN2 ---
Assessment and Plan Assessment and Plan (1) Acute exacerbation of CHF (congestive heart failure): Qualifiers: Heart failure type: unspecified Qualified Code(s): I50.9 - Heart failure, unspecified Code(s): I50.9 - Heart failure, unspecified Status: Acute Assessment and Plan: Acute on chronic. On home furosemide 20mg PO daily. Was given 40mg IV in the ED, will continue BID inpt -BNP on admission 9150, repeat 11/14 6940 -She saw her perforator loader (Dr. Ariza) for this last week where an echo was obtained which showed ?backup of blood in her heart?. She was started on Entresto which she has not started taking yet as it has not been available at the pharmacy, will assure this is in the works when she gets discharged. -->First dose of Entresto this 11/15, pt reports that she has it filled at the pharmacy and she will set for someone to pick it up -Continue with casper willingham -Will transition to PO 40mg Lasix tomorrow, she is normally on 20mg PO at home 11/18 card note: Continue metoprolol 100 mg daily for rate control. Cardizem was stopped due to hypotension. She got 1 dose of 0.125 mg of digoxin IV yesterday. This has helped with some heart rate control. Continue to monitor on telemetry Check and replace electrolytes to keep potassium greater than 4 and magnesium greater than 2 Continue rivaroxaban for anticoagulation for AFib Dose of Entresto was decreased due to hypotension. Continue at this dose And empagliflozin 10 mg daily Continue Lasix 40 mg daily Check daily weight, ins and outs, renal function care coordination following for hospice care set up. will continue tx for now -cardiology following ofr now for afib/chf tx/mngmnt (2) A-fib: Qualifiers: Atrial fibrillation type: unspecified Qualified Code(s): I48.91 - Unspecified atrial fibrillation Code(s): I48.91 - Unspecified atrial fibrillation Status: Acute Assessment and Plan: Continue home metoprolol succ & Xarelto Tele went to afib with RVR around 160, weakness while working with PT/OT HR decreased after rest to 140 n=but remained elevated for about 30 min - pt is on metoprolol requesting to see her perforator loader- will consult to ensure pt is on an appropriate for her afib cardiology noteL :Continue metoprolol 100 mg daily for rate control. Cardizem was stopped due to hypotension. She got 1 dose of 0.125 mg of digoxin IV yesterday. This has helped with some heart rate control. Continue to monitor on telemetry Check and replace electrolytes to keep potassium greater than 4 and magnesium greater than 2 Continue rivaroxaban for anticoagulation for AFib Dose of Entresto was decreased due to hypotension. Continue at this dose And empagliflozin 10 mg daily Continue Lasix 40 mg daily Check daily weight, ins and outs, renal function hr 70-100 cardiology following remains stable (3) Chronic kidney disease: Qualifiers: Chronic kidney disease stage: stage 3 (moderate) Chronic kidney disease stage 3 subtype: stage 3a (GFR 45-59) Qualified Code(s): N18.31 - Chronic kidney disease, stage 3a Code(s): N18.9 - Chronic kidney disease, unspecified Status: Acute Assessment and Plan: No current IVON, will continue to trend labs with Lasix 40mg IV daily on board. -BUN at baseline (4) Pneumonia: Code(s): J18.9 - Pneumonia, unspecified organism Status: Acute Assessment and Plan: Pt had been at [facility] prior to arrival here for therapy, likely HAP Progressively not feeling better, lungs with diffuse rales and wheezing worse throughout today CXR 11/14 yielding potential new developing bibasilar PNA -MRSA swab obtained today, pending -Cefepime & azithromycin started 11/15 (vanc discontinued due to negative MRSA) -Guaifenesin for cough -Incentive spirometry -WBC 12.6 today, likely due to PNA, continue to trend -VSS -Lungs sounding considerably better today continue regimen remains on ra, is, ambulation Plan Continue with PNA tx, diuresis for CHF, and sx management due to volume overload. Lisinopril to Entresto change starting 11/14. Medical Record Review I have reviewed the following patient records and this information was taken into consideration when formulating the assessment and plan.: previous labs Time Spent With Patient Time with patient: Greater than 35 minutes Subjective Date/time seen: 11/20/25 10:31 Interval history: Pt is seen and examined. Care coordination following to help set up hospice care for discharge. Pt is calm , remains confused. Appears in no acute distress. Review of Systems Review of Systems: All systems reviewed & are unremarkable except as noted in HPI and below Exam Narrative: resting in bed, calm and quite, frail Const: General: no acute distress HENMT: Face/Nose/Sinus: Normal nares present Eyes: General: appearance normal, both eyes and all related structures Sclera: sclerae normal Pupils: Equal, round and reactive pupils present EOM: EOMs intact bilaterally Neck: Neck: supple Carotids: no bruits Resp: Effort & Inspection: normal respiratory effort Auscultation: clear to auscultation bilaterally Other: coarse bilaterally Cardio: Rate: regular rate Rhythm: abnormal rhythm regularly irregular Other: afib GI: Inspection: non-distended GI Palp: Yes Soft to palpation Auscultation: normal bowel sounds : General: Yes bladder normal to palpation Bimanual exam- vagina & uterus: bladder normal to palpation Skin: General skin exam: normal color Other: R FA lateral aspect small skin tear with bandage applied Neuro: Cranial nerves: Yes Equal, round and reactive pupils present Motor exam (neuro): 5/5 motor strength present throughout Other: confused Extrem: General: normal exam except as noted Other: BLE ankles and below trace edema Psych: Affect: Blunted affect present Objective Data Vital Signs Vital Signs: Vital Signs - 24 hr 11/19/25 12:00 11/19/25 14:00 11/19/25 20:00 Temperature 99.6 F Pulse Rate 97 76 95 Respiratory Rate 19 Blood Pressure 111/66 Pulse Oximetry 100 Oxygen Delivery 11/19/25 20:25 11/19/25 21:00 11/20/25 00:00 Temperature 97.3 F L Pulse Rate 106 H 97 Respiratory Rate 22 H Blood Pressure Pulse Oximetry 93 Oxygen Delivery Room Air 11/20/25 01:22 11/20/25 04:00 11/20/25 05:54 Temperature 97.0 F L Pulse Rate 90 101 H Respiratory Rate 24 H Blood Pressure 109/65 98/66 L Pulse Oximetry 95 Oxygen Delivery 11/20/25 07:45 11/20/25 07:49 Temperature Pulse Rate 80 Respiratory Rate Blood Pressure Pulse Oximetry Oxygen Delivery Room Air Intake/Output Intake/Output: Intake & Output 11/17/25 11/18/25 11/19/25 11/20/25 23:59 23:59 23:59 23:59 Intake Total 1740 1070 400 150 Output Total 200 1450 900 100 Balance 1540 -380 -500 50 Meds/Results Medications: Active Medications Generic Name Dose Route Start Last Admin Trade Name Freq PRN Reason Stop Dose Admin Acetaminophen 650 mg 11/12/25 04:56 11/19/25 18:15 Acetaminophen 325 Mg Tablet PO 325 mg Q4H PRN Administration Mild Pain (1-3) or Fever Acetaminophen 325 mg 11/12/25 09:17 11/20/25 00:02 Acetaminophen 325 Mg Tablet PO 325 mg QID PRN Administration SEVERE PAIN Albuterol 2 puff 11/14/25 02:42 Albuterol Sulfate (*Sp) Aerosol 1 Puff INHALATION Q6HRT PRN Shortness Of Breath Amoxicillin/Clavulanate Potassium 1 tablet 11/18/25 09:30 11/20/25 07:49 Amoxicillin/Clavulanate K 875-125 Mg Tab PO 11/21/25 21:01 1 tablet Q12HR VINEET Administration Artificial Tears 1 drop 11/12/25 10:14 Artificial Tears Ophth Soln 15 Ml Bottle EACH EYE QID PRN dry eye Diltiazem HCl 60 mg 11/20/25 09:00 Diltiazem Hcl Cd 120 Mg Cap.24hr PO QAM VINEET Ferrous Sulfate 325 mg 11/12/25 09:00 11/20/25 07:48 Ferrous Sulfate 325 Mg Tablet PO 12/12/25 08:59 325 mg DAILY VINEET Administration Fish Oil 1 gm 11/13/25 09:00 11/20/25 07:50 [place] 3 Polyunsat Fatty Acids 1 Gm Cap PO 1 gm DAILY VINEET Administration Furosemide 40 mg 11/17/25 09:00 11/20/25 07:49 Furosemide 40 Mg Tablet PO 40 mg DAILY VINEET Administration Guaifenesin 600 mg 11/15/25 09:25 11/20/25 07:50 Guaifenesin 12 Hr 600 Mg Tabcr PO 600 mg Q12HR VINEET Administration Loratadine 10 mg 11/15/25 12:20 11/20/25 07:48 Loratadine 10 Mg Tablet PO 10 mg QAM VINEET Administration Melatonin 3 mg 11/12/25 21:00 11/19/25 20:26 Melatonin 3 Mg Tablet PO 3 mg HS VINEET Administration Metoprolol Succinate 100 mg 11/12/25 09:00 11/20/25 07:49 Metoprolol Succinate Ext Rel 100 Mg Tabcr PO 100 mg DAILY VINEET Administration Multivitamins Therapeutic 1 tablet 11/13/25 09:00 11/20/25 07:49 Multivitamins Therapeutic Tab (*Bkc) PO 1 tablet DAILY VINEET Administration Ondansetron HCl 4 mg 11/12/25 10:14 11/12/25 12:34 Ondansetron Hcl Odt 4 Mg Tablet PO 4 mg BID PRN Administration Nausea And Vomiting Polyethylene Glycol 17 gm 11/12/25 10:14 Polyethylene Glycol 3350 17 Gm Powd.Pack PO DAILY PRN Constipation Potassium Chloride 20 meq 11/12/25 09:00 11/20/25 07:48 Potassium Chloride 20 Meq Er Tablet PO 20 meq DAILY VINEET Administration Psyllium Hydrophilic Mucilloid 1 packet 11/12/25 17:00 11/20/25 07:48 Psyllium Powder Packet PO 1 packet BID VINEET Administration Rivaroxaban 15 mg 11/12/25 17:00 11/19/25 16:32 Rivaroxaban 15 Mg Tablet PO 15 mg DAILY@1700 [facility] Administration Sacubitril/Valsartan 1 tab 11/17/25 21:00 11/20/25 07:49 Sacubitril/Valsartan 12-13 Mg Tablet PO 1 tab Q12HR VINEET Administration Sodium Chloride 1 gm 11/12/25 09:00 11/20/25 07:49 Sodium Chloride 1 Gm Tablet PO 1 gm BID VINEET Administration Tramadol HCl 50 mg 11/12/25 04:56 11/19/25 15:19 Tramadol Hcl (*Crx) 50 Mg Tablet PO 50 mg TID PRN Administration pain Tramadol HCl 0 mg 11/12/25 08:50 11/20/25 00:02 Tramadol Hcl (*Crx) 50 Mg Tablet PO 50 mg QID PRN Administration SEVERE PAIN Radiology Results: ITS Impressions Chest X-Ray 11/17/25 16:31 IMPRESSION: 1. Linear discoid atelectasis in the right lower lung zone. No other acute cardiopulmonary disease. 2. Large sliding-type hiatal hernia. 2. Cardiomegaly. Labs Labs: Laboratory Results - last 24 hr 11/20/25 05:25 WBC 9.2 RBC 3.63 L Hgb 11.1 L Hct 35.8 L MCV 98.6 MCH 30.6 MCHC 31.0 L RDW 15.1 H Plt Count 261 MPV 8.9 Immature Gran % (Auto) 1.3 H Neut % (Auto) 73.9 H Lymph % (Auto) 13.8 L [place] % (Auto) 8.8 H Eos % (Auto) 1.7 Baso % (Auto) 0.5 Lymph # (Auto) 1.27 [place] # (Auto) 0.8 H Eos # (Auto) 0.2 Baso # (Auto) 0.1 Abs Immat Gran (auto) 0.12 H Absolute Neuts (auto) 6.8 H Absolute Nucleated RBC 0.000 Nucleated RBC % 0.0 Sodium 135 L Potassium 3.7 Chloride 105 Carbon Dioxide 26 Anion Gap 4 BUN 30 H Creatinine 0.97 Estim Creat Clear Calc 33 Estimated GFR 54 L Glucose 126 H Calcium 8.6 Total Bilirubin 0.5 AST 26 ALT 17 Alkaline Phosphatase 127 H Total Protein 5.7 L Albumin 2.8 L Quality VTE Prophylaxis VTE prophylaxis: pharmacologic ordered (home xarelto)
--- NOTE | 2025-11-20 14:25 | PCPTNOTE ---
Per nursing, patient is hospice.
--- NOTE | 2025-11-20 14:26 | P.DS_ITS ---
DS: Admitting Diagnosis Discharge Date 11/20 Admitting Diagnosis sob, weakness DS: Discharge Diagnosis Discharge Diagnosis (1) Acute exacerbation of CHF (congestive heart failure): Qualifiers: Heart failure type: unspecified Qualified Code(s): I50.9 - Heart failure, unspecified Code(s): I50.9 - Heart failure, unspecified Status: Acute Assessment and Plan: A (2) A-fib: Qualifiers: Atrial fibrillation type: unspecified Qualified Code(s): I48.91 - Unspecified atrial fibrillation Code(s): I48.91 - Unspecified atrial fibrillation Status: Acute (3) Chronic kidney disease: Qualifiers: Chronic kidney disease stage: stage 3 (moderate) Chronic kidney disease stage 3 subtype: stage 3a (GFR 45-59) Qualified Code(s): N18.31 - Chronic kidney disease, stage 3a Code(s): N18.9 - Chronic kidney disease, unspecified Status: Acute (4) Pneumonia: Code(s): J18.9 - Pneumonia, unspecified organism Status: Acute DS: Summary Hospital Course Hospital Course: Pt to the ED on 11/11 afternoon c/o SOB, intermittent CP, BEAR, BLE edema, and nocturnal orthopnea x few days. Pt with a hx of CHF on home furosemide 20mg PO daily. Upon my examination today, pt reports feeling a lot better in terms of SOB and BLE edema than she did yesterday. Denies N/V/D or any other sx. She denies BEAR or orthopnea but she has not participated in much activity or lied flat since admission. 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 Restart small dose of cardizem 60 mg po daily if SBP>110mm Hg Check and replace electrolytes to keep potassium greater than 4 and magnesium greater than 2 Continue rivaroxaban for anticoagulation for AFib Dose of Entresto was decreased due to hypotension. Continue at this dose And empagliflozin 10 mg daily Continue Lasix 40 mg daily Check daily weight, ins and outs, renal function Management of other medical problems per primary team # pneumonia Pt had been at [place] prior to arrival here for therapy, likely HAP Progressively not feeling better, lungs with diffuse rales and wheezing worse throughout today CXR 11/14 yielding potential new developing bibasilar PNA -MRSA swab obtained today, pending -Cefepime & azithromycin started 11/15 (vanc discontinued due to negative MRSA)- completed zithromax and downgraded to PO augmentin - needs total of 3 more doses to complete the course. -Guaifenesin for cough Pt and daughter decided to pursue hospice due to pt not improving and overall health condition. Care coordination was contacted and care was arranged for [facility] discharge with hospice care. Status at Discharge Functional status at discharge: wheelchair bound Overall status at discharge: other Time Spent with Patient Time attestation: Total time spent providing and/or coordinating discharge services: Time spent: Greater than 30 minutes Exam Narrative: resting in bed, calm and quite, frail Const: General: comfortable HENMT: Face/Nose/Sinus: Normal nares present Mouth: Yes moist mucous membranes Eyes: General: appearance normal, both eyes and all related structures Sclera: sclerae normal Pupils: Equal, round and reactive pupils present EOM: EOMs intact bilaterally Neck: Neck: supple Carotids: no bruits Resp: Effort & Inspection: normal respiratory effort Auscultation: clear to auscultation bilaterally, rales diffuse and wheezes expiratory wheezes, left upper and right upper Other: coarse bilaterally Cardio: Rate: regular rate Rhythm: abnormal rhythm regularly irregular Other: afib GI: Inspection: non-distended Auscultation: normal bowel sounds : General: Yes bladder normal to palpation Bimanual exam- vagina & uter us: bladder normal to palpation Skin: General skin exam: normal color Other: R FA lateral aspect small skin tear with bandage applied Neuro: Cranial nerves: Yes Equal, round and reactive pupils present Speech: normal speech Motor exam (neuro): 5/5 motor strength present throughout and Normal motor muscle tone present throughout Sensory Exam: normal sensation Other: confused Extrem: General: normal exam except as noted Other: BLE ankles and below trace edema Psych: Mental Status: mental status grossly normal Affect: normal affect, Irritable affect present and Blunted affect present DS: Data Data Completed and Pending Labs on day of discharge: Labs from last 24 hours 11/20/25 05:25 WBC 9.2 RBC 3.63 L Hgb 11.1 L Hct 35.8 L MCV 98.6 MCH 30.6 MCHC 31.0 L RDW 15.1 H Plt Count 261 MPV 8.9 Immature Gran % (Auto) 1.3 H Neut % (Auto) 73.9 H Lymph % (Auto) 13.8 L [place] % (Auto) 8.8 H Eos % (Auto) 1.7 Baso % (Auto) 0.5 Lymph # (Auto) 1.27 [place] # (Auto) 0.8 H Eos # (Auto) 0.2 Baso # (Auto) 0.1 Abs Immat Gran (auto) 0.12 H Absolute Neuts (auto) 6.8 H Absolute Nucleated RBC 0.000 Nucleated RBC % 0.0 Sodium 135 L Potassium 3.7 Chloride 105 Carbon Dioxide 26 Anion Gap 4 BUN 30 H Creatinine 0.97 Estim Creat Clear Calc 33 Estimated GFR 54 L Glucose 126 H Calcium 8.6 Total Bilirubin 0.5 AST 26 ALT 17 Alkaline Phosphatase 127 H Total Protein 5.7 L Albumin 2.8 L Discharge Plan Discharge Attending physician on discharge: Chase Alfaro Consulting providers: Aviva Mcallister; Allison Gregorio Discharging Clinician: Bushra Campbell Patient Disposition: Hospice - Medical Facility Activity: april shower Diet: as tolerated and regular Discharge Instructions: Further medical mngmnt per [facility] Patient Instructions: Rivaroxaban (By mouth) Patient Language: Slovak Stand Alone Forms: General Discharge Information Discharge Medications: New sacubitril-valsartan [Entresto] 24-26 mg Tablet 1 tab PO Q12HR Qty: 12 0RF amoxicillin-pot clavulanate 875-125 mg tablet 1 tablet PO Q12H Qty: 3 0RF diltiazem HCl 120 mg Capsule,Extended Release 24 Hr 60 mg PO QAM Qty: 10 0RF Continued cyanocobalamin (vitamin B-12) [Vitamin B-12] 1,000 mcg tablet extended release 1,000 mcg PO DAILY ferrous sulfate 325 mg (65 mg iron) tablet 325 mg PO DAILY omega-3 fatty acids 1,000 mg capsule 1,000 mg PO DAILY multivitamin Tablet 1 tablet PO DAILY Colace Clear 50 mg capsule 50 mg PO DAILY cholecalciferol (vitamin D3) 25 mcg (1,000 unit) capsule 1,000 unit PO DAILY Metamucil 3.4 gram/5.4 gram powder 1 tbsp PO BID Rx Instructions: mix into at least 8 oz of water or juice before administering tramadol 50 mg tablet 50 mg PO .COMPLEX PRN (Reason: pain) Qty: 200 5RF Rx Instructions: 50 mg orally take 1 or 2 tablets with acetaminophen 325 mg q.i.d. p.r.n. severe pain acetaminophen [Aminofen] 325 mg tablet 650 mg PO TID Patient Comments: give with scheduled tramadol Q8 psyllium husk [Daily Fiber] 0.52 gram capsule 0.52 g PO BID artificial tears(hypromellose) 0.3 % drops 1 drp EACH EYE QID PRN (Reason: dry eye) melatonin 3 mg capsule 3 mg PO HS polyethylene glycol 3350 [ClearLax] 17 gram powder in packet 17 g PO DAILY PRN (Reason: constipation) metoprolol succinate 100 mg tablet extended release 24 hr 100 mg PO DAILY sodium chloride 1,000 mg tablet,soluble 1,000 mg PO BID diltiazem HCl 180 mg capsule,extended release 24 hr 180 mg PO DAILY potassium chloride 20 mEq tablet extended release 20 meq PO DAILY Xarelto 15 mg tablet 15 mg PO DAILY ondansetron 4 mg tablet,disintegrating 4 mg PO BID PRN (Reason: nausea and vomiting) Qty: 10 0RF furosemide 20 mg tablet 20 mg PO .COMPLEX Qty: 180 3RF Rx Instructions: 20 mg orally One or 2 tablets each morning; Discontinued lisinopril 40 mg tablet 40 mg PO DAILY Date of admission: 11/11/25 21:50 Primary Care Provider: Patricio Travis Admitting Provider: Caren Alvarado Attending physician on admission: Caren Alvarado Condition: Guarded Prognosis Quality VTE Prophylaxis VTE prophylaxis: pharmacologic ordered (home xarelto)
[2025-11-20] MEDS: RIVAROXABAN 15 MG TABLET PO (17:30)
== END 2025-11-20 18:34 | disposition hospice, inpatient (51) | DRG 291 ==
LOC: ANHED 19:15 → ANH3MEDSUR 23:33
PROVIDERS: Emergency Medicine; Admitting Provider Internal Medicine; Emergency Provider Student in an Organized Health Care Education/Training Program; PCP Family Medicine; Visit Provider Internal Medicine
DX: I13.0 Hypertensive heart and chronic kidney disease with heart failure and stage 1 through stage 4 chronic kidney disease, or unspecified chronic kidney disease (principal); I50.33 Acute on chronic diastolic (congestive) heart failure; J18.9 Pneumonia, unspecified organism; E87.1 Hypo-osmolality and hyponatremia; I48.20 Chronic atrial fibrillation, unspecified; N18.31 Chronic kidney disease, stage 3a; I07.1 Rheumatic tricuspid insufficiency; I34.0 Nonrheumatic mitral (valve) insufficiency; E78.2 Mixed hyperlipidemia; M48.062 Spinal stenosis, lumbar region with neurogenic claudication; Z86.16 Personal history of COVID-19; Z85.828 Personal history of other malignant neoplasm of skin; Z90.49 Acquired absence of other specified parts of digestive tract; Z90.722 Acquired absence of ovaries, bilateral; Z90.711 Acquired absence of uterus with remaining cervical stump
CPT/HCPCS: 36415; 71045; 71046; 80053; 83880; 84484; 85025; 85610; 85730; 87641; 93005; 94640; 96374; 97110; 97162; 97166; 97530; 99285; A9270; J0456; J0692; J1160; J1938; J3373; J7050